=== PATIENT | female | born 1940 | race Caucasian/White ===

== ENCOUNTER → 2018-02-23 09:36 | Outpatient (POV) | payer MEDICARE, MEDICAID, SELFPAY | PROVIDERS: Visit Provider Dermatology | DX: Z00.00 Encounter for general adult medical examination without abnormal findings (principal) ==

== ENCOUNTER → 2018-03-09 09:33 | Outpatient (POV) | payer MEDICARE, MEDICAID, SELFPAY | PROVIDERS: Visit Provider Dermatology | DX: Z00.00 Encounter for general adult medical examination without abnormal findings (principal) ==

== ENCOUNTER → 2018-03-30 14:29 | Outpatient (POV) | payer MEDICARE, MEDICAID, SELFPAY | PROVIDERS: Visit Provider Dermatology | DX: Z00.00 Encounter for general adult medical examination without abnormal findings (principal) ==

== ENCOUNTER → 2018-07-16 09:52 | Outpatient (CLI) | payer MEDICARE, MEDICAID, SELFPAY ==
[2018-07-16 09:55] LABS: Microscopic, Urine URINE MICROSCOPIC (MICROSCOPIC)
[2018-07-16 10:07] LABS: Appearance,Urine CLEAR (Clear); Bilirubin,Urine Negative (Negative); Blood, Urine Negative (Negative); Color,Urine YELLOW (Yellow); Glucose,Urine (UA) Negative (Negative); Ketones,Urine Negative (Negative); Leukocyte Esterase,Urine Negative (Negative); Nitrate,Urine Negative (Negative); Protein,Urine Negative (Negative); Urobilinogen,Urine 0.2 EU/dl (0.2)
[2018-07-16 10:51] LABS: Bacteria,Urine 2+ /lpf
== END ==
PROVIDERS: Visit Provider Emergency Medicine
DX: N39.0 Urinary tract infection, site not specified (principal)
CPT/HCPCS: 81001; 87086

== ENCOUNTER → 2018-08-25 13:56 | Outpatient (CLI) | payer MEDICARE, MEDICAID, SELFPAY ==
[2018-08-25 14:04] LABS: Adenovirus F 40/41, stool Not Detected (NotDetected); Astrovirus Not Detected (NotDetected); Campylobacter Not Detected (NotDetected); Clostridium Difficile A/B, PCR Not Detected (NotDetected); Cryptosporidium Not Detected (NotDetected); Cyclospora Cayetanesis Not Detected (NotDetected); Entamoeba histolytica Not Detected (NotDetected); Enteroaggregative E coli Not Detected (NotDetected); Enteropathogenic E coli Not Detected (NotDetected); Enterotoxigenic E coli Not Detected (NotDetected); Giardia lamblia Not Detected (NotDetected); Norovirus Not Detected (NotDetected); Plesimonas Shigalloides, PCR Not Detected (NotDetected); Rotavirus A Not Detected (NotDetected); Salmonella, PCR Not Detected (NotDetected); Sapovirus Not Detected (NotDetected); Shiga-like toxin E coli Not Detected (NotDetected); Shigella Enterovasive E coli Not Detected (NotDetected); Vibrio Cholerae Not Detected (NotDetected); Vibrio, PCR Not Detected (NotDetected); Yersinia Entercolitica, PCR Not Detected (NotDetected)
== END ==
PROVIDERS: Visit Provider Emergency Medicine
DX: R19.7 Diarrhea, unspecified (principal)
CPT/HCPCS: 87506

== ENCOUNTER → 2018-09-02 13:05 | Outpatient (CLI) | payer MEDICARE, MEDICAID, SELFPAY ==
--- NOTE | 2018-09-02 13:07 | CT_ITS ---
CT chest wo con HISTORY: ITS.REASON: RT LUNG NODULE ORDERING PHYSICIAN: Jose Schmidt MD PATIENT AGE: 77 years COMPARISON: None Technique: Axial images obtained. Sagittal, and coronal reformatted images are also generated and reviewed. All CT scans at the facility use one or more dose reduction, viz: automated exposure control, ma/kV adjustment per patient size (including targeted exams where dose is matched to indication, i.e. head), or iterative reconstruction technique. FINDINGS: There are few scattered small mediastinal lymph nodes. Coronary artery calcifications are present. There is normal heart size. COPD changes with centrilobular emphysema. Small pneumatoceles present in right upper lobe medially at 2 cm. There is a calcified granuloma in the right middle lobe. Calcified granulomas are also present in the right lower lobe. Irregular parenchymal opacity noted in the lingula, left lower lobe, right lung base medially which may be due to scarring and/or volume loss. There is a 4 mm noncalcified nodule in the right upper lobe laterally nonspecific. Patchy infiltrate is present in the right lower lobe posteriorly. There is a patchy area of infiltrate in the left lower lobe as well superiorly. Upper abdominal images show a 1.5 cm isodensity of the hepatic dome anteriorly near water density and may represent a hepatic cyst. The left adrenal gland is slightly enlarged maintaining adreniform shape measuring near water density and may represent an adenoma. Moderate wedging involves the T9 vertebral body. This is age-indeterminate with some cortical irregularity involving the superior endplate. There are no previous exams available for comparison. There is also mild wedging of T7 with loss of height of approximately 30% which appears chronic. There is also mild wedging of the T12 vertebral body with loss of height of 25 percent which could be acute. MRI of the thoracic spine may be of further value. The superior endplate of L1 IMPRESSION: 1. COPD/centrilobular emphysema. 2. Scattered parenchymal opacities bilaterally which may be due to scarring/volume loss with patchy infiltrate in the superior aspect of both lower lobes. 3. Scattered calcified granulomas. 4. 4 mm noncalcified nodule right upper lobe nonspecific. 5. Multiple wedge compression changes of the thoracic spine as described above at T7 , T9, and T12. The changes at the 7 appear chronic with changes at T9 indeterminate in the changes at T12 may be acute. MRI may be of further value
== END ==
PROVIDERS: PCP Emergency Medicine; Visit Provider Emergency Medicine
DX: R91.1 Solitary pulmonary nodule (principal)
CPT/HCPCS: 71250

== ENCOUNTER → 2018-09-15 13:23 | Outpatient (CLI) | payer MEDICARE, MEDICAID, SELFPAY ==
--- NOTE | 2018-09-15 13:25 | MR_ITS ---
MR thoracic spine wo con HISTORY: ITS.REASON: wedge compression ORDERING PHYSICIAN: Vipul Jones APRN PATIENT AGE: 77 years Comparison: 09/02/2018. TECHNIQUE: Standard multiplanar multiecho sequences are performed without contrast. 3-D MIP and myelographic images are also rendered and reviewed FINDINGS: There is stable mild kyphotic increased curvature. There is generalized increased T1 marrow signal suggesting possible mild osteoporosis. Again seen are the compression deformities in evolving superior endplates at T7, T9 and T12 level. This is more prominent at T9 level with approximately 40% loss of the vertebral body height. There is some residual reactive subchondral marrow edema at this site however there is no paraspinal reaction. The superior endplate compression deformities at T7 and T12 levels are stable and mild. There are also chronic appearing Schmorl's node defects at T12 and especially on the left side at L1 level. There is a very small focal midline posterior disc protrusion at T6-7 with minimal ventral cord deformity. T7-8 shows a minimal protrusion without mass effect. T8-9 level shows minimal bulge without mass effect. Spinal cord is of normal signal. The remainder of the disc levels are normal. Nerve root and foraminal areas and paraspinal structures are unremarkable. IMPRESSION: As discussed above compression deformities likely subacute to chronic at T7, T9 and T12 levels, more prominent at T9 level. No definite osseous central canal stenosis. Small protrusions at T7-8 and T8-9 with any minimal ventral cord deformity at T7-8. Chronic endplate Schmorl's node defects at T12 and L1 levels. Probable at least mild osteoporosis.
== END ==
PROVIDERS: PCP Nurse Practitioner Family; Visit Provider Nurse Practitioner Family
DX: S22.000A Wedge compression fracture of unspecified thoracic vertebra, initial encounter for closed fracture (principal)
CPT/HCPCS: 72146

== ENCOUNTER → 2018-10-01 12:45 | Outpatient (CLI) | payer MEDICARE, MEDICAID, SELFPAY ==
--- NOTE | 2018-10-01 12:48 | XR_ITS ---
XR DEXA axial skeleton COMPARISON: None HISTORY: Patient is postmenopausal, history of fracture as an adult TECHNIQUE: DEXA scanning lumbar spine and bilateral hips FINDINGS: The average BMD lumbar spine L1-L4 is 1.094 g/sq cm and the T score is -0.7. The total BMD right hip is 0.767 g centimeters square with a T score -1.9. The right femoral neck is 0.702 g/sq cm the T score -2.4. There are similar values for the left hip. IMPRESSION: Normal T score lumbar spine, osteopenia values for the bilateral hips, consider follow-up study in approximately 2 years
== END ==
PROVIDERS: PCP Emergency Medicine; Visit Provider Emergency Medicine
DX: M81.0 Age-related osteoporosis without current pathological fracture (principal)
CPT/HCPCS: 77080

== ENCOUNTER → 2019-10-12 11:43 | Outpatient (CLI) | payer MEDICARE, MEDICAID, SELFPAY ==
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
--- NOTE | 2019-10-12 11:52 | NM_ITS ---
APPROVED REPORT Exam: Nuclear Stress Test Indication: cad, mi, tob use, fm jx, c.p., sob, fatigue Patient Location: Outpatient Stress Tech: Shaylee Payannkson NM Tech:Haley Rivas JERRY RT (R)(N)(M) Ht: 5 ft 7 in Wt: 146 lbs Bra Size: c HR: 57 bpm BP: 109/49 mmHg BSA: 1.77 m2 BMI: 22.8 History: cad, mi, tob use, fm jx, c.p., sob, fatigue Procedure: Patient received a 0.4 mg of intravenous Lexiscan, resting heart rate 57 bpm, resting blood pressure 109/49 mmHg, with Lexiscan maximum heart rate achived was 83 bpm which is Less than 85 % of the maximum predicted heart rate and blood pressure was 106/50 mmHg. Electrocardiogram Resting electrocardiogram showed sinus rhythm, with Lexiscan less than 1.[address] segment depression noted from the baseline EKG. The EKG portion of the Lexiscan is nondiagnostic. Cardiac Stress and Resting SPECT Images: Cardiac Stress and Resting SPECT images were obtained using technetium 99m Myoview 30.7 mCi stress and 10.28 mCi at rest. Gated SPECT for the analysis of segmental wall motion and calculation of the ejection fraction also done. Cardiac stress and resting SPECT images show decrease tracer activity in the anterior apical and anteroseptal wall which improves on the resting imaging raising the concerns for presence of reversible ischemia. Computer derived ejection fraction is 59% with mild anteroseptal wall hypokinesis. Right ventricle is normal size and contractility. Conclusion: 1. The EKG portion of the Lexiscan Myoview is nondiagnostic. 2. Scintigraphic evidence of reversible ischemia involving the anterior apical and anteroseptal wall, computer derived ejection fraction 59% with segmental wall motion abnormality described above, right ventricle is normal size and contractility. 3. Abnormal Lexiscan Myoview study. Electronically signed by : Ulises Saldana, 10/14/2019 10:56:40
== END ==
PROVIDERS: PCP Emergency Medicine; Visit Provider Physician Assistant
DX: F17.200 Nicotine dependence, unspecified, uncomplicated (principal); R06.00 Dyspnea, unspecified; R07.9 Chest pain, unspecified; R11.0 Nausea; R42 Dizziness and giddiness
CPT/HCPCS: 78452; 93017; 93306; A9502; J2785

== ENCOUNTER → 2019-10-17 09:54 | Outpatient (CLI) | payer MEDICARE, MEDICAID, SELFPAY ==
--- NOTE | 2019-10-17 09:54 | CA_ITS ---
APPROVED REPORT EXAM: Comprehensive 2D, Doppler, and color-flow Echocardiogram Trailer Rental Clerk: Naa Ramírez RDCS Ht: 5 ft 7 in Wt: 153lbs BSA: 1.80 BP: 104/56 mmHg Indications: CP DIZZINESS EDEMA 2D Dimensions LVOT 1.83 cm (M/F) 1.5-2.5 M-Mode Dimensions RVDd 2.70 cm (0.9-2.6) LVDd 5.24 cm (3.5-5.7) LVDs 3.84 cm (3.5-5.7) IVSd 0.72 cm (0.6-1.1) PWd 0.80 cm (0.6-1.1) EF (Teich) 51.80% FS 26.70% EDV (Teich) 131.80 mL ESV (Teich) 63.50 mL LV Diastology E/A Ratio 0.69 Mitral Valve MV A Velocity 96.00 (40-130 cm/s) Left Ventricle Left atrium is mildly enlarged, left ventricle is normal size, visually estimated ejection fraction 55% with no regional wall motion abnormality, there is no concentric left ventricular hypertrophy, grade 1 diastolic dysfunction seen without tissue Doppler evidence of raise left atrial pressure. Right Ventricle Right atrium is mildly enlarged, right ventricle is normal size and contractility. Aortic Valve Aortic valve is minimally thickened and fibrosed, there is no aortic stenosis or aortic insufficiency. Mitral Valve Mitral valve leaflets are minimally thickened, there is no mitral stenosis, there is mild mitral regurgitation. Tricuspid Valve Tricuspid valve is grossly normal, there is mild tricuspid regurgitation, tricuspid regurgitation jet velocity is inadequate for calculation of the right ventricular systolic pressure. Pulmonic Valve Pulmonic valve is poorly visualized. Great Vessels Aortic root is normal size. Pericardium No significant pericardial effusion noted. Conclusion 1. Mild biatrial enlargement, normal left ventricular size, visually estimated ejection fraction 55% with no regional wall motion abnormality, grade 1 diastolic dysfunction seen without tissue Doppler evidence of raise left atrial pressure. 2. Mild mitral and tricuspid regurgitation. 3. No significant pericardial effusion noted. Electronically signed by : Ulises Saldana, 10/17/2019 19:45:11
== END ==
PROVIDERS: PCP Emergency Medicine; Visit Provider Physician Assistant
DX: F17.200 Nicotine dependence, unspecified, uncomplicated (principal); F25.9 Schizoaffective disorder, unspecified; F31.9 Bipolar disorder, unspecified; F41.9 Anxiety disorder, unspecified; R06.00 Dyspnea, unspecified; R07.9 Chest pain, unspecified; R11.0 Nausea; R42 Dizziness and giddiness
CPT/HCPCS: 93306

== ENCOUNTER → 2021-02-12 15:23 | Outpatient (CLI) | payer MEDICARE, MEDICAID, SELFPAY ==
--- NOTE | 2021-02-12 15:33 | XR_ITS ---
PROCEDURE: XR FOOT WT BEARING RT 3V CLINICAL INDICATION: fracture evaluation COMPARISON: No exams were available for comparison FINDINGS: Nondisplaced healing fractures involve the distal neck of the 3rd 4th and 5th metatarsals. There is minimal lateral angulation of the distal fracture fragment at the 3rd and 4th metatarsal. There is generalized osteopenia with hallux valgus and bunion formation at the distal 1st metatarsal with borderline pes planus. IMPRESSION: Healing fractures at the distal aspect of the 3rd, 4th, and 5th metatarsals Dictated by: Aniceto Gutiérrez MD 02/12/2021 16:05 Aniceto Gutiérrez MD in [place] 02/12/2021 16:05
== END ==
PROVIDERS: PCP Emergency Medicine; Visit Provider Podiatrist
DX: T14.8XXA Other injury of unspecified body region, initial encounter (principal); S92.334A Nondisplaced fracture of third metatarsal bone, right foot, initial encounter for closed fracture; S92.344A Nondisplaced fracture of fourth metatarsal bone, right foot, initial encounter for closed fracture; S92.354A Nondisplaced fracture of fifth metatarsal bone, right foot, initial encounter for closed fracture
CPT/HCPCS: 73630

== ENCOUNTER → 2021-03-12 11:05 | Outpatient (CLI) | payer MEDICARE, MEDICAID, SELFPAY ==
--- NOTE | 2021-03-12 11:08 | XR_ITS ---
PROCEDURE: XR FOOT WT BEARING RT 3V CLINICAL INDICATION: fracture eval COMPARISON: CR XR FOOT WT BEARING RT 3V from 02/12/2021 FINDINGS: Healing fractures are present involving the distal neck of the 3rd, 4th, and 5th metatarsals. There is generalized osteopenia with mild hallux valgus and osteoarthritic change at the 1st MTP. Other findings:None. IMPRESSION: Healing 3rd 4th and 5th metatarsal fractures distally Dictated by: Aniceto Gutiérrez MD 03/12/2021 17:19 Aniceto Gutiérrez MD in [facility] 03/12/2021 17:19
== END ==
PROVIDERS: PCP Emergency Medicine; Visit Provider Podiatrist
DX: S92.301A Fracture of unspecified metatarsal bone(s), right foot, initial encounter for closed fracture (principal); S92.333A Displaced fracture of third metatarsal bone, unspecified foot, initial encounter for closed fracture; S92.343A Displaced fracture of fourth metatarsal bone, unspecified foot, initial encounter for closed fracture
CPT/HCPCS: 73630

== ENCOUNTER → 2021-05-13 10:22 | Outpatient (CLI) | payer MEDICARE, MEDICAID, SELFPAY ==
--- NOTE | 2021-05-13 10:45 | XR_ITS ---
FINAL REPORT CLINICAL HISTORY: Fracture follow up COMPARISON: 02/12/2021 FINDINGS: RIGHT FOOT 3 views of the right foot were obtained. There is no acute fracture or dislocation. There are healed fractures of the distal third and fourth metatarsals. Bones are osteopenic. There is moderate hallux valgus deformity. A small plantar spur is noted. Soft tissues are unremarkable. IMPRESSION: Healing fractures of the distal third and fourth metatarsals. Reviewed, Interpreted and Dictated by Jassi Miguel MD Transcribed by Phylicia Chan Authenticated by Jassi Miguel MD on 05/13/2021 01:15:22 PM [facility]
== END ==
PROVIDERS: PCP Emergency Medicine; Visit Provider Podiatrist
DX: T14.8XXA Other injury of unspecified body region, initial encounter (principal); S92.334D Nondisplaced fracture of third metatarsal bone, right foot, subsequent encounter for fracture with routine healing; S92.344D Nondisplaced fracture of fourth metatarsal bone, right foot, subsequent encounter for fracture with routine healing; S92.324D Nondisplaced fracture of second metatarsal bone, right foot, subsequent encounter for fracture with routine healing; S92.354D Nondisplaced fracture of fifth metatarsal bone, right foot, subsequent encounter for fracture with routine healing
CPT/HCPCS: 73630

== ENCOUNTER 2021-07-15 19:36 | Emergency (ER) | payer MEDICARE, MEDICAID, SELFPAY ==
[2021-07-15] VITALS (8 sets, daily range): BP systolic 100–118; BP diastolic 33–73; PULSE 45–63; RESP 7–18; TEMP 36.9; O2SAT 95–100; BMI 23.6
--- NOTE | 2021-07-15 19:35 | ECG_ITS ---
APPROVED REPORT Exam: Resting ECG HR:56 bpm ECG Measurements Heart Rate 56 AXES NM 186 P 87 QRSd 129 QRS 0 QT 442 T 6 QTc 433 Conclusion SINUS BRADYCARDIA RIGHT BUNDLE BRANCH BLOCK [120+ ms QRS DURATION, UPRIGHT V1, 40+ ms S IN I/aVL/V4/V5/V6] POSSIBLE ANTERIOR MYOCARDIAL INFARCTION , OF INDETERMINATE AGE [30 ms Q WAVE IN V3/V4, OR R < 0.2 mV IN V4] ABNORMAL ECG UNCONFIRMED REPORT Electronically signed by : Abdulaziz Rondon MD 07/18/2021 08:07:35
--- NOTE | 2021-07-15 19:40 | XR_ITS ---
PROCEDURE INFORMATION: Exam: XR Chest Exam date and time: 07/15/2021 7:45 PM Age: 80 years old Clinical indication: Sternal or substernal pain; Patient HX: Chest pain; Additional info: Cp TECHNIQUE: Imaging protocol: XR of the chest. Views: 1 view. COMPARISON: CHESTWO CT chest wo con 09/02/2018 1:50 PM FINDINGS: Lungs: Granulomatous changes. Coarse interstitial lung markings lateral chronic. No consolidation. Pleural spaces: Unremarkable. No pleural effusion. No pneumothorax. Heart/Mediastinum: Unremarkable. No cardiomegaly. Bones/joints: Unremarkable. IMPRESSION: No acute findings.
[2021-07-15 19:48] LABS: Basophils # 0.1 K/mm3 (0-0.2); Basophils % 1.2 % (0.1-2.0); Eosinophils # 0.1 K/mm3 (0.0-0.4); Eosinophils % 1.6 % (0.1-12.0); Hematocrit 37.5 % (37.0-47.0); Hemoglobin 12.1 g/dL (12.2-16.2); Lymphocytes # 2.5 K/mm3 (0.7-4.5); Lymphocytes % 34.9 % (10-50); Mean Corpuscular HGB Conc 32.3 g/dL (31.8-35.4); Mean Corpuscular Hemoglobin 29.2 pg (27.0-31.2); Mean Corpuscular Volume 90.2 fl (81-99); Mean Platelet Volume 8.4 fl (7.4-10.4); Monocytes # 0.6 K/mm3 (0.1-1.0); Monocytes % 7.8 % (1.7-9.3); Neutrophils # 3.8 K/mm3 (1.8-7.8); Neutrophils % 54.3 % (37.0-80.0); Platelet Count 226 K/mm3 (142-424); Red Blood Count 4.16 M/mm3 (4.20-5.40); Red Cell Distribution Width 14.7 % (11.5-17.5)
[2021-07-15 19:56] LABS: Chloride 101 mmol/L (98-107); Potassium 3.5 mmoL/L (3.5-5.1); Sodium 134 mmol/L (136-145)
[2021-07-15 19:58] LABS: Blood Urea Nitrogen 12 mg/dl (7-17); Creatinine Clearance Estimated 44 mL/min (50-200); Estimated Glomerular Filt Rate 119 ml/min (>60); GFR (African American) 144 ML/MIN (>60)
[2021-07-15 19:59] LABS: Anion Gap 7.5 mEq/L (5-15); Carbon Dioxide 29 mmol/L (22.0-30.0); Glucose 136 mg/dl (74-100)
[2021-07-15 20:13] LABS: Troponin I < 0.01 ng/ml (0.00-0.034)
--- NOTE | 2021-07-15 20:37 | [facility].EDCP ---
ED Disposition Clinical Impression: Chest pain Qualifiers: Chest pain type: precordial pain Qualified Code(s): R07.2 - Precordial pain Schizoaffective disorder Qualifiers: Schizoaffective disorder type: unspecified Qualified Code(s): F25.9 - Schizoaffective disorder, unspecified COPD (chronic obstructive pulmonary disease) Qualifiers: COPD type: unspecified COPD Qualified Code(s): J44.9 - Chronic obstructive pulmonary disease, unspecified Disposition: Home, Self-Care Condition on Discharge: Good Instructions: DI for Atypical Chest Pain Additional Instructions: resume prev orders Referrals: Jose Schmidt MD [Primary Care Provider] - - Critical Care Critical Care Time: No Attestation: On 07/15/21, the high probability of a clinically significant, sudden or life threatening deterioration of the following system(s) required my full and direct attention, intervention and personal management. The time I documented below is in addition to time spent performing reported procedures but includes the following listed in this critical care notation. Medical Decision Making - Medical Records Medical records reviewed: Yes: I reviewed the patient's medical records. - Shahid Inquiry Pt receiving controlled substance: No Vital Signs: 07/15/21 19:32 07/15/21 20:00 07/15/21 20:30 Temperature 98.5 F Temperature Source Oral Pulse Rate 56 L 50 L Pulse Rate [Right] 63 Respiratory Rate 18 12 8 L Blood Pressure 110/49 L 104/54 L Blood Pressure [Right Arm] 100/33 L Blood Pressure Mean [Right Arm] 55 02 Sat by Pulse Oximetry 100 96 95 Oxygen Delivery Method Room Air Room Air 07/15/21 21:01 07/15/21 21:45 07/15/21 22:30 Temperature Temperature Source Pulse Rate 45 L 51 L 57 L Pulse Rate [Right] Respiratory Rate 7 L Blood Pressure 115/56 L 118/73 109/56 L Blood Pressure [Right Arm] Blood Pressure Mean [Right Arm] 02 Sat by Pulse Oximetry 96 98 97 Oxygen Delivery Method Room Air Room Air Room Air 07/15/21 23:00 07/15/21 23:30 07/16/21 00:00 Temperature Temperature Source Pulse Rate 60 56 L 60 Pulse Rate [Right] Respiratory Rate 12 Blood Pressure 110/66 114/54 L 110/56 L Blood Pressure [Right Arm] Blood Pressure Mean [Right Arm] 02 Sat by Pulse Oximetry 98 96 93 L Oxygen Delivery Method Room Air Room Air Room Air 07/16/21 01:00 Temperature Temperature Source Pulse Rate 57 L Pulse Rate [Right] Respiratory Rate Blood Pressure 120/81 Blood Pressure [Right Arm] Blood Pressure Mean [Right Arm] 02 Sat by Pulse Oximetry 96 Oxygen Delivery Method Room Air - Lab Data Lab results reviewed: Yes: I reviewed the patient's lab results. Lab Results 07/15/21 19:37: WBC 7.0, RBC 4.16 L, Hgb 12.1 L, Hct 37.5, MCV 90.2, MCH 29.2, MCHC 32.3, RDW 14.7, Plt Count 226, MPV 8.4, Neut % (Auto) 54.3, Lymph % (Auto) 34.9, [place] % (Auto) 7.8, Eos % (Auto) 1.6, Baso % (Auto) 1.2, Neut # (Auto) 3.8, Lymph # (Auto) 2.5, [place] # (Auto) 0.6, Eos # (Auto) 0.1, Baso # (Auto) 0.1 07/15/21 19:37: Sodium 134 L, Potassium 3.5, Chloride 101, Carbon Dioxide 29, Anion Gap 7.5, BUN 12, Creatinine 0.50 L, Estimated Creat Clear 44, Estimated GFR 119, Est GFR ( Amer) 144, Glucose 136 H, Calcium 9.0, Troponin I < 0.01 07/15/21 22:20: Troponin I 0.02 Result diagrams: 07/15/21 19:37 07/15/21 19:37 Orders (Tests/Meds): ED MEDICATIONS Generic Name Dose Route Start Last Admin Trade Name Freq PRN Reason Stop Dose Admin Lactated Ringer's 1,000 mls @ 999 mls/hr 07/15/21 19:45 07/15/21 19:47 Lactated Ringer's 1000 Ml Bag IV 07/15/21 20:45 999 mls/hr .Q1H1M BIMAL Administration Discontinued Medications Generic Name Dose Route Start Last Admin Trade Name Freq PRN Reason Stop Dose Admin Iopamidol 70 ml 07/15/21 21:45 07/15/21 21:46 Iopamidol-370 (76%);100ml Bottle IV 07/15/21 21:46 70 ml ONCE ONE Administration Sodium Chloride 50 ml 07/15/21 21:45
--- NOTE | 2021-07-15 20:48 | CT_ITS ---
PROCEDURE INFORMATION: Exam: CTA Chest With Contrast Exam date and time: 07/15/2021 9:34 PM Age: 80 years old Clinical indication: Sternal or substernal pain; Additional info: Cp TECHNIQUE: Imaging protocol: Computed tomographic angiography of the chest with contrast. 3D rendering (Not supervised by radiologist): MIP and/or 3D reconstructed images were created by the technologist. Radiation optimization: All CT scans at this facility use at least one of these dose optimization techniques: automated exposure control; mA and/or kV adjustment per patient size (includes targeted exams where dose is matched to clinical indication); or iterative reconstruction. Contrast material: ISOVUE; Contrast volume: 70 ml; Contrast route: INTRAVENOUS (IV); COMPARISON: CHESTWO CT chest wo con 09/02/2018 1:50 PM FINDINGS: Pulmonary arteries: Normal. No pulmonary emboli. Aorta: Unremarkable. No aortic aneurysm. No aortic dissection. Lungs: Emphysema. No pneumonia. Elevated right hemidiaphragm. Mild scarring in the lung bases. Pleural spaces: Unremarkable. No pneumothorax. No pleural effusion. Heart: Unremarkable. No cardiomegaly. No pericardial effusion. Lymph nodes: Unremarkable. No enlarged lymph nodes. Gallbladder and bile ducts: Gallstone. Adrenal glands: Upper abdomen reveals bilateral adrenal adenomas. Stomach and bowel: Gastric wall thickening which could be due to lack of distention or gastritis. Bones/joints: Multilevel chronic fracture deformities in the thoracic spine. Soft tissues: Unremarkable. IMPRESSION: No pulmonary embolism. No acute cardiopulmonary process
[2021-07-15 22:54] LABS: Troponin I 0.02 ng/ml (0.00-0.034)
[2021-07-16] VITALS: BP 110/56; PULSE 60; RESP 12; O2SAT 93
[2021-07-16 01:00] VITALS: BP 120/81; PULSE 57; O2SAT 96
[2021-07-16 01:22] VITALS: BP 120/81; PULSE 57; RESP 18; TEMP 37; O2SAT 99
--- NOTE | 2021-07-16 01:42 | PC.NURSE ---
Attempted to call report at [phone]. Unable to reach staff at [facility]. Provider note sent with documentation.
== END 2021-07-16 01:42 | disposition home or self-care (01) ==
PROVIDERS: Emergency Provider Emergency Medicine; PCP Emergency Medicine
DX: R07.2 Precordial pain (principal); F25.9 Schizoaffective disorder, unspecified; F31.9 Bipolar disorder, unspecified; J44.9 Chronic obstructive pulmonary disease, unspecified; F17.210 Nicotine dependence, cigarettes, uncomplicated; E11.9 Type 2 diabetes mellitus without complications; E78.5 Hyperlipidemia, unspecified; K21.9 Gastro-esophageal reflux disease without esophagitis; I10 Essential (primary) hypertension
CPT/HCPCS: 71045; 71275; 80048; 84484; 85025; 93005; 99285; Q9967

== ENCOUNTER 2022-01-08 03:17 | Emergency (ER) | payer MEDICARE, MEDICAID, SELFPAY ==
--- NOTE | 2022-01-08 03:12 | ECG_ITS ---
APPROVED REPORT Exam: Resting ECG HR:58 bpm ECG Measurements Heart Rate 58 AXES ME 185 P 48 QRSd 127 QRS 13 QT 442 T 24 QTc 438 Conclusion SINUS BRADYCARDIA RIGHT BUNDLE BRANCH BLOCK [120+ ms QRS DURATION, UPRIGHT V1, 40+ ms S IN I/aVL/V4/V5/V6] ABNORMAL ECG UNCONFIRMED REPORT Electronically signed by : Abdulaziz Rondon MD 01/08/2022 21:56:58
[2022-01-08 03:17] VITALS: BP 143/53; PULSE 64; RESP 19; TEMP 36.8; O2SAT 96; BMI 23.8
--- NOTE | 2022-01-08 03:32 | XR_ITS ---
PROCEDURE INFORMATION: Exam: XR Chest Exam date and time: 01/08/2022 3:48 AM Age: 81 years old Clinical indication: Shortness of breath; Additional info: Chest pain TECHNIQUE: Imaging protocol: Radiologic exam of the chest. Views: 1 view. COMPARISON: CR XR CHEST PORTABLE 07/15/2021 7:45 PM FINDINGS: Lungs: Right basilar granulomas are stable. There is no pulmonary consolidation. There is hyperinflation consistent with COPD. Pleural spaces: No pleural effusion. No pneumothorax. Heart/Mediastinum: No cardiomegaly. Bones/joints: There are degenerative changes of the spine and shoulders. IMPRESSION: 1. There is no evidence of active pulmonary disease. 2. A followup PA and lateral radiograph is recommended when the patient is clinically able.
[2022-01-08 03:40] VITALS: BP 91/49; PULSE 58; O2SAT 96
[2022-01-08 03:45] LABS: Chloride 98 mmol/L (98-107); Potassium 3.5 mmoL/L (3.5-5.1); Sodium 134 mmol/L (136-145)
[2022-01-08 03:48] LABS: Anion Gap 9.5 mEq/L (5-15); Blood Urea Nitrogen 7 mg/dl (7-17); Carbon Dioxide 30 mmol/L (22.0-30.0); Creatinine Clearance Estimated 42 mL/min (50-200); Estimated Glomerular Filt Rate 154 ml/min (>60); GFR (African American) 186 ML/MIN (>60)
[2022-01-08 03:49] LABS: Calcium 8.5 mg/dl (8.4-10.2); Glucose 90 mg/dl (74-100)
[2022-01-08 03:54] LABS: Basophils # 0.1 K/mm3 (0-0.2); Basophils % 0.6 % (0.1-2.0); Eosinophils # 0.2 K/mm3 (0.0-0.4); Eosinophils % 1.8 % (0.1-12.0); Hematocrit 37.2 % (37.0-47.0); Hemoglobin 11.8 g/dL (12.2-16.2); Lymphocytes # 2.4 K/mm3 (0.7-4.5); Lymphocytes % 28.8 % (10-50); Mean Corpuscular HGB Conc 31.8 g/dL (31.8-35.4); Mean Corpuscular Hemoglobin 29.4 pg (27.0-31.2); Mean Corpuscular Volume 92.5 fl (81-99); Mean Platelet Volume 8.9 fl (7.4-10.4); Monocytes # 0.6 K/mm3 (0.1-1.0); Monocytes % 7.6 % (1.7-9.3); Neutrophils # 5.2 K/mm3 (1.8-7.8); Neutrophils % 61.1 % (37.0-80.0); Platelet Count 257 K/mm3 (142-424); Red Blood Count 4.03 M/mm3 (4.20-5.40); Red Cell Distribution Width 14.3 % (11.5-17.5); White Blood Count 8.5 K/mm3 (4.8-10.8)
[2022-01-08 04:00] VITALS: BP 89/47; PULSE 54; RESP 15; O2SAT 97
[2022-01-08 04:09] LABS: Troponin I < 0.01 ng/ml (0.00-0.034)
--- NOTE | 2022-01-08 04:19 | HMH.EDCP ---
Discharge Plan Disposition Patient Disposition: Home, Self-Care Chief Complaint: Chest Pain Prescriptions Prescriptions: No Action escitalopram oxalate 20 mg tablet 20 mg PO DAILY pantoprazole 20 mg tablet,delayed release (DR/EC) 20 mg PO DAILY cholecalciferol (vitamin D3) 25 mcg (1,000 unit) capsule 25 mcg PO DAILY calcium citrate 200 mg (950 mg) tablet 200 mg PO DAILY acetaminophen 500 mg capsule 500 mg PO Q6H PRN (Reason: pain) propylene glycol 0.6 % drops 1 drp OPHTHALMIC DAILY ferrous sulfate 325 mg (65 mg iron) tablet 325 mg PO BID loratadine 10 mg capsule 10 mg PO DAILY multivitamin capsule 1 cap PO DAILY oxybutynin chloride [Ditropan XL] 5 mg tablet extended release 24hr 5 mg PO QHS raloxifene [Evista] 60 mg tablet 60 mg PO DAILY trazodone 50 mg tablet 50 mg PO QHS omega-3 fatty acids-fish oil [Fish Oil] 360-1,200 mg capsule 1 cap PO DAILY nitroglycerin [Nitro-Dur] 0.2 mg/hr patch 24 hour 1 patch TRANSDERMA DAILY Rx Instructions: allow nitrate-free interval of approx. 10-12 hrs per 24-hour period clonazepam 0.5 mg tablet 0.5 mg PO BID clopidogrel [Plavix] 75 mg tablet 75 mg PO DAILY Invega Sustenna 234 mg/1.5 mL syringe 234 mg IM MONTHLY Myrbetriq 50 mg tablet extended release 24 hr 50 mg PO DAILY Clinical Impressions Clinical Impression: Schizoaffective disorder, Chest pain, COPD (chronic obstructive pulmonary disease), Tobacco abuse Instructions Patient Instructions: DI for Atypical Chest Pain Discharge ED Provider: Jose Schmidt Chest Pain HPI General Chief Complaint: Chest Pain Stated Complaint: CP per [facility] Time Seen by Provider: 01/08/22 03:30 Mode of Arrival: EMS Source of Information: Patient, EMS and Medical Record Limitations: Altered Mental Status Description of Symptoms (Recalled from ER Triage Doc. by RN): Per Marilynn @ [facility], pt was c/o chest pain, SOA, and dizziness. Per EMS, pt denied any of these symptoms but did state I woke up anxious . Upon arrival to ER, pt denies any chest pain, SOA, or dizziness. She is A&O to person & place. Per facility no injury or trauma. Denies cough. History of Present Illness HPI narrative: [facility] with possible chest pain - awoke and felt diffuse pain - none now MD complaint: chest pain indicative of cardiac Onset (ago): hour(s) Duration: now resolved Activity at onset: awoke with symptoms Pain location: left chest Severity: mild Quality: other (nonspecific) Risk Factors for CAD: Hypertension, Family Hx of CAD and Smoking Treatments prior to or on arrival for Cardiac Chest Pain: none BARBY Score for Non-Stemi Age of Patient: 70-79 years old Heart Rate: 50-69 bpm Systolic Blood Pressure: 80-99 mmHg Serum Creatinine: 0.40-0.79 mg/dl CHF [place] Class: I-No CHF Other Risk Factors: None Non-Stemi Risk Score: 135 Related Data Home Medications Medication Instructions Recorded Confirmed acetaminophen 500 mg capsule 500 mg PO Q6H PRN pain 10/14/17 01/08/22 ferrous sulfate 325 mg (65 mg 325 mg PO BID Supplement 10/14/17 01/08/22 iron) tablet loratadine 10 mg capsule 10 mg PO DAILY allergies 10/14/17 01/08/22 multivitamin 1 cap PO DAILY Supplement 10/14/17 01/08/22 omega-3 fatty acids-fish oil 360 1 cap PO DAILY Supplement 10/14/17 01/08/22 mg-1,200 mg capsule (Fish Oil) oxybutynin chloride 5 mg 5 mg PO QHS bladder 10/14/17 01/08/22 tablet,extended release 24 hr (Ditropan XL) propylene glycol 0.6 % eye drops 1 drp ophthalmic (eye) DAILY 10/14/17 01/08/22 glacoma raloxifene 60 mg tablet (Evista) 60 mg PO DAILY muscle spasms 10/14/17 01/08/22 trazodone 50 mg tablet 50 mg PO QHS sleep 10/14/17 01/08/22 escitalopram oxalate 20 mg tablet 20 mg PO DAILY mood 10/05/19 01/08/22 pantoprazole 20 mg tablet,delayed 20 mg PO DAILY GERD 11/18/19 01/08/22 release cholecalciferol (vitamin D3) 25 25 mcg PO BRITTANI
[2022-01-08 04:30] VITALS: BP 101/52; PULSE 57; RESP 14; O2SAT 97
[2022-01-08 05:00] VITALS: BP 112/54; PULSE 58; RESP 15; O2SAT 97
[2022-01-08 05:13] VITALS: BP 112/54; PULSE 54; RESP 18; TEMP 36.8; O2SAT 98
== END 2022-01-08 05:40 | disposition home or self-care (01) ==
PROVIDERS: Emergency Provider Emergency Medicine; PCP Emergency Medicine
DX: R07.9 Chest pain, unspecified (principal); J44.9 Chronic obstructive pulmonary disease, unspecified; F25.9 Schizoaffective disorder, unspecified; Z72.0 Tobacco use; Z79.899 Other long term (current) drug therapy; Z88.6 Allergy status to analgesic agent; Z88.8 Allergy status to other drugs, medicaments and biological substances; F41.9 Anxiety disorder, unspecified; D50.9 Iron deficiency anemia, unspecified; M81.0 Age-related osteoporosis without current pathological fracture; G25.81 Restless legs syndrome; F31.9 Bipolar disorder, unspecified
CPT/HCPCS: 71045; 80048; 84484; 85025; 93005; 99284

== ENCOUNTER → 2022-07-25 13:58 | Outpatient (CLI) | payer MEDICARE, MEDICAID, SELFPAY ==
[2022-07-25 14:28] LABS: Microscopic, Urine URINE MICROSCOPIC (MICROSCOPIC)
[2022-07-25 15:23] LABS: Appearance,Urine CLEAR (Clear); Blood, Urine Negative (Negative); Color,Urine AMBER (Yellow); Glucose,Urine (UA) Negative (Negative); Ketones,Urine 1+ (Negative); Leukocyte Esterase,Urine Negative (Negative); Nitrate,Urine Negative (Negative); Protein,Urine TRACE (Negative); Specific Gravity, Urine 1.025 (1.005-1.030); Urobilinogen,Urine 0.2 EU/dl (0.2)
[2022-07-25 15:30] LABS: Bilirubin,Urine 1+ (Negative)
[2022-07-25 16:36] LABS: Calcium Oxalate Crystals,Urine 3+ /lpf; Squamous Epithelial Cell,Urine Occasional #/hpf (0-5)
== END ==
PROVIDERS: PCP Emergency Medicine; Visit Provider Emergency Medicine
DX: N39.0 Urinary tract infection, site not specified (principal)
CPT/HCPCS: 81001

== ENCOUNTER 2022-10-16 03:23 | Emergency (ER) | payer MEDICARE, MEDICAID, SELFPAY ==
[2022-10-16] VITALS (7 sets, daily range): BP systolic 97–130; BP diastolic 44–78; PULSE 60–72; RESP 16–18; TEMP 36.8; O2SAT 94–96; BMI 19.4
--- NOTE | 2022-10-16 03:30 | XR_ITS ---
PROCEDURE INFORMATION: Exam: XR Left Tibia and Fibula Exam date and time: 10/16/2022 3:50 AM Age: 81 years old Clinical indication: Injury or trauma; Fall; Blunt trauma; Lower leg; Left TECHNIQUE: Imaging protocol: Radiologic exam of the left tibia and fibula. Views: 2 views. COMPARISON: No relevant prior studies available. FINDINGS: Bones/joints: No acute fracture or dislocation. Soft tissues: Moderate edema in the soft tissues of the calf. Anterior soft tissue swelling overlying the patellar tendon. Vasculature: Vascular calcifications. IMPRESSION: No acute fracture or dislocation.
--- NOTE | 2022-10-16 03:30 | XR_ITS ---
PROCEDURE INFORMATION: Exam: XR Left Hip Exam date and time: 10/16/2022 3:50 AM Age: 81 years old Clinical indication: Injury or trauma; Fall; Blunt trauma (contusions or hematomas); Left; Hip TECHNIQUE: Imaging protocol: Radiologic exam of the left hip. Views: 2 or 3 views hip with pelvis when performed. COMPARISON: No relevant prior studies available. FINDINGS: Bones/joints: No acute fracture or dislocation. Soft tissues: Unremarkable. IMPRESSION: No acute fracture or dislocation.
--- NOTE | 2022-10-16 03:30 | XR_ITS ---
PROCEDURE INFORMATION: Exam: XR Left Shoulder Exam date and time: 10/16/2022 3:50 AM Age: 81 years old Clinical indication: Injury or trauma; Fall; Blunt trauma (contusions or hematomas); Shoulder; Left TECHNIQUE: Imaging protocol: Radiologic exam of the left shoulder. Views: 2 or more views. COMPARISON: CR XR CHEST PORTABLE 08/01/2022 03:48 FINDINGS: Bones/joints: No acute fracture or dislocation. Moderate osteoarthrosis of the glenohumeral joint. Soft tissues: Normal. IMPRESSION: No acute fracture or dislocation.
--- NOTE | 2022-10-16 03:30 | XR_ITS ---
PROCEDURE INFORMATION: Exam: XR Right Shoulder Exam date and time: 10/16/2022 3:50 AM Age: 81 years old Clinical indication: Injury or trauma; Fall; Blunt trauma (contusions or hematomas); Shoulder; Right TECHNIQUE: Imaging protocol: Radiologic exam of the right shoulder. Views: 2 or more views. COMPARISON: CR XR CHEST PORTABLE 08/01/2022 03:48 FINDINGS: Bones/joints: No acute fracture or dislocation. Mild osteolysis of the distal clavicle, which is unchanged compared to prior study. Soft tissues: Normal. IMPRESSION: No acute fracture or dislocation.
--- NOTE | 2022-10-16 03:30 | XR_ITS ---
PROCEDURE INFORMATION: Exam: XR Chest Exam date and time: 10/16/2022 3:50 AM Age: 81 years old Clinical indication: Injury or trauma; Fall; Blunt trauma (contusions or hematomas) TECHNIQUE: Imaging protocol: Radiologic exam of the chest. Views: 1 view. COMPARISON: CR XR CHEST PORTABLE 08/01/2022 03:48 FINDINGS: Lungs: Stigmata of old granulomatous disease. Pleural spaces: Unremarkable. No pleural effusion. No pneumothorax. Heart/Mediastinum: Cardiomegaly. Vasculature: Vascular calcifications. Bones/joints: Unremarkable. IMPRESSION: No acute intrathoracic organ injury.
--- NOTE | 2022-10-16 03:30 | XR_ITS ---
PROCEDURE INFORMATION: Exam: XR Right Tibia and Fibula Exam date and time: 10/16/2022 3:50 AM Age: 81 years old Clinical indication: Injury or trauma; Fall; Blunt trauma; Lower leg; Right TECHNIQUE: Imaging protocol: Radiologic exam of the right tibia and fibula. Views: 2 views. COMPARISON: CR XR FOOT WT BEARING RT 3V 13/05/2021 10:51 FINDINGS: Bones/joints: Mild tricompartmental osteoarthrosis of the knee. No acute fracture or dislocation. Soft tissues: Moderate soft tissue edema in the calf. Vasculature: Vascular calcifications. IMPRESSION: No acute fracture or dislocation.
--- NOTE | 2022-10-16 03:30 | XR_ITS ---
PROCEDURE INFORMATION: Exam: XR Right Hip Exam date and time: 10/16/2022 3:50 AM Age: 81 years old Clinical indication: Injury or trauma; Fall; Blunt trauma (contusions or hematomas); Right; Hip TECHNIQUE: Imaging protocol: Radiologic exam of the right hip. Views: 2 or 3 views hip with pelvis when performed. COMPARISON: No relevant prior studies available. FINDINGS: Bones/joints: No acute fracture or dislocation. Soft tissues: Unremarkable. IMPRESSION: No acute fracture or dislocation.
--- NOTE | 2022-10-16 03:30 | XR_ITS ---
PROCEDURE INFORMATION: Exam: XR Pelvis Exam date and time: 10/16/2022 3:50 AM Age: 81 years old Clinical indication: Injury or trauma; Fall; Blunt trauma (contusions or hematomas); Bilateral; Pelvic region TECHNIQUE: Imaging protocol: Radiologic exam of the pelvis. Views: 1 or 2 view. COMPARISON: No relevant prior studies available. FINDINGS: Bones/joints: No acute fracture or dislocation. Soft tissues: Unremarkable. IMPRESSION: No acute fracture or dislocation.
--- NOTE | 2022-10-16 03:32 | CT_ITS ---
PROCEDURE INFORMATION: Exam: CTA Chest With Contrast Exam date and time: 10/16/2022 4:46 AM Age: 81 years old Clinical indication: Injury or trauma; Fall; Additional info: Trauma, critical injury suspected TECHNIQUE: Imaging protocol: Computed tomographic angiography of the chest with contrast. Exam focused on the arteries. 3D rendering (Not supervised by radiologist): MIP and/or 3D reconstructed images were created by the technologist. Radiation optimization: All CT scans at this facility use at least one of these dose optimization techniques: automated exposure control; mA and/or kV adjustment per patient size (includes targeted exams where dose is matched to clinical indication); or iterative reconstruction. Contrast material: ISOVUE; Contrast volume: 80 ml; Contrast route: INTRAVENOUS (IV); REPORTING DATA: Count of CT and Cardiac NM exams in prior 12 months: This patient has received 0 known CTs and 0 known cardiac nuclear medicine studies in the 12 months prior to the current study. COMPARISON: CT ANGIO CHEST PE PROTOCOL 15/07/2021 21:34 FINDINGS: Pulmonary arteries: Enlarged pulmonary arteries likely represent chronic pulmonary arterial hypertension. Aorta: The aorta demonstrates severe atherosclerotic disease. Lungs: [id number] centrilobular emphysema. Pleural spaces: Unremarkable. No pneumothorax. No pleural effusion. Heart: Cardiomegaly. Mitral and aortic valve calcifications. Coronary arteries: Coronary artery calcifications. Lymph nodes: Unremarkable. No enlarged lymph nodes. Bones/joints: Nondisplaced left 6th rib fracture, likely acute. Soft tissues: Unremarkable. Other findings: Stigmata of old granulomatous disease. Please see separate report for abdomen/pelvis. IMPRESSION: 1. No acute intrathoracic organ injury. 2. Nondisplaced left 6th rib fracture, likely acute.
--- NOTE | 2022-10-16 03:32 | CT_ITS ---
PROCEDURE INFORMATION: Exam: CTA Head With Contrast, Arteriography Exam date and time: 10/16/2022 4:42 AM Age: 81 years old Clinical indication: Injury or trauma; Fall; Additional info: Trauma, critical injury suspected TECHNIQUE: Imaging protocol: Computed tomographic angiography of the head with contrast. Exam focused on the arteries. 3D rendering (Not supervised by radiologist): MIP and/or 3D reconstructed images were created by the technologist. Radiation optimization: All CT scans at this facility use at least one of these dose optimization techniques: automated exposure control; mA and/or kV adjustment per patient size (includes targeted exams where dose is matched to clinical indication); or iterative reconstruction. Contrast material: ISOVUE; Contrast volume: 100 ml; Contrast route: INTRAVENOUS (IV); REPORTING DATA: Count of CT and Cardiac NM exams in prior 12 months: This patient has received 0 known CTs and 0 known cardiac nuclear medicine studies in the 12 months prior to the current study. COMPARISON: CT HEAD/BRAIN WO CON 10/16/2022 4:31 AM FINDINGS: ANTERIOR CIRCULATION: Right internal carotid artery: There are mild focal mural calcifications and plaque along the course of the intracranial internal carotid artery. No significant stenosis or occlusion. Right middle cerebral artery: No occlusion or significant stenosis. No aneurysm. Right anterior cerebral artery: No occlusion or significant stenosis. No aneurysm. Left internal carotid artery: There are mild mural calcifications and plaque along the course of the intracranial internal carotid artery. No significant stenosis or occlusion. Left middle cerebral artery: No occlusion or significant stenosis. No aneurysm. Left anterior cerebral artery: No occlusion or significant stenosis. No aneurysm. POSTERIOR CIRCULATION: Right vertebral artery: No occlusion or significant stenosis. No aneurysm. Left vertebral artery: No occlusion or significant stenosis. No aneurysm. Basilar artery: No occlusion or significant stenosis. No aneurysm. Right posterior cerebral artery: There is an hypoplastic/anaplastic P1 segment variation of normal anatomy. The P2 segment is supplied by a patent persistent trigeminal artery/P-comm. No occlusion or significant stenosis. No aneurysm. Left posterior cerebral artery: No occlusion or significant stenosis. No aneurysm. DURAL VENOUS SINUSES: Cavernous Sinues: Patent. Superior sagittal sinus: Patent. Straight sinus: Patent. Inferior sagittal sinus: Patent. Transverse sinuses: Patent. Sigmoid sinuses: Patent. Internal jugular veins: Limited visualized internal jugular veins are patent. Jugular bulbs: Patent. Brain: No definite mass, mass effect, or midline shift. Cerebral ventricles: No ventriculomegaly. Bones/joints: Unremarkable. No acute fracture. Soft tissues: Unremarkable. IMPRESSION: 1. There are mild atherosclerotic changes of the bilateral intracranial internal carotid artery segments. No significant stenosis or occlusion. 2. Otherwise no evidence of intracranial large vessel stenosis or occlusion of remaining cerebral arteries. No evidence of aneurysm or AVM. 3. No evidence of deep venous thrombosis.
--- NOTE | 2022-10-16 03:32 | CT_ITS ---
PROCEDURE INFORMATION: Exam: CTA Neck With Contrast Exam date and time: 10/16/2022 4:42 AM Age: 81 years old Clinical indication: Injury or trauma; Fall; Additional info: Trauma, critical injury suspected TECHNIQUE: Imaging protocol: Computed tomographic angiography of the neck with contrast. 3D rendering (Not supervised by radiologist): MIP and/or 3D reconstructed images were created by the technologist. Radiation optimization: All CT scans at this facility use at least one of these dose optimization techniques: automated exposure control; mA and/or kV adjustment per patient size (includes targeted exams where dose is matched to clinical indication); or iterative reconstruction. Contrast material: ISOVUE; Contrast volume: 100 ml; Contrast route: INTRAVENOUS (IV); REPORTING DATA: Count of CT and Cardiac NM exams in prior 12 months: This patient has received 0 known CTs and 0 known cardiac nuclear medicine studies in the 12 months prior to the current study. COMPARISON: CT CERVICAL SPINE WO CON 16/10/2022 04:33 FINDINGS: Right common carotid artery: Moderate atherosclerotic changes of the right carotid bifurcation with 10% stenosis of the internal carotid artery per NASCET criteria. Right internal carotid artery: No stenosis of the extracranial segment. No dissection or occlusion. Right external carotid artery: No occlusion or stenosis of the origin. Left common carotid artery: Mild atherosclerotic changes of the left carotid bifurcation with 5% stenosis of the internal carotid artery per NASCET criteria. Left internal carotid artery: No stenosis of the extracranial segment. No dissection or occlusion. Left external carotid artery: No occlusion or stenosis of the origin. Right vertebral artery: No stenosis. No dissection or occlusion. Left vertebral artery: Tapering of the distal left vertebral artery is most likely a developmental variant. Thyroid: Thyroid nodules measuring up 6 mm. Soft tissues: Normal. No significant soft tissue swelling. Bones/joints: No acute fracture. Lungs: Moderate centrilobular and paraseptal emphysema. Posterior atelectasis. IMPRESSION: No acute carotid or vertebral arterial injury. COMMENTS: Consistent with the [employer]'s Incidental Findings Committee white paper (J Am Jun Radiol 2015): In patients aged 35 years and older with an incidental thyroid nodule equal to or greater than 1.[address], MRI or extrathyroidal US, further evaluation with dedicated thyroid US is recommended for patients with normal life expectancy and without comorbidities. For smaller nodules without suspicious features, no further evaluation or follow up is recommended. REFERENCES: NASCET CRITERIA. The degree of stenosis in the cervical segment of the internal carotid artery is based on NASCET criteria. Normal is no stenosis. Mild is less than 50% stenosis. Moderate is 50-69% stenosis. Severe is 70% to 99% stenosis. Total occlusion is no detectable patent lumen.
--- NOTE | 2022-10-16 03:32 | CT_ITS ---
PROCEDURE INFORMATION: Exam: CT Lumbar Spine Without Contrast Exam date and time: 10/16/2022 4:38 AM Age: 81 years old Clinical indication: Injury or trauma; Fall; Additional info: Trauma, critical injury suspected TECHNIQUE: Imaging protocol: Computed tomography of the lumbar spine without contrast. Radiation optimization: All CT scans at this facility use at least one of these dose optimization techniques: automated exposure control; mA and/or kV adjustment per patient size (includes targeted exams where dose is matched to clinical indication); or iterative reconstruction. REPORTING DATA: Count of CT and Cardiac NM exams in prior 12 months: This patient has received 0 known CTs and 0 known cardiac nuclear medicine studies in the 12 months prior to the current study. COMPARISON: CT THORACIC SPINE WO CON 16/10/2022 04:35 FINDINGS: Bones/joints: Age-indeterminate, but likely chronic superior endplate fractures of L1 and L3. L2 superior endplate Schmorl's node. Chronic degenerative changes at L4-L5 produce moderate to severe spinal stenosis. Gallbladder and bile ducts: Cholelithiasis. Stomach and bowel: Rectal wall thickening is nonspecific. Reproductive: Calcified fibroids. Vasculature: The arteries demonstrate severe atherosclerotic disease. Soft tissues: Unremarkable. IMPRESSION: 1. Age-indeterminate, but likely chronic superior endplate fractures of L1 and L3. 2. Rectal wall thickening is nonspecific. If not previously performed, consider follow-up colonoscopy to exclude malignancy. 3. Cholelithiasis. 4. Chronic degenerative changes at L4-L5 produce moderate to severe spinal stenosis.
--- NOTE | 2022-10-16 03:32 | CT_ITS ---
PROCEDURE INFORMATION: Exam: CT Cervical Spine Without Contrast Exam date and time: 10/16/2022 4:33 AM Age: 81 years old Clinical indication: Injury or trauma; Fall; Additional info: Trauma, critical injury suspected TECHNIQUE: Imaging protocol: Computed tomography of the cervical spine without contrast. Radiation optimization: All CT scans at this facility use at least one of these dose optimization techniques: automated exposure control; mA and/or kV adjustment per patient size (includes targeted exams where dose is matched to clinical indication); or iterative reconstruction. REPORTING DATA: Count of CT and Cardiac NM exams in prior 12 months: This patient has received 0 known CTs and 0 known cardiac nuclear medicine studies in the 12 months prior to the current study. COMPARISON: CT HEAD/BRAIN WO CON 16/10/2022 04:31 FINDINGS: Bones/joints: Multilevel degenerative changes of the cervical spine producing multiple levels of mild spinal canal stenosis. Lungs: Lung apices are normal. Soft tissues: Unremarkable. IMPRESSION: No acute fracture or malalignment of the cervical spine.
--- NOTE | 2022-10-16 03:32 | CT_ITS ---
PROCEDURE INFORMATION: Exam: CT Thoracic Spine Without Contrast Exam date and time: 10/16/2022 4:35 AM Age: 81 years old Clinical indication: Injury or trauma; Fall; Additional info: Trauma, critical injury suspected TECHNIQUE: Imaging protocol: Computed tomography of the thoracic spine without contrast. Radiation optimization: All CT scans at this facility use at least one of these dose optimization techniques: automated exposure control; mA and/or kV adjustment per patient size (includes targeted exams where dose is matched to clinical indication); or iterative reconstruction. REPORTING DATA: Count of CT and Cardiac NM exams in prior 12 months: This patient has received 0 known CTs and 0 known cardiac nuclear medicine studies in the 12 months prior to the current study. COMPARISON: FINDINGS: Bones/joints: T7, T9, and T12 fractures are unchanged compared to prior study and chronic. Soft tissues: Unremarkable. Other findings: Please see separate report for CT chest. IMPRESSION: No acute fracture or malalignment of the thoracic spine.
--- NOTE | 2022-10-16 03:32 | CT_ITS ---
PROCEDURE INFORMATION: Exam: CT Head Without Contrast Exam date and time: 10/16/2022 4:31 AM Age: 81 years old Clinical indication: Injury or trauma; Fall; Additional info: Trauma, critical injury suspected TECHNIQUE: Imaging protocol: Computed tomography of the head without contrast. Radiation optimization: All CT scans at this facility use at least one of these dose optimization techniques: automated exposure control; mA and/or kV adjustment per patient size (includes targeted exams where dose is matched to clinical indication); or iterative reconstruction. REPORTING DATA: Count of CT and Cardiac NM exams in prior 12 months: This patient has received 0 known CTs and 0 known cardiac nuclear medicine studies in the 12 months prior to the current study. COMPARISON: No relevant prior studies available. FINDINGS: Brain: Moderate chronic brain volume loss and chronic small vessel ischemic changes. Cerebral ventricles: No ventriculomegaly. Paranasal sinuses: Postsurgical changes of the paranasal sinuses. Mild mucosal thickening in the paranasal sinuses. Mastoid air cells: Visualized mastoid air cells are well aerated. Orbital cavities: Status post bilateral cataract surgery. Dental: Multiple dental cavities with periapical lucencies that likely represent dental infection. Bones/joints: Hard palate and mandibular go. Soft tissues: Unremarkable. IMPRESSION: 1. No acute intracranial findings. 2. Multiple dental cavities with periapical lucencies that likely represent dental infection.
--- NOTE | 2022-10-16 03:32 | CT_ITS ---
PROCEDURE INFORMATION: Exam: CTA Abdomen and Pelvis With Contrast Exam date and time: 10/16/2022 4:46 AM Age: 81 years old Clinical indication: Injury or trauma; Fall; Additional info: Trauma, critical injury suspected TECHNIQUE: Imaging protocol: Computed tomographic angiography of the abdomen and pelvis with contrast. Exam focused on the arteries. 3D rendering (Not supervised by radiologist): MIP and/or 3D reconstructed images were created by the technologist. Radiation optimization: All CT scans at this facility use at least one of these dose optimization techniques: automated exposure control; mA and/or kV adjustment per patient size (includes targeted exams where dose is matched to clinical indication); or iterative reconstruction. Contrast material: ISOVUE; Contrast volume: 80 ml; Contrast route: INTRAVENOUS (IV); REPORTING DATA: Count of CT and Cardiac NM exams in prior 12 months: This patient has received 0 known CTs and 0 known cardiac nuclear medicine studies in the 12 months prior to the current study. COMPARISON: CR XR HIP LT 2-3V W/PELVIS 16/10/2022 03:50 FINDINGS: Aorta: No aortic aneurysm. No aortic dissection. Celiac trunk and mesenteric arteries: No occlusion or significant stenosis. Renal arteries: No occlusion or significant stenosis. Right iliac arteries: No occlusion or significant stenosis. Left iliac arteries: No occlusion or significant stenosis. Other arteries: The arteries demonstrate severe atherosclerotic disease. Liver: Low attenuation hepatic lesions measuring up to 1.7 cm in diameter are incompletely characterized, but are likely cysts. No followup imaging is recommended. Gallbladder and bile ducts: Mild intrahepatic biliary dilatation. Cholelithiasis. Pancreas: Unremarkable. No mass. No ductal dilation. Spleen: Unremarkable. No splenomegaly. Adrenal glands: Bilateral adrenal thickening, likely benign. Kidneys and ureters: Unremarkable. No solid mass. No hydronephrosis. Stomach and bowel: Rectal wall thickening is nonspecific. Appendix: Unremarkable appendix. Intraperitoneal space: Small amount of free fluid in the pelvis. Lymph nodes: Unremarkable. No enlarged lymph nodes. Urinary bladder: Unremarkable. No mass. Reproductive: Uterine fibroids. Bones/joints: No acute fracture. Soft tissues: Unremarkable. IMPRESSION: 1. No acute intra-abdominal or intrapelvic organ injury. 2. Mild intrahepatic biliary dilatation. If there is evidence of biliary obstruction clinically, consider MRCP for further evaluation. 3. Cholelithiasis. 4. Rectal wall thickening is nonspecific. If not previously performed, consider follow-up colonoscopy to exclude malignancy.
--- NOTE | 2022-10-16 03:50 | HMH.EDGENADL ---
Discharge Plan Disposition Patient Disposition: Home, Self-Care Condition: Good Prescriptions Prescriptions: No Action loperamide 2 mg capsule 2 mg PO Q6H PRN ondansetron HCl 4 mg tablet 4 mg PO Q6H PRN trospium 20 mg tablet 20 mg PO BID Rx Instructions: administer on an empty stomach nitroglycerin [Nitro-Dur] 0.4 mg/hr patch 24 hour 1 patch transdermal DAILY Qty: 30 2RF Rx Instructions: allow nitrate-free interval of approx. 10-12 hrs per 24-hour period escitalopram oxalate 20 mg tablet 20 mg PO DAILY pantoprazole 20 mg tablet,delayed release (DR/EC) 20 mg PO DAILY cholecalciferol (vitamin D3) 25 mcg (1,000 unit) capsule 25 mcg PO DAILY calcium citrate 200 mg (950 mg) tablet 200 mg PO DAILY acetaminophen 500 mg capsule 500 mg PO Q6H PRN (Reason: pain) propylene glycol 0.6 % drops 1 drp OPHTHALMIC DAILY ferrous sulfate 325 mg (65 mg iron) tablet 325 mg PO BID loratadine 10 mg capsule 10 mg PO DAILY multivitamin capsule 1 cap PO DAILY raloxifene [Evista] 60 mg tablet 60 mg PO DAILY trazodone 50 mg tablet 50 mg PO QHS omega-3 fatty acids-fish oil [Fish Oil] 360-1,200 mg capsule 1 cap PO DAILY clonazepam 0.5 mg tablet 0.5 mg PO BID Qty: 60 5RF clopidogrel [Plavix] 75 mg tablet 75 mg PO DAILY Invega Sustenna 234 mg/1.5 mL syringe 234 mg IM MONTHLY Myrbetriq 50 mg tablet extended release 24 hr 50 mg PO DAILY Referrals Follow up/Referrals: Jose Schmidt MD [Primary Care Provider] - See instructions Activity Restrictions/Add. Instructions Additional Instructions/Restrictions: You have fractured 1 rib, the left sixth rib. No other acute traumatic injuries noted. Please take Tylenol as needed for pain. Clinical Impressions Clinical Impression: Closed rib fracture Qualifiers: Encounter type: initial encounter Rib fracture type: single rib Laterality: left Qualified Code(s): S22.32XA - Fracture of one rib, left side, initial encounter for closed fracture Discharge ED Provider: Harpreet Harvey Adult [facility] General Chief complaint: Fall Stated complaint: fall Time Seen by Provider: 10/16/22 03:29 Mode of Arrival: EMS Source of Information: Patient Limitations: No Limitations Description of Symptoms (Recalled from ER Triage Doc. by RN): Pt to ED from [facility] via [facility]. Around 0230 patient got out of bed to get clothes out of closet when she fell and hit back of head and neck on bookcase. Patient fell to concrete floor, denies hitting head. No LOC. Patient not currently on blood thinners. Complains of generalized pain from head to toe. History of Present Illness HPI narrative: 81-year-old female history of schizoaffective disorder presents after fall from standing while getting out of bed to change her clothes. Patient reports that she struck her head. Patient reports severe diffuse pain in all bones. History limited secondary to patient's age and psychiatric comorbidities. She is partially oriented and stated many false things. Related Data Home Medications Medication Instructions Recorded Confirmed acetaminophen 500 mg capsule 500 mg PO Q6H PRN pain 10/14/17 09/16/22 ferrous sulfate 325 mg (65 mg 325 mg PO BID Supplement 10/14/17 09/16/22 iron) tablet loratadine 10 mg capsule 10 mg PO DAILY allergies 10/14/17 09/16/22 multivitamin 1 cap PO DAILY Supplement 10/14/17 09/16/22 omega-3 fatty acids-fish oil 360 1 cap PO DAILY Supplement 10/14/17 09/16/22 mg-1,200 mg capsule (Fish Oil) propylene glycol 0.6 % eye drops 1 drp ophthalmic (eye) DAILY 10/14/17 09/16/22 glacoma raloxifene 60 mg tablet (Evista) 60 mg PO DAILY muscle spasms 10/14/17 09/16/22 trazodone 50 mg tablet 50 mg PO QHS sleep 10/14/17 09/16/22 escitalopram oxalate 20 mg tablet 20 mg PO DAILY mood 10/05/19 09/16/22 pantoprazole 20 mg tablet,delayed 20 mg PO DAILY GERD 11/18/19 09/16/22
[2022-10-16 03:55] LABS: Basophils % 0.3 % (0.1-2.0); Eosinophils # 0.2 K/mm3 (0.0-0.4); Eosinophils % 2.4 % (0.1-12.0); Hematocrit 34.1 % (37.0-47.0); Hemoglobin 10.4 g/dL (12.2-16.2); Lymphocytes # 1.9 K/mm3 (0.7-4.5); Mean Corpuscular HGB Conc 30.6 g/dL (31.8-35.4); Mean Corpuscular Hemoglobin 28.1 pg (27.0-31.2); Mean Corpuscular Volume 91.8 fl (81-99); Mean Platelet Volume 8.3 fl (7.4-10.4); Monocytes # 0.6 K/mm3 (0.1-1.0); Monocytes % 9.2 % (1.7-9.3); Neutrophils # 4.1 K/mm3 (1.8-7.8); Neutrophils % 60.1 % (37.0-80.0); Platelet Count 260 K/mm3 (142-424); Red Blood Count 3.71 M/mm3 (4.20-5.40); Red Cell Distribution Width 14.1 % (11.5-17.5); White Blood Count 6.8 K/mm3 (4.8-10.8)
[2022-10-16 04:01] LABS: Chloride 99 mmol/L (98-107); Sodium 133 mmol/L (136-145)
[2022-10-16 04:02] LABS: Potassium 3.4 mmoL/L (3.5-5.1)
[2022-10-16 04:04] LABS: Alanine Aminotransferase 17 U/L (12-78); Albumin/Globulin Ratio 1.4 (1.1-1.8); Alkaline Phosphatase 99 U/L (38-126); Anion Gap 5.4 mEq/L (5-15); Aspartate Amino Transferase 21 U/L (14-36); Bilirubin,Total 0.2 mg/dl (0.2-1.3); Blood Urea Nitrogen 8 mg/dl (7-17); Carbon Dioxide 32 mmol/L (22.0-30.0); Creatinine Clearance Estimated 42 mL/min (50-200); Estimated Glomerular Filt Rate 154 ml/min (>60); GFR (African American) 186 ML/MIN (>60); Globulin 2.2 g/dL (1.3-3.2); Total Protein,Serum 5.2 g/dl (6.3-8.2)
[2022-10-16 04:05] LABS: Calcium 8.3 mg/dl (8.4-10.2); Glucose 89 mg/dl (74-100)
--- NOTE | 2022-10-16 04:29 | PC.NURSE ---
Pt gone to RAD via stretcher
--- NOTE | 2022-10-16 04:50 | PC.NURSE ---
Pt returned from RAD
--- NOTE | 2022-10-16 05:32 | PC.NURSE ---
on phone with SEBASTIAN
--- NOTE | 2022-10-16 06:04 | PC.NURSE ---
Notified [facility] of pt need for transport back to [facility]
== END 2022-10-16 06:28 | disposition home or self-care (01) ==
PROVIDERS: Emergency Provider Emergency Medicine; PCP Emergency Medicine
DX: S22.32XA Fracture of one rib, left side, initial encounter for closed fracture (principal); R51.9 Headache, unspecified; F25.9 Schizoaffective disorder, unspecified; F41.9 Anxiety disorder, unspecified; M81.0 Age-related osteoporosis without current pathological fracture; D50.9 Iron deficiency anemia, unspecified; K21.9 Gastro-esophageal reflux disease without esophagitis; W01.190A Fall on same level from slipping, tripping and stumbling with subsequent striking against furniture, initial encounter
CPT/HCPCS: 70450; 70496; 70498; 71045; 71275; 72125; 72128; 72131; 72170; 73030; 73502; 73590; 74174; 80053; 85025; 86850; 99285; Q9967

== ENCOUNTER → 2022-11-05 12:08 | Outpatient (POV) | payer MEDICARE, MEDICAID, SELFPAY | PROVIDERS: Visit Provider Specialist/Technologist | DX: Z00.00 Encounter for general adult medical examination without abnormal findings (principal) ==

== ENCOUNTER 2022-12-10 07:22 | Day surgery (SDC) | payer MEDICARE, MEDICAID, SELFPAY ==
[2022-12-10] VITALS (14 sets, daily range): BP systolic 119–170; BP diastolic 65–95; PULSE 62–74; RESP 17–18; TEMP 36.9; O2SAT 94–99
--- NOTE | 2022-12-10 07:03 | IR_ITS ---
APPROVED REPORT Patient Location: Outpatient [facility] [employer]: JERRY Bentley RT (R) PROCEDURES Left heart catheterization Left ventriculogram Selective coronary angiogram INDICATION Progressive angina pectoris, Inability to tolerate stress testing Informed consent was obtained prior to the procedure. COMPLICATIONS NONE Estimated Blood Loss: LESS THAN 10 ML TECHNIQUE One percent lidocaine used to anesthetize the right anterior aspect of the wrist. The right radial artery was accessed via the Seldinger technique. A 6 Libyan sheath was placed in the right radial artery. 2.5 mg of Verapamil, 800 mcg of nitroglycerin, 1mg Lidocaine and 5000 U Heparin were given through the arterial sheath. The papa catheter was also used to perform left heart catheterization, left ventriculogram and selective coronary angiogram. The J-wire appeared to go down the right coronary artery and angiography demonstrated a long concentric spasm throughout the right coronary artery. As result 800 mcg of intracoronary nitroglycerin was administered. Following administration the spasm was alleviated and further angiography was performed of the left system. At the end of the procedure the sheath was removed good hemostasis was achieved using Traclet band, patient was transferred to the postop holding area in stable condition. ANGIOGRAPHIC RESULTS The left main artery Normal The left anterior descending artery Normal angiographically however's flow is slow The circumflex artery Normal The right coronary artery Normal The MARVIN ventriculogram reveals Normal 65% The left ventricular end-diastolic pressure 15 mmHg IMPRESSION Angiographically normal coronary arteries accompanied by slow flow consistent with endothelial dysfunction Normal ejection fraction Normal LVEDP PLAN 1. Treatment of underlying endothelial dysfunction which is the etiology for angina pectoris Electronically signed by : Valentin Kumar MD 12/10/2022 08:52:15
[2022-12-10 07:58] LABS: Basophils % 0.5 % (0.1-2.0); Eosinophils # 0.2 K/mm3 (0.0-0.4); Eosinophils % 2.1 % (0.1-12.0); Hematocrit 40.7 % (37.0-47.0); Hemoglobin 12.5 g/dL (12.2-16.2); Lymphocytes # 1.6 K/mm3 (0.7-4.5); Lymphocytes % 20.1 % (10-50); Mean Corpuscular HGB Conc 30.8 g/dL (31.8-35.4); Mean Corpuscular Hemoglobin 27.9 pg (27.0-31.2); Mean Corpuscular Volume 90.5 fl (81-99); Mean Platelet Volume 8.1 fl (7.4-10.4); Monocytes # 0.6 K/mm3 (0.1-1.0); Monocytes % 7.6 % (1.7-9.3); Neutrophils # 5.4 K/mm3 (1.8-7.8); Neutrophils % 69.7 % (37.0-80.0); Platelet Count 247 K/mm3 (142-424); Red Cell Distribution Width 14.1 % (11.5-17.5); White Blood Count 7.8 K/mm3 (4.8-10.8)
[2022-12-10 08:05] LABS: Anion Gap 8.9 mEq/L (5-15); Blood Urea Nitrogen 10 mg/dl (7-17); Carbon Dioxide 33 mmol/L (22.0-30.0); Chloride 98 mmol/L (98-107); Creatinine Clearance Estimated 42 mL/min (50-200); Estimated Glomerular Filt Rate 119 ml/min (>60); GFR (African American) 144 ML/MIN (>60); Glucose 88 mg/dl (74-100); Potassium 3.9 mmoL/L (3.5-5.1); Sodium 136 mmol/L (136-145)
== END 2022-12-10 12:50 | disposition home or self-care (01) ==
PROVIDERS: PCP Emergency Medicine; Visit Provider Internal Medicine
DX: I20.8 Other forms of angina pectoris (principal); R94.39 Abnormal result of other cardiovascular function study; Z79.899 Other long term (current) drug therapy; R06.00 Dyspnea, unspecified; F17.210 Nicotine dependence, cigarettes, uncomplicated; J44.9 Chronic obstructive pulmonary disease, unspecified
CPT/HCPCS: 80048; 85025; 93458; 99152; C1725; C1769; J1644; Q9967

== ENCOUNTER → 2023-01-16 22:41 | Outpatient (CLI) | payer MEDICARE, MEDICAID, SELFPAY ==
[2023-01-16 22:50] LABS: Microscopic, Urine URINE MICROSCOPIC (MICROSCOPIC)
[2023-01-16 23:16] LABS: Appearance,Urine CLEAR (Clear); Bilirubin,Urine Negative (Negative); Blood, Urine Negative (Negative); Color,Urine YELLOW (Yellow); Glucose,Urine (UA) Negative (Negative); Ketones,Urine Negative (Negative); Leukocyte Esterase,Urine Negative (Negative); Nitrate,Urine Negative (Negative); Protein,Urine Negative (Negative); Specific Gravity, Urine 1.015 (1.005-1.030); Urobilinogen,Urine 0.2 EU/dl (0.2)
== END ==
PROVIDERS: PCP Emergency Medicine; Visit Provider Emergency Medicine
DX: M62.81 Muscle weakness (generalized) (principal); B96.89 Other specified bacterial agents as the cause of diseases classified elsewhere; R82.90 Unspecified abnormal findings in urine
CPT/HCPCS: 81001; 87086

== ENCOUNTER 2023-01-31 06:23 | Emergency (ER) | payer MEDICARE, MEDICAID, SELFPAY ==
[2023-01-31] VITALS (7 sets, daily range): BP systolic 105–136; BP diastolic 49–68; PULSE 73–87; RESP 18; TEMP 36.7–36.9; O2SAT 90–100; BMI 23.5
--- NOTE | 2023-01-31 06:29 | HMH.EDGENADL ---
Discharge Plan Disposition Patient Disposition: Still a Patient Chief Complaint: Fall Prescriptions Prescriptions: No Action loperamide 2 mg capsule 2 mg PO Q6H PRN (Reason: .) Acid Gone Antacid 95-358 mg/15 mL suspension 15 ml PO QPCHS baclofen 10 mg tablet 10 mg PO QID dextromethorphan-guaifenesin [Diabetic Tussin DM] 10-100 mg/5 mL liquid 10 ml PO Q4-6H PRN fluticasone propionate 50 mcg/actuation spray,suspension 1 spray intranasal DAILY Rx Instructions: administer into each nostril lactulose 10 gram/15 mL solution 10 g PO DAILY nicotine (polacrilex) 2 mg gum 2 mg buccal Q2H ondansetron HCl 4 mg tablet 4 mg PO Q6H Systane Complete 0.6 % drops 1 drp ophthalmic (eye) DAILY PRN Invega Sustenna 234 mg/1.5 mL syringe 234 mg IM Q30D Myrbetriq 50 mg tablet extended release 24 hr 50 mg PO DAILY multivitamin Tablet 1 tab PO DAILY escitalopram oxalate 20 mg tablet 20 mg PO DAILY pantoprazole 20 mg tablet,delayed release (DR/EC) 20 mg PO DAILY cholecalciferol (vitamin D3) 25 mcg (1,000 unit) capsule 25 mcg PO DAILY calcium citrate 200 mg (950 mg) tablet 200 mg PO DAILY acetaminophen 500 mg capsule 500 mg PO Q6H PRN (Reason: pain) propylene glycol 0.6 % drops 1 drp OPHTHALMIC DAILY ferrous sulfate 325 mg (65 mg iron) tablet 325 mg PO BID loratadine 10 mg capsule 10 mg PO DAILY raloxifene [Evista] 60 mg tablet 60 mg PO DAILY trazodone 50 mg tablet 50 mg PO QHS omega-3 fatty acids-fish oil [Fish Oil] 360-1,200 mg capsule 1 cap PO DAILY clonazepam 0.5 mg tablet 0.5 mg PO BID Qty: 60 5RF clopidogrel [Plavix] 75 mg tablet 75 mg PO DAILY nitroglycerin [Nitro-Dur] 0.4 mg/hr patch 24 hour 1 patch transdermal DAILY Rx Instructions: allow nitrate-free interval of approx. 10-12 hrs per 24-hour period Referrals Follow up/Referrals: Provider,Referral, MD [Primary Care Provider] - See instructions Clinical Impressions Clinical Impression: Closed fracture nasal bone, Hematoma of left knee region Discharge ED Provider: Harpreet Harvey General Adult HPI General Chief complaint: Fall Stated complaint: fall with head injury,lev Time Seen by Provider: 01/31/23 06:25 History of Present Illness HPI narrative: 82-year-old female, history of psychiatric comorbidities, dementia, COPD, coronary artery disease on Plavix presents after witnessed fall out of her wheelchair at her nursing facility. she landed on her left side and her face. No reported loss of consciousness. Patient reports pain essentially everywhere, but specifically reports pain in her left hand and left knee. She was bleeding profusely from the nose at the nursing facility, but has resolved by the time EMS arrived to the department. Related Data Home Medications Medication Instructions Recorded Confirmed acetaminophen 500 mg capsule 500 mg PO Q6H PRN pain 10/14/17 12/17/22 ferrous sulfate 325 mg (65 mg 325 mg PO BID Supplement 10/14/17 12/17/22 iron) tablet loratadine 10 mg capsule 10 mg PO DAILY allergies 10/14/17 12/17/22 omega-3 fatty acids-fish oil 360 1 cap PO DAILY Supplement 10/14/17 12/17/22 mg-1,200 mg capsule (Fish Oil) propylene glycol 0.6 % eye drops 1 drp ophthalmic (eye) DAILY 10/14/17 12/17/22 glacoma raloxifene 60 mg tablet (Evista) 60 mg PO DAILY muscle spasms 10/14/17 12/17/22 trazodone 50 mg tablet 50 mg PO QHS sleep 10/14/17 12/17/22 escitalopram oxalate 20 mg tablet 20 mg PO DAILY mood 10/05/19 12/17/22 pantoprazole 20 mg tablet,delayed 20 mg PO DAILY GERD 11/18/19 12/17/22 release cholecalciferol (vitamin D3) 25 25 mcg PO DAILY Supplement 05/25/20 12/17/22 mcg (1,000 unit) capsule calcium citrate 200 mg (950 mg) 200 mg PO DAILY Supplement 05/24/21 12/17/22 tablet clopidogrel 75 mg tablet (Plavix) 75 mg PO DAILY CAD 01/08/22 12/17/22 loperam
--- NOTE | 2023-01-31 06:30 | XR_ITS ---
PROCEDURE INFORMATION: Exam: XR Left Humerus Exam date and time: 01/31/2023 7:00 AM Age: 82 years old Clinical indication: Injury or trauma; Fall; Blunt trauma (contusions or hematomas); Arm, upper; Left; Injury date: 01/31/23; Additional info: Fall pain TECHNIQUE: Imaging protocol: Radiologic exam of the left humerus. Views: 2 or more views. COMPARISON: CR XR SHOULDER LT MIN 2V 01/31/2023 6:55 AM FINDINGS: Bones/joints: The bones are osteopenic. There is no evidence for acute fracture or dislocation. There is glenohumeral osteoarthritis with joint space narrowing, endplate sclerosis and osteophytosis. Soft tissues: Normal. IMPRESSION: Osteopenia degenerative change in the left humerus.
--- NOTE | 2023-01-31 06:30 | XR_ITS ---
PROCEDURE INFORMATION: Exam: XR Left Elbow Exam date and time: 01/31/2023 7:11 AM Age: 82 years old Clinical indication: Injury or trauma; Fall; Blunt trauma (contusions or hematomas); Elbow; Left; Injury date: 01/31/23; Additional info: Fall pain TECHNIQUE: Imaging protocol: Radiologic exam of the left elbow. Views: 3 or more views. COMPARISON: CR XR HUMERUS LT 01/31/2023 7:00 AM FINDINGS: Bones/joints: The bones are osteopenic. Soft tissues: There is posterior soft tissue swelling. IMPRESSION: Osteopenia soft tissue swelling of the left elbow.
--- NOTE | 2023-01-31 06:30 | XR_ITS ---
PROCEDURE INFORMATION: Exam: XR Left Hand Exam date and time: 01/31/2023 7:21 AM Age: 82 years old Clinical indication: Injury or trauma; Fall; Blunt trauma (contusions or hematomas); Hand; Left; Injury date: 01/31/23; Additional info: Fall pain TECHNIQUE: Imaging protocol: Radiologic exam of the left hand. Views: 3 or more views. COMPARISON: CR XR FOREARM LT 2V 01/31/2023 7:20 AM FINDINGS: Bones/joints: The bones are osteopenic. There is fracture of the proximal radial corner of the 3rd proximal phalanx and the ulnar base of the 5th proximal phalanx. Soft tissues: There is soft tissue swelling. IMPRESSION: Fracture of the left 3rd and 5th proximal phalanges.
--- NOTE | 2023-01-31 06:30 | XR_ITS ---
PROCEDURE INFORMATION: Exam: XR Left Forearm Exam date and time: 01/31/2023 7:20 AM Age: 82 years old Clinical indication: Injury or trauma; Fall; Blunt trauma (contusions or hematomas); Arm, lower; Left; Injury date: 01/31/23; Additional info: Fall pain TECHNIQUE: Imaging protocol: Radiologic exam of the left forearm. Views: 2 views. COMPARISON: CR XR ELBOW LT MIN 3V 01/31/2023 7:11 AM FINDINGS: Bones/joints: There is no evidence for acute fracture or dislocation. The bones are osteopenic. Soft tissues: There is soft tissue swelling about the proximal forearm. An Angiocath is implanted in the subcutaneous tissues adjacent to the radius. IMPRESSION: Soft tissue swelling in the left forearm.
--- NOTE | 2023-01-31 06:30 | XR_ITS ---
PROCEDURE INFORMATION: Exam: XR Chest Exam date and time: 01/31/2023 6:54 AM Age: 82 years old Clinical indication: Injury or trauma; Fall; Blunt trauma (contusions or hematomas); Injury date: 01/31/23; Additional info: Fall cp TECHNIQUE: Imaging protocol: Radiologic exam of the chest. Views: 1 view. COMPARISON: CR XR CHEST PORTABLE 10/16/2022 3:50 AM FINDINGS: Lungs: Increased interstitial markings noted in the lungs. There are calcified granulomas noted at the right lung base. Pleural spaces: Unremarkable. No pleural effusion. No pneumothorax. Heart/Mediastinum: Unremarkable. No cardiomegaly. Bones/joints: Degenerative changes are noted in the bones. IMPRESSION: Findings compatible with CHF and/or pneumonia.
--- NOTE | 2023-01-31 06:30 | CT_ITS ---
PROCEDURE INFORMATION: Exam: CT Head Without Contrast Exam date and time: 01/31/2023 7:54 AM Age: 82 years old Clinical indication: Injury or trauma; Fall; Blunt trauma (contusions or hematomas); Consciousness not specified; Injury date: 01/31/23; Patient HX: PT hit face on floor; Additional info: Fall head trauma TECHNIQUE: Imaging protocol: Computed tomography of the head without contrast. Radiation optimization: All CT scans at this facility use at least one of these dose optimization techniques: automated exposure control; mA and/or kV adjustment per patient size (includes targeted exams where dose is matched to clinical indication); or iterative reconstruction. REPORTING DATA: Count of CT and Cardiac NM exams in prior 12 months: This patient has received 8 known CTs and 0 known cardiac nuclear medicine studies in the 12 months prior to the current study. COMPARISON: CT HEAD/BRAIN WO CON 10/16/2022 4:31 AM FINDINGS: Brain: There is no mass effect, midline shift, acute hemorrhage, extra-axial fluid collection or acute lobar infarct. Cerebral ventricles: No ventriculomegaly. Paranasal sinuses: Visualized sinuses are unremarkable. No fluid levels. Mastoid air cells: Visualized mastoid air cells are well aerated. Bones/joints: Unremarkable. No acute fracture. Soft tissues: Unremarkable. Other findings: There is age-appropriate advanced frontotemporal volume loss. IMPRESSION: No acute cardiopulmonary disease.
--- NOTE | 2023-01-31 06:30 | XR_ITS ---
PROCEDURE INFORMATION: Exam: XR Left Femur Exam date and time: 01/31/2023 7:03 AM Age: 82 years old Clinical indication: Injury or trauma; Fall; Blunt trauma; Thigh or upper leg; Left; Injury date: 01/31/23; Additional info: Fall pain TECHNIQUE: Imaging protocol: Radiologic exam of the left femur. Views: 2 views. COMPARISON: CR XR HIP LT 2-3V W/PELVIS 01/31/2023 6:58 AM FINDINGS: Bones/joints: The bones are osteopenic. There is no acute displaced fracture or dislocation. Soft tissues: Unremarkable. IMPRESSION: Osteopenia, left femur.
--- NOTE | 2023-01-31 06:30 | CT_ITS ---
PROCEDURE INFORMATION: Exam: CT Cervical Spine Without Contrast Exam date and time: 01/31/2023 7:57 AM Age: 82 years old Clinical indication: Injury or trauma; Fall; Blunt trauma; Injury date: 01/31/23; Additional info: Fall neck pain TECHNIQUE: Imaging protocol: Computed tomography of the cervical spine without contrast. Radiation optimization: All CT scans at this facility use at least one of these dose optimization techniques: automated exposure control; mA and/or kV adjustment per patient size (includes targeted exams where dose is matched to clinical indication); or iterative reconstruction. REPORTING DATA: Count of CT and Cardiac NM exams in prior 12 months: This patient has received 8 known CTs and 0 known cardiac nuclear medicine studies in the 12 months prior to the current study. COMPARISON: CT CERVICAL SPINE WO CON 10/16/2022 4:33 AM FINDINGS: Bones/joints: There is no evidence for acute cervical fracture or subluxation. There is straightening of the normal cervical lordosis. The bones are somewhat osteopenic. There is mid to lower cervical spondylosis worst at C5-C6 and C6-C7 with disc osteophyte and uncovertebral spurring. Lungs: Lung apices are normal. Soft tissues: Unremarkable. IMPRESSION: No evidence for acute cervical fracture.
--- NOTE | 2023-01-31 06:30 | XR_ITS ---
PROCEDURE INFORMATION: Exam: XR Left Ankle Exam date and time: 01/31/2023 7:07 AM Age: 82 years old Clinical indication: Injury or trauma; Fall; Blunt trauma; Ankle; Left; Injury date: 01/31/23; Additional info: Fall pain TECHNIQUE: Imaging protocol: Radiologic exam of the left ankle. Views: 3 or more views. COMPARISON: CR XR TIBIA FIBULA LT 2V 01/31/2023 7:06 AM FINDINGS: Bones/joints: The bones are osteopenic. There is no obvious acute displaced fracture or dislocation. Tiny plantar calcaneal enthesophyte is noted. Soft tissues: There is mild soft tissue swelling. IMPRESSION: Osteopenia and soft tissue swelling, left ankle.
--- NOTE | 2023-01-31 06:30 | XR_ITS ---
PROCEDURE INFORMATION: Exam: XR Left Tibia and Fibula Exam date and time: 01/31/2023 7:06 AM Age: 82 years old Clinical indication: Injury or trauma; Fall; Blunt trauma; Lower leg; Left; Injury date: 01/31/23; Additional info: Fall pain TECHNIQUE: Imaging protocol: Radiologic exam of the left tibia and fibula. Views: 2 views. COMPARISON: CR XR TIBIA FIBULA LT 2V 10/16/2022 3:50 AM FINDINGS: Bones/joints: The bones are osteopenic. Soft tissues: There is subcutaneous edema about the foreleg. Vascular calcification is present. IMPRESSION: Osteopenia, soft tissue swelling in the left foreleg.
--- NOTE | 2023-01-31 06:30 | XR_ITS ---
PROCEDURE INFORMATION: Exam: XR Left Shoulder Exam date and time: 01/31/2023 6:55 AM Age: 82 years old Clinical indication: Injury or trauma; Fall; Blunt trauma (contusions or hematomas); Shoulder; Left; Injury date: 01/31/23; Additional info: Fall pain TECHNIQUE: Imaging protocol: Radiologic exam of the left shoulder. Views: 2 or more views. COMPARISON: CR XR SHOULDER LT MIN 2V 10/16/2022 3:50 AM FINDINGS: Bones/joints: The bones are osteopenic. There is no evidence for acute displaced fracture. There is glenohumeral joint space narrowing, endplate sclerosis and osteophytosis. Soft tissues: Normal. IMPRESSION: Osteopenia and degenerative change in the left shoulder.
--- NOTE | 2023-01-31 06:30 | XR_ITS ---
PROCEDURE INFORMATION: Exam: XR Left Knee Exam date and time: 01/31/2023 7:04 AM Age: 82 years old Clinical indication: Injury or trauma; Fall; Blunt trauma; Knee; Left; Injury date: 01/31/23; Additional info: Fall pain TECHNIQUE: Imaging protocol: Radiologic exam of the left knee. Views: 3 views. COMPARISON: CR XR FEMUR LT 2V 01/31/2023 7:03 AM FINDINGS: Bones/joints: The bones are osteopenic. There is no evidence for acute fracture. There is medial compartment narrowing. Soft tissues: Normal. IMPRESSION: Osteopenia and degenerative change in the left knee.
--- NOTE | 2023-01-31 06:30 | XR_ITS ---
PROCEDURE INFORMATION: Exam: XR Left Foot Exam date and time: 01/31/2023 7:09 AM Age: 82 years old Clinical indication: Injury or trauma; Fall; Blunt trauma; Foot; Left; Injury date: 01/31/23; Additional info: Fall pain TECHNIQUE: Imaging protocol: Radiologic exam of the left foot. Views: 1 or 2 views. COMPARISON: CR XR ANKLE LT MIN 3V 01/31/2023 7:07 AM FINDINGS: Bones/joints: There is probably fracture at the base of the 2nd, 3rd and 5th proximal phalanges. The bones are osteopenic. There is a hallux valgus deformity. There is no evidence for acute fracture. There is 1st metatarsophalangeal arthritic change. Hammertoe deformities are noted. There is a tiny plantar calcaneal enthesophyte. Soft tissues: Normal. IMPRESSION: Osteopenia. Query fracture of the 2nd, 3rd and 5th proximal phalanges.
--- NOTE | 2023-01-31 06:30 | XR_ITS ---
PROCEDURE INFORMATION: Exam: XR Left Hip Exam date and time: 01/31/2023 6:58 AM Age: 82 years old Clinical indication: Injury or trauma; Fall; Blunt trauma (contusions or hematomas); Left; Hip; Injury date: 01/31/23; Additional info: Fall pain TECHNIQUE: Imaging protocol: Radiologic exam of the left hip. Views: 2 or 3 views hip with pelvis when performed. COMPARISON: CR XR HIP LT 2-3V W/PELVIS 10/16/2022 3:50 AM FINDINGS: Bones/joints: The bones are osteopenic which limits the sensitivity of radiography. There is no acute displaced fracture. Joint spaces are generally preserved. Soft tissues: Unremarkable. Other findings: Incidental note is made of a large amount of stool over the pelvis. IMPRESSION: Osteopenia in the pelvis and left hip. If there is clinical suspicion for occult nondisplaced fracture, consider noncontrast MRI of the pelvis or left hip to further assess.
--- NOTE | 2023-01-31 06:40 | PC.NURSE ---
pt taken to radiology by tech
--- NOTE | 2023-01-31 06:43 | PC.NURSE ---
patient gone to XRay at this time.
[2023-01-31 06:59] LABS: Alanine Aminotransferase 24 U/L (12-78); Albumin Level 3.8 g/dl (3.5-5.0); Albumin/Globulin Ratio 1.6 (1.1-1.8); Alkaline Phosphatase 63 U/L (38-126); Anion Gap 14.9 mEq/L (5-15); Aspartate Amino Transferase 30 U/L (14-36); Bilirubin,Total 0.2 mg/dl (0.2-1.3); Blood Urea Nitrogen 7 mg/dl (7-17); Calcium 8.6 mg/dl (8.4-10.2); Carbon Dioxide 28 mmol/L (22.0-30.0); Chloride 93 mmol/L (98-107); Creatinine Clearance Estimated 48 mL/min (50-200); Estimated Glomerular Filt Rate 154 ml/min (>60); GFR (African American) 186 ML/MIN (>60); Globulin 2.4 g/dL (1.3-3.2); Glucose 116 mg/dl (74-100); Potassium 3.9 mmoL/L (3.5-5.1); Sodium 132 mmol/L (136-145); Total Protein,Serum 6.2 g/dl (6.3-8.2)
[2023-01-31 07:03] LABS: INR 0.97 (0.9-1.1); Prothrombin Time 10.5 seconds (10.1-12.5)
[2023-01-31 07:06] LABS: Basophils % 0.1 % (0.1-2.0); Eosinophils % 0.2 % (0.1-12.0); Hematocrit 36.1 % (37.0-47.0); Hemoglobin 12.2 g/dL (12.2-16.2); Lymphocytes # 0.4 K/mm3 (0.7-4.5); Lymphocytes % 5.5 % (10-50); Mean Corpuscular HGB Conc 33.9 g/dL (31.8-35.4); Mean Corpuscular Hemoglobin 29.8 pg (27.0-31.2); Mean Corpuscular Volume 87.9 fl (81-99); Mean Platelet Volume 7.6 fl (7.4-10.4); Monocytes # 0.4 K/mm3 (0.1-1.0); Monocytes % 5.7 % (1.7-9.3); Neutrophils # 6.8 K/mm3 (1.8-7.8); Neutrophils % 88.4 % (37.0-80.0); Platelet Count 220 K/mm3 (142-424); Red Blood Count 4.11 M/mm3 (4.20-5.40); Red Cell Distribution Width 14.9 % (11.5-17.5); White Blood Count 7.7 K/mm3 (4.8-10.8)
[2023-01-31 07:08] LABS: MANUAL DIFFERENTIAL MANUAL DIFFERENTIAL (MANUAL DIFF)
[2023-01-31 07:31] LABS: Lymphocytes % 11 % (10-50); Monocytes % 4 % (2-9); Neutrophils % 85 % (42-76); Platelet Estimate Normal; RBC Morphology Normal; Total Cells Counted 100
--- NOTE | 2023-01-31 09:15 | ECG_ITS ---
APPROVED REPORT Exam: Resting ECG HR:77 bpm ECG Measurements Heart Rate 77 AXES HI 178 P 92 QRSd 129 QRS -29 QT 402 T 37 QTc 434 Conclusion SINUS RHYTHM RIGHT BUNDLE BRANCH BLOCK [120+ ms QRS DURATION, UPRIGHT V1, 40+ ms S IN I/aVL/V4/V5/V6] POSSIBLE ANTERIOR MYOCARDIAL INFARCTION , OF INDETERMINATE AGE [30 ms Q WAVE IN V3/V4, OR R < 0.2 mV IN V4] ABNORMAL ECG UNCONFIRMED REPORT Electronically signed by : Abdulaziz Rondon MD 02/01/2023 08:40:14
[2023-01-31 09:48] LABS: NT Pro Brain Natriuretic Pep. 605 pg/mL (0-450)
[2023-01-31 09:50] LABS: Troponin I < 0.01 ng/ml (0.00-0.034)
--- NOTE | 2023-01-31 10:06 | PC.NURSE ---
called [facility] for pt to be transferred to [facility]
== END 2023-01-31 10:41 | disposition home or self-care (01) ==
PROVIDERS: Emergency Medicine; Emergency Provider Emergency Medicine
DX: S09.8XXA Other specified injuries of head, initial encounter (principal); S02.2XXA Fracture of nasal bones, initial encounter for closed fracture; E87.1 Hypo-osmolality and hyponatremia; I45.19 Other right bundle-branch block; S80.02XA Contusion of left knee, initial encounter; I25.119 Atherosclerotic heart disease of native coronary artery with unspecified angina pectoris; I11.9 Hypertensive heart disease without heart failure; F03.90 Unspecified dementia, unspecified severity, without behavioral disturbance, psychotic disturbance, mood disturbance, and anxiety; K21.9 Gastro-esophageal reflux disease without esophagitis; J44.9 Chronic obstructive pulmonary disease, unspecified; D50.9 Iron deficiency anemia, unspecified; M81.8 Other osteoporosis without current pathological fracture; F31.9 Bipolar disorder, unspecified; F25.9 Schizoaffective disorder, unspecified; Z79.01 Long term (current) use of anticoagulants; Z87.891 Personal history of nicotine dependence; W05.0XXA Fall from non-moving wheelchair, initial encounter
CPT/HCPCS: 70450; 71045; 72125; 73030; 73060; 73080; 73090; 73130; 73502; 73552; 73562; 73590; 73610; 73620; 80053; 83880; 84484; 85007; 85025; 85610; 93005; 96374; 99285; J2405

== ENCOUNTER → 2023-02-26 09:41 | Outpatient (CLI) | payer MEDICARE, MEDICAID, SELFPAY ==
--- NOTE | 2023-02-26 09:48 | XR_ITS ---
FINAL REPORT CLINICAL HISTORY: left hand fx COMPARISON: 01/31/2023 FINDINGS: LEFT HAND: 3 views of the left hand were obtained. There is a comminuted fracture of the proximal aspect of the 3rd proximal phalanx. There is increased distraction of the fracture fragments laterally. A fracture is now seen of the proximal radial aspect of the 4th proximal phalanx, not well visualized on the prior study. There are mild and moderate degenerative changes. Visualized joint spaces are normally aligned. Soft tissues are unremarkable. IMPRESSION: Comminuted fracture 3rd proximal phalanx with increased distraction compared to the prior study. Now visualized fracture 4th proximal phalanx. Reviewed, Interpreted and Dictated by Michael Dudley III, MD Transcribed by Mónica Ayon Authenticated and [facility]
== END ==
PROVIDERS: PCP Internal Medicine; Visit Provider Orthopaedic Surgery
DX: S62.92XA Unspecified fracture of left hand, initial encounter for closed fracture (principal)
CPT/HCPCS: 73130

== ENCOUNTER 2023-03-22 21:38 | Emergency (ER) | payer MEDICARE, MEDICAID, SELFPAY ==
--- NOTE | 2023-03-22 21:41 | XR_ITS ---
PROCEDURE INFORMATION: Exam: XR Chest Exam date and time: 03/22/2023 9:45 PM Age: 82 years old Clinical indication: Injury or trauma; Fall; Blunt trauma (contusions or hematomas) TECHNIQUE: Imaging protocol: Radiologic exam of the chest. Views: 1 view. COMPARISON: CR XR CHEST PORTABLE 01/31/2023 6:54 AM FINDINGS: Lungs: Calcified granulomas in the peripheral right lower lobe unchanged. There is mild coarsening of the bronchovascular markings with hyperinflation suggesting underlying obstructive airways disease. Pleural spaces: No large effusion or pneumothorax. Heart/Mediastinum: Stable cardiac and mediastinal contours. Vasculature: There are calcifications of the aortic arch. Bones/joints: No evidence of acute osseous abnormalities within the visualized portions of the thoracic spine and ribs. Osseous structures appear appropriate for patient age. IMPRESSION: No dense parenchymal consolidation, pleural effusion, or pneumothorax.
--- NOTE | 2023-03-22 21:41 | XR_ITS ---
PROCEDURE INFORMATION: Exam: XR Left Shoulder Exam date and time: 03/22/2023 9:45 PM Age: 82 years old Clinical indication: Injury or trauma; Fall; Blunt trauma (contusions or hematomas); Shoulder; Left TECHNIQUE: Imaging protocol: Radiologic exam of the left shoulder. Views: 2 or more views. COMPARISON: CR XR SHOULDER LT MIN 2V 01/31/2023 6:55 AM FINDINGS: Bones/joints: The humeral head is somewhat high-riding suggesting some element of underlying rotator cuff pathology. There is diffuse osseous demineralization. The osseous structures are intact, with no signs of acute fracture, dislocation, or malalignment. Age-related degenerative changes are observed. There is no evidence of abnormal bone density or destructive lesions. No change in a old posterior 6th rib fracture. Soft tissues: The soft tissues appear within normal limits. IMPRESSION: 1. The humeral head is somewhat high-riding suggesting some element of underlying rotator cuff pathology. 2. At the time of imaging, the study shows no acute osseous abnormalities but does reveal signs of age-related degenerative changes.
--- NOTE | 2023-03-22 21:41 | HMH.EDGENADL ---
Discharge Plan Disposition Patient Disposition: Home, Self-Care Chief Complaint: Fall Prescriptions Prescriptions: No Action loperamide 2 mg capsule 2 mg PO Q6H PRN (Reason: loose stool) multivitamin Tablet 1 tab PO DAILY escitalopram oxalate 20 mg tablet 20 mg PO DAILY pantoprazole 20 mg tablet,delayed release (DR/EC) 20 mg PO DAILY cholecalciferol (vitamin D3) 25 mcg (1,000 unit) capsule 25 mcg PO DAILY loratadine 10 mg capsule 10 mg PO DAILY raloxifene [Evista] 60 mg tablet 60 mg PO DAILY trazodone 50 mg tablet 50 mg PO QHS omega-3 fatty acids-fish oil [Fish Oil] 360-1,200 mg capsule 1 cap PO DAILY acetaminophen 500 mg capsule 500 mg PO Q4H PRN (Reason: pain/temp) Acid Gone Antacid 95-358 mg/15 mL suspension 30 ml PO .q4 PRN Artificial Tears([id number]) 1-0.2-0.2 % drops 1 drp Eye-Both TID PRN baclofen 10 mg tablet 10 mg PO TID PRN dextromethorphan-guaifenesin [Diabetic Tussin DM] 10-100 mg/5 mL liquid 10 ml PO Q4H PRN (Reason: cough) fluticasone propionate 50 mcg/actuation spray,suspension 1 spray intranasal DAILY PRN Rx Instructions: administer into each nostril lactulose 10 gram/15 mL solution 30 ml PO DAILY PRN (Reason: bowel care) ondansetron HCl 4 mg tablet 4 mg PO Q4H PRN (Reason: nausea and vomiting) polyvinyl alcohol 1.4 % drops 1 drp Eye-Both TID PRN (Reason: .) Systane Complete PF 0.6 % drops 1 drp ophthalmic (eye) BID PRN acetaminophen [Acetaminophen Extra Strength] 500 mg tablet 500 mg PO BID calcium citrate 200 mg (950 mg) tablet 200 mg PO BID clonazepam 1 mg tablet 1 mg PO BID divalproex 500 mg tablet extended release 24 hr 500 mg PO HS ferrous sulfate 325 mg (65 mg iron) tablet 325 mg PO .COMPLEX Rx Instructions: 325 mg orally 9am and 5pm; Invega Sustenna 234 mg/1.5 mL syringe 234 mg IM QMONTH Myrbetriq 50 mg tablet extended release 24 hr 50 mg PO DAILY clopidogrel [Plavix] 75 mg tablet 75 mg PO DAILY nitroglycerin [Nitro-Dur] 0.4 mg/hr patch 24 hour 1 patch transdermal DAILY Rx Instructions: allow nitrate-free interval of approx. 10-12 hrs per 24-hour period Activity Restrictions/Add. Instructions Additional Instructions/Restrictions: At this time it was felt you are safe to be discharged home. If new or worsening symptoms please do not hesitate to return to the emergency department. Please follow-up with your family doctor for repeat evaluation of your shoulder. Clinical Impressions Clinical Impression: Fall, Injury of left rotator cuff Discharge ED Provider: Delio Oconnor General Adult HPI General Chief complaint: Fall Stated complaint: fall Time Seen by Provider: 03/22/23 21:41 History of Present Illness HPI narrative: Patient is a 82-year-old female with past medical history of COPD, osteoporosis, bipolar disorder, schizoaffective disorder and long-term care, nonambulatory at baseline who presents emergency department for evaluation of traumatic injury sustained in a fall. History is largely obtained by EMS report and nursing report as patient is unreliable historian. Patient was being transferred from her wheelchair to her bed when she fell striking her left shoulder. Did not strike her head, no loss of conscious. She was complaining of shoulder pain causing her to be transported here by EMS for continued evaluation. Related Data Home Medications Medication Instructions Recorded Confirmed loratadine 10 mg capsule 10 mg PO DAILY allergies 10/14/17 02/26/23 omega-3 fatty acids-fish oil 360 1 cap PO DAILY Supplement 10/14/17 02/26/23 mg-1,200 mg capsule (Fish Oil) raloxifene 60 mg tablet (Evista) 60 mg PO DAILY hormone supplement 10/14/17 02/26/23 trazodone 50 mg tablet 50 mg PO QHS sleep 10/14/17 02/26/23 escitalopram oxalate 20 mg tablet 20 mg PO DAILY mood 10/05/19 02/26/23 pantoprazole 20 mg tablet,delayed 20 mg PO DAILY GERD 11/18/19 02/26/23 release cholecalciferol (vitamin D3) 25 25 mcg PO DAILY Supplement 05/25/20 02/26/23 mcg (1,000 unit) capsule clopidogrel 75 mg tablet (Plavix) 75 mg PO DAILY CAD 01/08/22 02/26/23 loperamide 2 mg capsule 2 mg PO Q6H PRN loose stool 05/23/22 02/26/23 nitroglycerin 0.4 mg/hr 1 patch transdermal DAILY . 12/10/22 02/26/23 transdermal 24 hour patch (Nitro-Dur) multivitamin 1 tab PO DAILY 12/17/22 02/26/23 acetaminophen 500 mg capsule 500 mg PO Q4H PRN pain/temp 03/13/23 acetaminophen 500 mg tablet 500 mg PO BID leg pain 03/13/23 (Acetaminophen Extra Strength) aluminum hydrox-magnesium carb 95 30 ml PO .q4 PRN 03/13/23 mg-358 mg/15 mL oral suspension (Acid Gone Antacid) baclofen 10 mg tablet 10 mg PO TID PRN 03/13/23 calcium citrate 200 mg (950 mg) 200 mg PO BID 03/13/23 tablet clonazepam 1 mg tablet 1 mg PO BID 03/13/23 dextromethorphan-guaifenesin 10 10 ml PO Q4H PRN cough 03/13/23 mg-100 mg/5 mL oral liquid (Diabetic Tussin DM) divalproex 500 mg tablet,extended 500 mg PO HS 03/13/23 release 24 hr ferrous sulfate 325 mg (65 mg 325 mg PO .COMPLEX Supplement 03/13/23 iron) tablet fluticasone propionate 50 1 spray intranasal DAILY PRN 03/13/23 mcg/actuation nasal spray,suspension lactulose 10 gram/15 mL oral 30 ml PO DAILY PRN bowel care 03/13/23 solution mirabegron 50 mg tablet,extended 50 mg PO DAILY urgency 03/13/23 release 24 hr (Myrbetriq) ondansetron HCl 4 mg tablet 4 mg PO Q4H PRN nausea and vomiting 03/13/23 paliperidone palmitate 234 mg/1.5 234 mg IM QMONTH 03/13/23 mL intramuscular syringe (Invega Sustenna) peg [id number] 1 1 drp Eye-Both TID PRN 03/13/23 %-0.2 %-0.2 % eye drops (Artificial Tears ([id number])) polyvinyl alcohol 1.4 % eye drops 1 drp Eye-Both TID PRN . 03/13/23 propylene glycol (PF) 0.6 % eye 1 drp ophthalmic (eye) BID PRN 03/13/23 drops (Systane Complete PF) Allergies Allergy/AdvReac Type Severity Reaction Status Date / Time aspirin Allergy Unknown Verified 02/03/23 10:05 codeine Allergy Unknown Verified 02/03/23 10:05 Corticosteroids Allergy Unknown Verified 02/03/23 10:05 (Glucocorticoids) ibuprofen Allergy Unknown Verified 02/03/23 10:05 [From NeoProfen (ibuprofen lysn)(PF)] naproxen Allergy Unknown Verified 02/03/23 10:05 [From Flanax (naproxen)] diclofenac [From Voltaren] Allergy Verified 02/03/23 10:05 PFSH PFSH Disclaimer: The information contained in this section may have been updated after the patient was seen, as this information can be updated by other users. Medical History (Updated 03/22/23 @ 22:23 by Delio Oconnor MD) Abnormal cardiovascular stress test Anxiety Bipolar 1 disorder Dyspnea Foreign body in ear, bilateral Gastroesophageal reflux disease Hearing loss Iron deficiency anemia Major depressive disorder, recurrent, unspecified Osteoporosis Overactive bladder Paranoid delusion Pyoderma Restless leg syndrome, controlled Schizoaffective disorder Tinnitus Umbilical hernia without obstruction or gangrene Social History Smoking Status: Unknown if ever smoked alcohol intake: never substance use type: denies use current occupational status: disabled Travel in the last 8 weeks: None housing: senior living caffeine: No ROS Obtained: Yes unobtainable due to mental status Physical Exam General General appearance: alert and in no apparent distress Head Head exam: atraumatic and normocephalic Eye Eye exam: Present PERRL and EOMI ENT ENT exam: Present mucous membranes moist Neck Neck exam: Present normal inspection and full ROM; Absent tenderness Chest Chest inspection: Present normal inspection and symmetric chest wall rise Respiratory Respiratory exam: Present normal lung sounds bilaterally; Absent respiratory distress Cardiovascular Cardiovascular exam: Present regular rate and normal rhythm Abdominal Exam Abdominal exam: Present soft; Absent tenderness Extremities Exam Extremities exam: Present other (Contracted left upper extremity at the lower wrist which patient states is normal, mild tenderness over the left shoulder. No tenderness in the bilateral lower extremities. Full range of motion of the bilateral upper extremities with the exception of the left wrist and fingers.) Neurological Exam Neurological exam: Present alert Psychiatric Psychiatric exam: Present normal affect Skin Skin exam: Present warm, dry and other (Senile purpura) Medical Decision Making Shahid Inquiry Pt receiving controlled substance: No Vital Signs: 03/22/23 21:42 Temperature 98.6 F Temperature Source Oral Pulse Rate [Left Radial] 77 Respiratory Rate 18 Blood Pressure [Right Arm] 102/44 L Blood Pressure Mean [Right Arm] 63 Blood Pressure Source [Right Arm] Automatic Cuff Blood Pressure Position [Right Arm] Sitting 02 Sat by Pulse Oximetry 92 L Oxygen Delivery Method Room Air Orders (Tests/Meds): ORDERS Category Date Time Status CXR --portable [XR chest portable] Stat Exams 03/22/23 21:41 Completed Shoulder XR left minimum 2 views [XR shoulder LT min 2V Exams 03/22/23 21:41 Completed ] Stat Medical Decision Narrative: In summary patient is a 10-year-old female past medical history described above who presents emergency department for evaluation of traumatic injury sustained in a fall while transferring. Patient is hemodynamically stable and nontoxic-appearing upon arrival. Patient is a poor historian given her comorbidities, is a complete transfer at baseline and is nonambulatory. Given the height of the fall and witnessed by multiple individuals with no striking of the head no concern for intracranial injury at this time for workup with CT imaging was considered but will be deferred. Patient has full range of motion of her neck with no midline tenderness and is cleared by Nexus criteria. Patient does have mild tenderness over her left shoulder, no tenderness over the remainder of the upper and lower extremities, appears well-perfused. No abdominal tenderness. Given this limited trauma survey will be conducted with chest x-ray, left shoulder x-ray. X-ray informally interpreted by me, no acute significantly displaced fracture of the humerus, no dislocation of the shoulder, no acute lobar opacities or large pneumothorax in the chest. Formal read shows no acute osseous pathology, there is high riding humeral head that is suggestive of rotator cuff injury. Upon repeat evaluation patient continued to be interactive at bedside, no additional trauma on repeat physical exam. Given this patient is appropriate for discharge at this time and will be managed on outpatient basis. Critical Care Critical Care Time Critical Care Time: No
[2023-03-22 21:42] VITALS: BP 102/44; PULSE 77; RESP 18; TEMP 37; O2SAT 92; BMI 22.6
[2023-03-22 22:00] VITALS: BP 100/46; PULSE 79; RESP 18; O2SAT 94
[2023-03-22 22:30] VITALS: BP 100/39; PULSE 80; RESP 20; O2SAT 95
--- NOTE | 2023-03-22 22:46 | PC.NURSE ---
Nurse to nurse report given to
[2023-03-22 22:59] VITALS: BP 110/55; PULSE 70; RESP 17; TEMP 36.9; O2SAT 92
== END 2023-03-22 23:01 | disposition home or self-care (01) ==
PROVIDERS: Emergency Provider Emergency Medicine
DX: M25.512 Pain in left shoulder (principal); J44.9 Chronic obstructive pulmonary disease, unspecified; M81.0 Age-related osteoporosis without current pathological fracture; F25.9 Schizoaffective disorder, unspecified; W19.XXXA Unspecified fall, initial encounter
CPT/HCPCS: 71045; 73030; 99284

== ENCOUNTER 2023-04-09 09:52 | Outpatient (CLI) | payer MEDICARE, MEDICAID, SELFPAY ==
--- NOTE | 2023-04-09 10:10 | XR_ITS ---
FINAL REPORT CLINICAL HISTORY: lt hand pain FINDINGS: Left hand Three views were obtained. There are moderate degenerative changes. Note is made of osteopenia. There is irregularity involving the proximal aspect of the 2nd middle phalanx, nondisplaced fracture is not excluded. IMPRESSION: Irregularity of the 2nd middle phalanx as above. Follow-up radiographs may be helpful. Reviewed, Interpreted and Dictated by Michael Dudley III, MD Transcribed by Radah Zaman Authenticated and [facility]
== END 2023-04-09 23:59 ==
LOC: RAD 09:54
PROVIDERS: PCP Internal Medicine; Visit Provider Orthopaedic Surgery
DX: S62.613D Displaced fracture of proximal phalanx of left middle finger, subsequent encounter for fracture with routine healing (principal)
CPT/HCPCS: 73130

== ENCOUNTER 2023-04-30 23:45 | Observation (INO) | payer MEDICARE, MEDICAID, SELFPAY ==
[2023-04-30 23:45] VITALS: BP 102/47; PULSE 91; RESP 20; TEMP 37; O2SAT 92
--- NOTE | 2023-04-30 23:56 | CT_ITS ---
PROCEDURE INFORMATION: Exam: CT Abdomen And Pelvis With Contrast Exam date and time: 05/01/2023 1:03 AM Age: 82 years old Clinical indication: Abdominal pain; Additional info: Abd pain, chest pain, SOA TECHNIQUE: Imaging protocol: Computed tomography of the abdomen and pelvis with contrast. Radiation optimization: All CT scans at this facility use at least one of these dose optimization techniques: automated exposure control; mA and/or kV adjustment per patient size (includes targeted exams where dose is matched to clinical indication); or iterative reconstruction. Contrast material: ISOVUE; Contrast volume: 75 ml; Contrast route: IV; COMPARISON: 1. CT ANGIO ABDOMEN PELVIS 10/16/2022 4:46 AM 2. CR XR HIP LT 2-3V W/PELVIS 01/31/2023 6:58 AM 3. CR XR HIP RT 2-3V W/PELVIS 10/16/2022 3:50 AM FINDINGS: Liver: There are low-density lesions in the liver which most likely reflect a combination of cysts and/or hemangiomas. Gallbladder and bile ducts: There is moderate intra and extrahepatic biliary ductal dilatation, similar to prior examination with cholelithiasis in a mildly distended gallbladder impression stable left adrenal nodule. Pancreas: Normal. Spleen: Normal. Adrenal glands: See Gallbladder and bile ducts finding. Kidneys and ureters: There are no soft tissue renal masses or hydronephrosis. Stomach and bowel: Significant stool distension of the rectum. Mild fluid distention of small-bowel loops. Appendix: No evidence of appendicitis. Intraperitoneal space: Unremarkable. Vasculature: There is atherosclerotic disease of the visualized aorta and its major branch vessels. Lymph nodes: No lymphadenopathy. Urinary bladder: There is mild bladder wall thickening, possibly due to under distention and a nonspecific finding. Reproductive: There is a fibroid uterus. Bones/joints: Chronic changes of prior left femoral neck fracture. There is diffuse degenerative disease of the visualized osseous structures. There is diffuse osseous demineralization. Stable compression deformities of L1 and L3. Stable compression deformity of T12. Soft tissues: The patient's arms are down with associated beam hardening artifact that limits the evaluation. Other findings: Please see the dedicated interpretation of the thorax for findings in that region. IMPRESSION: 1. Massive stool distension of the rectum. 2. Please see the dedicated interpretation of the thorax for findings in that region.
--- NOTE | 2023-04-30 23:56 | CT_ITS ---
PROCEDURE INFORMATION: Exam: CTA Chest With Contrast Exam date and time: 05/01/2023 1:03 AM Age: 82 years old Clinical indication: Pain; Chest pressure; Additional info: Chest pain, SOA TECHNIQUE: Imaging protocol: Computed tomographic angiography of the chest with contrast. Exam focused on the arteries. 3D rendering (Not supervised by radiologist): MIP and/or 3D reconstructed images were created by the technologist. Radiation optimization: All CT scans at this facility use at least one of these dose optimization techniques: automated exposure control; mA and/or kV adjustment per patient size (includes targeted exams where dose is matched to clinical indication); or iterative reconstruction. Contrast material: ISOVUE; Contrast volume: 75 ml; Contrast route: INTRAVENOUS (IV); COMPARISON: 1. CT ANGIO CHEST 10/16/2022 4:[address] ANGIO CHEST PE PROTOCOL 07/15/2021 9:[address] chest wo con 09/02/2018 1:50 PM FINDINGS: Pulmonary arteries: There is dilation of the main pulmonary artery as well as the major branch pulmonary arteries. This may reflect underlying pulmonary hypertension. There is fair opacification of the pulmonary arterial tree. No central pulmonary arterial filling defect is seen. Aorta: There is atherosclerotic disease of the visualized aorta and its major branch vessels. Other arteries: Subsegmental vessels are not well evaluated due to technical factors. Lungs: There are scattered calcified granulomas in the lungs which most likely reflect prior granulomatous disease. Scattered areas of bronchial wall thickening which are likely chronic inflammatory. A few areas of subpleural reticulation are noted, nonspecific. There are scattered areas of emphysema throughout the lungs. There is scattered ground-glass opacity which could reflect air trapping. Pleural spaces: Unremarkable. No pneumothorax. No pleural effusion. Heart: The heart is enlarged. Coronary arteries: There is moderate coronary atherosclerotic disease/calcification although evaluation is limited secondary to the non gated nature of the study. Lymph nodes: Unremarkable. No enlarged lymph nodes. Bones/joints: There is diffuse degenerative disease of the visualized osseous structures. Soft tissues: Unremarkable. IMPRESSION: 1. No dense parenchymal consolidation, pleural effusion, or pneumothorax. 2. No central pulmonary arterial filling defect is seen. Subsegmental vessels are not well evaluated due to technical factors. 3. Findings which suggest underlying pulmonary arterial hypertension.
[2023-05-01] VITALS (8 sets, daily range): BP systolic 115–158; BP diastolic 51–96; PULSE 83–109; RESP 14–20; TEMP 36.7–37.7; O2SAT 91–95; BMI 22.1
--- NOTE | 2023-05-01 00:20 | HMH.EDGENADL ---
Discharge Plan Disposition Patient Disposition: Admitted Prescriptions Prescriptions: No Action escitalopram oxalate 20 mg tablet 20 mg PO DAILY loratadine 10 mg capsule 10 mg PO DAILY raloxifene [Evista] 60 mg tablet 60 mg PO DAILY trazodone 50 mg tablet 25 mg PO QHS omega-3 fatty acids-fish oil [Fish Oil] 360-1,200 mg capsule 1 cap PO DAILY polyvinyl alcohol 1.4 % drops 1 drp Eye-Both TID PRN (Reason: .) acetaminophen [Acetaminophen Extra Strength] 500 mg tablet 500 mg PO BID calcium citrate 200 mg (950 mg) tablet 200 mg PO BID divalproex 500 mg tablet extended release 24 hr 500 mg PO HS ferrous sulfate 325 mg (65 mg iron) tablet 325 mg PO BID pantoprazole 20 mg tablet,delayed release (DR/EC) 20 mg PO BID clopidogrel [Plavix] 75 mg tablet 75 mg PO DAILY nitroglycerin [Nitro-Dur] 0.4 mg/hr patch 24 hour 1 patch transdermal DAILY Rx Instructions: allow nitrate-free interval of approx. 10-12 hrs per 24-hour period cholecalciferol (vitamin D3) 25 mcg (1,000 unit) tablet 25 mcg PO DAILY multivitamin [TAB A RACHAEL] Tablet 1 tab PO DAILY clonazepam 1 mg tablet 1 mg PO HS Patient Comments: 1 mg orally twice a day mirtazapine 15 mg tablet 15 mg PO DAILY Systane (PF) 0.4-0.3 % Dropperette 1 drp Eye-Both BID Invega Sustenna 234 mg/1.5 mL syringe 1.5 mg IM MONTHLY Myrbetriq 50 mg tablet extended release 24 hr 50 mg PO DAILY clonazepam 1 mg tablet 0.5 mg PO AM Referrals Follow up/Referrals: Valentin Lerma DO [Primary Care Provider] - See instructions Clinical Impressions Clinical Impression: Abdominal pain, Fecal impaction, Elevated troponin, Dehydration Discharge ED Provider: Theresa Calderon General Adult HPI General Chief complaint: Shortness of Breath/Dyspnea Stated complaint: diagnosed with pneumonia, tachycardia,fever,ams? Time Seen by Provider: 04/30/23 23:49 Mode of Arrival: EMS Source of Information: Patient, EMS and Medical Record Limitations: No Limitations Description of Symptoms (Recalled from ER Triage Doc. by RN): per care home pt was diagnosed with pneumonia but don't see any medications to treat it. pt denies any medical complaints History of Present Illness HPI narrative: This patient is an 82-year-old female with a history of bipolar disorder, schizoaffective disorder, hearing loss, COPD, and general debility presenting to the emergency department from nursing facility for evaluation with concern for fever and high heart rate in the nursing facility. Per the nursing facility, the patient has been recently diagnosed with pneumonia but they were concerned because they did not see any prescriptions for antibiotics. Given this, they called EMS to bring her in because they reported that her heart rate was elevated. Per EMS, vitals normal and route. Patient initially denied any complaints, then she did say that her abdomen was hurting. She did not complain of any localized abdominal pain. She then stated that her chest was hurting that she felt she could not get a good breath in. She then denied this. She has baseline cognitive disability that limits history. Related Data Home Medications Medication Instructions Recorded Confirmed loratadine 10 mg capsule 10 mg PO DAILY allergies 10/14/17 05/01/23 omega-3 fatty acids-fish oil 360 1 cap PO DAILY Supplement 10/14/17 05/01/23 mg-1,200 mg capsule (Fish Oil) raloxifene 60 mg tablet (Evista) 60 mg PO DAILY hormone supplement 10/14/17 05/01/23 trazodone 50 mg tablet 25 mg PO QHS sleep 10/14/17 05/01/23 escitalopram oxalate 20 mg tablet 20 mg PO DAILY mood 10/05/19 05/01/23 clopidogrel 75 mg tablet (Plavix) 75 mg PO DAILY CAD 01/08/22 05/01/23 nitroglycerin 0.4 mg/hr 1 patch transdermal DAILY . 12/10/22 05/01/23 transdermal 24 hour patch (Nitro-Dur) acetaminophen 500 mg tablet 500 mg PO BID leg pain 03/13/23 05/01/23 (Acetaminophen Extra Strength) calcium citrate 200 mg (950 mg) 200 mg PO BID 03/13/23 05/01/23 tablet divalproex 500 mg tablet,extended 500 mg PO HS 03/13/23 05/01/23 release 24 hr ferrous sulfate 325 mg (65 mg 325 mg PO BID Supplement 03/13/23 05/01/23 iron) tablet polyvinyl alcohol 1.4 % eye drops 1 drp Eye-Both TID PRN . 03/13/23 05/01/23 pantoprazole 20 mg tablet,delayed 20 mg PO BID GERD 04/18/23 05/01/23 release cholecalciferol (vitamin D3) 25 25 mcg PO DAILY 05/01/23 05/01/23 mcg (1,000 unit) tablet clonazepam 1 mg tablet 0.5 mg PO AM 05/01/23 05/01/23 clonazepam 1 mg tablet 1 mg PO HS 05/01/23 05/01/23 mirabegron 50 mg tablet,extended 50 mg PO DAILY 05/01/23 05/01/23 release 24 hr (Myrbetriq) mirtazapine 15 mg tablet 15 mg PO DAILY 05/01/23 05/01/23 multivitamin 1 tab PO DAILY 05/01/23 05/01/23 paliperidone palmitate 234 mg/1.5 1.5 mg IM MONTHLY 05/01/23 05/01/23 [facility] peg 400-propylene glycol (PF) 0.4 1 drp Eye-Both BID 05/01/23 05/01/23 %-0.3 % eye drops in a dropperette (Systane (PF)) Allergies Allergy/AdvReac Type Severity Reaction Status Date / Time aspirin Allergy Unknown Verified 04/09/23 10:40 codeine Allergy Unknown Verified 04/09/23 10:40 Corticosteroids Allergy Unknown Verified 04/09/23 10:40 (Glucocorticoids) ibuprofen Allergy Unknown Verified 04/09/23 10:40 [From NeoProfen (ibuprofen lysn)(PF)] naproxen Allergy Unknown Verified 04/09/23 10:40 [From Flanax (naproxen)] diclofenac [From Voltaren] Allergy Verified 04/09/23 10:40 PFSH PFS Disclaimer: The information contained in this section may have been updated after the patient was seen, as this information can be updated by other users. Medical History Abnormal cardiovascular stress test Angina at rest Anxiety Bipolar 1 disorder Chest pain Closed rib fracture Dizziness Dyspnea Edema of left foot Edema of right foot Fall Fall Foreign body in ear, bilateral Fracture dislocation of joint Fracture of 3rd metatarsal Fracture of 4th metatarsal Fracture of proximal phalanx of left middle finger Fracture of proximal phalanx of left ring finger Gastroesophageal reflux disease Hearing loss Hematoma of left knee region Injury of left rotator cuff Iron deficiency anemia Major depressive disorder, recurrent, unspecified Nasal swelling Nondisplaced fracture of metatarsal bone of right foot Osteoporosis Overactive bladder Pain in right foot Paranoid delusion Pyoderma Restless leg syndrome, controlled Schizoaffective disorder Tinnitus Umbilical hernia without obstruction or gangrene Social History Smoking Status: Never smoker alcohol intake: never substance use type: denies use current occupational status: disabled Travel in the last 8 weeks: None housing: care home caffeine: No ROS Obtained: Yes All systems reviewed & no additional complaints except as documented Physical Exam General General appearance: alert and in no apparent distress Head Head exam: atraumatic and normocephalic Eye Eye exam: Present normal appearance, PERRL and EOMI ENT ENT exam: Present normal exam, normal oropharynx, mucous membranes moist and normal external ear exam Neck Neck exam: Present normal inspection, full ROM and trachea midline; Absent tenderness Chest Chest inspection: Present normal inspection and symmetric chest wall rise; Absent tenderness Respiratory Respiratory exam: Present normal lung sounds bilaterally; Absent respiratory distress, wheezes, stridor or accessory muscle use Cardiovascular Cardiovascular exam: Present regular rate and normal rhythm Abdominal Exam Abdominal exam: Present distention and normal bowel sounds; Absent tenderness, guarding, rebound or rigidity Extremities Exam Extremities exam: Present full ROM, normal capillary refill and edema (2+ BLE edema); Absent tenderness Back Exam Back exam: Present normal inspection and full ROM; Absent tenderness Neurological Exam Neurological exam: Present alert, CN II-XII intact and normal gait; Absent oriented X3 (not oriented to time) or motor sensory deficit Psychiatric Psychiatric exam: Present normal affect and normal mood Skin Skin exam: Present warm and dry Medical Decision Making Medical Records Medical records reviewed: Yes I reviewed the patient's medical records. Shahid Inquiry Pt receiving controlled substance: No Vital Signs: 04/30/23 23:45 Temperature 98.6 F Temperature Source Oral Pulse Rate [Right] 91 H Respiratory Rate 20 Blood Pressure [Right Arm] 102/47 L Blood Pressure Mean [Right Arm] 65 Blood Pressure Source [Right Arm] Automatic Cuff Blood Pressure Position [Right Arm] Supine 02 Sat by Pulse Oximetry 92 L Oxygen Delivery Method Room Air Lab Data Lab results reviewed: Yes I reviewed the patient's lab results. Lab Results 05/01/23 00:34: SARS-CoV-2 (PCR) Not detected, Influenza A Untype (PCR) Not detected, Influenza Type B (PCR) Not detected 05/01/23 00:35: WBC 15.2 H, RBC 3.99 L, Hgb 11.1 L, Hct 34.9 L, MCV 87.6, MCH 27.9, MCHC 31.9, RDW 14.8, Plt Count 262, MPV 8.7, Neut % (Auto) 86.3 H, Lymph % (Auto) 7.4 L, [place] % (Auto) 6.0, Eos % (Auto) 0.2, Baso % (Auto) 0.1, Neut # (Auto) 13.2 H, Lymph # (Auto) 1.1, [place] # (Auto) 0.9, Eos # (Auto) 0.0, Baso # (Auto) 0.0, Total Counted 100, Neutrophils % (Manual) 89 H, Lymphocytes % (Manual) 9 L, Monocytes % (Manual) 1 L, Basophils % (Manual) 1.0, Platelet Estimate Normal, RBC Morphology Not Reportable, Ovalocytes 1+, Sodium 137, Potassium 3.6, Chloride 103, Carbon Dioxide 30, Anion Gap 7.6, BUN 15, Creatinine 0.50 L, Estimated Creat Clear 40, Estimated GFR 119, Est GFR ( Amer) 144, Glucose 158 H, Lactate 3.8 H, Calcium 8.2 L, Total Bilirubin 0.1 L, AST 33, ALT 28, Alkaline Phosphatase 128 H, Troponin I 0.14 H, NT-Pro-B Natriuret Pep 930 H, Total Protein 5.3 L, Albumin 2.9 L, Globulin 2.4, Albumin/Globulin Ratio 1.2, Lipase 39, Urine Color Yellow, Urine Appearance Clear, Urine pH 6.0, Ur Specific [place] >= 1.030, Urine Protein Trace, Urine Glucose (UA) Trace, Urine Ketones 1+, Urine Blood Negative, Urine Nitrate Negative, Urine Bilirubin Negative, Urine Urobilinogen 0.2, Ur Leukocyte Esterase Negative, Urine RBC None, Urine WBC Occasional, Ur Squamous Epith Cells Occasional, Urine Bacteria Trace, Urine Mucus 1+ 05/01/23 00:35 05/01/23 00:35 Orders (Tests/Meds): ED MEDICATIONS Generic Name Dose Route Start Last Admin Trade Name Freq PRN Reason Stop Dose Admin Lactated Ringer's 1,690 mls @ 845 mls/hr 05/01/23 00:54 05/01/23 01:12 Lactated Ringer's 1000 Ml Bag 30 ml/kg infuse over 2 hr (1690 ml) 05/01/23 02:53 845 mls/hr IV Administration .Q2H ONE Sodium Chloride 10 ml 05/01/23 01:15 05/01/23 01:16 Sodium Chloride 0.9% 10ml Syr (Rad Only) IV 05/31/23 01:14 10 ml NEEDED PRN Administration Maintain IV Site Discontinued Medications Generic Name Dose Route Start Last Admin Trade Name James PRN Reason Stop Dose Admin Aspirin 324 mg 05/01/23 01:51 Aspirin 81mg Chewable Tablet PO 05/01/23 01:52 ONCE ONE Iopamidol 75 ml 05/01/23 01:15 05/01/23 01:16 Iopamidol-370 (76%);100ml Bottle IV 05/01/23 01:16 75 ml ONCE ONE Administration Ondansetron HCl 4 mg 04/30/23 23:59 05/01/23 00:39 Ondansetron 4mg/2ml Vial IV 05/01/23 00:00 4 mg ONCE ONE Administration ORDERS Category Date Time Status CT abdomen pelvis w con Stat Cat Scan 04/30/23 23:[address] angio chest PE protocol Stat Cat Scan 04/30/23 23:56 Completed Brain Natriuretic Peptide Stat Lab 04/30/23 23:56 Completed Complete Blood Count Auto Diff Stat Lab 04/30/23 23:56 Completed Comprehensive Metabolic Panel Stat Lab 04/30/23 23:56 Completed Lactic Acid Stat Lab 04/30/23 23:56 Completed Lipase Stat Lab 04/30/23 23:56 Completed Rapid PCR Covid and Flu A/B Stat Lab 05/01/23 00:34 Completed Troponin I Q3H Lab 05/01/23 03:00 Ordered Troponin I Q3H Lab 05/01/23 06:00 Ordered Troponin I Stat Lab 04/30/23 23:56 Completed Urinalysis and Microscopic Stat Lab 05/01/23 00:35 Completed Blood Culture Stat Micro 05/01/23 00:35 Received ECG Data Tracing #1: I reviewed this ECG and interpreted as documented below: Normal sinus rhythm with a ventricular rate of 95 bpm. right bundle branch block. No acute ST elevations concerning for STEMI. Nonspecific ST/T wave changes. No clinically significant changes noted from prior EKG. ECG initial impression date: 05/01/23 ECG initial impression time: 00:41 Tracing #2: I reviewed this ECG and interpreted as documented below: Normal sinus rhythm with a ventricular rate of [address] elevations concerning for STEMI. Right bundle branch block. No significant changes from prior EKG. ECG initial impression date: 05/01/23 ECG initial impression time: 01:46 Medical Decision Narrative: In summary, this patient is a 82-year-old female presenting to the Emergency Department for evaluation of high heart rate and fever at the nursing facility with concern for possible pneumonia. Patient intermittently complains of chest and abdominal pain here. Differential diagnoses considered include but are not limited to pneumonia, ACS, GERD, constipation, bowel obstruction, colitis, cystitis. Ruling out the most morbid conditions drove assessment. On exam, the patient is nontoxic-appearing with normal vital signs on cardiac telemetry. Cardiopulmonary exam is reassuring, abdominal exam is benign with the exception of distention, but she intermittently complains of chest and abdominal pain and is an unreliable historian. Workup included broad lab evaluation including infectious, metabolic, and cardiac workup as well as CT of the chest, abdomen, and pelvis. I independently interpreted CT scan prior to the radiologist read and noted very large fecal impaction with fluid-filled bowel proximally. Please see their read for final interpretation. Labs were obtained that demonstrated leukocytosis, elevated lactic acid, and elevated troponin. Patient appears clinically dehydrated. She was given sepsis bolus of IV fluids given her leukocytosis and lactic acid, however no identifiable source based on imaging or exam at this time. Patient's fecal impaction is too proximal for manual disimpaction at this time. Given all of these things as well as her elevated troponin, I feel she would benefit from admission for serial troponins, bowel cleanout, rehydration, and monitoring pending blood cultures. I had an interactive discussion with the hospitalist who admitted the patient. Critical Care Critical Care Time Critical Care Time: No
--- NOTE | 2023-05-01 00:36 | ECG_ITS ---
APPROVED REPORT Exam: Resting ECG HR:95 bpm ECG Measurements Heart Rate 95 AXES [place] 154 P 70 QRSd 116 QRS -8 QT 373 T 8 QTc 426 Conclusion SINUS RHYTHM WITH OCCASIONAL SUPRAVENTRICULAR PREMATURE COMPLEXES INCOMPLETE RIGHT BUNDLE BRANCH BLOCK [90+ ms QRS DURATION, TERMINAL R IN V1/V2, 40+ ms S IN I/aVL/V4/V5/V6] VOLTAGE CRITERIA FOR LVH [MEETS CRITERIA IN ONE OF: R(aVL), S(V1), R(V5), R(V5/V6)+S(V1)] ST DEVIATION AND MODERATE T-WAVE ABNORMALITY, CONSIDER ANTERIOR ISCHEMIA [-0.1+ mV T-WAVE IN V3/V4] ABNORMAL ECG UNCONFIRMED REPORT Electronically signed by : Abdulaziz Rondon MD 05/02/2023 06:34:17
[2023-05-01] MEDS: ONDANSETRON 4MG/2ML VIAL 4 MG IV (00:39)
[2023-05-01 00:41] LABS: Microscopic, Urine URINE MICROSCOPIC (MICROSCOPIC)
[2023-05-01 00:41] LABS: Coronavirus 19, PCR Not Detected (NotDetected); Influenza A, PCR Not Detected (NotDetected); Influenza B, PCR Not Detected (NotDetected)
[2023-05-01 00:45] LABS: Appearance,Urine CLEAR (Clear); Basophils % 0.1 % (0.1-2.0); Bilirubin,Urine Negative (Negative); Blood, Urine Negative (Negative); Color,Urine YELLOW (Yellow); Eosinophils % 0.2 % (0.1-12.0); Glucose,Urine (UA) TRACE (Negative); Hematocrit 34.9 % (37.0-47.0); Hemoglobin 11.1 g/dL (12.2-16.2); Ketones,Urine 1+ (Negative); Leukocyte Esterase,Urine Negative (Negative); Lymphocytes # 1.1 K/mm3 (0.7-4.5); Lymphocytes % 7.4 % (10-50); Mean Corpuscular HGB Conc 31.9 g/dL (31.8-35.4); Mean Corpuscular Hemoglobin 27.9 pg (27.0-31.2); Mean Corpuscular Volume 87.6 fl (81-99); Mean Platelet Volume 8.7 fl (7.4-10.4); Monocytes # 0.9 K/mm3 (0.1-1.0); Neutrophils # 13.2 K/mm3 (1.8-7.8); Neutrophils % 86.3 % (37.0-80.0); Nitrate,Urine Negative (Negative); Platelet Count 262 K/mm3 (142-424); Protein,Urine TRACE (Negative); Red Blood Count 3.99 M/mm3 (4.20-5.40); Red Cell Distribution Width 14.8 % (11.5-17.5); Specific Gravity, Urine >= 1.030 (1.005-1.030); Urobilinogen,Urine 0.2 EU/dl (0.2); White Blood Count 15.2 K/mm3 (4.8-10.8)
[2023-05-01 00:47] LABS: MANUAL DIFFERENTIAL MANUAL DIFFERENTIAL (MANUAL DIFF)
[2023-05-01 00:51] LABS: Alanine Aminotransferase 28 U/L (12-78); Albumin Level 2.9 g/dl (3.5-5.0); Albumin/Globulin Ratio 1.2 (1.1-1.8); Alkaline Phosphatase 128 U/L (38-126); Anion Gap 7.6 mEq/L (5-15); Aspartate Amino Transferase 33 U/L (14-36); Blood Urea Nitrogen 15 mg/dl (7-17); Calcium 8.2 mg/dl (8.4-10.2); Carbon Dioxide 30 mmol/L (22.0-30.0); Chloride 103 mmol/L (98-107); Creatinine Clearance Estimated 40 mL/min (50-200); Estimated Glomerular Filt Rate 119 ml/min (>60); GFR (African American) 144 ML/MIN (>60); Globulin 2.4 g/dL (1.3-3.2); Glucose 158 mg/dl (74-100); Lipase 39 U/L (23-300); Potassium 3.6 mmoL/L (3.5-5.1); Sodium 137 mmol/L (136-145); Total Protein,Serum 5.3 g/dl (6.3-8.2)
[2023-05-01 00:52] LABS: Bilirubin,Total 0.1 mg/dl (0.2-1.3); Lactic Acid 3.8 mmol/L (0.7-2.1)
[2023-05-01 00:57] LABS: Bacteria,Urine Trace /lpf; Mucus,Urine 1+ /lpf
[2023-05-01 00:58] LABS: Squamous Epithelial Cell,Urine Occasional #/hpf (0-5); WBC,Urine Occasional #/hpf (0-3)
[2023-05-01 01:03] LABS: NT Pro Brain Natriuretic Pep. 930 pg/mL (0-450); Troponin I 0.14 ng/ml (0.00-0.034)
[2023-05-01] MEDS: LACTATED RINGERS 845 ML IV (01:12)
[2023-05-01] MEDS: SODIUM CHLORIDE 0.9% 10ML SYR (RAD ONLY) 10 ML IV (01:16)
[2023-05-01] MEDS: IOPAMIDOL-370 (76%);100ML BOTTLE 75 ML IV (01:16)
[2023-05-01 01:35] LABS: Lymphocytes % 9 % (10-50); Monocytes % 1 % (2-9); Neutrophils % 89 % (42-76); Total Cells Counted 100
[2023-05-01 01:36] LABS: Ovalocytes 1+; Platelet Estimate Normal
--- NOTE | 2023-05-01 01:44 | ECG_ITS ---
APPROVED REPORT Exam: Resting ECG HR:97 bpm ECG Measurements Heart Rate 97 AXES [place] 166 P 68 QRSd 120 QRS -10 QT 364 T 4 QTc 419 Conclusion SINUS RHYTHM WITH OCCASIONAL VENTRICULAR PREMATURE COMPLEXES RIGHT BUNDLE BRANCH BLOCK [120+ ms QRS DURATION, UPRIGHT V1, 40+ ms S IN I/aVL/V4/V5/V6] MODERATE VOLTAGE CRITERIA FOR LVH, CONSIDER NORMAL VARIANT [MEETS CRITERIA IN ONE OF: R(aVL), S(V1), R(V5), R(V5/V6)+S(V1)] ABNORMAL ECG UNCONFIRMED REPORT Electronically signed by : Abdulaziz Rondon MD 05/02/2023 06:34:08
[2023-05-01] MEDS: ASPIRIN 81MG CHEWABLE TABLET 324 MG PO (02:15)
--- NOTE | 2023-05-01 02:18 | PC.NURSE ---
Notified admissions for OBS admit to hospitalist for dehydration to 211
--- NOTE | 2023-05-01 02:34 | P.HP_ITS ---
History of Present Illness *Admission Date: 05/01/23 *Reason for visit:: elevated troponin. abdominal pain *History of present illness: This is a 82-year-old female with a PMHx of bipolar disorder, schizoaffective disorder, hearing loss, COPD, CAD on plavix and general debility, chair bound brought in by EMS to the emergency department from nursing facility for evaluation for reported fever and high heart rate in the nursing facility. Patient is AOx4, GCS 15, however, poor historian and inconsistent with the interview due to her baseline cognitive disability . History obtained form ED documentation, EMS and nursing facility. Per ER the nursing facility has been recently diagnosed the patient with pneumonia but they were concerned because they did not see any prescriptions for antibiotics. Given this, they called EMS to bring her in because they reported that her heart rate was elevated. Per EMS, vitals normal and route. Patient initially denied any complaints, then she did say that her abdomen was hurting, then denied. Then stated that her chest was hurting that she felt she could not get a good breath in, then denied this. Admitted for further work up and treatment [facility] Disclaimer: The information contained in this section may have been updated after the patient was seen, as this information can be updated by other users. Medical History (Updated 05/01/23 @ 12:[address] APRN) Abnormal cardiovascular stress test Angina at rest Anxiety Bipolar 1 disorder Chest pain Closed rib fracture Dizziness Dyspnea Edema of left foot Edema of right foot Elevated troponin Fall Fall Foreign body in ear, bilateral Fracture dislocation of joint Fracture of 3rd metatarsal Fracture of 4th metatarsal Fracture of proximal phalanx of left middle finger Fracture of proximal phalanx of left ring finger Gastroesophageal reflux disease Hearing loss Hematoma of left knee region Injury of left rotator cuff Iron deficiency anemia Major depressive disorder, recurrent, unspecified Nasal swelling Nondisplaced fracture of metatarsal bone of right foot Osteoporosis Overactive bladder Pain in right foot Paranoid delusion Pyoderma Restless leg syndrome, controlled Schizoaffective disorder Tinnitus Umbilical hernia without obstruction or gangrene Social History (Updated 05/01/23 @ 03:42 by Ana Mcgowan RN) Smoking Status: Never smoker alcohol intake: never substance use type: denies use current occupational status: disabled Travel in the last 8 weeks: None housing: [facility] caffeine: No Review of Systems Review of Systems Review of systems:: unable to obtain and pertinent systems reviewed and negative unless documented below Meds Home Medications and Allergies Home Medications Medication Instructions Recorded Confirmed Type omega-3 fatty acids-fish oil 360 1 cap PO DAILY Supplement 10/14/17 05/01/23 History mg-1,200 mg capsule (Fish Oil) raloxifene 60 mg tablet (Evista) 60 mg PO DAILY hormone supplement 10/14/17 05/01/23 History trazodone 50 mg tablet 25 mg PO HS sleep 10/14/17 05/01/23 History escitalopram oxalate 20 mg tablet 20 mg PO DAILY mood 10/05/19 05/01/23 History clopidogrel 75 mg tablet (Plavix) 75 mg PO DAILY Platelet Inhibitor 01/08/22 05/01/23 History nitroglycerin 0.4 mg/hr 1 patch transdermal DAILY 12/10/22 05/01/23 History transdermal 24 hour patch (Nitro-Dur) acetaminophen 500 mg tablet 500 mg PO Q4HP PRN Mild Pain 03/13/23 05/01/23 History (Acetaminophen Extra Strength) (Scale Score 1-4) calcium citrate 200 mg (950 mg) 200 mg PO BID 03/13/23 05/01/23 History tablet divalproex 500 mg tablet,extended 500 mg PO HS 03/13/23 05/01/23 History release 24 hr ferrous sulfate 325 mg (65 mg 325 mg PO BID Supplement 03/13/23 05/01/23 History iron) tablet polyvinyl alcohol 1.4 % eye drops 1 drp Eye-Both TIDP PRN Dry Eyes 03/13/23 05/01/23 History pantoprazole 20 mg tablet,delayed 20 mg PO BID Acid Reflux 04/18/23 05/01/23 History release acetaminophen 500 mg tablet 500 mg PO BID Leg Pain 05/01/23 05/01/23 History baclofen 10 mg tablet 10 mg PO TIDP PRN Muscle Spasm 05/01/23 05/01/23 History cholecalciferol (vitamin D3) 25 25 mcg PO DAILY 05/01/23 05/01/23 History mcg (1,000 unit) tablet clonazepam 1 mg tablet 0.5 mg PO AM 05/01/23 05/01/23 History clonazepam 1 mg tablet 1 mg PO HS 05/01/23 05/01/23 History fluticasone propionate 50 1 spray intranasal DAILY Allergy 05/01/23 05/01/23 History mcg/actuation nasal Symptoms spray,suspension lactulose 10 gram/15 mL oral 20 g (30 mL) PO BID PRN 05/01/23 05/01/23 Rx solution Constipation 30 days #0 mL levofloxacin 750 mg tablet 750 mg PO Q48H 3 days #2 tabs 05/01/23 Rx loratadine 10 mg tablet 10 mg PO DAILY Allergy Symptoms 05/01/23 05/01/23 History mirabegron 50 mg tablet,extended 50 mg PO DAILY 05/01/23 05/01/23 History release 24 hr (Myrbetriq) mirtazapine 15 mg tablet 15 mg PO DAILY 05/01/23 05/01/23 History multivitamin 1 tab PO DAILY 05/01/23 05/01/23 History ondansetron 4 mg disintegrating 4 mg PO Q4HP PRN Nausea And 05/01/23 05/01/23 History tablet Vomiting paliperidone palmitate 234 mg/1.5 1.5 mg IM MONTHLY 05/01/23 05/01/23 History mL [facility]uscular [facility] peg 400-propylene glycol (PF) 0.4 1 drp Eye-Both BIDP PRN Dry Eyes 05/01/23 05/01/23 History %-0.3 % eye drops in a dropperette (Systane (PF)) sennosides 8.6 mg-docusate sodium 1 tab-cap PO HS 30 days #30 tabs 05/01/23 Rx 50 mg tablet (Senna with Docusate Sodium) New Prescriptions to Start Prescriptions: levofloxacin Pietro Galvez sennosides-docusate sodium [Senna with Docusate Sodium] Pietro Galvez Allergies Allergy/AdvReac Type Severity Reaction Status Date / Time aspirin Allergy Unknown Verified 04/09/23 10:40 codeine Allergy Unknown Verified 04/09/23 10:40 Corticosteroids Allergy Unknown Verified 04/09/23 10:40 (Glucocorticoids) ibuprofen Allergy Unknown Verified 04/09/23 10:40 [From NeoProfen (ibuprofen lysn)(PF)] naproxen Allergy Unknown Verified 04/09/23 10:40 [From Flanax (naproxen)] diclofenac [From Voltaren] Allergy Verified 04/09/23 10:40 Exam Data for Last 24 hours Vital signs and Labs for Last 24 Hours: Temp Pulse Resp BP Pulse Ox O2 Del Method 98.2 F 96 H 14 141/74 H 94 L Room Air 05/01/23 02:27 05/01/23 02:27 05/01/23 02:27 05/01/23 02:27 05/01/23 00:07 05/01/23 02:27 Laboratory Results - last 24 hr 05/01/23 00:34: SARS-CoV-2 (PCR) Not detected, Influenza A Untype (PCR) Not detected, Influenza Type B (PCR) Not detected 05/01/23 00:35: WBC 15.2 H, RBC 3.99 L, Hgb 11.1 L, Hct 34.9 L, MCV 87.6, MCH 27.9, MCHC 31.9, RDW 14.8, Plt Count 262, MPV 8.7, Neut % (Auto) 86.3 H, Lymph % (Auto) 7.4 L, [place] % (Auto) 6.0, Eos % (Auto) 0.2, Baso % (Auto) 0.1, Neut # (Auto) 13.2 H, Lymph # (Auto) 1.1, [place] # (Auto) 0.9, Eos # (Auto) 0.0, Baso # (Auto) 0.0, Total Counted 100, Neutrophils % (Manual) 89 H, Lymphocytes % (Manual) 9 L, Monocytes % (Manual) 1 L, Basophils % (Manual) 1.0, Platelet Estimate Normal, RBC Morphology Not Reportable, Ovalocytes 1+, Sodium 137, Potassium 3.6, Chloride 103, Carbon Dioxide 30, Anion Gap 7.6, BUN 15, Creatinine 0.50 L, Estimated Creat Clear 40, Estimated GFR 119, Est GFR ( Amer) 144, Glucose 158 H, Lactate 3.8 H, Calcium 8.2 L, Total Bilirubin 0.1 L, AST 33, ALT 28, Alkaline Phosphatase 128 H, Troponin I 0.14 H, NT-Pro-B Natriuret Pep 930 H, Total Protein 5.3 L, Albumin 2.9 L, Globulin 2.4, Albumin/Globulin Ratio 1.2, Lipase 39, Urine Color Yellow, Urine Appearance Clear, Urine pH 6.0, Ur Specific [place] >= 1.030, Urine Protein Trace, Urine Glucose (UA) Trace, Urine Ketones 1+, Urine Blood Negative, Urine Nitrate Negative, Urine Bilirubin Negative, Urine Urobilinogen 0.2, Ur Leukocyte Esterase Negative, Urine RBC None, Urine WBC Occasional, Ur Squamous Epith Cells Occasional, Urine Bacteria Trace, Urine Mucus 1+ I & O for Last 24 hours: Intake & Output 04/28/23 04/29/23 04/30/23 05/01/23 23:59 23:59 23:59 23:59 Intake Total 1690 / 1690 Balance 1690 / 1690 Weight 56.245 kg Constitutional Constitutional: no acute distress *Routine HEENT Exam Head: Present normocephalic and atraumatic Eye: Present EOMI, PERRL and normal accommodation ENT: Present mucous membranes moist *Routine Neck Exam Neck: Present supple, full ROM and trachea midline *Routine Respiratory Exam Respiratory: Present CTA bilaterally, normal respiratory effort, able to speak in complete sentences and symmetric chest movement; Absent respiratory distress *Routine Cardiovascular Exam Cardiovascular: Present RRR, Normal S1 and Normal S2 *Routine Abdominal Exam Abdominal: Present soft, normoactive bowel sounds, tenderness, distended and hernia; Absent organomegaly *Routine Rectal Exam Rectal:: deferred *Routine Genitalia Exam Genitalia:: deferred *Routine Extremities Exam Extremities: Present edema and pulses intact; Absent cyanosis, clubbing or full ROM *Routine Skin Exam Skin: Present dry and warm *Routine Neurological Exam Neurological: Present alert, oriented X3, normal tone and normal speech Routine Psychiatric Exam Psychiatric: Present unable to assess H&P: Result Imaging and Cardiology EKG: Status: image reviewed by me and Preliminary report CT scan - abdomen: Status: image reviewed by me, Preliminary report and final report CT scan - chest: Status: image reviewed by me, Preliminary report and final report Assessment and Plan *Assessment and plan (1) Abdominal pain: Status: Acute Qualifiers: Abdominal location: left lower quadrant Qualified Code(s): R10.32 - Left lower quadrant pain Category: Medical Code(s): R10.9 - Unspecified abdominal pain (2) Fecal impaction: Status: Acute Category: Medical Code(s): K56.41 - Fecal impaction (3) Dehydration: Status: Acute Category: Medical Code(s): E86.0 - Dehydration (4) Elevated troponin: Status: Acute Category: Medical Code(s): R79.89 - Other specified abnormal findings of blood chemistry (5) Angina at rest: Status: Inactive Category: Medical Code(s): I20.8 - Other forms of angina pectoris (6) Bipolar 1 disorder: Status: Chronic Category: Medical Code(s): F31.9 - Bipolar disorder, unspecified (7) Schizoaffective disorder: Status: Chronic Qualifiers: Schizoaffective disorder type: bipolar Qualified Code(s): F25.0 - Schizoaffective disorder, bipolar type Category: Medical Code(s): F25.9 - Schizoaffective disorder, unspecified (8) Tobacco abuse: Status: Chronic Category: Medical Code(s): Z72.0 - Tobacco use Plan 82-year-old female with a PMHx of bipolar disorder, schizoaffective disorder, hearing loss, COPD, CAD on plavix and general debility chair bound brought in by EMS to the emergency department from nursing facility for evaluation for reported fever and high heart rate in the nursing facility. Patient is AOx4, GCS 15, however, poor historian and inconsistent with the interview due to her baseline cognitive disability. On arrival patient presented severe dehydrated, with elevated WBC, lactate, meeting criteria for sepsis. Full bolus given.. Troponin are elevated. Imaging reviewed. no clear sources of infection or sepsis. CTA abd concerned for a massive fecal impaction vs fecalith, per ER unable to reach it digitally. Chest negative for focal consolidation, Urine clear. Findings discussed with ER for admission. Plan as follow: -Abdominal pain likely secondary to massive fecal impaction: secondary to dehydration vs medication side effects patient on chronic antidepressant medication and ferrous sulfate. No bowel perforation seen on CT of the abd: Admit patient for medical management. Dispo MedSurg Aggressive bowel regimen on docusate, lactulose and MiraLAX Will avoid any manage for now. May need surgical consult. Monitor for WBC and lactic acid. Low suspicion for sepsis Continue IV fluid resuscitation -Elevated troponin: Patient has no history of CAD, last heart catheterization on November 2022, resulted on endothelial dysfunction Presented with elevated troponin. baseline troponins are negative Continue monitor for serial troponin Monitor for chest pain media monitor Cardiology consult Resume Plavix -History of bipolar disorder with a schizoaffective: Present on divalproex , escitalopram and clonazepam. Nursing to reconcile with facility for doses and accuracy. -Other chronic conditions like COPD reviewed. Stable Current smoker: On nicotine patch SCD for DVT prophylaxis. On Plavix. Protonix for GI bleed protection Full code Rounded on patient after nurse practitioner. Personally examined and interviewed patient. Agree with exam findings and care plan as documented.
--- NOTE | 2023-05-01 02:39 | PC.NURSE ---
pts incontinent of bladder, changed brief, provided with dry clean linens
--- NOTE | 2023-05-01 02:45 | PC.NURSE ---
[id number] received phone report from Shaila RN/er nurse. patient is 82 yo female with mental health issues. admission diagnosis dehydration/fecal impaction. may transfer by stretcher.
--- NOTE | 2023-05-01 02:47 | PC.NURSE ---
[id number] PATIENT ARRIVED TO THE FLOOR VIA STRETCHER AND ADMITTED TO ROOM 211.
--- NOTE | 2023-05-01 02:48 | PC.NURSE ---
Patient arrived to floor via stretcher from ED at 02:45.
[2023-05-01] MEDS: 0.9 % SODIUM CHLORIDE 1000ML 1,000 ML 50 ML IV (03:14)
[2023-05-01 03:25] LABS: Reflex Lactic Add Lactic Reflex
[2023-05-01 03:47] LABS: Lactic Acid Follow Up (RFLX 1) 2.2 mmol/L (0.7-2.1)
[2023-05-01 03:51] LABS: Troponin I 0.69 ng/ml (0.00-0.034)
[2023-05-01] MEDS: LACTULOSE 20GM/30ML UDC 20 GM PO (04:22)
[2023-05-01 05:04] LABS: Reflex Lactic (2 hrs) Add Lactic Reflex
[2023-05-01 05:22] LABS: Basophils % 0.1 % (0.1-2.0); Eosinophils # 0.2 K/mm3 (0.0-0.4); Eosinophils % 1.4 % (0.1-12.0); Hematocrit 34.4 % (37.0-47.0); Hemoglobin 11.1 g/dL (12.2-16.2); Lymphocytes # 1.4 K/mm3 (0.7-4.5); Lymphocytes % 9.5 % (10-50); Mean Corpuscular HGB Conc 32.3 g/dL (31.8-35.4); Mean Corpuscular Volume 86.7 fl (81-99); Mean Platelet Volume 8.6 fl (7.4-10.4); Monocytes # 0.8 K/mm3 (0.1-1.0); Monocytes % 5.2 % (1.7-9.3); Neutrophils # 12.1 K/mm3 (1.8-7.8); Neutrophils % 83.8 % (37.0-80.0); Platelet Count 261 K/mm3 (142-424); Red Blood Count 3.97 M/mm3 (4.20-5.40); White Blood Count 14.5 K/mm3 (4.8-10.8)
[2023-05-01 05:25] LABS: Chloride 106 mmol/L (98-107)
[2023-05-01 05:26] LABS: Potassium 3.6 mmoL/L (3.5-5.1); Sodium 138 mmol/L (136-145)
[2023-05-01 05:28] LABS: Alanine Aminotransferase 18 U/L (12-78); Aspartate Amino Transferase 30 U/L (14-36); Blood Urea Nitrogen 10 mg/dl (7-17); Creatinine Clearance Estimated 44 mL/min (50-200); Estimated Glomerular Filt Rate 214 ml/min (>60); GFR (African American) 259 ML/MIN (>60)
[2023-05-01 05:29] LABS: Albumin Level 2.8 g/dl (3.5-5.0); Albumin/Globulin Ratio 1.1 (1.1-1.8); Alkaline Phosphatase 152 U/L (38-126); Anion Gap 5.6 mEq/L (5-15); Bilirubin,Total 0.3 mg/dl (0.2-1.3); Calcium 8.1 mg/dl (8.4-10.2); Carbon Dioxide 30 mmol/L (22.0-30.0); Globulin 2.5 g/dL (1.3-3.2); Glucose 110 mg/dl (74-100); Magnesium 1.8 mg/dl (1.6-2.3); Total Protein,Serum 5.3 g/dl (6.3-8.2)
[2023-05-01 05:46] LABS: Troponin I 0.86 ng/ml (0.00-0.034)
--- NOTE | 2023-05-01 05:46 | PC.NURSE ---
lab called with critical troponin 0.86 and CANDIDO Jensen NP NOTIFIED. NO NEW ORDERS AT THIS TIME.
[2023-05-01 06:10] LABS: Lactic Acid Follow up (RFLX 2) 1.1 mmol/L (0.7-2.1)
--- NOTE | 2023-05-01 07:56 | SW/DCPLANNER ---
This patient currently resides at [facility] level of care. I will continue to follow up w/ Daina until patient is medically stable for discharge. Discharge date is unknown at this time.
--- NOTE | 2023-05-01 08:17 | HMH.PHAINT1 ---
Pharmacy Intervention Comments: MEDICATION RECONCILIATION COMPLETED ON PATIENT USING MAR FROM [facility]IDENT[facility]. -MERLE JUNIOR, TURNERD
[2023-05-01] MEDS: CITALOPRAM 40MG TABLET 40 MG PO (09:37)
[2023-05-01] MEDS: CLOPIDOGREL 75MG TAB 75 MG PO (09:37)
[2023-05-01] MEDS: DOCUSATE SODIUM 100 MG CAPSULE PO (09:37)
[2023-05-01] MEDS: LEVOFLOXACIN/D5W 750 MG/150 ML 750 MG/150 ML PIGGYBACK 100 MG IV (09:37)
[2023-05-01] MEDS: PANTOPRAZOLE 40MG TABLET 40 MG PO (09:38)
--- NOTE | 2023-05-01 10:03 | CA_ITS ---
APPROVED REPORT EXAM: Comprehensive 2D, Doppler, and color-flow Echocardiogram Cooperative Education Director: Naa Ramírez RDCS Ht: 5 ft 6 in Wt: 137lbs BSA: 1.70 BP: 141/71 mmHg Indications: PHTN,CAD,EDEMA PATIENT DISORIENTED, NON COMPLIANT DURING STUDY, TDS M-Mode Dimensions RVDd 2.60 cm (0.9-2.6) LA Diam 3.36 cm (1.9-4.0) LVDd 4.51 cm (3.5-5.7) LVDs 3.76 cm (3.5-5.7) IVSd 0.80 cm (0.6-1.1) PWd 1.00 cm (0.6-1.1) EF (Teich) 35.00% FS 16.60% EDV (Teich) 92.90 mL ESV (Teich) 60.40 mL LV Diastology E Decel Time 127 (160-240 msec) E/A Ratio 1.2 Mitral Valve MV E Max [place]. 136.0 (40-130 cm/s) MV A Velocity 117.0 (40-130 cm/s) E/A Ratio 1.17 MV PHT 37.0 ms Tricuspid Valve TR P. Velocity 338.00 cm/s RAP Estimate 10.00 mmHg RVSP 55.70 mmHg Left Ventricle The left ventricle is normal size. The left ventricular systolic function is normal. The left ventricular ejection fraction is within the normal range. There is increased LV wall thickness. There is normal LV segmental wall motion. Grade 2 diastolic dysfunction is present. LVEF is 55%. Right Ventricle The right ventricle is moderately dilated. The right ventricular systolic function is normal. Atria The left atrium is mildly dilated. The right atrium size is normal. The interatrial septum is not well-visualized. Aortic Valve The aortic valve is mildly thickened. There is no aortic valvular stenosis. Trace aortic regurgitation. Mitral Valve The mitral valve leaflets are mildly thickened. No evidence of mitral valve stenosis. At least moderate mitral regurgitation. The MR jet is eccentric and anteriorly directed. The MR jet may be underestimated due to eccentric jet. Tricuspid Valve The tricuspid valve leaflets are thin and pliable. Moderate tricuspid regurgitation. RVSP is 45 mmHg plus RA pressure. Pulmonic Valve The pulmonary valve is normal in structure. Mild pulmonic regurgitation. Great Vessels The aortic root is normal in size. The ascending aorta is not well-visualized. The IVC is not well-visualized. Pericardium There is no pericardial effusion. Other Information Study Quality: Technically Difficult Conclusion Technically difficult study due to presence of frequent PVCs Normal biventricular systolic function. Moderate RV dilation. Mild LA dilation. At least moderate MR. The MR jet is eccentric and anteriorly directed. The MR jet may be underestimated due to eccentric jet. Moderate TR. RVSP is 45 mmHg plus RA pressure. The patient is noted to have frequent PVCs during the acquisition of the study images. Electronically signed by : Kellen Brand MD 05/04/2023 12:40:41
[2023-05-01] MEDS: SODIUM PHOS/BIPHOSPHATE FLEET 133ML ENEMA 133 ML RC (11:29)
--- NOTE | 2023-05-01 12:02 | P.DS_ITS ---
General Admission date:: 05/01/23 Discharge date: 05/01/23 HPI HPI HPI: This is a 82-year-old female with a PMHx of bipolar disorder, schizoaffective disorder, hearing loss, COPD, CAD on plavix and general debility, chair bound brought in by EMS to the emergency department from nursing facility for evaluation for reported fever and high heart rate in the nursing facility. Patient is AOx4, GCS 15, however, poor historian and inconsistent with the interview due to her baseline cognitive disability . History obtained form ED documentation, EMS and nursing facility. Per ER the nursing facility has been recently diagnosed the patient with pneumonia but they were concerned because they did not see any prescriptions for antibiotics. Given this, they called EMS to bring her in because they reported that her heart rate was elevated. Per EMS, vitals normal and route. Patient initially denied any complaints, then she did say that her abdomen was hurting, then denied. Then stated that her chest was hurting that she felt she could not get a good breath in, then denied this. Admitted for further work up and treatment Hospital Course Hospital Course Hospital Course: 82-year-old female with a PMHx of bipolar disorder, schizoaffective disorder, hearing loss, COPD, CAD on plavix and general debility chair bound brought in by EMS to the emergency department from nursing facility for evaluation for reported fever and high heart rate in the nursing facility. Patient is AOx4, GCS 15, however, poor historian and inconsistent with the interview due to her baseline cognitive disability. On arrival patient presented severe dehydrated, with elevated WBC, lactate, meeting criteria for sepsis. Full bolus given.. Troponin are elevated. Imaging reviewed. no clear sources of infection or sepsis. CTA abd concerned for a massive fecal impaction vs fecolith, per ER unable to reach it digitally. Chest negative for focal consolidation, Urine clear. Patient admitted for further management. Stable during admission. Cardiology evaluated. Clinically appropriate to return back to nursing facility. Problems addressed as follows: -Abdominal pain likely secondary to massive fecal impaction: secondary to dehydration vs medication side effects patient on chronic antidepressant medication and ferrous sulfate. No bowel perforation seen on CT of the abd. was noted to have some possible stercoral colitis. Will initiate levofloxacin and complete 5 days of antibiotics total. Bowel regimen initiated, improvement with enema. White cell count elevated, unclear source. White cell count 14.5 on day of discharge. Recommend repeat CBC, CMP, magnesium in 1 week. Remains afebrile and stable on room air. No concern for pneumonia. Stable for discharge back to intermediate care facility to complete antibiotic regimen. -Elevated troponin: -Endothelial dysfunction Patient has no history of CAD, last heart catheterization on November 2022, finding clean coronaries, suspected endothelial dysfunction. Troponins elevated 2.8 and remained stable. No chest pain. No changes on EKG. Cardiology consulted, recommends no invasive intervention at this time. Echo does not show any regional wall motion abnormalities. Blood pressure well-controlled. Antonio marcial does have elevated RVSP on echo, recommend continuing diuresis. Treated with Lasix x 1 during admission. Findings consistent with type II STEMI from her underlying mitral regurgitation and pain from constipation. Stable to be discharged back to intermediate care facility with cardiology follow-up in 1 to 2 weeks. -History of bipolar disorder with a schizoaffective: Continue home regimen during admission -Constipation: Treated with enema and bowel regimen during admission. Had large stool. Improvement in belly pain. Recommend continuing docusate and senna daily for 2-3 soft stools daily to decrease risk for constipation given patient's immobility. 30-minute discharge. Exam Data for Last 24 hours Vital signs and Labs for Last 24 Hours: Temp Pulse Resp BP Pulse Ox O2 Del Method 98.9 F 88 20 115/64 92 L Room Air 05/01/23 08:00 05/01/23 08:00 05/01/23 08:00 05/01/23 08:00 05/01/23 08:00 05/01/23 10:19 Laboratory Results - last 24 hr 05/01/23 00:34: SARS-CoV-2 (PCR) Not detected, Influenza A Untype (PCR) Not detected, Influenza Type B (PCR) Not detected 05/01/23 00:35: WBC 15.2 H, RBC 3.99 L, Hgb 11.1 L, Hct 34.9 L, MCV 87.6, MCH 27.9, MCHC 31.9, RDW 14.8, Plt Count 262, MPV 8.7, Neut % (Auto) 86.3 H, Lymph % (Auto) 7.4 L, [place] % (Auto) 6.0, Eos % (Auto) 0.2, Baso % (Auto) 0.1, Neut # (Auto) 13.2 H, Lymph # (Auto) 1.1, [place] # (Auto) 0.9, Eos # (Auto) 0.0, Baso # (Auto) 0.0, Total Counted 100, Neutrophils % (Manual) 89 H, Lymphocytes % (Manual) 9 L, Monocytes % (Manual) 1 L, Basophils % (Manual) 1.0, Platelet Estimate Normal, RBC Morphology Not Reportable, Ovalocytes 1+, Sodium 137, Potassium 3.6, Chloride 103, Carbon Dioxide 30, Anion Gap 7.6, BUN 15, Creatinine 0.50 L, Estimated Creat Clear 40, Estimated GFR 119, Est GFR ( Amer) 144, Glucose 158 H, Lactate 3.8 H, Calcium 8.2 L, Total Bilirubin 0.1 L, AST 33, ALT 28, Alkaline Phosphatase 128 H, Troponin I 0.14 H, NT-Pro-B Natriuret Pep 930 H, Total Protein 5.3 L, Albumin 2.9 L, Globulin 2.4, Albumin/Globulin Ratio 1.2, Lipase 39, Urine Color Yellow, Urine Appearance Clear, Urine pH 6.0, Ur Specific [place] >= 1.030, Urine Protein Trace, Urine Glucose (UA) Trace, Urine Ketones 1+, Urine Blood Negative, Urine Nitrate Negative, Urine Bilirubin Negative, Urine Urobilinogen 0.2, Ur Leukocyte Esterase Negative, Urine RBC None, Urine WBC Occasional, Ur Squamous Epith Cells Occasional, Urine Bacteria Trace, Urine Mucus 1+ 05/01/23 03:20: Lactate 2.2 H, Troponin I 0.69 H 05/01/23 05:15: WBC 14.5 H, RBC 3.97 L, Hgb 11.1 L, Hct 34.4 L, MCV 86.7, MCH 28.0, MCHC 32.3, RDW 15.0, Plt Count 261, MPV 8.6, Neut % (Auto) 83.8 H, Lymph % (Auto) 9.5 L, [place] % (Auto) 5.2, Eos % (Auto) 1.4, Baso % (Auto) 0.1, Neut # (Auto) 12.1 H, Lymph # (Auto) 1.4, [place] # (Auto) 0.8, Eos # (Auto) 0.2, Baso # (Auto) 0.0, Sodium 138, Potassium 3.6, Chloride 106, Carbon Dioxide 30, Anion Gap 5.6, BUN 10 D, Creatinine 0.30 L D, Estimated Creat Clear 44, Estimated GFR 214, Est GFR ( Amer) 259 D, Glucose 110 H D, Lactate 1.1, Calcium 8.1 L, Magnesium 1.8, Total Bilirubin 0.3, AST 30, ALT 18 D, Alkaline Phosphatase 152 H, Troponin I 0.86 H, Total Protein 5.3 L, Albumin 2.8 L, Globulin 2.5, Albumin/Globulin Ratio 1.1 I & O for Last 24 hours: Intake & Output 04/28/23 04/29/23 04/30/23 05/01/23 23:59 23:59 23:59 23:59 Intake Total 1929 Output Total 0 / 0 Balance 1929 Weight 56.245 kg 62.414 kg Constitutional Constitutional: no acute distress, average body habitus, chronically ill appearing and cooperative *Routine HEENT Exam Head: Present normocephalic and atraumatic ENT: Present mucous membranes moist *Routine Neck Exam Neck: Present supple, full ROM and normal carotid upstroke; Absent JVD, carotid bruit or lymphadenopathy *Routine Respiratory Exam Respiratory: Present CTA bilaterally, normal respiratory effort, able to speak in complete sentences and symmetric chest movement *Routine Cardiovascular Exam Cardiovascular: Present RRR, Normal S1 and Normal S2; Absent murmur or gallop *Routine Abdominal Exam Abdominal: Present soft and normoactive bowel sounds; Absent tenderness, distended or organomegaly Comments: Umbilical hernia, no incarceration, soft and reducible. *Routine Rectal Exam Patient deferred: visual exam *Routine Exam Patient deferred: external exam *Routine Extremities Exam Extremities: Present full ROM, pulses intact and normal capillary refill; Absent cyanosis, clubbing or edema Comments: Sarcopenia, consistently lays on her left hip *Routine Skin Exam Skin: Present intact and warm; Absent erythema *Routine Neurological Exam Neurological: Present alert and moving all extremities; Absent altered mental status Routine Psychiatric Exam Psychiatric: Present normal affect and cooperative; Absent normal thought process or good insight Results Data Completed and Pending Labs on day of discharge: Labs from last 24 hours 05/01/23 05/01/23 05/01/23 05:15 03:20 00:35 WBC 14.5 H 15.2 H RBC 3.97 L 3.99 L Hgb 11.1 L 11.1 L Hct 34.4 L 34.9 L MCV 86.7 87.6 MCH 28.0 27.9 MCHC 32.3 31.9 RDW 15.0 14.8 Plt Count 261 262 MPV 8.6 8.7 Neut % (Auto) 83.8 H 86.3 H Lymph % (Auto) 9.5 L 7.4 L [place] % (Auto) 5.2 6.0 Eos % (Auto) 1.4 0.2 Baso % (Auto) 0.1 0.1 Neut # (Auto) 12.1 H 13.2 H Lymph # (Auto) 1.4 1.1 [place] # (Auto) 0.8 0.9 Eos # (Auto) 0.2 0.0 Baso # (Auto) 0.0 0.0 Total Counted 100 Neutrophils % (Manual) 89 H Lymphocytes % (Manual) 9 L Monocytes % (Manual) 1 L Basophils % (Manual) 1.0 Platelet Estimate Normal RBC Morphology Not Reportable Ovalocytes 1+ Sodium 138 137 Potassium 3.6 3.6 Chloride 106 103 Carbon Dioxide 30 30 Anion Gap 5.6 7.6 BUN 10 D 15 Creatinine 0.30 L D 0.50 L Estimated Creat Clear 44 40 Estimated GFR 214 119 Est GFR ( Amer) 259 D 144 Glucose 110 H D 158 H Lactate 1.1 2.2 H 3.8 H Calcium 8.1 L 8.2 L Magnesium 1.8 Total Bilirubin 0.3 0.1 L AST 30 33 ALT 18 D 28 Alkaline Phosphatase 152 H 128 H Troponin I 0.86 H 0.69 H 0.14 H NT-Pro-B Natriuret Pep 930 H Total Protein 5.3 L 5.3 L Albumin 2.8 L 2.9 L Globulin 2.5 2.4 Albumin/Globulin Ratio 1.1 1.2 Lipase 39 Urine Color Yellow Urine Appearance Clear Urine pH 6.0 Ur Specific [place] >= 1.030 Urine Protein Trace Urine Glucose (UA) Trace Urine Ketones 1+ Urine Blood Negative Urine Nitrate Negative Urine Bilirubin Negative Urine Urobilinogen 0.2 Ur Leukocyte Esterase Negative Urine RBC None Urine WBC Occasional Ur Squamous Epith Cells Occasional Urine Bacteria Trace Urine Mucus 1+ SARS-CoV-2 (PCR) Influenza A Untype (PCR) Influenza Type B (PCR) 05/01/23 00:34 WBC RBC Hgb Hct MCV MCH MCHC RDW Plt Count MPV Neut % (Auto) Lymph % (Auto) [place] % (Auto) Eos % (Auto) Baso % (Auto) Neut # (Auto) Lymph # (Auto) [place] # (Auto) Eos # (Auto) Baso # (Auto) Total Counted Neutrophils % (Manual) Lymphocytes % (Manual) Monocytes % (Manual) Basophils % (Manual) Platelet Estimate RBC Morphology Ovalocytes Sodium Potassium Chloride Carbon Dioxide Anion Gap BUN Creatinine Estimated Creat Clear Estimated GFR Est GFR ( Amer) Glucose Lactate Calcium Magnesium Total Bilirubin AST ALT Alkaline Phosphatase Troponin I NT-Pro-B Natriuret Pep Total Protein Albumin Globulin Albumin/Globulin Ratio Lipase Urine Color Urine Appearance Urine pH Ur Specific [place] Urine Protein Urine Glucose (UA) Urine Ketones Urine Blood Urine Nitrate Urine Bilirubin Urine Urobilinogen Ur Leukocyte Esterase Urine RBC Urine WBC Ur Squamous Epith Cells Urine Bacteria Urine Mucus SARS-CoV-2 (PCR) Not detected Influenza A Untype (PCR) Not detected Influenza Type B (PCR) Not detected DS: Diagnosis Discharge Diagnosis (1) Abdominal pain: Status: Acute Code(s): R10.9 - Unspecified abdominal pain Qualifiers: Abdominal location: left lower quadrant Qualified Code(s): R10.32 - Left lower quadrant pain (2) Fecal impaction: Status: Acute Code(s): K56.41 - Fecal impaction (3) Dehydration: Status: Acute Code(s): E86.0 - Dehydration (4) Elevated troponin: Status: Acute Code(s): R79.89 - Other specified abnormal findings of blood chemistry (5) Angina at rest: Status: Inactive Code(s): I20.8 - Other forms of angina pectoris (6) Bipolar 1 disorder: Status: Chronic Code(s): F31.9 - Bipolar disorder, unspecified (7) Schizoaffective disorder: Status: Chronic Code(s): F25.9 - Schizoaffective disorder, unspecified Qualifiers: Schizoaffective disorder type: bipolar Qualified Code(s): F25.0 - Schizoaffective disorder, bipolar type (8) Tobacco abuse: Status: Chronic Code(s): Z72.0 - Tobacco use Meds Home Medications and Allergies Home Medications Medication Instructions Recorded Confirmed Type omega-3 fatty acids-fish oil 360 1 cap PO DAILY Supplement 10/14/17 05/01/23 History mg-1,200 mg capsule (Fish Oil) raloxifene 60 mg tablet (Evista) 60 mg PO DAILY hormone supplement 10/14/17 05/01/23 History trazodone 50 mg tablet 25 mg PO HS sleep 10/14/17 05/01/23 History escitalopram oxalate 20 mg tablet 20 mg PO DAILY mood 10/05/19 05/01/23 History clopidogrel 75 mg tablet (Plavix) 75 mg PO DAILY Platelet Inhibitor 01/08/22 05/01/23 History nitroglycerin 0.4 mg/hr 1 patch transdermal DAILY 12/10/22 05/01/23 History transdermal 24 hour patch (Nitro-Dur) acetaminophen 500 mg tablet 500 mg PO Q4HP PRN Mild Pain 03/13/23 05/01/23 History (Acetaminophen Extra Strength) (Scale Score 1-4) calcium citrate 200 mg (950 mg) 200 mg PO BID 03/13/23 05/01/23 History tablet divalproex 500 mg tablet,extended 500 mg PO HS 03/13/23 05/01/23 History release 24 hr ferrous sulfate 325 mg (65 mg 325 mg PO BID Supplement 03/13/23 05/01/23 History iron) tablet polyvinyl alcohol 1.4 % eye drops 1 drp Eye-Both TIDP PRN Dry Eyes 03/13/23 05/01/23 History pantoprazole 20 mg tablet,delayed 20 mg PO BID Acid Reflux 04/18/23 05/01/23 History release acetaminophen 500 mg tablet 500 mg PO BID Leg Pain 05/01/23 05/01/23 History baclofen 10 mg tablet 10 mg PO TIDP PRN Muscle Spasm 05/01/23 05/01/23 History cholecalciferol (vitamin D3) 25 25 mcg PO DAILY 05/01/23 05/01/23 History mcg (1,000 unit) tablet clonazepam 1 mg tablet 0.5 mg PO AM 05/01/23 05/01/23 History clonazepam 1 mg tablet 1 mg PO HS 05/01/23 05/01/23 History fluticasone propionate 50 1 spray intranasal DAILY Allergy 05/01/23 05/01/23 History mcg/actuation nasal Symptoms spray,suspension lactulose 10 gram/15 mL oral 20 g (30 mL) PO BID PRN 05/01/23 05/01/23 Rx solution Constipation 30 days #0 mL levofloxacin 750 mg tablet 750 mg PO Q48H 3 days #2 tabs 05/01/23 Rx loratadine 10 mg tablet 10 mg PO DAILY Allergy Symptoms 05/01/23 05/01/23 History mirabegron 50 mg tablet,extended 50 mg PO DAILY 05/01/23 05/01/23 History release 24 hr (Myrbetriq) mirtazapine 15 mg tablet 15 mg PO DAILY 05/01/23 05/01/23 History multivitamin 1 tab PO DAILY 05/01/23 05/01/23 History ondansetron 4 mg disintegrating 4 mg PO Q4HP PRN Nausea And 05/01/23 05/01/23 History tablet Vomiting paliperidone palmitate 234 mg/1.5 1.5 mg IM MONTHLY 05/01/23 05/01/23 History mL intramuscular syringe (Invega Sustenna) peg 400-propylene glycol (PF) 0.4 1 drp Eye-Both BIDP PRN Dry Eyes 05/01/23 05/01/23 History %-0.3 % eye drops in a dropperette (Systane (PF)) sennosides 8.6 mg-docusate sodium 1 tab-cap PO HS 30 days #30 tabs 05/01/23 Rx 50 mg tablet (Senna with Docusate Sodium) New Prescriptions to Start Prescriptions: levofloxacin Pietro Galvez sennosides-docusate sodium [Senna with Docusate Sodium] Pietro Galvez Allergies Allergy/AdvReac Type Severity Reaction Status Date / Time aspirin Allergy Unknown Verified 04/09/23 10:40 codeine Allergy Unknown Verified 04/09/23 10:40 Corticosteroids Allergy Unknown Verified 04/09/23 10:40 (Glucocorticoids) ibuprofen Allergy Unknown Verified 04/09/23 10:40 [From NeoProfen (ibuprofen lysn)(PF)] naproxen Allergy Unknown Verified 04/09/23 10:40 [From Flanax (naproxen)] diclofenac [From Voltaren] Allergy Verified 04/09/23 10:40 Discharge Plan Disposition Patient Disposition: [facility] Condition: Fair Discharge Order Discharge Orders: Discharge Order (Routine); Ordered 05/01/23 Ordered By: Pietro Galvez Follow up Plan Follow up with: Valentin Kumar MD [Staff Physician] - 05/14/23 9:15 am Prescriptions/Medication Reconciliation: New sennosides-docusate sodium [Senna with Docusate Sodium] 8.6-50 mg tablet 1 tab-cap PO HS 30 Days Qty: 30 0RF Rx Instructions: goal 2-3 soft stools a day levofloxacin 750 mg tablet 750 mg PO Q48H 3 Days Qty: 2 0RF Rx Instructions: first dose 05/03/23 Continued escitalopram oxalate 20 mg tablet 20 mg PO DAILY raloxifene [Evista] 60 mg tablet 60 mg PO DAILY trazodone 50 mg tablet 25 mg PO HS omega-3 fatty acids-fish oil [Fish Oil] 360-1,200 mg capsule 1 cap PO DAILY polyvinyl alcohol 1.4 % drops 1 drp Eye-Both TIDP PRN (Reason: Dry Eyes) acetaminophen [Acetaminophen Extra Strength] 500 mg tablet 500 mg PO Q4HP PRN (Reason: Mild Pain (Scale Score 1-4)) calcium citrate 200 mg (950 mg) tablet 200 mg PO BID divalproex 500 mg tablet extended release 24 hr 500 mg PO HS ferrous sulfate 325 mg (65 mg iron) tablet 325 mg PO BID pantoprazole 20 mg tablet,delayed release (DR/EC) 20 mg PO BID clopidogrel [Plavix] 75 mg tablet 75 mg PO DAILY nitroglycerin [Nitro-Dur] 0.4 mg/hr patch 24 hour 1 patch transdermal DAILY Rx Instructions: allow nitrate-free interval of approx. 10-12 hrs per 24-hour period cholecalciferol (vitamin D3) 25 mcg (1,000 unit) tablet 25 mcg PO DAILY multivitamin Tablet 1 tab PO DAILY clonazepam 1 mg tablet 1 mg PO HS Patient Comments: 1 mg orally twice a day mirtazapine 15 mg tablet 15 mg PO DAILY Systane (PF) 0.4-0.3 % Dropperette 1 drp Eye-Both BIDP PRN (Reason: Dry Eyes) Invega Sustenna 234 mg/1.5 mL syringe 1.5 mg IM MONTHLY Myrbetriq 50 mg tablet extended release 24 hr 50 mg PO DAILY clonazepam 1 mg tablet 0.5 mg PO AM acetaminophen 500 mg Tablet 500 mg PO BID baclofen 10 mg Tablet 10 mg PO TIDP PRN (Reason: Muscle Spasm) ondansetron 4 mg Tablet,Disintegrating 4 mg PO Q4HP PRN (Reason: Nausea And Vomiting) fluticasone propionate 50 mcg/actuation [place],Suspension 1 spray INTRANASAL DAILY Rx Instructions: administer into each nostril loratadine 10 mg Tablet 10 mg PO DAILY Changed lactulose 10 gram/15 mL Solution 20 g PO BID PRN (Reason: Constipation) 30 Days Qty: 0 0RF Rx Instructions: goal 2-3 soft stools a day Discontinued loperamide 2 mg Capsule 2 mg PO Q6HP PRN (Reason: Diarrhea) Problem Reconciliation Problems Reviewed?: Yes Patient Discharge Instructions ACTIVITY: Continue current activity DIET: continue same diet Patient Instructions: DI for Abdominal Pain-Adult Providers Primary Care Provider: Valentin Lerma Admit Provider: Pietro Galvez Attending Provider: Pietro Galvez
--- NOTE | 2023-05-01 12:52 | EXP.CARD.CON ---
History of Present Illness History of Present Illness Consult date: 05/01/23 Requesting physician: Pietro Galvez Consult reason: known to you Chief complaint: elevated troponin History of present illness: This is an 82-year-old white female who presented to the emergency department from a nursing facility for evaluation of a fever and high heart rate per the nursing facility. She has a history of bipolar disorder, schizophrenia, COPD and general debility. The patient had stable vital signs when EMS arrived and she has not been tachycardic nor had a fever since she has been here at the hospital. She did have some vague complaints of abdominal pain in the emergency department. During my evaluation today the patient is really not answering any of my questions and she is talking about [place] and wanting to put her clothes on and go home. She appears to be in no distress. She is a very poor historian and I could not get an accurate interview from her due to her cognitive disability. Her history was obtained from her medical records. Her vital signs are stable this morning and she appears to be in no distress. Cardiology was consulted due to an elevated troponin. [facility] Disclaimer: The information contained in this section may have been updated after the patient was seen, as this information can be updated by other users. Medical History (Updated 05/01/23 @ 12:[address] APRN) Abnormal cardiovascular stress test Angina at rest Anxiety Bipolar 1 disorder Chest pain Closed rib fracture Dizziness Dyspnea Edema of left foot Edema of right foot Elevated troponin Fall Fall Foreign body in ear, bilateral Fracture dislocation of joint Fracture of 3rd metatarsal Fracture of 4th metatarsal Fracture of proximal phalanx of left middle finger Fracture of proximal phalanx of left ring finger Gastroesophageal reflux disease Hearing loss Hematoma of left knee region Injury of left rotator cuff Iron deficiency anemia Major depressive disorder, recurrent, unspecified Nasal swelling Nondisplaced fracture of metatarsal bone of right foot Osteoporosis Overactive bladder Pain in right foot Paranoid delusion Pyoderma Restless leg syndrome, controlled Schizoaffective disorder Tinnitus Umbilical hernia without obstruction or gangrene Social History (Updated 05/01/23 @ 03:42 by Ana Mcgowan RN) Smoking Status: Never smoker alcohol intake: never substance use type: denies use current occupational status: disabled Travel in the last 8 weeks: None housing: shelter caffeine: No Review of Systems Review of Systems Review of systems:: unable to obtain (Due to altered mental status) Exam Data for Last 24 hours Vital signs and Labs for Last 24 Hours: Temp Pulse Resp BP Pulse Ox O2 Del Method 98.9 F 88 20 115/64 92 L Room Air 05/01/23 08:00 05/01/23 08:00 05/01/23 08:00 05/01/23 08:00 05/01/23 08:00 05/01/23 10:19 Laboratory Results - last 24 hr 05/01/23 00:34: SARS-CoV-2 (PCR) Not detected, Influenza A Untype (PCR) Not detected, Influenza Type B (PCR) Not detected 05/01/23 00:35: WBC 15.2 H, RBC 3.99 L, Hgb 11.1 L, Hct 34.9 L, MCV 87.6, MCH 27.9, MCHC 31.9, RDW 14.8, Plt Count 262, MPV 8.7, Neut % (Auto) 86.3 H, Lymph % (Auto) 7.4 L, [place] % (Auto) 6.0, Eos % (Auto) 0.2, Baso % (Auto) 0.1, Neut # (Auto) 13.2 H, Lymph # (Auto) 1.1, [place] # (Auto) 0.9, Eos # (Auto) 0.0, Baso # (Auto) 0.0, Total Counted 100, Neutrophils % (Manual) 89 H, Lymphocytes % (Manual) 9 L, Monocytes % (Manual) 1 L, Basophils % (Manual) 1.0, Platelet Estimate Normal, RBC Morphology Not Reportable, Ovalocytes 1+, Sodium 137, Potassium 3.6, Chloride 103, Carbon Dioxide 30, Anion Gap 7.6, BUN 15, Creatinine 0.50 L, Estimated Creat Clear 40, Estimated GFR 119, Est GFR ( Amer) 144, Glucose 158 H, Lactate 3.8 H, Calcium 8.2 L, Total Bilirubin 0.1 L, AST 33, ALT 28, Alkaline Phosphatase 128 H, Troponin I 0.14 H, NT-Pro-B Natriuret Pep 930 H, Total Protein 5.3 L, Albumin 2.9 L, Globulin 2.4, Albumin/Globulin Ratio 1.2, Lipase 39, Urine Color Yellow, Urine Appearance Clear, Urine pH 6.0, Ur Specific [place] >= 1.030, Urine Protein Trace, Urine Glucose (UA) Trace, Urine Ketones 1+, Urine Blood Negative, Urine Nitrate Negative, Urine Bilirubin Negative, Urine Urobilinogen 0.2, Ur Leukocyte Esterase Negative, Urine RBC None, Urine WBC Occasional, Ur Squamous Epith Cells Occasional, Urine Bacteria Trace, Urine Mucus 1+ 05/01/23 03:20: Lactate 2.2 H, Troponin I 0.69 H 05/01/23 05:15: WBC 14.5 H, RBC 3.97 L, Hgb 11.1 L, Hct 34.4 L, MCV 86.7, MCH 28.0, MCHC 32.3, RDW 15.0, Plt Count 261, MPV 8.6, Neut % (Auto) 83.8 H, Lymph % (Auto) 9.5 L, C[place] % (Auto) 5.2, Eos % (Auto) 1.4, Baso % (Auto) 0.1, Neut # (Auto) 12.1 H, Lymph # (Auto) 1.4, [place] # (Auto) 0.8, Eos # (Auto) 0.2, Baso # (Auto) 0.0, Sodium 138, Potassium 3.6, Chloride 106, Carbon Dioxide 30, Anion Gap 5.6, BUN 10 D, Creatinine 0.30 L D, Estimated Creat Clear 44, Estimated GFR 214, Est GFR ( Amer) 259 D, Glucose 110 H D, Lactate 1.1, Calcium 8.1 L, Magnesium 1.8, Total Bilirubin 0.3, AST 30, ALT 18 D, Alkaline Phosphatase 152 H, Troponin I 0.86 H, Total Protein 5.3 L, Albumin 2.8 L, Globulin 2.5, Albumin/Globulin Ratio 1.1 I & O for Last 24 hours: Intake & Output 04/28/23 04/29/23 04/30/23 05/01/23 23:59 23:59 23:59 23:59 Intake Total 1929 Output Total 0 / 0 Balance 1929 Weight 124 lb 137 lb 9.589 oz Constitutional Constitutional: no acute distress, average body habitus and chronically ill appearing *Routine HEENT Exam Head: Present normocephalic and atraumatic ENT: Present mucous membranes moist *Routine Neck Exam Neck: Present supple, full ROM and normal carotid upstroke; Absent JVD, carotid bruit or lymphadenopathy *Routine Respiratory Exam Respiratory: Present CTA bilaterally, normal respiratory effort, able to speak in complete sentences and symmetric chest movement *Routine Cardiovascular Exam Cardiovascular: Present RRR, Normal S1 and Normal S2; Absent murmur or gallop *Routine Abdominal Exam Abdominal: Present soft and normoactive bowel sounds; Absent tenderness, distended or organomegaly *Routine Extremities Exam Extremities: Present full ROM, pulses intact and normal capillary refill; Absent cyanosis, clubbing or edema *Routine Skin Exam Skin: Present intact and warm; Absent erythema *Routine Neurological Exam Neurological: Present altered mental status Routine Psychiatric Exam Psychiatric: Present normal affect Meds Home Medications and Allergies Home Medications Medication Instructions Recorded Confirmed Type omega-3 fatty acids-fish oil 360 1 cap PO DAILY Supplement 10/14/17 05/01/23 History mg-1,200 mg capsule (Fish Oil) raloxifene 60 mg tablet (Evista) 60 mg PO DAILY hormone supplement 10/14/17 05/01/23 History trazodone 50 mg tablet 25 mg PO HS sleep 10/14/17 05/01/23 History escitalopram oxalate 20 mg tablet 20 mg PO DAILY mood 10/05/19 05/01/23 History clopidogrel 75 mg tablet (Plavix) 75 mg PO DAILY Platelet Inhibitor 01/08/22 05/01/23 History nitroglycerin 0.4 mg/hr 1 patch transdermal DAILY 12/10/22 05/01/23 History transdermal 24 hour patch (Nitro-Dur) acetaminophen 500 mg tablet 500 mg PO Q4HP PRN Mild Pain 03/13/23 05/01/23 History (Acetaminophen Extra Strength) (Scale Score 1-4) calcium citrate 200 mg (950 mg) 200 mg PO BID 03/13/23 05/01/23 History tablet divalproex 500 mg tablet,extended 500 mg PO HS 03/13/23 05/01/23 History release 24 hr ferrous sulfate 325 mg (65 mg 325 mg PO BID Supplement 03/13/23 05/01/23 History iron) tablet polyvinyl alcohol 1.4 % eye drops 1 drp Eye-Both TIDP PRN Dry Eyes 03/13/23 05/01/23 History pantoprazole 20 mg tablet,delayed 20 mg PO BID Acid Reflux 04/18/23 05/01/23 History release acetaminophen 500 mg tablet 500 mg PO BID Leg Pain 05/01/23 05/01/23 History baclofen 10 mg tablet 10 mg PO TIDP PRN Muscle Spasm 05/01/23 05/01/23 History cholecalciferol (vitamin D3) 25 25 mcg PO DAILY 05/01/23 05/01/23 History mcg (1,000 unit) tablet clonazepam 1 mg tablet 0.5 mg PO AM 05/01/23 05/01/23 History clonazepam 1 mg tablet 1 mg PO HS 05/01/23 05/01/23 History fluticasone propionate 50 1 spray intranasal DAILY Allergy 05/01/23 05/01/23 History mcg/actuation nasal Symptoms spray,suspension lactulose 10 gram/15 mL oral 20 g PO DAILYP PRN Constipation 05/01/23 05/01/23 History solution loperamide 2 mg capsule 2 mg PO Q6HP PRN Diarrhea 05/01/23 05/01/23 History loratadine 10 mg tablet 10 mg PO DAILY Allergy Symptoms 05/01/23 05/01/23 History mirabegron 50 mg tablet,extended 50 mg PO DAILY 05/01/23 05/01/23 History release 24 hr (Myrbetriq) mirtazapine 15 mg tablet 15 mg PO DAILY 05/01/23 05/01/23 History multivitamin 1 tab PO DAILY 05/01/23 05/01/23 History ondansetron 4 mg disintegrating 4 mg PO Q4HP PRN Nausea And 05/01/23 05/01/23 History tablet Vomiting paliperidone palmitate 234 mg/1.5 1.5 mg IM MONTHLY 05/01/23 05/01/23 History mL intramuscular syringe ([facility]) peg 400-propylene glycol (PF) 0.4 1 drp Eye-Both BIDP PRN Dry Eyes 05/01/23 05/01/23 History %-0.3 % eye drops in a dropperette (Systane (PF)) New Prescriptions to Start Prescriptions: Allergies Allergy/AdvReac Type Severity Reaction Status Date / Time aspirin Allergy Unknown Verified 04/09/23 10:40 codeine Allergy Unknown Verified 04/09/23 10:40 Corticosteroids Allergy Unknown Verified 04/09/23 10:40 (Glucocorticoids) ibuprofen Allergy Unknown Verified 04/09/23 10:40 [From NeoProfen (ibuprofen lysn)(PF)] naproxen Allergy Unknown Verified 04/09/23 10:40 [From Flanax (naproxen)] diclofenac [From Voltaren] Allergy Verified 04/09/23 10:40 Assessment and Plan *Assessment and plan (1) Elevated troponin: Status: Acute Category: Medical Code(s): R79.89 - Other specified abnormal findings of blood chemistry (2) Fecal impaction: Status: Acute Category: Medical Code(s): K56.41 - Fecal impaction (3) COPD (chronic obstructive pulmonary disease): Status: Acute Qualifiers: COPD type: unspecified COPD Qualified Code(s): J44.9 - Chronic obstructive pulmonary disease, unspecified Category: Medical Code(s): J44.9 - Chronic obstructive pulmonary disease, unspecified (4) Schizoaffective disorder: Status: Chronic Qualifiers: Schizoaffective disorder type: bipolar Qualified Code(s): F25.0 - Schizoaffective disorder, bipolar type Category: Medical Code(s): F25.9 - Schizoaffective disorder, unspecified (5) Bipolar 1 disorder: Status: Chronic Category: Medical Code(s): F31.9 - Bipolar disorder, unspecified Plan Plan: 1. The patient was admitted to the hospital from the nursing facility due to an elevated troponin. Will obtain an echocardiogram to evaluate her LV function and rule out wall motion abnormalities. 2. The patient had a recent cardiac catheterization in November 2022 which showed normal coronary arteries and slow flow down the LAD. It would be very unlikely for the patient to have developed significant coronary artery disease within the last 4 to 5 months so no plans for invasive left cardiac catheterization at this time unless she has a regional wall motion abnormality. 3. Her blood pressure is well-controlled. 4. Her LDL goal is less than 100. 5. The patient is anemic. We do recommend follow-up with hematology/oncology on an outpatient basis. 6. Further recommendations will be made pending the patient's response to treatment and the results of her echocardiogram today. Addendum: Echo shows an EF of 50 to 55%, mild RV dilatation, mild reduced TV function. There is moderate MR with a very eccentric jet. She has an elevated RVSP at 50 to 55 mmHg. As an outpatient the patient would benefit from a KASIA for the very eccentric MR which may be underestimated on the TTE. She also has an asynchronous septum but no regional wall motion abnormality. Recommend a dose of Lasix 40 mg IV x 1 today. The patient is most likely having a type II non-STEMI from her underlying MR. Will proceed with outpatient KASIA to evaluate her mitral regurgitation. The patient can be discharged from a cardiac standpoint today with follow-up in cardiology clinic in 1 to 2 weeks on an outpatient basis.
[2023-05-01] MEDS: FUROSEMIDE 40MG/4ML VIAL 40 MG IV (14:27)
[2023-05-01 14:48] LABS: Troponin I 0.83 ng/ml (0.00-0.034)
--- NOTE | 2023-05-01 17:46 | PC.NURSE ---
patient resting in bed at this time. alert to self and place some confusion noted. patient discharged to [facility], report called. awaiting ambulance to transport, they said it might be a while due to waiting on a truck to get back from [place]. denies any pain or discomfort at this time. call light within reach.
--- NOTE | 2023-05-01 19:23 | PC.NURSE ---
pt left floor with ems at this time
--- NOTE | 2023-05-03 19:34 | PC.NURSE ---
prelim blood culture result sent to dr [facility]cat[facility]. patient was d/c'd on Levaquin 750 from M/s floor
== END 2023-05-01 19:30 ==
LOC: ER 05-01 02:13 → 2ND 05-01 02:57
PROVIDERS: Nurse Practitioner Family; Admitting Provider Internal Medicine Adolescent Medicine; Emergency Provider Emergency Medicine; PCP Internal Medicine; Visit Provider Internal Medicine Adolescent Medicine
DX: R79.89 Other specified abnormal findings of blood chemistry (principal); K56.41 Fecal impaction; J44.9 Chronic obstructive pulmonary disease, unspecified; F25.0 Schizoaffective disorder, bipolar type; R10.32 Left lower quadrant pain; I25.118 Atherosclerotic heart disease of native coronary artery with other forms of angina pectoris; F17.210 Nicotine dependence, cigarettes, uncomplicated; E86.0 Dehydration; Z79.899 Other long term (current) drug therapy; Z79.02 Long term (current) use of antithrombotics/antiplatelets; R06.02 Shortness of breath
CPT/HCPCS: 71275; 74177; 80053; 81001; 83605; 83690; 83735; 83880; 84484; 85007; 85025; 87040; 87636; 93005; 93306; 99285; G0378; J1956; J2405; Q9967

== ENCOUNTER 2023-05-14 13:11 | Outpatient (CLI) | payer MEDICARE, MEDICAID, SELFPAY ==
--- NOTE | 2023-05-14 14:03 | XR_ITS ---
FINAL REPORT CLINICAL HISTORY: MRI Clearance FINDINGS: RIGHT FEMUR 1 view was obtained. There is no acute fracture or dislocation. The joint spaces are intact. There is no soft tissue abnormality. No radiopaque foreign body is identified. IMPRESSION: No radiopaque foreign body identified. Reviewed, Interpreted and Dictated by Jassi Miguel MD Transcribed by Erin Porter Authenticated and . [facility]
--- NOTE | 2023-05-14 14:03 | XR_ITS ---
FINAL REPORT CLINICAL HISTORY: MRI Clearance FINDINGS: LEFT FEMUR 1 view was obtained. There is a displaced subcapital fracture of the left femur. There is full shaft width lateral displacement of the fracture fragment. This fracture appears chronic. No radiopaque foreign body is identified. IMPRESSION: Chronic subcapital fracture of the left femur. No radiopaque foreign bodies identified. Reviewed, Interpreted and Dictated by Jassi Miguel MD Transcribed by Erin Porter Authenticated and [facility]
--- NOTE | 2023-05-14 14:03 | XR_ITS ---
FINAL REPORT CLINICAL HISTORY: MRI Clearance FINDINGS: A single AP view of the cervical spine was obtained. There is no acute bony abnormality identified. No metallic foreign body is seen. IMPRESSION: No radiopaque foreign body. No bony abnormality identified. Reviewed, Interpreted and Dictated by Jassi Miguel MD Transcribed by Phylicia Chan Authenticated and [facility]
--- NOTE | 2023-05-14 14:03 | XR_ITS ---
FINAL REPORT CLINICAL HISTORY: MRI Clearance FINDINGS: A single view of the abdomen was obtained. The inferior lung whitaker were included on this exam. There are air-filled loops of large and small bowel. Small bowel loops measure at the upper limits of normal in size. This appears to represent an ileus. No radiopaque foreign bodies are identified. IMPRESSION: Findings consistent with an ileus. No radiopaque foreign bodies identified. Reviewed, Interpreted and Dictated by Jassi Miguel MD Transcribed by Erin Porter Authenticated and [facility]
--- NOTE | 2023-05-14 14:03 | XR_ITS ---
FINAL REPORT CLINICAL HISTORY: MRI Clearance FINDINGS: SKULL 3 views were obtained. There is no evidence of specific abnormality of the bony calvarium. There are no depressed or displaced fractures identified. There are no calcifications noted. The visualized sinuses demonstrate no specific abnormality. No radiopaque foreign bodies identified. IMPRESSION: Unremarkable skull series. No radiopaque foreign bodies identified. Reviewed, Interpreted and Dictated by Jassi Miguel MD Transcribed by Erin Porter Authenticated and [facility]
--- NOTE | 2023-05-14 14:03 | XR_ITS ---
FINAL REPORT CLINICAL HISTORY: MRI Clearance FINDINGS: A single view of the chest was obtained. The inferior lung whitaker were not included on this exam. The inferior lung whitaker are included on accompanying abdominal radiograph. The heart is normal in size. The mediastinum is unremarkable. There are chronic changes in both lungs. There is no pleural effusion. There is no pneumothorax. There is no radiopaque foreign body identified. IMPRESSION: No acute cardiopulmonary process. No radiopaque foreign bodies identified. Reviewed, Interpreted and Dictated by Jassi Miguel MD Transcribed by Erin Porter Authenticated and [facility]
== END 2023-05-14 23:59 ==
LOC: RAD 13:11
PROVIDERS: PCP Internal Medicine; Visit Provider Internal Medicine
DX: Z53.09 Procedure and treatment not carried out because of other contraindication
CPT/HCPCS: 70250; 71045; 72020; 73551; 74018

== ENCOUNTER 2023-06-04 08:44 | Outpatient (CLI) | payer MEDICARE, MEDICAID, SELFPAY ==
--- NOTE | 2023-06-04 08:45 | MR_ITS ---
FINAL REPORT CLINICAL HISTORY: Parkinsons 12 ml prohance COMPARISON: None FINDINGS: Multiplanar MR imaging of the brain was performed without and with contrast. There is motion on many sequences which somewhat limits overall image quality. There is a focus of increased T2 signal are seen in the right periventricular white matter that have a nonspecific appearance but likely represent chronic ischemic/gliotic changes, although demyelination could have a similar appearance. There is no evidence of intracranial hemorrhage or mass. No abnormal ventricular dilatation is identified. There is no evidence of shift of the midline structures. No abnormal extra-axial fluid collection is seen. No area of abnormal restricted diffusion is identified. The posterior fossa and brainstem have an unremarkable appearance. No abnormal contrast enhancement is seen. Normal major vessel vascular flow voids are seen. There is mild mucosal thickening in multiple paranasal sinuses. IMPRESSION: Mild chronic ischemic/gliotic changes as described. No acute intracranial abnormality. Reviewed, Interpreted and Dictated by Michael Dudley III, MD Transcribed by Cely Singleton Authenticated and [facility]
[2023-06-04 09:19] LABS: Blood Urea Nitrogen 22 mg/dl (7-17); Estimated Glomerular Filt Rate 154 ml/min (>60); GFR (African American) 186 ML/MIN (>60)
[2023-06-04] MEDS: SODIUM CHLORIDE 0.9% 10ML SYR (RAD ONLY) 10 ML IV (09:59)
[2023-06-04] MEDS: GADOTERIDOL INJ 17ML SYRINGE 12 ML IV (09:59)
== END 2023-06-04 23:59 ==
PROVIDERS: PCP Obstetrics & Gynecology; Visit Provider Internal Medicine
DX: G20.A1 Parkinson's disease without dyskinesia, without mention of fluctuations (principal)
CPT/HCPCS: 36415; 70553; 82565; 84520; A9576

== ENCOUNTER 2023-06-25 06:30 | Outpatient (CLI) | payer MEDICARE, MEDICAID, SELFPAY ==
[2023-06-25 06:46] LABS: Adenovirus F 40/41, stool Not Detected (NotDetected); Astrovirus Not Detected (NotDetected); Campylobacter Not Detected (NotDetected); Clostridium Difficile A/B, PCR Not Detected (NotDetected); Cryptosporidium Not Detected (NotDetected); Cyclospora Cayetanesis Not Detected (NotDetected); Entamoeba histolytica Not Detected (NotDetected); Enteroaggregative E coli Not Detected (NotDetected); Enteropathogenic E coli Not Detected (NotDetected); Enterotoxigenic E coli Not Detected (NotDetected); Giardia lamblia Not Detected (NotDetected); Norovirus Not Detected (NotDetected); Plesimonas Shigalloides, PCR Not Detected (NotDetected); Rotavirus A Not Detected (NotDetected); Salmonella, PCR Not Detected (NotDetected); Sapovirus Not Detected (NotDetected); Shiga-like toxin E coli Not Detected (NotDetected); Shigella Enterovasive E coli Not Detected (NotDetected); Vibrio Cholerae Not Detected (NotDetected); Vibrio, PCR Not Detected (NotDetected); Yersinia Entercolitica, PCR Not Detected (NotDetected)
== END 2023-06-25 23:59 ==
LOC: LAB.DROPOF 06:33
PROVIDERS: PCP Internal Medicine; Visit Provider Internal Medicine
DX: K59.1 Functional diarrhea
CPT/HCPCS: 87506

== ENCOUNTER 2023-07-31 20:00 | Observation (INO) | payer MEDICARE, MEDICAID, SELFPAY ==
[2023-07-31 20:00] VITALS: BP 120/78; PULSE 64; RESP 16; TEMP 36.6; O2SAT 98; BMI 27.2
[2023-07-31 20:02] VITALS: BP 120/75; PULSE 61; RESP 17; O2SAT 91
--- NOTE | 2023-07-31 20:37 | CT_ITS ---
PROCEDURE INFORMATION: Exam: CT Abdomen And Pelvis With Contrast Exam date and time: 07/31/2023 11:27 PM Age: 82 years old Clinical indication: Abdominal pain; Additional info: Tender periumbilical hernia TECHNIQUE: Imaging protocol: Computed tomography of the abdomen and pelvis with contrast. Radiation optimization: All CT scans at this facility use at least one of these dose optimization techniques: automated exposure control; mA and/or kV adjustment per patient size (includes targeted exams where dose is matched to clinical indication); or iterative reconstruction. Contrast material: ISOVUE; Contrast volume: 75 ml; Contrast route: IV; COMPARISON: CT ABDOMEN PELVIS W CON 05/01/2023 1:03 AM FINDINGS: Liver: Tiny hypodense lesion dome of the liver in the right lobe 2 cm which could reflect a tiny cyst. Gallbladder and bile ducts: Gallstone. Pancreas: Normal. No ductal dilation. Spleen: Normal. No splenomegaly. Adrenal glands: Stable left adrenal nodule which could reflect adenoma. Kidneys and ureters: Normal. No hydronephrosis. Stomach and bowel: Wall thickening of the rectum which could indicate proctitis. The colon proximal to this is moderately dilated with gas. No small bowel obstruction. Appendix: Normal appendix. Intraperitoneal space: Unremarkable. No free air. No significant fluid collection. Vasculature: Unremarkable. No abdominal aortic aneurysm. Lymph nodes: Unremarkable. No enlarged lymph nodes. Urinary bladder: Unremarkable as visualized. Reproductive: Uterine fibroids. Bones/joints: Chronic changes of prior left femoral neck fracture. There is diffuse degenerative disease of the visualized osseous structures. There is diffuse osseous demineralization. Stable compression deformities of L1 and L3. Stable compression deformity of T12. There is a few chronic thoracolumbar spine fractures. Soft tissues: Unremarkable. IMPRESSION: 1. Proctitis. As a result the colon proximal to this is moderately dilated. 2. Gallstone.
--- NOTE | 2023-07-31 20:38 | ED_ITS ---
Discharge Plan Disposition Chief Complaint: Abdominal Pain Prescriptions Prescriptions: No Action Gaviscon Extra Strength 254-237.5 mg/5 mL suspension 5 ml PO TID PRN loratadine [Claritin] 10 mg tablet 10 mg PO DAILY dextromethorphan-guaifenesin 5-100 mg/5 mL syrup 10 ml PO Q4H PRN acetaminophen [Tylenol Extra Strength] 500 mg tablet 500 mg PO .COMPLEX Rx Instructions: 500 mg orally bid; escitalopram oxalate 20 mg tablet 20 mg PO DAILY raloxifene [Evista] 60 mg tablet 60 mg PO DAILY trazodone 50 mg tablet 25 mg PO HS omega-3 fatty acids-fish oil [Fish Oil] 360-1,200 mg capsule 1 cap PO DAILY polyvinyl alcohol 1.4 % drops 1 drp Eye-Both TIDP PRN (Reason: Dry Eyes) acetaminophen [Acetaminophen Extra Strength] 500 mg tablet 500 mg PO Q4HP PRN (Reason: Mild Pain (Scale Score 1-4)) calcium citrate 200 mg (950 mg) tablet 200 mg PO BID ferrous sulfate 325 mg (65 mg iron) tablet 325 mg PO BID pantoprazole 20 mg tablet,delayed release (DR/EC) 20 mg PO BID clopidogrel [Plavix] 75 mg tablet 75 mg PO DAILY nitroglycerin [Nitro-Dur] 0.4 mg/hr patch 24 hour 1 patch transdermal DAILY Rx Instructions: allow nitrate-free interval of approx. 10-12 hrs per 24-hour period cholecalciferol (vitamin D3) 25 mcg (1,000 unit) tablet 25 mcg PO DAILY multivitamin Tablet 1 tab PO DAILY clonazepam 1 mg tablet 1 mg PO HS Patient Comments: 1 mg orally twice a day mirtazapine 15 mg tablet 15 mg PO DAILY Systane (PF) 0.4-0.3 % Dropperette 1 drp Eye-Both BIDP PRN (Reason: Dry Eyes) Invega Sustenna 234 mg/1.5 mL syringe 1.5 mg IM MONTHLY Myrbetriq 50 mg tablet extended release 24 hr 50 mg PO DAILY clonazepam 1 mg tablet 0.5 mg PO AM baclofen 10 mg Tablet 10 mg PO TIDP PRN (Reason: Muscle Spasm) ondansetron 4 mg Tablet,Disintegrating 4 mg PO Q4HP PRN (Reason: Nausea And Vomiting) fluticasone propionate 50 mcg/actuation [place],Suspension 1 spray INTRANASAL DAILY Rx Instructions: administer into each nostril sennosides-docusate sodium [Senna with Docusate Sodium] 8.6-50 mg tablet 1 tab-cap PO HS 30 Days Qty: 30 0RF Rx Instructions: goal 2-3 soft stools a day lactulose 10 gram/15 mL Solution 20 g PO BID PRN (Reason: Constipation) 30 Days Qty: 0 0RF Rx Instructions: goal 2-3 soft stools a day Referrals Follow up/Referrals: Provider,Referral, MD [Primary Care Provider] - See instructions Clinical Impressions Clinical Impression: Acute hypokalemia, Abdominal pain, Abdominal hernia Instructions Patient Instructions: DI for Acute Abdominal Pain Discharge ED Provider: Delio Oconnor General Adult HPI <Delio Oconnor MD - Last Filed: 07/31/23 23:05> General Chief complaint: Abdominal Pain Stated complaint: hernia Time Seen by Provider: 07/31/23 20:07 Mode of Arrival: EMS Source of Information: EMS Limitations: No Limitations Description of Symptoms (Recalled from ER Triage Doc. by RN): long-term reports worseing umbical herina. pt states only reports pain upon paplation. History of Present Illness HPI narrative: Patient is a 82-year-old female with past medical history of periumbilical hernia, multiple other comorbidities who presents emergency department for evaluation of tender hernia. Onset was acute, occurring this evening. Patient is extremely poor historian at baseline. No other history is able to be obtained at this time. Related Data Home Medications Medication Instructions Recorded Confirmed omega-3 fatty acids-fish oil 360 1 cap PO DAILY Supplement 10/14/17 07/23/23 mg-1,200 mg capsule (Fish Oil) raloxifene 60 mg tablet (Evista) 60 mg PO DAILY hormone supplement 10/14/17 07/23/23 trazodone 50 mg tablet 25 mg PO HS sleep 10/14/17 07/23/23 escitalopram oxalate 20 mg tablet 20 mg PO DAILY mood 10/05/19 07/23/23 clopidogrel 75 mg tablet (Plavix) 75 mg PO DAILY Platelet Inhibitor 01/08/22 07/23/23 nitroglycerin 0.4 mg/hr 1 patch transdermal DAILY 12/10/22 07/23/23 transdermal 24 hour patch (Nitro-Dur) acetaminophen 500 mg tablet 500 mg PO Q4HP PRN Mild Pain 03/13/23 07/23/23 (Acetaminophen Extra Strength) (Scale Score 1-4) calcium citrate 200 mg (950 mg) 200 mg PO BID 03/13/23 07/23/23 tablet ferrous sulfate 325 mg (65 mg 325 mg PO BID Supplement 03/13/23 07/23/23 iron) tablet polyvinyl alcohol 1.4 % eye drops 1 drp Eye-Both TIDP PRN Dry Eyes 03/13/23 07/23/23 pantoprazole 20 mg tablet,delayed 20 mg PO BID Acid Reflux 04/18/23 07/23/23 release baclofen 10 mg tablet 10 mg PO TIDP PRN Muscle Spasm 05/01/23 07/23/23 cholecalciferol (vitamin D3) 25 25 mcg PO DAILY 05/01/23 07/23/23 mcg (1,000 unit) tablet clonazepam 1 mg tablet 0.5 mg PO AM 05/01/23 07/23/23 clonazepam 1 mg tablet 1 mg PO HS 05/01/23 07/23/23 fluticasone propionate 50 1 spray intranasal DAILY Allergy 05/01/23 07/23/23 mcg/actuation nasal Symptoms spray,suspension mirabegron 50 mg tablet,extended 50 mg PO DAILY 05/01/23 07/23/23 release 24 hr (Myrbetriq) mirtazapine 15 mg tablet 15 mg PO DAILY 05/01/23 07/23/23 multivitamin 1 tab PO DAILY 05/01/23 07/23/23 ondansetron 4 mg disintegrating 4 mg PO Q4HP PRN Nausea And 05/01/23 07/23/23 tablet Vomiting paliperidone palmitate 234 mg/1.5 1.5 mg IM MONTHLY 05/01/23 07/23/23 mL intramuscular syringe [facility] peg 400-propylene glycol (PF) 0.4 1 drp Eye-Both BIDP PRN Dry Eyes 05/01/23 07/23/23 %-0.3 % eye drops in a dropperette (Systane (PF)) acetaminophen 500 mg tablet 500 mg PO .COMPLEX 06/08/23 07/23/23 (Tylenol Extra Strength) aluminum hydrox-magnesium carb 254 5 ml PO TID PRN 06/08/23 07/23/23 mg-237.5 mg/5 mL oral suspension (Gaviscon Extra Strength) dextromethorphan 5 mg-guaifenesin 10 ml PO Q4H PRN 06/08/23 07/23/23 100 mg/5 mL oral syrup loratadine 10 mg tablet (Claritin) 10 mg PO DAILY 06/08/23 07/23/23 Previous Rx's Medication Instructions Recorded lactulose 10 gram/15 mL oral 20 g (30 mL) PO BID PRN 05/01/23 solution Constipation 30 days #0 mL sennosides 8.6 mg-docusate sodium 1 tab-cap PO HS 30 days #30 tabs 05/01/23 50 mg tablet (Senna with Docusate Sodium) Allergies Allergy/AdvReac Type Severity Reaction Status Date / Time aspirin Allergy Unknown Verified 05/25/23 09:55 codeine Allergy Unknown Verified 05/25/23 09:55 Corticosteroids Allergy Unknown Verified 05/25/23 09:55 (Glucocorticoids) ibuprofen Allergy Unknown Verified 05/25/23 09:55 [From NeoProfen (ibuprofen lysn)(PF)] naproxen Allergy Unknown Verified 05/25/23 09:55 [From Flanax (naproxen)] diclofenac [From Voltaren] Allergy Verified 05/25/23 09:55 [facility] <Delio Oconnor MD - Last Filed: 07/31/23 23:05> [facility] Disclaimer: The information contained in this section may have been updated after the patient was seen, as this information can be updated by other users. Medical History Abnormal cardiovascular stress test Angina at rest Anxiety Bipolar 1 disorder Chest pain Closed rib fracture Dizziness Dyspnea Edema of left foot Edema of right foot Elevated troponin Fall Fall Foreign body in ear, bilateral Fracture dislocation of joint Fracture of 3rd metatarsal Fracture of 4th metatarsal Fracture of proximal phalanx of left middle finger Fracture of proximal phalanx of left ring finger Gastroesophageal reflux disease Hearing loss Hematoma of left knee region Injury of left rotator cuff Iron deficiency anemia Major depressive disorder, recurrent, unspecified Nasal swelling Nondisplaced fracture of metatarsal bone of right foot Osteoporosis Overactive bladder Pain in right foot Paranoid delusion Pyoderma Restless leg syndrome, controlled Schizoaffective disorder Tinnitus Umbilical hernia without obstruction or gangrene Family History (Updated 06/08/23 @ 13:22 by Clementina Tamez) Other Cancer Coronary artery disease Social History (Updated 06/08/23 @ 13:23 by Clementina Tamez) Smoking Status: Never smoker alcohol intake: never substance use type: denies use current occupational status: disabled Travel in the last 8 weeks: None housing: long-term marital status: caffeine: No <Delio Oconnor MD - Last Filed: 07/31/23 23:05> ROS Obtained: Yes unobtainable due to mental status Physical Exam <Delio Oconnor MD - Last Filed: 07/31/23 23:05> General General appearance: alert and in no apparent distress Head Head exam: atraumatic and normocephalic Eye Eye exam: Present PERRL and EOMI ENT ENT exam: Present mucous membranes moist Neck Neck exam: Present normal inspection Chest Chest inspection: Present normal inspection and symmetric chest wall rise Respiratory Respiratory exam: Present normal lung sounds bilaterally; Absent respiratory distress Cardiovascular Cardiovascular exam: Present regular rate and normal rhythm Abdominal Exam Abdominal exam: Present soft and tenderness (Mildly tender periumbilical hernia, no overlying skin changes, it is reducible.) Extremities Exam Extremities exam: Present normal inspection Neurological Exam Neurological exam: Present alert Psychiatric Psychiatric exam: Present normal affect Skin Skin exam: Present warm and dry Medical Decision Making <Delio Oconnor MD - Last Filed: 07/31/23 23:05> Shahid Inquiry Pt receiving controlled substance: No Vital Signs: 07/31/23 20:00 07/31/23 20:02 07/31/23 22:21 Temperature 97.8 F Temperature Source Oral Pulse Rate 61 62 Pulse Rate [Right] 64 Respiratory Rate 16 17 11 L Blood Pressure 120/75 Blood Pressure [Right Arm] 120/78 Blood Pressure Mean Blood Pressure Mean [Right Arm] 92 02 Sat by Pulse Oximetry 98 91 L 92 L 07/31/23 22:21 07/31/23 22:30 07/31/23 23:00 Temperature Temperature Source Pulse Rate 63 63 64 Pulse Rate [Right] Respiratory Rate 13 14 12 Blood Pressure 103/64 L 125/61 133/74 Blood Pressure [Right Arm] Blood Pressure Mean 87 88 83 Blood Pressure Mean [Right Arm] 02 Sat by Pulse Oximetry 94 L 92 L 94 L 08/01/23 00:00 08/01/23 00:30 08/01/23 01:00 Temperature Temperature Source Pulse Rate 66 64 65 Pulse Rate [Right] Respiratory Rate 16 16 15 Blood Pressure 130/67 128/66 133/73 Blood Pressure [Right Arm] Blood Pressure Mean 86 84 89 Blood Pressure Mean [Right Arm] 02 Sat by Pulse Oximetry 93 L 92 L 92 L Lab Data Lab Results 07/31/23 20:19: WBC 9.8, RBC 4.07 L, Hgb 11.0 L, Hct 34.7 L, MCV 85.3, MCH 26.9 L, MCHC 31.6 L, RDW 17.3, Plt Count 346, MPV 8.6, Neut % (Auto) 72.1, Lymph % (Auto) 20.3, [place] % (Auto) 5.6, Eos % (Auto) 1.7, Baso % (Auto) 0.3, Neut # (Auto) 7.1, Lymph # (Auto) 2.0, [place] # (Auto) 0.6, Eos # (Auto) 0.2, Baso # (Auto) 0.0, Sodium 140, Potassium 2.5 L*, Chloride 103, Carbon Dioxide 33 H, Anion Gap 6.5, BUN 16, Creatinine 0.30 L, Estimated Creat Clear 56, Estimated GFR 214, Est GFR ( Amer) 259, Glucose 105 H, Calcium 8.6, Total Bilirubin 0.2, AST 22, ALT 12, Alkaline Phosphatase 99, Total Protein 5.4 L, Albumin 2.9 L , Globulin 2.5, Albumin/Globulin Ratio 1.2, Lipase 40 07/31/23 21:03: Urine Color Yellow, Urine Appearance Clear, Urine pH 6.5, Ur Specific [place] >= 1.030, Urine Protein Negative, Urine Glucose (UA) Negative, Urine Ketones Trace, Urine Blood 1+, Urine Nitrate Negative, Urine Bilirubin Negative, Urine Urobilinogen 0.2, Ur Leukocyte Esterase Trace, Urine RBC 3-5, Urine WBC 3-5, Ur Squamous Epith Cells 5-10, Urine Bacteria Trace 07/31/23 20:19 07/31/23 20:19 Orders (Tests/Meds): ED MEDICATIONS Generic Name Dose Route Start Last Admin Trade Name Freq PRN Reason Stop Dose Admin Potassium Chloride/Water 100 mls @ 50 mls/hr 07/31/23 23:03 Potassium Chloride 20meq/100ml Ivpb IV 08/01/23 03:02 Q2H BIMAL Sodium Chloride 10 ml 07/31/23 23:33 07/31/23 23:34 Sodium Chloride 0.9% 10ml Syr (Rad Only) IV 08/30/23 23:32 10 ml NEEDED PRN Administration Maintain IV Site Discontinued Medications Generic Name Dose Route Start Last Admin Trade Name Freq PRN Reason Stop Dose Admin Potassium Chloride/Water 100 mls @ 50 mls/hr 07/31/23 21:07 07/31/23 23:46 Potassium Chloride 20meq/100ml Ivpb IV 08/01/23 01:06 50 mls/hr Q2H BIMAL Administration Sodium Chloride 1,000 mls @ 999 mls/hr 07/31/23 21:29 07/31/23 21:37 Sod Chlor 0.9% 1000ml Bag IV 07/31/23 22:29 999 mls/hr .Q1H1M ONE Administration Iopamidol 75 ml 07/31/23 23:33 07/31/23 23:34 Iopamidol-370 (76%);100ml Bottle IV 07/31/23 23:34 75 ml ONCE ONE Administration ORDERS Category Date Time Status CT abdomen pelvis w con Stat Cat Scan 07/31/23 20:37 Completed CBC w/Auto Diff [Complete Blood Count Auto Diff] Stat Lab 07/31/23 20:19 Completed CMP [Comprehensive Metabolic Panel] Stat Lab 07/31/23 20:19 Completed Lipase Stat Lab 07/31/23 20:19 Completed UA [Urinalysis and Microscopic] Stat Lab 07/31/23 21:03 Completed ECG Data Tracing #1: Independently interpreted by me, rate is 77, rhythm is irregular, sinus with intermittent bundle branch block, no ST elevation in anatomical contiguous leads, QTc 478. Tracing #2: Independently interpreted by me, rate is 68, rhythm is irregular, sinus arrhythmia, QTc 465, no ST elevation in anatomical contiguous leads, right bundle branch block Medical Decision Narrative: In summary patient is an 82-year-old female past medical history described above presents emergency department for evaluation of tender periumbilical hernia. Patient is hemodynamically stable nontoxic-appearing upon arrival, afebrile. Her comorbidities and mental status make it difficult to ascertain the degree of her pain. Workup will be conducted with hematologic labs, urinalysis, CT abdomen pelvis IV contrast as differential includes intra-abdominal pathology, bowel perforation, among others. However given that her hernia is reducible I suspect her workup will be unremarkable. Initial workup reviewed by me, no significant leukocytosis, no critical anemia, there is critical hypokalemia which will be repleted with prolonged runs of potassium chloride, no MERLE. Urinalysis interpreted by me and not consistent with infection. CT imaging pending at time of transfer of care to the oncoming physician, Dr. Jennings. <Edith Jennings MD - Last Filed: 08/01/23 01:13> Medical Records Medical records reviewed: Yes I reviewed the patient's medical records. Vital Signs: 07/31/23 20:00 07/31/23 20:02 07/31/23 22:21 Temperature 97.8 F Temperature Source Oral Pulse Rate 61 62 Pulse Rate [Right] 64 Respiratory Rate 16 17 11 L Blood Pressure 120/75 Blood Pressure [Right Arm] 120/78 Blood Pressure Mean Blood Pressure Mean [Right Arm] 92 02 Sat by Pulse Oximetry 98 91 L 92 L 07/31/23 22:21 07/31/23 22:30 07/31/23 23:00 Temperature Temperature Source Pulse Rate 63 63 64 Pulse Rate [Right] Respiratory Rate 13 14 12 Blood Pressure 103/64 L 125/61 133/74 Blood Pressure [Right Arm] Blood Pressure Mean 87 88 83 Blood Pressure Mean [Right Arm] 02 Sat by Pulse Oximetry 94 L 92 L 94 L 08/01/23 00:00 08/01/23 00:30 08/01/23 01:00 Temperature Temperature Source Pulse Rate 66 64 65 Pulse Rate [Right] Respiratory Rate 16 16 15 Blood Pressure 130/67 128/66 133/73 Blood Pressure [Right Arm] Blood Pressure Mean 86 84 89 Blood Pressure Mean [Right Arm] 02 Sat by Pulse Oximetry 93 L 92 L 92 L Lab Data Lab Results 07/31/23 20:19: WBC 9.8, RBC 4.07 L, Hgb 11.0 L, Hct 34.7 L, MCV 85.3, MCH 26.9 L, MCHC 31.6 L, RDW 17.3, Plt Count 346, MPV 8.6, Neut % (Auto) 72.1, Lymph % (Auto) 20.3, [place] % (Auto) 5.6, Eos % (Auto) 1.7, Baso % (Auto) 0.3, Neut # (Auto) 7.1, Lymph # (Auto) 2.0, [place] # (Auto) 0.6, Eos # (Auto) 0.2, Baso # (Auto) 0.0, Sodium 140, Potassium 2.5 L*, Chloride 103, Carbon Dioxide 33 H, Anion Gap 6.5, BUN 16, Creatinine 0.30 L, Estimated Creat Clear 56, Estimated GFR 214, Est GFR ( Amer) 259, Glucose 105 H, Calcium 8.6, Total Bilirubin 0.2, AST 22, ALT 12, Alkaline Phosphatase 99, Total Protein 5.4 L, Albumin 2.9 L , Globulin 2.5, Albumin/Globulin Ratio 1.2, Lipase 40 07/31/23 21:03: Urine Color Yellow, Urine Appearance Clear, Urine pH 6.5, Ur Specific [place] >= 1.030, Urine Protein Negative, Urine Glucose (UA) Negative, Urine Ketones Trace, Urine Blood 1+, Urine Nitrate Negative, Urine Bilirubin Negative, Urine Urobilinogen 0.2, Ur Leukocyte Esterase Trace, Urine RBC 3-5, Urine WBC 3-5, Ur Squamous Epith Cells 5-10, Urine Bacteria Trace Orders (Tests/Meds): ED MEDICATIONS Generic Name Dose Route Start Last Admin Trade Name Freq PRN Reason Stop Dose Admin Potassium Chloride/Water 100 mls @ 50 mls/hr 07/31/23 23:03 Potassium Chloride 20meq/100ml Ivpb IV 08/01/23 03:02 Q2H BIMAL Sodium Chloride 10 ml 07/31/23 23:33 07/31/23 23:34 Sodium Chloride 0.9% 10ml Syr (Rad Only) IV 08/30/23 23:32 10 ml NEEDED PRN Administration Maintain IV Site Discontinued Medications Generic Name Dose Route Start Last Admin Trade Name Freq PRN Reason Stop Dose Admin Potassium Chloride/Water 100 mls @ 50 mls/hr 07/31/23 21:07 07/31/23 23:46 Potassium Chloride 20meq/100ml Ivpb IV 08/01/23 01:06 50 mls/hr Q2H BIMAL Administration Sodium Chloride 1,000 mls @ 999 mls/hr 07/31/23 21:29 07/31/23 21:37 Sod Chlor 0.9% 1000ml Bag IV 07/31/23 22:29 999 mls/hr .Q1H1M ONE Administration Iopamidol 75 ml 07/31/23 23:33 07/31/23 23:34 Iopamidol-370 (76%);100ml Bottle IV 07/31/23 23:34 75 ml ONCE ONE Administration ORDERS Category Date Time Status CT abdomen pelvis w con Stat Cat Scan 07/31/23 20:37 Completed CBC w/Auto Diff [Complete Blood Count Auto Diff] Stat Lab 07/31/23 20:19 Completed CMP [Comprehensive Metabolic Panel] Stat Lab 07/31/23 20:19 Completed Lipase Stat Lab 07/31/23 20:19 Completed UA [Urinalysis and Microscopic] Stat Lab 07/31/23 21:03 Completed Medical Decision Narrative: In summary patient is an 82-year-old female past medical history described above presents emergency department for evaluation of tender periumbilical hernia. Patient is hemodynamically stable nontoxic-appearing upon arrival, afebrile. Her comorbidities and mental status make it difficult to ascertain the degree of her pain. Workup will be conducted with hematologic labs, urinalysis, CT abdomen pelvis IV contrast as differential includes intra-abdominal pathology, bowel perforation, among others. However given that her hernia is reducible I suspect her workup will be unremarkable. Initial workup reviewed by me, no significant leukocytosis, no critical anemia, there is critical hypokalemia which will be repleted with prolonged runs of potassium chloride, no MERLE. Urinalysis interpreted by me and not consistent with infection. CT imaging pending at time of transfer of care to the oncoming physician, Dr. Jennings. Jennings: Upon my assumption of care patient is stable and resting comfortably. Personal interpretation of CT abdomen pelvis does not demonstrate any acute surgical pathology such as perforation or obstruction. Patient has a gallstone but no findings of cholecystitis. See radiology read for final interpretation. At this time patient requires admission for critical hypokalemia requiring multiple rounds of potassium. I discussed this with the hospitalist who has accepted the patient for admission. Critical Care <Delio Oconnor MD - Last Filed: 07/31/23 23:05> Critical Care Time Critical Care Time: Yes Attestation: On 07/31/23, the high probability of a clinically significant, sudden or life threatening deterioration of the following system(s) required my full and direct attention, intervention and personal management. The time I documented below is in addition to time spent performing reported procedures but includes the following listed in this critical care notation. Total Time Total Critical Care Time: 40
[2023-07-31 20:47] LABS: Basophils % 0.3 % (0.1-2.0); Eosinophils # 0.2 K/mm3 (0.0-0.4); Eosinophils % 1.7 % (0.1-12.0); Hematocrit 34.7 % (37.0-47.0); Lymphocytes % 20.3 % (10-50); Mean Corpuscular HGB Conc 31.6 g/dL (31.8-35.4); Mean Corpuscular Hemoglobin 26.9 pg (27.0-31.2); Mean Corpuscular Volume 85.3 fl (81-99); Mean Platelet Volume 8.6 fl (7.4-10.4); Monocytes # 0.6 K/mm3 (0.1-1.0); Monocytes % 5.6 % (1.7-9.3); Neutrophils # 7.1 K/mm3 (1.8-7.8); Neutrophils % 72.1 % (37.0-80.0); Platelet Count 346 K/mm3 (142-424); Red Blood Count 4.07 M/mm3 (4.20-5.40); Red Cell Distribution Width 17.3 % (11.5-17.5); White Blood Count 9.8 K/mm3 (4.8-10.8)
[2023-07-31 20:59] LABS: Chloride 103 mmol/L (98-107); Sodium 140 mmol/L (136-145)
[2023-07-31 21:01] LABS: Blood Urea Nitrogen 16 mg/dl (7-17); Creatinine Clearance Estimated 56 mL/min (50-200); Estimated Glomerular Filt Rate 214 ml/min (>60); GFR (African American) 259 ML/MIN (>60)
[2023-07-31 21:02] LABS: Alanine Aminotransferase 12 U/L (12-78); Albumin Level 2.9 g/dl (3.5-5.0); Albumin/Globulin Ratio 1.2 (1.1-1.8); Alkaline Phosphatase 99 U/L (38-126); Anion Gap 6.5 mEq/L (5-15); Aspartate Amino Transferase 22 U/L (14-36); Bilirubin,Total 0.2 mg/dl (0.2-1.3); Calcium 8.6 mg/dl (8.4-10.2); Carbon Dioxide 33 mmol/L (22.0-30.0); Globulin 2.5 g/dL (1.3-3.2); Glucose 105 mg/dl (74-100); Lipase 40 U/L (23-300); Total Protein,Serum 5.4 g/dl (6.3-8.2)
[2023-07-31 21:05] LABS: Potassium 2.5 mmoL/L (3.5-5.1)
[2023-07-31 21:06] LABS: Microscopic, Urine URINE MICROSCOPIC (MICROSCOPIC)
--- NOTE | 2023-07-31 21:06 | PC.NURSE ---
Tiffanie from the lab called a critical potassium level of 2.5 on the pt. and RN notified. CR
[2023-07-31 21:09] LABS: Appearance,Urine CLEAR (Clear); Bilirubin,Urine Negative (Negative); Blood, Urine 1+ (Negative); Color,Urine YELLOW (Yellow); Glucose,Urine (UA) Negative (Negative); Ketones,Urine TRACE (Negative); Leukocyte Esterase,Urine TRACE (Negative); Nitrate,Urine Negative (Negative); PH,Urine 6.5 (5.0-8.5); Protein,Urine Negative (Negative); Specific Gravity, Urine >= 1.030 (1.005-1.030); Urobilinogen,Urine 0.2 EU/dl (0.2)
[2023-07-31 21:20] LABS: Bacteria,Urine Trace /lpf
[2023-07-31] MEDS: KCl 20mEq/100ml 100 ML 50 MEQ IV ×2 (21:35→23:46)
[2023-07-31] MEDS: 0.9 % SODIUM CHLORIDE 1000ML 1,000 ML 999 ML IV (21:37)
--- NOTE | 2023-07-31 21:39 | ECG_ITS ---
APPROVED REPORT Exam: Resting ECG HR:68 bpm ECG Measurements Heart Rate 68 AXES SD 163 P 90 QRSd 129 QRS 13 QT 447 T 59 QTc 465 Conclusion SINUS RHYTHM WITH FREQUENT SUPRAVENTRICULAR PREMATURE COMPLEXES RIGHT BUNDLE BRANCH BLOCK [120+ ms QRS DURATION, UPRIGHT V1, 40+ ms S IN I/aVL/V4/V5/V6] ABNORMAL ECG Electronically signed by : NAM HARDWICK, 08/01/2023 00:24:43
[2023-07-31 22:21] VITALS: BP 103/64; PULSE 62; PULSE 63; RESP 11; RESP 13; O2SAT 92; O2SAT 94
[2023-07-31 22:30] VITALS: BP 125/61; PULSE 63; RESP 14; O2SAT 92
[2023-07-31 23:00] VITALS: BP 133/74; PULSE 64; RESP 12; O2SAT 94
[2023-07-31] MEDS: SODIUM CHLORIDE 0.9% 10ML SYR (RAD ONLY) 10 ML IV (23:34)
[2023-07-31] MEDS: IOPAMIDOL-370 (76%);100ML BOTTLE 75 ML IV (23:34)
[2023-08-01] VITALS (9 sets, daily range): BP systolic 111–133; BP diastolic 53–73; PULSE 61–82; RESP 15–18; TEMP 36.5–36.6; O2SAT 91–93; BMI 27.3
--- NOTE | 2023-08-01 00:05 | PC.NURSE ---
pt resting in bed. k+ infusing per mar
--- NOTE | 2023-08-01 01:11 | PC.NURSE ---
on phone with hospitalist
--- NOTE | 2023-08-01 01:25 | EXP.HP ---
History of Present Illness *Admission Date: 08/01/23 *Reason for visit:: hypokalemia. abdominal pain *History of present illness: This is a 82-year-old female with a PMHx of bipolar disorder, schizoaffective disorder, hearing loss, COPD, CAD on plavix and general debility, chair bound brought in by EMS to the emergency department from nursing facility for evaluation of worsened umbilical hernia in the nursing facility. Patient is AOx4, poor historian, expressed having abdominal pain located on her umbilical hernia, that prevent her to participate on physical therapy on her nursing facility.. Patient denied nausea, vomit, diarrhea or fever. at the time of this evaluation, pain had improved to almost zero. CT of abdomen was obtained. Admitted for further work up and management. [facility] Disclaimer: The information contained in this section may have been updated after the patient was seen, as this information can be updated by other users. Medical History (Updated 08/01/23 @ 02:48 by Rajesh Coombs APRN) Elevated troponin Injury of left rotator cuff Fall Pyoderma Umbilical hernia without obstruction or gangrene Major depressive disorder, recurrent, unspecified Fracture of proximal phalanx of left ring finger Fracture of proximal phalanx of left middle finger Fall Nasal swelling Hematoma of left knee region Angina at rest Closed rib fracture Foreign body in ear, bilateral Hearing loss Tinnitus Chest pain Dizziness Fracture of 3rd metatarsal Fracture of 4th metatarsal Edema of right foot Fracture dislocation of joint Nondisplaced fracture of metatarsal bone of right foot Pain in right foot Edema of left foot Dyspnea Abnormal cardiovascular stress test Gastroesophageal reflux disease Restless leg syndrome, controlled Anxiety Overactive bladder Osteoporosis Iron deficiency anemia Bipolar 1 disorder Schizoaffective disorder Paranoid delusion Family History Coronary artery disease Cancer Social History (Updated 08/01/23 @ 02:05 by Nataly Kennedy RN) Smoking Status: Never smoker alcohol intake: never substance use type: denies use current occupational status: disabled Travel in the last 8 weeks: None housing: [facility] marital status: caffeine: No Review of Systems Review of Systems Review of systems:: pertinent systems reviewed and negative unless documented below Meds Home Medications and Allergies Home Medications Medication Instructions Recorded Confirmed Type omega-3 fatty acids-fish oil 360 1 cap PO DAILY Supplement 10/14/17 08/01/23 History mg-1,200 mg capsule (Fish Oil) raloxifene 60 mg tablet (Evista) 60 mg PO DAILY hormone supplement 10/14/17 08/01/23 History trazodone 50 mg tablet 25 mg PO HS sleep 10/14/17 08/01/23 History escitalopram oxalate 20 mg tablet 20 mg PO DAILY mood 10/05/19 08/01/23 History clopidogrel 75 mg tablet (Plavix) 75 mg PO DAILY Platelet Inhibitor 01/08/22 08/01/23 History nitroglycerin 0.4 mg/hr 1 patch transdermal DAILY 12/10/22 08/01/23 History transdermal 24 hour patch (Nitro-Dur) acetaminophen 500 mg tablet 500 mg PO Q4HP PRN Mild Pain 03/13/23 08/01/23 History (Acetaminophen Extra Strength) (Scale Score 1-4) calcium citrate 200 mg (950 mg) 200 mg PO BID 03/13/23 08/01/23 History tablet ferrous sulfate 325 mg (65 mg 325 mg PO BID Supplement 03/13/23 08/01/23 History iron) tablet polyvinyl alcohol 1.4 % eye drops 1 drp Eye-Both TIDP PRN Dry Eyes 03/13/23 08/01/23 History pantoprazole 20 mg tablet,delayed 20 mg PO BID Acid Reflux 04/18/23 08/01/23 History release baclofen 10 mg tablet 10 mg PO TIDP PRN Muscle Spasm 05/01/23 08/01/23 History cholecalciferol (vitamin D3) 25 25 mcg PO DAILY 05/01/23 08/01/23 History mcg (1,000 unit) tablet clonazepam 1 mg tablet 0.5 mg PO AM 05/01/23 08/01/23 History clonazepam 1 mg tablet 1 mg PO HS 05/01/23 08/01/23 History fluticasone propionate 50 1 spray intranasal DAILY Allergy 05/01/23 08/01/23 History mcg/actuation nasal Symptoms spray,suspension mirtazapine 15 mg tablet 15 mg PO DAILY 05/01/23 08/01/23 History multivitamin 1 tab PO DAILY 05/01/23 08/01/23 History ondansetron 4 mg disintegrating 4 mg PO Q4HP PRN Nausea And 05/01/23 08/01/23 History tablet Vomiting paliperidone palmitate 234 mg/1.5 1.5 mg IM MONTHLY 05/01/23 08/01/23 History mL intramuscular syringe (Invega Sustenna) peg 400-propylene glycol (PF) 0.4 1 drp Eye-Both BIDP PRN Dry Eyes 05/01/23 08/01/23 History %-0.3 % eye drops in a dropperette (Systane (PF)) acetaminophen 500 mg tablet 500 mg PO .COMPLEX 06/08/23 08/01/23 History (Tylenol Extra Strength) aluminum hydrox-magnesium carb 254 5 ml PO TID PRN (Drug) Ingestion 06/08/23 08/01/23 History mg-237.5 mg/5 mL oral suspension (Gaviscon Extra Strength) dextromethorphan 5 mg-guaifenesin 10 ml PO Q4H PRN cough 06/08/23 08/01/23 History 100 mg/5 mL oral syrup loratadine 10 mg tablet (Claritin) 10 mg PO DAILY 06/08/23 08/01/23 History potassium chloride 20 mEq oral 20 meq PO DAILY #30 ea 08/01/23 Rx packet sennosides 8.6 mg-docusate sodium 1 tab-cap PO HS #30 tabs 08/01/23 Rx 50 mg tablet New Prescriptions to Start Prescriptions: Pietro Ramosnojet-docusate sodium Pietro Galvez Allergies Allergy/AdvReac Type Severity Reaction Status Date / Time aspirin Allergy Unknown Verified 05/25/23 09:55 codeine Allergy Unknown Verified 05/25/23 09:55 Corticosteroids Allergy Unknown Verified 05/25/23 09:55 (Glucocorticoids) ibuprofen Allergy Unknown Verified 05/25/23 09:55 [From NeoProfen (ibuprofen lysn)(PF)] naproxen Allergy Unknown Verified 05/25/23 09:55 [From Flanax (naproxen)] diclofenac [From Voltaren] Allergy Verified 05/25/23 09:55 Exam Data for Last 24 hours Vital signs and Labs for Last 24 Hours: Temp Pulse Resp BP Pulse Ox 97.8 F 65 15 133/73 92 L 07/31/23 20:00 08/01/23 01:00 08/01/23 01:00 08/01/23 01:00 08/01/23 01:00 Laboratory Results - last 24 hr 07/31/23 20:19: WBC 9.8, RBC 4.07 L, Hgb 11.0 L, Hct 34.7 L, MCV 85.3, MCH 26.9 L, MCHC 31.6 L, RDW 17.3, Plt Count 346, MPV 8.6, Neut % (Auto) 72.1, Lymph % (Auto) 20.3, [place] % (Auto) 5.6, Eos % (Auto) 1.7, Baso % (Auto) 0.3, Neut # (Auto) 7.1, Lymph # (Auto) 2.0, [place] # (Auto) 0.6, Eos # (Auto) 0.2, Baso # (Auto) 0.0, Sodium 140, Potassium 2.5 L*, Chloride 103, Carbon Dioxide 33 H, Anion Gap 6.5, BUN 16, Creatinine 0.30 L, Estimated Creat Clear 56, Estimated GFR 214, Est GFR ( Amer) 259, Glucose 105 H, Calcium 8.6, Total Bilirubin 0.2, AST 22, ALT 12, Alkaline Phosphatase 99, Total Protein 5.4 L, Albumin 2.9 L, Globulin 2.5, Albumin/Globulin Ratio 1.2, Lipase 40 07/31/23 21:03: Urine Color Yellow, Urine Appearance Clear, Urine pH 6.5, Ur Specific [place] >= 1.030, Urine Protein Negative, Urine Glucose (UA) Negative, Urine Ketones Trace, Urine Blood 1+, Urine Nitrate Negative, Urine Bilirubin Negative, Urine Urobilinogen 0.2, Ur Leukocyte Esterase Trace, Urine RBC 3-5, Urine WBC 3-5, Ur Squamous Epith Cells 5-10, Urine Bacteria Trace Temp Pulse Resp BP Pulse Ox O2 Del Method 98.2 F 96 H 14 141/74 H 94 L Room Air 05/01/23 02:27 05/01/23 02:27 05/01/23 02:27 05/01/23 02:27 05/01/23 00:07 05/01/23 02:27 Laboratory Results - last 24 hr 05/01/23 00:34: SARS-CoV-2 (PCR) Not detected, Influenza A Untype (PCR) Not detected, Influenza Type B (PCR) Not detected 05/01/23 00:35: WBC 15.2 H, RBC 3.99 L, Hgb 11.1 L, Hct 34.9 L, MCV 87.6, MCH 27.9, MCHC 31.9, RDW 14.8, Plt Count 262, MPV 8.7, Neut % (Auto) 86.3 H, Lymph % (Auto) 7.4 L, [place] % (Auto) 6.0, Eos % (Auto) 0.2, Baso % (Auto) 0.1, Neut # (Auto) 13.2 H, Lymph # (Auto) 1.1, [place] # (Auto) 0.9, Eos # (Auto) 0.0, Baso # (Auto) 0.0, Total Counted 100, Neutrophils % (Manual) 89 H, Lymphocytes % (Manual) 9 L, Monocytes % (Manual) 1 L, Basophils % (Manual) 1.0, Platelet Estimate Normal, RBC Morphology Not Reportable, Ovalocytes 1+, Sodium 137, Potassium 3.6, Chloride 103, Carbon Dioxide 30, Anion Gap 7.6, BUN 15, Creatinine 0.50 L, Estimated Creat Clear 40, Estimated GFR 119, Est GFR ( Amer) 144, Glucose 158 H, Lactate 3.8 H, Calcium 8.2 L, Total Bilirubin 0.1 L, AST 33, ALT 28, Alkaline Phosphatase 128 H, Troponin I 0.14 H, NT-Pro-B Natriuret Pep 930 H, Total Protein 5.3 L, Albumin 2.9 L, Globulin 2.4, Albumin/Globulin Ratio 1.2, Lipase 39, Urine Color Yellow, Urine Appearance Clear, Urine pH 6.0, Ur Specific [place] >= 1.030, Urine Protein Trace, Urine Glucose (UA) Trace, Urine Ketones 1+, Urine Blood Negative, Urine Nitrate Negative, Urine Bilirubin Negative, Urine Urobilinogen 0.2, Ur Leukocyte Esterase Negative, Urine RBC None, Urine WBC Occasional, Ur Squamous Epith Cells Occasional, Urine Bacteria Trace, Urine Mucus 1+ I & O for Last 24 hours: Intake & Output 07/29/23 07/30/23 07/31/23 08/01/23 23:59 23:59 23:59 23:59 Weight 78.925 kg Intake & Output 04/28/23 04/29/23 04/30/23 05/01/23 23:59 23:59 23:59 23:59 Intake Total 1690 / 1690 Balance 1690 / 1690 Weight 56.245 kg Constitutional Constitutional: no acute distress *Routine HEENT Exam Head: Present normocephalic and atraumatic Eye: Present EOMI, PERRL and normal accommodation ENT: Present mucous membranes moist *Routine Neck Exam Neck: Present supple, full ROM and trachea midline *Routine Respiratory Exam Respiratory: Present CTA bilaterally, normal respiratory effort, able to speak in complete sentences and symmetric chest movement; Absent respiratory distress *Routine Cardiovascular Exam Cardiovascular: Present RRR, Normal S1 and Normal S2 *Routine Abdominal Exam Abdominal: Present soft, normoactive bowel sounds, tenderness, distended and hernia; Absent organomegaly *Routine Rectal Exam Rectal:: deferred *Routine Genitalia Exam Genitalia:: deferred *Routine Extremities Exam Extremities: Present edema and pulses intact; Absent cyanosis, clubbing or full ROM *Routine Skin Exam Skin: Present dry and warm *Routine Neurological Exam Neurological: Present alert, oriented X3, normal tone and normal speech Routine Psychiatric Exam Psychiatric: Present unable to assess H&P: Result Imaging and Cardiology EKG: Status: image reviewed by me, Preliminary report and final report CT scan - abdomen: Status: image reviewed by me, Preliminary report and final report Assessment and Plan *Assessment and plan (1) Acute hypokalemia: Status: Acute Category: Medical Code(s): E87.6 - Hypokalemia (2) Abdominal pain: Status: Acute Qualifiers: Abdominal location: left lower quadrant Qualified Code(s): R10.32 - Left lower quadrant pain Category: Medical Code(s): R10.9 - Unspecified abdominal pain (3) Umbilical hernia without obstruction or gangrene: Status: Acute Category: Medical Code(s): K42.9 - Umbilical hernia without obstruction or gangrene (4) Bipolar 1 disorder: Status: Chronic Category: Medical Code(s): F31.9 - Bipolar disorder, unspecified (5) Schizoaffective disorder: Status: Chronic Qualifiers: Schizoaffective disorder type: bipolar Qualified Code(s): F25.0 - Schizoaffective disorder, bipolar type Category: Medical Code(s): F25.9 - Schizoaffective disorder, unspecified (6) Tobacco abuse: Status: Chronic Category: Medical Code(s): Z72.0 - Tobacco use Plan 82-year-old female with a PMHx of bipolar disorder, schizoaffective disorder, hearing loss, COPD, CAD on plavix and general debility chair bound brought in by EMS to the emergency department from nursing facility for evaluation of worsened umbilical hernia , patient presented with c/o abdominal pain, that increase when exertion, and prevent her to participate on physical therapy. Initial work up was unremarkable. only positive for profound hypokalemia. CTA of abdomen obtained. concerning for proctitis, there is a report of non obstructive gallstone. Umbilical hernia seen without a presence of bowel loop or gangrene. Discussed with ED who requested bed for inpatient management of hypokalemia. Due to highly risk of cardiac decompensation, medicine agreed for admission. Urine clear. Plan as follow: -Acute hypokalemia: likely secondary to poor intake plus diuresis Admit patient for medical management. Dispo MedSurg replace electrolytes per protocols continuous cardiac monitoring while replacing repeat labs in the morning. look for CMP -Abdominal pain likely secondary to large umbilical hernia\ no acute gangrene, obstruction or contained bowel within: No bowel perforation seen on CT of the abd. May need surgical consult or outpatient management for evaluation of elective non urgent surgical treatment. Continue IV fluid resuscitation -History of bipolar disorder with a schizoaffective: Present on divalproex , escitalopram and clonazepam. Nursing to reconcile with facility for doses and accuracy. -Other chronic conditions like COPD reviewed. Stable Current smoker: On nicotine patch SCD for DVT prophylaxis. On Plavix. Protonix for GI bleed protection Full code Rounded on patient after nurse practitioner. Personally examined and interviewed patient. Agree with exam findings and care plan as documented.
--- NOTE | 2023-08-01 01:41 | PC.NURSE ---
Patient arrived to floor via stretcher from ED at 1:34.
--- NOTE | 2023-08-01 02:11 | PC.NURSE ---
received report from Ann rn/ED at 0120. patient arrived from ED at 0135 via stretcher. Patient is from [facility]. No Paperwork sent with patient. Had to call and try to get paperwork from [facility].
[2023-08-01] MEDS: KCl 20mEq/100ml 100 ML 50 MEQ IV ×2 (02:42→04:48)
[2023-08-01] MEDS: LACTATED RINGERS 1000ML 1,000 ML 50 ML IV (04:46)
--- NOTE | 2023-08-01 05:07 | PC.NURSE ---
ORIENTED TO SELF. DELUSIONAL? SPEAKS SEVERAL LANGUAGES...FBI....ETC VERY HUGHES. 4TH POTASSIUM RUN INFUSING. SINUS ARRHYTHMIA/BBB/PACs/PVCa NOTED ON TELEMETRY. WANTS CANDYBARS AND HONEYBUNS. HAS LARGE UMBILICAL HERNIA. VITAL SIGNS STABLE/AFEBRILE. NO C/O PAIN.
[2023-08-01 07:13] LABS: Basophils % 0.3 % (0.1-2.0); Eosinophils # 0.2 K/mm3 (0.0-0.4); Eosinophils % 1.9 % (0.1-12.0); Hematocrit 34.5 % (37.0-47.0); Hemoglobin 10.7 g/dL (12.2-16.2); Lymphocytes % 20.3 % (10-50); Mean Corpuscular HGB Conc 30.9 g/dL (31.8-35.4); Mean Corpuscular Hemoglobin 26.8 pg (27.0-31.2); Mean Corpuscular Volume 86.6 fl (81-99); Mean Platelet Volume 8.7 fl (7.4-10.4); Monocytes # 0.5 K/mm3 (0.1-1.0); Monocytes % 5.1 % (1.7-9.3); Neutrophils # 7.2 K/mm3 (1.8-7.8); Neutrophils % 72.3 % (37.0-80.0); Platelet Count 342 K/mm3 (142-424); Red Blood Count 3.98 M/mm3 (4.20-5.40); Red Cell Distribution Width 17.4 % (11.5-17.5); White Blood Count 9.9 K/mm3 (4.8-10.8)
[2023-08-01 07:27] LABS: Alanine Aminotransferase 15 U/L (12-78); Albumin Level 2.7 g/dl (3.5-5.0); Albumin/Globulin Ratio 1.1 (1.1-1.8); Alkaline Phosphatase 89 U/L (38-126); Anion Gap 6.7 mEq/L (5-15); Aspartate Amino Transferase 24 U/L (14-36); Bilirubin,Total 0.2 mg/dl (0.2-1.3); Blood Urea Nitrogen 14 mg/dl (7-17); Calcium 8.3 mg/dl (8.4-10.2); Carbon Dioxide 33 mmol/L (22.0-30.0); Chloride 104 mmol/L (98-107); Creatinine Clearance Estimated 56 mL/min (50-200); Estimated Glomerular Filt Rate 214 ml/min (>60); GFR (African American) 259 ML/MIN (>60); Globulin 2.5 g/dL (1.3-3.2); Glucose 115 mg/dl (74-100); Magnesium 1.8 mg/dl (1.6-2.3); Potassium 3.7 mmoL/L (3.5-5.1); Sodium 140 mmol/L (136-145); Total Protein,Serum 5.2 g/dl (6.3-8.2)
--- NOTE | 2023-08-01 07:45 | EXP.DC.SUM ---
General Admission date:: 08/01/23 Discharge date: 08/01/23 HPI HPI HPI: This is a 82-year-old female with a PMHx of bipolar disorder, schizoaffective disorder, hearing loss, COPD, CAD on plavix and general debility, chair bound brought in by EMS to the emergency department from nursing facility for evaluation of worsened umbilical hernia in the nursing facility. Patient is AOx4, poor historian, expressed having abdominal pain located on her umbilical hernia, that prevent her to participate on physical therapy on her nursing facility.. Patient denied nausea, vomit, diarrhea or fever. at the time of this evaluation, pain had improved to almost zero. CT of abdomen was obtained. Admitted for further work up and management. Hospital Course Hospital Course Hospital Course: 82-year-old female with a PMHx of bipolar disorder, schizoaffective disorder, hearing loss, COPD, CAD on plavix and general debility chair bound brought in by EMS to the emergency department from nursing facility for evaluation of worsened umbilical hernia , patient presented with c/o abdominal pain, that increase when exertion, and prevent her to participate on physical therapy. Initial work up was unremarkable. only positive for profound hypokalemia. CTA of abdomen obtained. concerning for proctitis, there is a report of non obstructive gallstone. Umbilical hernia seen without a presence of bowel loop or gangrene. Discussed with ED who requested bed for inpatient management of hypokalemia. Due to highly risk of cardiac decompensation, medicine agreed for admission. Urine clear. Potassium normalized by morning. Patient at baseline level of function. Stable for discharge back to nursing facility. Problems addressed as follows: Acute hypokalemia: -Potassium low on admission at 2.7. Responded well to replacement. 3.7 by morning. Magnesium 1.8. Other electrolytes and kidney function remain normal. Tolerating replacement. Will continue to replace at discharge. Recommend repeat CBC, CMP, magnesium levels in 1 week. -Abdominal pain likely secondary to large umbilical hernia, no acute gangrene, obstruction or contained bowel within: No bowel perforation seen on CT of the abd. abdomen distended but at baseline. Hernia reducible. Passing gas. No concern for obstruction. White cell count 9.9, hemoglobin 10.7. -History of bipolar disorder with a schizoaffective: Continue home regimen during admission -Constipation: Recommend discontinuation of lactulose given gaseous distention of abdomen and increased gas production related to lactulose. Recommend continuing docusate and senna daily for 2-3 soft stools daily to decrease risk for constipation given patient's immobility. Exam Data for Last 24 hours Vital signs and Labs for Last 24 Hours: Temp Pulse Resp BP Pulse Ox O2 Del Method 97.7 F 76 18 125/59 L 91 L Room Air 08/01/23 04:00 08/01/23 04:00 08/01/23 04:00 08/01/23 04:00 08/01/23 04:00 08/01/23 06:38 Laboratory Results - last 24 hr 07/31/23 20:19: WBC 9.8, RBC 4.07 L, Hgb 11.0 L, Hct 34.7 L, MCV 85.3, MCH 26.9 L, MCHC 31.6 L, RDW 17.3, Plt Count 346, MPV 8.6, Neut % (Auto) 72.1, Lymph % (Auto) 20.3, [place] % (Auto) 5.6, Eos % (Auto) 1.7, Baso % (Auto) 0.3, Neut # (Auto) 7.1, Lymph # (Auto) 2.0, [place]ink[place] # (Auto) 0.6, Eos # (Auto) 0.2, Baso # (Auto) 0.0, Sodium 140, Potassium 2.5 L*, Chloride 103, Carbon Dioxide 33 H, Anion Gap 6.5, BUN 16, Creatinine 0.30 L, Estimated Creat Clear 56, Estimated GFR 214, Est GFR ( Amer) 259, Glucose 105 H, Calcium 8.6, Total Bilirubin 0.2, AST 22, ALT 12, Alkaline Phosphatase 99, Total Protein 5.4 L, Albumin 2.9 L, Globulin 2.5, Albumin/Globulin Ratio 1.2, Lipase 40 07/31/23 21:03: Urine Color Yellow, Urine Appearance Clear, Urine pH 6.5, Ur Specific [place] >= 1.030, Urine Protein Negative, Urine Glucose (UA) Negative, Urine Ketones Trace, Urine Blood 1+, Urine Nitrate Negative, Urine Bilirubin Negative, Urine Urobilinogen 0.2, Ur Leukocyte Esterase Trace, Urine RBC 3-5, Urine WBC 3-5, Ur Squamous Epith Cells 5-10, Urine Bacteria Trace 08/01/23 06:43: WBC 9.9, RBC 3.98 L, Hgb 10.7 L, Hct 34.5 L, MCV 86.6, MCH 26.8 L, MCHC 30.9 L, RDW 17.4, Plt Count 342, MPV 8.7, Neut % (Auto) 72.3, Lymph % (Auto) 20.3, [place] % (Auto) 5.1, Eos % (Auto) 1.9, Baso % (Auto) 0.3, Neut # (Auto) 7.2, Lymph # (Auto) 2.0, Winkler # (Auto) 0.5, Eos # (Auto) 0.2, Baso # (Auto) 0.0, Sodium 140, Potassium 3.7 D, Chloride 104, Carbon Dioxide 33 H, Anion Gap 6.7, BUN 14, Creatinine 0.30 L, Estimated Creat Clear 56, Estimated GFR 214, Est GFR ( Amer) 259, Glucose 115 H, Calcium 8.3 L, Phosphorus 3.0, Magnesium 1.8, Total Bilirubin 0.2, AST 24, ALT 15, Alkaline Phosphatase 89, Total Protein 5.2 L, Albumin 2.7 L, Globulin 2.5, Albumin/Globulin Ratio 1.1 I & O for Last 24 hours: Intake & Output 07/29/23 07/30/23 07/31/23 08/01/23 23:59 23:59 23:59 23:59 Intake Total 622 / 622 Output Total Balance 621 / 621 Weight 78.925 kg 78.925 kg Constitutional Constitutional: no acute distress, average body habitus, chronically ill appearing and cooperative *Routine HEENT Exam Head: Present normocephalic and atraumatic ENT: Present mucous membranes moist *Routine Neck Exam Neck: Present supple, full ROM and normal carotid upstroke; Absent JVD, carotid bruit or lymphadenopathy *Routine Respiratory Exam Respiratory: Present CTA bilaterally, normal respiratory effort, able to speak in complete sentences and symmetric chest movement *Routine Cardiovascular Exam Cardiovascular: Present RRR, Normal S1 and Normal S2; Absent murmur or gallop *Routine Abdominal Exam Abdominal: Present soft, normoactive bowel sounds and tenderness (non-focal, mild); Absent distended or organomegaly Comments: Umbilical hernia, no incarceration, soft and reducible. *Routine Rectal Exam Patient deferred: visual exam *Routine Exam Patient deferred: external exam *Routine Extremities Exam Extremities: Present full ROM, pulses intact and normal capillary refill; Absent cyanosis, clubbing or edema Comments: Sarcopenia, consistently lays on her left hip *Routine Skin Exam Skin: Present intact and warm; Absent erythema *Routine Neurological Exam Neurological: Present alert and moving all extremities; Absent altered mental status Routine Psychiatric Exam Psychiatric: Present normal affect and cooperative; Absent normal thought process or good insight Results Data Completed and Pending Labs on day of discharge: Labs from last 24 hours 08/01/23 07/31/23 07/31/23 06:43 21:03 20:19 WBC 9.9 9.8 RBC 3.98 L 4.07 L Hgb 10.7 L 11.0 L Hct 34.5 L 34.7 L MCV 86.6 85.3 MCH 26.8 L 26.9 L MCHC 30.9 L 31.6 L RDW 17.4 17.3 Plt Count 342 346 MPV 8.7 8.6 Neut % (Auto) 72.3 72.1 Lymph % (Auto) 20.3 20.3 [place] % (Auto) 5.1 5.6 Eos % (Auto) 1.9 1.7 Baso % (Auto) 0.3 0.3 Neut # (Auto) 7.2 7.1 Lymph # (Auto) 2.0 2.0 Winkler # (Auto) 0.5 0.6 Eos # (Auto) 0.2 0.2 Baso # (Auto) 0.0 0.0 Sodium 140 140 Potassium 3.7 D 2.5 L* Chloride 104 103 Carbon Dioxide 33 H 33 H Anion Gap 6.7 6.5 BUN 14 16 Creatinine 0.30 L 0.30 L Estimated Creat Clear 56 56 Estimated GFR 214 214 Est GFR ( Amer) 259 259 Glucose 115 H 105 H Calcium 8.3 L 8.6 Phosphorus 3.0 Magnesium 1.8 Total Bilirubin 0.2 0.2 AST 24 22 ALT 15 12 Alkaline Phosphatase 89 99 Total Protein 5.2 L 5.4 L Albumin 2.7 L 2.9 L Globulin 2.5 2.5 Albumin/Globulin Ratio 1.1 1.2 Lipase 40 Urine Color Yellow Urine Appearance Clear Urine pH 6.5 Ur Specific [place] >= 1.030 Urine Protein Negative Urine Glucose (UA) Negative Urine Ketones Trace Urine Blood 1+ Urine Nitrate Negative Urine Bilirubin Negative Urine Urobilinogen 0.2 Ur Leukocyte Esterase Trace Urine RBC 3-5 Urine WBC 3-5 Ur Squamous Epith Cells 5-10 Urine Bacteria Trace DS: Diagnosis Discharge Diagnosis (1) Acute hypokalemia: Status: Acute Code(s): E87.6 - Hypokalemia (2) Abdominal pain: Status: Acute Code(s): R10.9 - Unspecified abdominal pain Qualifiers: Abdominal location: left lower quadrant Qualified Code(s): R10.32 - Left lower quadrant pain (3) Umbilical hernia without obstruction or gangrene: Status: Acute Code(s): K42.9 - Umbilical hernia without obstruction or gangrene (4) Bipolar 1 disorder: Status: Chronic Code(s): F31.9 - Bipolar disorder, unspecified (5) Schizoaffective disorder: Status: Chronic Code(s): F25.9 - Schizoaffective disorder, unspecified Qualifiers: Schizoaffective disorder type: bipolar Qualified Code(s): F25.0 - Schizoaffective disorder, bipolar type (6) Tobacco abuse: Status: Chronic Code(s): Z72.0 - Tobacco use Meds Home Medications and Allergies Home Medications Medication Instructions Recorded Confirmed Type omega-3 fatty acids-fish oil 360 1 cap PO DAILY Supplement 10/14/17 08/01/23 History mg-1,200 mg capsule (Fish Oil) raloxifene 60 mg tablet (Evista) 60 mg PO DAILY hormone supplement 10/14/17 08/01/23 History trazodone 50 mg tablet 25 mg PO HS sleep 10/14/17 08/01/23 History escitalopram oxalate 20 mg tablet 20 mg PO DAILY mood 10/05/19 08/01/23 History clopidogrel 75 mg tablet (Plavix) 75 mg PO DAILY Platelet Inhibitor 01/08/22 08/01/23 History nitroglycerin 0.4 mg/hr 1 patch transdermal DAILY 12/10/22 08/01/23 History transdermal 24 hour patch (Nitro-Dur) acetaminophen 500 mg tablet 500 mg PO Q4HP PRN Mild Pain 03/13/23 08/01/23 History (Acetaminophen Extra Strength) (Scale Score 1-4) calcium citrate 200 mg (950 mg) 200 mg PO BID 03/13/23 08/01/23 History tablet ferrous sulfate 325 mg (65 mg 325 mg PO BID Supplement 03/13/23 08/01/23 History iron) tablet polyvinyl alcohol 1.4 % eye drops 1 drp Eye-Both TIDP PRN Dry Eyes 03/13/23 08/01/23 History pantoprazole 20 mg tablet,delayed 20 mg PO BID Acid Reflux 04/18/23 08/01/23 History release baclofen 10 mg tablet 10 mg PO TIDP PRN Muscle Spasm 05/01/23 08/01/23 History cholecalciferol (vitamin D3) 25 25 mcg PO DAILY 05/01/23 08/01/23 History mcg (1,000 unit) tablet clonazepam 1 mg tablet 0.5 mg PO AM 05/01/23 08/01/23 History clonazepam 1 mg tablet 1 mg PO HS 05/01/23 08/01/23 History fluticasone propionate 50 1 spray intranasal DAILY Allergy 05/01/23 08/01/23 History mcg/actuation nasal Symptoms spray,suspension mirtazapine 15 mg tablet 15 mg PO DAILY 05/01/23 08/01/23 History multivitamin 1 tab PO DAILY 05/01/23 08/01/23 History ondansetron 4 mg disintegrating 4 mg PO Q4HP PRN Nausea And 05/01/23 08/01/23 History tablet Vomiting paliperidone palmitate 234 mg/1.5 1.5 mg IM MONTHLY 05/01/23 08/01/23 History mL [facility]uscular syringe ([facility] peg 400-propylene glycol (PF) 0.4 1 drp Eye-Both BIDP PRN Dry Eyes 05/01/23 08/01/23 History %-0.3 % eye drops in a dropperette (Systane (PF)) acetaminophen 500 mg tablet 500 mg PO .COMPLEX 06/08/23 08/01/23 History (Tylenol Extra Strength) aluminum hydrox-magnesium carb 254 5 ml PO TID PRN (Drug) Ingestion 06/08/23 08/01/23 History mg-237.5 mg/5 mL oral suspension (Gaviscon Extra Strength) dextromethorphan 5 mg-guaifenesin 10 ml PO Q4H PRN cough 06/08/23 08/01/23 History 100 mg/5 mL oral syrup loratadine 10 mg tablet (Claritin) 10 mg PO DAILY 06/08/23 08/01/23 History potassium chloride 20 mEq oral 20 meq PO DAILY #30 ea 08/01/23 Rx packet sennosides 8.6 mg-docusate sodium 1 tab-cap PO HS #30 tabs 08/01/23 Rx 50 mg tablet New Prescriptions to Start Prescriptions: Pietro Ramoss-docusate sodium Pietro Galvez Allergies Allergy/AdvReac Type Severity Reaction Status Date / Time aspirin Allergy Unknown Verified 05/25/23 09:55 codeine Allergy Unknown Verified 05/25/23 09:55 Corticosteroids Allergy Unknown Verified 05/25/23 09:55 (Glucocorticoids) ibuprofen Allergy Unknown Verified 05/25/23 09:55 [From NeoProfen (ibuprofen lysn)(PF)] naproxen Allergy Unknown Verified 05/25/23 09:55 [From Flanax (naproxen)] diclofenac [From Voltaren] Allergy Verified 05/25/23 09:55 Discharge Plan Disposition Patient Disposition: [facility] Condition: Fair Discharge Order Discharge Orders: Discharge Order (Routine); Ordered 08/01/23 Ordered By: Pietro Galvez Follow up Plan Prescriptions/Medication Reconciliation: New potassium chloride 20 mEq packet 20 meq PO DAILY Qty: 30 0RF sennosides-docusate sodium 8.6-50 mg tablet 1 tab-cap PO HS Qty: 30 0RF Continued Gaviscon Extra Strength 254-237.5 mg/5 mL suspension 5 ml PO TID PRN (Reason: (Drug) Ingestion) loratadine [Claritin] 10 mg tablet 10 mg PO DAILY dextromethorphan-guaifenesin 5-100 mg/5 mL syrup 10 ml PO Q4H PRN (Reason: cough) acetaminophen [Tylenol Extra Strength] 500 mg tablet 500 mg PO .COMPLEX Rx Instructions: 500 mg orally bid; escitalopram oxalate 20 mg tablet 20 mg PO DAILY raloxifene [Evista] 60 mg tablet 60 mg PO DAILY trazodone 50 mg tablet 25 mg PO HS omega-3 fatty acids-fish oil [Fish Oil] 360-1,200 mg capsule 1 cap PO DAILY polyvinyl alcohol 1.4 % drops 1 drp Eye-Both TIDP PRN (Reason: Dry Eyes) acetaminophen [Acetaminophen Extra Strength] 500 mg tablet 500 mg PO Q4HP PRN (Reason: Mild Pain (Scale Score 1-4)) calcium citrate 200 mg (950 mg) tablet 200 mg PO BID ferrous sulfate 325 mg (65 mg iron) tablet 325 mg PO BID pantoprazole 20 mg tablet,delayed release (DR/EC) 20 mg PO BID clopidogrel [Plavix] 75 mg tablet 75 mg PO DAILY nitroglycerin [Nitro-Dur] 0.4 mg/hr patch 24 hour 1 patch transdermal DAILY Rx Instructions: allow nitrate-free interval of approx. 10-12 hrs per 24-hour period cholecalciferol (vitamin D3) 25 mcg (1,000 unit) tablet 25 mcg PO DAILY multivitamin Tablet 1 tab PO DAILY clonazepam 1 mg tablet 1 mg PO HS Patient Comments: 1 mg orally twice a day mirtazapine 15 mg tablet 15 mg PO DAILY Systane (PF) 0.4-0.3 % Dropperette 1 drp Eye-Both BIDP PRN (Reason: Dry Eyes) Invega Sustenna 234 mg/1.5 mL syringe 1.5 mg IM MONTHLY clonazepam 1 mg tablet 0.5 mg PO AM baclofen 10 mg Tablet 10 mg PO TIDP PRN (Reason: Muscle Spasm) ondansetron 4 mg Tablet,Disintegrating 4 mg PO Q4HP PRN (Reason: Nausea And Vomiting) fluticasone propionate 50 mcg/actuation [place],Suspension 1 spray INTRANASAL DAILY Rx Instructions: administer into each nostril Discontinued lactulose 10 gram/15 mL Solution 20 g PO BID PRN (Reason: Constipation) 30 Days Qty: 0 0RF Rx Instructions: goal 2-3 soft stools a day Problem Reconciliation Problems Reviewed?: Yes Patient Discharge Instructions ACTIVITY: Continue current activity DIET: continue same diet Patient Instructions: DI for Hypokalemia Providers Primary Care Provider: Provider,Referral Admit Provider: Pietro Galvez Attending Provider: Pietro Galvez
== END 2023-08-01 11:00 ==
LOC: ER 08-01 01:16 → 2ND 08-01 01:41
PROVIDERS: Nurse Practitioner Family; Admitting Provider Internal Medicine Adolescent Medicine; Emergency Provider Emergency Medicine; Visit Provider Internal Medicine Adolescent Medicine
DX: E87.6 Hypokalemia (principal); R10.32 Left lower quadrant pain; K42.9 Umbilical hernia without obstruction or gangrene; F31.9 Bipolar disorder, unspecified; F25.0 Schizoaffective disorder, bipolar type; F17.210 Nicotine dependence, cigarettes, uncomplicated; Z79.899 Other long term (current) drug therapy; Z79.02 Long term (current) use of antithrombotics/antiplatelets; Z99.3 Dependence on wheelchair; J44.9 Chronic obstructive pulmonary disease, unspecified
CPT/HCPCS: 36415; 74177; 80053; 81001; 83690; 83735; 84100; 85025; 93005; 99291; G0378; Q9967

== ENCOUNTER 2023-12-21 23:14 | Emergency (ER) | payer MEDICARE, MEDICAID, SELFPAY ==
[2023-12-21 23:16] VITALS: BP 120/49; PULSE 62; RESP 16; TEMP 36.6; O2SAT 96; BMI 21.2
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
[2023-12-21 23:22] VITALS: BP 120/52; PULSE 62; RESP 16; TEMP 36.6; O2SAT 97
--- NOTE | 2023-12-21 23:29 | PC.NURSE ---
called report to raymundo at [facility]
== END 2023-12-21 23:43 ==
LOC: ER 23:41
PROVIDERS: Emergency Provider Emergency Medicine
DX: Z04.89 Encounter for examination and observation for other specified reasons (principal)
CPT/HCPCS: 99281

== ENCOUNTER 2024-04-25 21:02 | Emergency (ER) | payer MEDICARE, MEDICAID, SELFPAY ==
[2024-04-25] VITALS (7 sets, daily range): BP systolic 94–132; BP diastolic 49–75; PULSE 87–97; RESP 18–20; TEMP 36.6; O2SAT 90–100
--- NOTE | 2024-04-25 21:04 | CT_ITS ---
PROCEDURE INFORMATION: Exam: CT Cervical Spine Without Contrast Exam date and time: 04/25/2024 9:41 PM Age: 83 years old Clinical indication: Injury or trauma; Fall; Additional info: Trauma, critical injury suspected TECHNIQUE: Imaging protocol: Computed tomography of the cervical spine without contrast. Radiation optimization: All CT scans at this facility use at least one of these dose optimization techniques: automated exposure control; mA and/or kV adjustment per patient size (includes targeted exams where dose is matched to clinical indication); or iterative reconstruction. COMPARISON: 1. CT CERVICAL SPINE WO CON 01/31/2023 7:[address] CERVICAL SPINE WO CON 10/16/2022 4:33 AM 3. CR XR CERVICAL SPINE 1V 05/14/2023 2:19 PM FINDINGS: Bones: The cervical spine shows relatively preserved alignment of the vertebral bodies with no evidence of acute fractures or dislocations. However, age-related degenerative changes are observed, including mild disc space narrowing and osteophyte formation at multiple levels. These findings are consistent with age related degenerative disease. Lungs: Lung apices are normal. Vasculature: There are atherosclerotic calcifications of the carotid bulbs bilaterally. Soft tissues: Unremarkable. Other findings: Motion artifact mildly limits evaluation. IMPRESSION: 1. Multilevel degenerative change without acute injury identified. 2. Mildly motion limited study.
--- NOTE | 2024-04-25 21:04 | CT_ITS ---
PROCEDURE INFORMATION: Exam: CT Head Without Contrast Exam date and time: 04/25/2024 9:39 PM Age: 83 years old Clinical indication: Injury or trauma; Fall; Additional info: Trauma, critical injury suspected TECHNIQUE: Imaging protocol: Computed tomography of the head without contrast. Radiation optimization: All CT scans at this facility use at least one of these dose optimization techniques: automated exposure control; mA and/or kV adjustment per patient size (includes targeted exams where dose is matched to clinical indication); or iterative reconstruction. COMPARISON: 1. MR HEAD/BRAIN WO/W CON 06/04/2023 9:[address] HEAD/BRAIN WO CON 01/31/2023 7:[address] ANGIO HEAD 10/16/2022 4:42 AM FINDINGS: Brain: The brain parenchyma appears unremarkable, with no signs of acute intracranial hemorrhage or significant mass effect. There is hypodensity in the subcortical and periventricular white matter which is technically nonspecific but most often related to chronic microvascular disease. Cerebral ventricles: Mild ventricular enlargement consistent with age-related cerebral atrophy is noted. Paranasal sinuses: Paranasal sinuses show age-appropriate mucosal thickening. There is circumferential thickening in the maxillary sinuses. There is evidence for prior maxillary sinus surgery. Mastoid air cells: Visualized mastoid air cells are well aerated. Bones: There are no skull fractures or bony lesions. Surgical hardware is noted alongside the alveolar ridge. Soft tissues: Unremarkable. Other findings: Motion artifact mildly limits evaluation. IMPRESSION: Presumably age-related and chronic changes without acute intracranial abnormality.
--- NOTE | 2024-04-25 21:04 | CT_ITS ---
PROCEDURE INFORMATION: Exam: CT Thoracic Spine Without Contrast Exam date and time: 04/25/2024 9:42 PM Age: 83 years old Clinical indication: Injury or trauma; Fall; Additional info: Trauma, critical injury suspected TECHNIQUE: Imaging protocol: Computed tomography of the thoracic spine without contrast. Radiation optimization: All CT scans at this facility use at least one of these dose optimization techniques: automated exposure control; mA and/or kV adjustment per patient size (includes targeted exams where dose is matched to clinical indication); or iterative reconstruction. COMPARISON: CT THORACIC SPINE WO CON 10/16/2022 4:35 AM FINDINGS: Bones/joints: Spinal alignment is normal. Re-demonstration T7, T9 and T12 compression deformities similar to 10/16/2022. No new fractures. Diffuse osteopenia. Subtle fractures may be missed. Soft tissues: Unremarkable. IMPRESSION: 1. Spinal alignment is normal. 2. Re-demonstration T7, T9 and T12 compression deformities similar to 10/16/2022. 3. No new fractures 4. Diffuse osteopenia. Subtle fractures may be missed.
--- NOTE | 2024-04-25 21:04 | CT_ITS ---
PROCEDURE INFORMATION: Exam: CTA Neck With Contrast Exam date and time: 04/25/2024 9:48 PM Age: 83 years old Clinical indication: Injury or trauma; Fall; Additional info: Trauma, critical injury suspected TECHNIQUE: Imaging protocol: Computed tomographic angiography of the neck with contrast. Exam focused on the cervical segments of the vasculature. 3D rendering (Not supervised by radiologist): MIP and/or 3D reconstructed images were created by the technologist. Radiation optimization: All CT scans at this facility use at least one of these dose optimization techniques: automated exposure control; mA and/or kV adjustment per patient size (includes targeted exams where dose is matched to clinical indication); or iterative reconstruction. Contrast material: ISOVUE; Contrast volume: 80 ml; Contrast route: INTRAVENOUS (IV); COMPARISON: 1. CT ANGIO NECK 10/16/2022 4:[address] CERVICAL SPINE WO CON 04/25/2024 9:[address] CERVICAL SPINE WO CON 01/31/2023 7:57 AM FINDINGS: Right common carotid artery: There is atherosclerotic disease of the right carotid bulb without significant stenosis of the internal carotid artery. Right internal carotid artery: No stenosis of the extracranial segment. No dissection or occlusion. Right external carotid artery: No occlusion or stenosis of the origin. Left common carotid artery: There is atherosclerotic disease of the left carotid bulb without significant stenosis of the internal carotid artery. Left internal carotid artery: No stenosis of the extracranial segment. No dissection or occlusion. Left external carotid artery: No occlusion or stenosis of the origin. Right vertebral artery: No stenosis. No dissection or occlusion. Left vertebral artery: No stenosis. No dissection or occlusion. Soft tissues: Normal. No significant soft tissue swelling. Bones/joints: No acute fracture. Lungs: There are scattered areas of emphysema throughout the lungs. IMPRESSION: Atherosclerotic disease of the carotid bulbs without significant stenosis of the internal carotid arteries. REFERENCES: NASCET CRITERIA. The degree of stenosis in the cervical segment of the internal carotid artery is based on NASCET criteria. Normal is no stenosis. Mild is less than 50% stenosis. Moderate is 50-69% stenosis. Severe is 70% to 99% stenosis. Total occlusion is no detectable patent lumen.
--- NOTE | 2024-04-25 21:04 | CT_ITS ---
PROCEDURE INFORMATION: Exam: CTA Abdomen and Pelvis With Contrast Exam date and time: 04/25/2024 9:51 PM Age: 83 years old Clinical indication: Injury or trauma; Fall; Additional info: Trauma, critical injury suspected TECHNIQUE: Imaging protocol: Computed tomographic angiography of the abdomen and pelvis with contrast. Exam focused on the arteries. 3D rendering (Not supervised by radiologist): MIP and/or 3D reconstructed images were created by the technologist. Radiation optimization: All CT scans at this facility use at least one of these dose optimization techniques: automated exposure control; mA and/or kV adjustment per patient size (includes targeted exams where dose is matched to clinical indication); or iterative reconstruction. Contrast material: ISOVUE; Contrast volume: 80 ml; Contrast route: INTRAVENOUS (IV); COMPARISON: 1. CT ANGIO ABDOMEN PELVIS 10/16/2022 4:[address] ABDOMEN PELVIS W CON 07/31/2023 11:[address] ABDOMEN PELVIS W CON 05/01/2023 1:03 AM FINDINGS: Aorta: Mild ectasia of the infrarenal abdominal aorta measuring up to 2.7 cm with extensive atherosclerotic disease. No aneurysm or dissection is identified. Celiac trunk and mesenteric arteries: No occlusion or significant stenosis. Renal arteries: No occlusion or significant stenosis. Right iliac arteries: No occlusion or significant stenosis. Left iliac arteries: No occlusion or significant stenosis. Liver: There are low-density lesions in the liver which most likely reflect a combination of cysts and/or hemangiomas. Gallbladder and biliary ducts: There is cholelithiasis within an otherwise normal gallbladder. Pancreas: Unremarkable. No mass. No ductal dilation. Spleen: Unremarkable. No splenomegaly. Adrenal glands: Increasing nodular enlargement of the left adrenal gland which measures up to 2.6 cm (image 113 series 3), consider nonemergent adrenal mass protocol CT or MRI. Kidneys and ureters: Unremarkable. No solid mass. No hydronephrosis. Stomach and bowel: Mild fluid distention of small-bowel loops. Significant gas and stool distension of the rectum and sigmoid colon is a stable finding. Appendix: No evidence of appendicitis. Intraperitoneal space: Unremarkable. No free air. No significant fluid collection. Lymph nodes: Unremarkable. No enlarged lymph nodes. Urinary bladder: Unremarkable. No mass. Reproductive: Unremarkable as visualized. Bones/joints: Please see the dedicated interpretation of the spine for findings in that region. Soft tissues: There are calcifications within the buttocks which most likely reflect injection granulomas. Chronic left femoral neck fracture with soft tissue and osseous changes which appears similar to prior. Other findings: Please see the dedicated interpretation of the thorax for findings in that region. Motion artifact mildly limits evaluation. IMPRESSION: 1. Significant gas and stool distension of the rectum and sigmoid colon is a stable finding. 2. Increasing nodular enlargement of the left adrenal gland which measures up to 2.6 cm (image 113 series 3), consider nonemergent adrenal mass protocol CT or MRI. 3. Mildly motion limited study. No acute traumatic injury is identified. 4. Please see the dedicated interpretation of the thorax for findings in that region.
--- NOTE | 2024-04-25 21:04 | CT_ITS ---
PROCEDURE INFORMATION: Exam: CTA Head With Contrast, Arteriography Exam date and time: 04/25/2024 9:48 PM Age: 83 years old Clinical indication: Injury or trauma; Fall; Additional info: Trauma, critical injury suspected TECHNIQUE: Imaging protocol: Computed tomographic angiography of the head with contrast. Exam focused on the arteries. 3D rendering (Not supervised by radiologist): MIP and/or 3D reconstructed images were created by the technologist. Radiation optimization: All CT scans at this facility use at least one of these dose optimization techniques: automated exposure control; mA and/or kV adjustment per patient size (includes targeted exams where dose is matched to clinical indication); or iterative reconstruction. Contrast material: ISOVUE; Contrast volume: 80 ml; Contrast route: INTRAVENOUS (IV); COMPARISON: CT ANGIO HEAD 04/25/2024 9:48 PM FINDINGS: ANTERIOR CIRCULATION: Right internal carotid artery: Intracranial segment is patent with no significant stenosis. No aneurysm. Right middle cerebral artery: No occlusion or significant stenosis. No aneurysm. Right anterior cerebral artery: No occlusion or significant stenosis. No aneurysm. Left internal carotid artery: Intracranial segment is patent with no significant stenosis. No aneurysm. Left middle cerebral artery: No occlusion or significant stenosis. No aneurysm. Left anterior cerebral artery: No occlusion or significant stenosis. No aneurysm. POSTERIOR CIRCULATION: Right vertebral artery: No occlusion or significant stenosis. No aneurysm. Left vertebral artery: No occlusion or significant stenosis. No aneurysm. Basilar artery: No occlusion or significant stenosis. No aneurysm. Right posterior cerebral artery: No occlusion or significant stenosis. No aneurysm. Left posterior cerebral artery: No occlusion or significant stenosis. No aneurysm. Brain: No evidence for intracranial hemorrhage, mass lesions or acute stroke. Mild small vessel ischemic change in the periventricular white matter. Cerebral ventricles: Mild ventricular prominence. Bones/joints: Unremarkable. No acute fracture. Soft tissues: Left parietal scalp hematoma. Other findings: No evidence for large vessel occlusion. Mild generalized atrophy. IMPRESSION: 1. No evidence for large vessel occlusion. 2. No evidence for traumatic vascular injury. 3. No evidence for intracranial hemorrhage, mass lesions or acute stroke. 4. Mild ventricular prominence. 5. Mild generalized atrophy. 6. Mild small vessel ischemic change in the periventricular white matter. 7. Left parietal scalp hematoma.
--- NOTE | 2024-04-25 21:04 | CT_ITS ---
PROCEDURE INFORMATION: Exam: CTA Chest With Contrast Exam date and time: 04/25/2024 9:51 PM Age: 83 years old Clinical indication: Injury or trauma; Fall; Additional info: Trauma, critical injury suspected TECHNIQUE: Imaging protocol: Computed tomographic angiography of the chest with contrast. Exam focused on the arteries. 3D rendering (Not supervised by radiologist): MIP and/or 3D reconstructed images were created by the technologist. Radiation optimization: All CT scans at this facility use at least one of these dose optimization techniques: automated exposure control; mA and/or kV adjustment per patient size (includes targeted exams where dose is matched to clinical indication); or iterative reconstruction. Contrast material: ISOVUE; Contrast volume: 80 ml; Contrast route: INTRAVENOUS (IV); COMPARISON: 1. CT ANGIO CHEST PE PROTOCOL 05/01/2023 1:[address] ANGIO CHEST 10/16/2022 4:[address] ANGIO CHEST PE PROTOCOL 07/15/2021 9:34 PM FINDINGS: Pulmonary arteries: There is dilation of the main pulmonary artery as well as the major branch pulmonary arteries. This may reflect underlying pulmonary hypertension. Aorta: There is moderate atherosclerotic disease of the aorta without aneurysm or dissection identified. There is atherosclerotic disease of the visualized aorta and its major branch vessels. Lungs: There are scattered calcified granulomas in the lungs which most likely reflect prior granulomatous disease. Scattered areas of bronchial wall thickening which are likely chronic inflammatory. A few areas of subpleural reticulation are noted, nonspecific. There are scattered areas of emphysema throughout the lungs. Parenchymal consolidations at the bases could be on the basis of atelectasis but underlying infection is not completely excluded. Pleural spaces: Unremarkable. No pneumothorax. No pleural effusion. Heart: Unremarkable. No cardiomegaly. No pericardial effusion. Lymph nodes: Unremarkable. No enlarged lymph nodes. Intraperitoneal space: Please see the dedicated interpretation of abdomen and pelvis for findings in that region. Bones/joints: There is diffuse degenerative disease of the visualized osseous structures. Old right anterior rib fracture. There is exaggeration of the spinal curvature. Soft tissues: Unremarkable. Other findings: Motion artifact mildly limits evaluation. IMPRESSION: 1. There is moderate atherosclerotic disease of the aorta without aneurysm or dissection identified. 2. Parenchymal consolidations at the bases could be on the basis of atelectasis but underlying infection is not completely excluded. 3. No acute traumatic injury is identified. 4. Please see the dedicated interpretation of abdomen and pelvis for findings in that region. 5. Findings which suggest underlying pulmonary arterial hypertension.
--- NOTE | 2024-04-25 21:04 | CT_ITS ---
PROCEDURE INFORMATION: Exam: CT Lumbar Spine Without Contrast Exam date and time: 04/25/2024 9:45 PM Age: 83 years old Clinical indication: Injury or trauma; Fall; Additional info: Trauma, critical injury suspected TECHNIQUE: Imaging protocol: Computed tomography of the lumbar spine without contrast. Radiation optimization: All CT scans at this facility use at least one of these dose optimization techniques: automated exposure control; mA and/or kV adjustment per patient size (includes targeted exams where dose is matched to clinical indication); or iterative reconstruction. COMPARISON: 1. CT THORACIC SPINE WO CON 04/25/2024 9:[address] ABDOMEN PELVIS W CON 07/31/2023 11:[address] ABDOMEN PELVIS W CON 05/01/2023 1:03 AM FINDINGS: Bones/joints: Stable appearing compression deformities of T12, L1, and L3. Stable compression deformity of the sacrum. There is exaggeration of the spinal curvature. Moderate to severe multilevel degenerative change with loss of intervertebral disc space and ligamentum flavum hypertrophy. Findings most pronounced at L4-L5 where there is significant canal narrowing. The degree of demineralization is such that underlying nondisplaced fractures are difficult to exclude. Soft tissues: Please see dedicated examination of the chest, abdomen, and pelvis for discussion of soft tissues in those regions. IMPRESSION: 1. Multilevel chronic degenerative and posttraumatic changes without definite acute injury. 2. The degree of demineralization is such that underlying nondisplaced fractures are difficult to exclude. 3. If clinical concern persists, MRI would be suggested.
[2024-04-25] MEDS: 0.9 % SODIUM CHLORIDE 1000ML 1,000 ML 999 ML IV (21:10)
[2024-04-25 21:13] LABS: Basophils % 0.2 % (0.1-2.0); Eosinophils % 0.2 % (0.1-12.0); Hematocrit 41.9 % (37.0-47.0); Lymphocytes # 1.6 K/mm3 (0.7-4.5); Lymphocytes % 12.7 % (10-50); Mean Corpuscular Hemoglobin 26.6 pg (27.0-31.2); Mean Corpuscular Volume 85.9 fl (81-99); Mean Platelet Volume 12.7 fl (7.4-10.4); Monocytes # 0.9 K/mm3 (0.1-1.0); Monocytes % 7.1 % (1.7-9.3); Neutrophils # 9.8 K/mm3 (1.8-7.8); Neutrophils % 79.2 % (37.0-80.0); Platelet Count 308 K/mm3 (142-424); Red Blood Count 4.88 M/mm3 (4.20-5.40); Red Cell Distribution Width 14.4 % (11.5-17.5); White Blood Count 12.3 K/mm3 (4.8-10.8)
--- NOTE | 2024-04-25 21:14 | HMH.EDGENADL ---
Discharge Plan Disposition Patient Disposition: Home, Self-Care Prescriptions Prescriptions: No Action cyanocobalamin (vitamin B-12) 1,000 mcg tablet 1,000 mcg PO DAILY loratadine [Claritin] 10 mg tablet 10 mg PO DAILY dextromethorphan-guaifenesin 5-100 mg/5 mL syrup 10 ml PO Q4H PRN (Reason: cough) acetaminophen [Tylenol Extra Strength] 500 mg tablet 500 mg PO BID potassium chloride 10 mEq tablet extended release 20 meq PO BID mirtazapine [Remeron] 30 mg tablet 30 mg PO HS olanzapine 5 mg tablet,disintegrating 5 mg translingual QID PRN (Reason: agitation) raloxifene [Evista] 60 mg tablet 60 mg PO DAILY trazodone 50 mg tablet 25 mg PO HS omega-3 fatty acids-fish oil [Fish Oil] 360-1,200 mg capsule 1 cap PO DAILY polyvinyl alcohol 1.4 % drops 1 drp Eye-Both TIDP PRN (Reason: Dry Eyes) acetaminophen [Acetaminophen Extra Strength] 500 mg tablet 500 mg PO Q4HP PRN (Reason: Mild Pain (Scale Score 1-4)) calcium citrate 200 mg (950 mg) tablet 200 mg PO BID ferrous sulfate 325 mg (65 mg iron) tablet 325 mg PO BID Acid Gone Antacid 95-358 mg/15 mL suspension 30 ml PO Q4HP Qty: 355 11RF lactulose 10 gram/15 mL solution 20 g PO BID PRN (Reason: constipation) Qty: 473 11RF mirabegron [Myrbetriq] 50 mg tablet extended release 24 hr 50 mg PO DAILY Qty: 90 3RF Visine Dry Eye Relief 1 % drops 1 drp Eye-Both TID PRN (Reason: dry eye(s)) Qty: 30 11RF pantoprazole 20 mg tablet,delayed release (DR/EC) 20 mg PO DAILY clonazepam 1 mg tablet 1 mg PO TID Qty: 90 5RF clopidogrel [Plavix] 75 mg tablet 75 mg PO DAILY nitroglycerin [Nitro-Dur] 0.4 mg/hr patch 24 hour 1 patch transdermal DAILY Rx Instructions: allow nitrate-free interval of approx. 10-12 hrs per 24-hour period cholecalciferol (vitamin D3) 25 mcg (1,000 unit) tablet 25 mcg PO DAILY multivitamin Tablet 1 tab PO DAILY Systane (PF) 0.4-0.3 % Dropperette 1 drp Eye-Both BIDP PRN (Reason: Dry Eyes) Invega Sustenna 234 mg/1.5 mL syringe 1.5 mg IM MONTHLY baclofen 10 mg Tablet 10 mg PO TIDP PRN (Reason: Muscle Spasm) ondansetron 4 mg Tablet,Disintegrating 4 mg PO Q4HP PRN (Reason: Nausea And Vomiting) fluticasone propionate 50 mcg/actuation Toyah,Suspension 1 spray INTRANASAL DAILY Rx Instructions: administer into each nostril Referrals Follow up/Referrals: Provider,Referral, MD [Primary Care Provider] - See instructions Activity Restrictions/Add. Instructions Additional Instructions/Restrictions: No serious or life-threatening injuries identified on your CT scans today. Please have your sutures removed in 7 to 10 days. Return with any worsening concerns. Clinical Impressions Clinical Impression: Fall, Hx of jail use of blood thinners, Forehead laceration Print Language Print Language: Citizen Of [place] Discharge ED Provider: Sangita Justin General Adult HPI General Stated complaint: Fall Time Seen by Provider: 04/25/24 21:03 Mode of Arrival: EMS Limitations: Altered Mental Status Description of Symptoms (Recalled from ER Triage Doc. by RN): Unable to obtain much info from patient other than she wants to go home which is baseline for patient according to EMS. Report from EMS was pt fell forward out of her wheelchair striking her forehead on a bookshelf. Witnessed by pts roomate at senior living. Pt has LAC to mid forehead. Bleeding controlled. C-collar in place on arrival. History of Present Illness HPI narrative: Patient is an 83-year-old female with a history of schizophrenia who is on Plavix presents after a fall at senior living with obvious head injury. She had bleeding from her forehead. Given her anticoagulated status and altered mental status and her age she was trauma alerted. Further history unable to be obtained as patient's clinical status prevents this. Related Data Home Medications ?Medication ?Instructions ?Recorded ?Confirmed omega-3 fatty acids-fish oil 360 1 cap PO DAILY Supplement 10/14/17 04/25/24 mg-1,200 mg capsule (Fish Oil) raloxifene 60 mg tablet (Evista) 60 mg PO DAILY hormone supplement 10/14/17 04/25/24 trazodone 50 mg tablet 25 mg PO HS sleep 10/14/17 04/25/24 clopidogrel 75 mg tablet (Plavix) 75 mg PO DAILY Platelet Inhibitor 01/08/22 04/25/24 nitroglycerin 0.4 mg/hr 1 patch transdermal DAILY 12/10/22 04/25/24 transdermal 24 hour patch (Nitro-Dur) acetaminophen 500 mg tablet 500 mg PO Q4HP PRN Mild Pain 03/13/23 04/25/24 (Acetaminophen Extra Strength) (Scale Score 1-4) calcium citrate 200 mg PO BID 03/13/23 04/25/24 ferrous sulfate 325 mg (65 mg 325 mg PO BID Supplement 03/13/23 04/25/24 iron) tablet polyvinyl alcohol 1.4 % eye drops 1 drp Eye-Both TIDP PRN Dry Eyes 03/13/23 04/25/24 baclofen 10 mg tablet 10 mg PO TIDP PRN Muscle Spasm 05/01/23 04/25/24 cholecalciferol (vitamin D3) 25 25 mcg PO DAILY 05/01/23 04/25/24 mcg (1,000 unit) tablet fluticasone propionate 50 1 spray intranasal DAILY Allergy 05/01/23 04/25/24 mcg/actuation nasal Symptoms spray,suspension multivitamin 1 tab PO DAILY 05/01/23 04/25/24 ondansetron 4 mg disintegrating 4 mg PO Q4HP PRN Nausea And 05/01/23 04/25/24 tablet Vomiting paliperidone palmitate 234 mg/1.5 1.5 mg IM MONTHLY 05/01/23 04/25/24 mL intramuscular syringe (Invega Sustenna) peg 400-propylene glycol (PF) 0.4 1 drp Eye-Both BIDP PRN Dry Eyes 05/01/23 04/25/24 %-0.3 % eye drops in a dropperette (Systane (PF)) dextromethorphan 5 mg-guaifenesin 10 ml PO Q4H PRN cough 06/08/23 04/25/24 100 mg/5 mL oral syrup loratadine 10 mg tablet (Claritin) 10 mg PO DAILY 06/08/23 04/25/24 pantoprazole 20 mg tablet,delayed 20 mg PO DAILY Acid Reflux 11/03/23 04/25/24 release mirtazapine 30 mg tablet (Remeron) 30 mg PO HS 11/18/23 04/25/24 olanzapine 5 mg disintegrating 5 mg translingual QID PRN agitation 11/18/23 04/25/24 tablet acetaminophen 500 mg tablet 500 mg PO BID 03/01/24 04/25/24 (Tylenol Extra Strength) cyanocobalamin (vitamin B-12) 1,000 mcg PO DAILY 03/01/24 04/25/24 1,000 mcg tablet potassium chloride 10 mEq 20 meq PO BID 03/01/24 04/25/24 tablet,extended release Previous Rx's ?Medication ?Instructions ?Recorded aluminum hydrox-magnesium carb 95 30 ml PO Q4HP #355 mL 10/13/23 mg-358 mg/15 mL oral suspension (Acid Gone Antacid) lactulose 10 gram/15 mL oral 20 g (30 mL) PO BID PRN 10/13/23 solution constipation #473 mL mirabegron 50 mg tablet,extended 50 mg PO DAILY #90 tabs 10/13/23 release 24 hr (Myrbetriq) polyethylene glycol 400 1 % eye 1 drp Eye-Both TID PRN dry eye(s) 10/13/23 drops (Visine Dry Eye Relief) #30 mL clonazepam 1 mg tablet 1 mg PO TID #90 tabs 02/17/24 Allergies Allergy/AdvReac Type Severity Reaction Status Date / Time aspirin Allergy Unknown Verified 04/10/24 14:00 codeine Allergy Unknown Verified 04/10/24 14:00 Corticosteroids Allergy Unknown Verified 04/10/24 14:00 (Glucocorticoids) ibuprofen (From NeoProfen Allergy Unknown Verified 04/10/24 14:00 (ibuprofen lysn)(PF)) naproxen (From Flanax Allergy Unknown Verified 04/10/24 14:00 (naproxen)) diclofenac (From Voltaren) Allergy Verified 04/10/24 14:00 PFS PFS Disclaimer: The information contained in this section may have been updated after the patient was seen, as this information can be updated by other users. Medical History Acute hypokalemia Low serum vitamin B12 Diastolic dysfunction Mitral regurgitation Injury of left rotator cuff Fall Umbilical hernia without obstruction or gangrene Major depressive disorder, recurrent, unspecified Fracture of proximal phalanx of left ring finger Fracture of proximal phalanx of left middle finger Fall Angina at rest Closed rib fracture Hearing loss Tinnitus Dizziness Fracture of 3rd metatarsal Fracture of 4th metatarsal Pain in right foot Abnormal cardiovascular stress test Gastroesophageal reflux disease Restless leg syndrome, controlled Anxiety Overactive bladder Osteoporosis Iron deficiency anemia Bipolar 1 disorder Schizoaffective disorder Paranoid delusion Family History Other Cancer Coronary artery disease Social History Smoking Status: Unknown if ever smoked alcohol intake: never substance use type: denies use current occupational status: disabled Travel in the last 8 weeks: None housing: senior living marital status: caffeine: No Have you lived/traveled outside US in past 30 days?: No Contact w/someone who lives/traveled outside US past 30 days?: No Exposure to someone with infectious disease in past 14 days?: No Do you have a fever (greater than 100.4 F or 38 C)?: No Have you tested positive for COVID-19: No Exposed to someone with COVID-19 in past 14 days?: No Do you have a sore throat?: No Do you have a cough?: No Do you have any weakness?: No Do you have any diarrhea?: No Are you experiencing any unusual bleeding?: No Do you have any muscle aches/pain?: Yes Do you have any abdominal pain?: No Are you experiencing loss of taste or smell?: No Other Medical History Have you received the Flu Vaccine for this season: No Have you received the Pneumonia Vaccine: Yes (01/2017, 01/19/19) ROS Obtained: Yes All systems reviewed & no additional complaints except as documented Physical Exam General General appearance: alert and in no apparent distress Head Head exam: other (3 cm vertically oriented laceration over the anterior aspect of her forehead) Respiratory Respiratory exam: Present other (Coarse breath sounds she has coughing oxygen saturation is 90% on 2 L) Cardiovascular Cardiovascular exam: Present regular rate and normal rhythm Abdominal Exam Abdominal exam: Present distention and other (Umbilical hernia noted in the anterior abdomen without any significant tenderness ); Absent tenderness Neurological Exam Neurological exam: Present alert and other (Nonfocal); Absent oriented X3 Medical Decision Making Medical Records Screening: Per USPSTF and CDC recommendations, given the prevalence of disease in our region, it is our hospital?s policy to screen for HIV and viral Hepatitis for all patients aged 18 and over and those with ongoing risk factors. Shahid Inquiry Pt receiving controlled substance: No Vital Signs: 04/25/24 21:02 04/25/24 21:30 04/25/24 22:00 Pulse Rate 87 89 Pulse Rate [Right Radial] 97 H Respiratory Rate 18 Blood Pressure 100/75 L 97/68 L Blood Pressure [Right Arm] 132/63 Blood Pressure Mean [Right Arm] 86 Blood Pressure Source [Right Arm] Automatic Cuff Blood Pressure Position [Right Arm] Sitting 02 Sat by Pulse Oximetry 90 L 100 100 Oxygen Delivery Method Room Air Nasal Cannula Nasal Cannula Oxygen Flow Rate (LPM) 4 4 Lab Data Lab results reviewed: Yes I reviewed the patient's lab results. Lab Results 04/25/24 21:00: WBC 12.3 H, RBC 4.88, Hgb 13.0, Hct 41.9, MCV 85.9, MCH 26.6 L, MCHC 31.0 L, RDW 14.4, Plt Count 308, MPV 12.7 H, Neut % (Auto) 79.2, Lymph % (Auto) 12.7, Luce % (Auto) 7.1, Eos % (Auto) 0.2, Baso % (Auto) 0.2, Neut # (Auto) 9.8 H, Lymph # (Auto) 1.6, Luce # (Auto) 0.9, Eos # (Auto) 0.0, Baso # (Auto) 0.0, PT 9.9, INR 0.89 L, APTT 24.1, Sodium 149 H, Potassium 3.8, Chloride 109 H, Carbon Dioxide 29, Anion Gap 14.8, BUN 25 H, Creatinine 0.50 L, Estimated GFR 118, Est GFR ( Amer) 143, Glucose 122 H, Calcium 9.1, Total Bilirubin 0.5, AST 31, ALT 20, Alkaline Phosphatase 96, Total Protein 6.6 D, Albumin 4.0, Globulin 2.6, Albumin/Globulin Ratio 1.5 04/25/24 21:00 04/25/24 21:00 Orders (Tests/Meds): ED MEDICATIONS Generic Name Dose Route Start Last Admin Trade Name Freq PRN Reason Stop Dose Admin Sodium Chloride 10 ml 04/25/24 21:48 04/25/24 21:49 Sodium Chloride 0.9% 10ml Syr (Rad Only) IV 05/25/24 21:47 10 ml NEEDED PRN Administration Maintain IV Site Discontinued Medications Generic Name Dose Route Start Last Admin Trade Name Freq PRN Reason Stop Dose Admin Sodium Chloride 1,000 mls @ 999 mls/hr 04/25/24 21:15 04/25/24 21:10 Sod Chlor 0.9% 1000ml Bag IV 04/25/24 22:15 999 mls/hr .Q1H1M BIMAL Administration Iopamidol 160 ml 04/25/24 21:48 04/25/24 21:52 Iopamidol-370 (76%);100ml Bottle IV 04/25/24 21:49 160 ml ONCE ONE Administration Sodium Chloride 100 ml 04/25/24 21:48 04/25/24 21:52 0.9 % Sodium Chloride 50 Ml Vial IV 04/25/24 21:49 100 ml ONCE ONE Administration ORDERS Category Date Time Status CT angio abdomen pelvis Stat Cat Scan 04/25/24 21:[address] angio chest - dissection Stat Cat Scan 04/25/24 21:[address] angio head Stat Cat Scan 04/25/24 21:[address] angio neck Stat Cat Scan 04/25/24 21:[address] cervical spine wo con Stat Cat Scan 04/25/24 21:[address] head/brain wo con Stat Cat Scan 04/25/24 21:[address] lumbar spine wo con Stat Cat Scan 04/25/24 21:[address] thoracic spine wo con Stat Cat Scan 04/25/24 21:04 Completed POCUS Point of Care (ER Only) Stat Exams 04/25/24 21:04 Completed CBC w/Auto Diff [Complete Blood Count Auto Diff] Stat Lab 04/25/24 21:00 Completed CMP [Comprehensive Metabolic Panel] Stat Lab 04/25/24 21:00 Completed PT/PTT Stat Lab 04/25/24 21:00 Completed Medical Decision Narrative: 83-year-old female fell at senior living she is altered at baseline and history is very difficult to be obtained secondary patient's chronic altered mental status. She is on Plavix has obvious head trauma we will get a full trauma workup on this patient. E-FAST was negative. Scalp/forehead laceration will be repaired. Reassessment 10:[address] scans of the patient's head neck chest abdomen pelvis all performed which I personally interpreted and also reviewed radiology images which demonstrate no acute intervenable traumatic abnormalities. Specifically no evidence of any significant hemorrhage intracranially or elsewhere. There are many chronic degenerative type changes noted. Labs unremarkable from emergency standpoint patient was stable to be transferred back to her senior living. Sutures have been advised to be taken out in 7 to 10 days. Procedures Laceration Laceration 1: Site: face Size (cm): 3.5 Description: linear Depth: simple, single layer Local Anesthetic: lidocaine 1% and with epi Pre-repair: wound explored, irrigated extensively and deep structures intact Skin layer closed with: nylon Size (cm): 4-0 Number of sutures: 4 Technique: simple, interrupted Miscellaneous Procedure Procedure Performed: Limited EFAST ultrasound Indication: Blunt trauma Views: [LUQ, RUQ, Pelvis, Limited Cardiac, Limited Thoracic] Interpretation: Peritoneal Free Fluid: Negative for free fluid Pericardial effusion: Negative for free fluid Right thoracic free Fluid: Negative for free fluid Left thoracic Free Fluid: Absent Right lung pneumothorax: Absent Left Lung pneumothorax: Absent Impression: Negative EFAST ultrasound Images were to permanent archive The study was technically adequate CPT 70068-61 (limited cardiac) 31689-70 (limited abdominal) 35838-42 (chest) This study was performed by me, and I personally interpreted all images/videos. Based on my clinical judgement, these images were adequate and did not necessitate further imaging. Critical Care Critical Care Time Critical Care Time: No
[2024-04-25 21:17] LABS: Chloride 109 mmol/L (98-107)
[2024-04-25 21:18] LABS: Potassium 3.8 mmoL/L (3.5-5.1); Sodium 149 mmol/L (136-145)
[2024-04-25 21:20] LABS: Alanine Aminotransferase 20 U/L (12-78); Anion Gap 14.8 mEq/L (5-15); Aspartate Amino Transferase 31 U/L (14-36); Blood Urea Nitrogen 25 mg/dl (7-17); Carbon Dioxide 29 mmol/L (22.0-30.0); Estimated Glomerular Filt Rate 118 ml/min (>60); GFR (African American) 143 ML/MIN (>60)
[2024-04-25 21:21] LABS: Activated Partial Thrombo Time 24.1 seconds (22.5-28.5); Albumin/Globulin Ratio 1.5 (1.1-1.8); Alkaline Phosphatase 96 U/L (38-126); Bilirubin,Total 0.5 mg/dl (0.2-1.3); Calcium 9.1 mg/dl (8.4-10.2); Globulin 2.6 g/dL (1.3-3.2); Glucose 122 mg/dl (74-100); INR 0.89 (0.9-1.1); Prothrombin Time 9.9 seconds (9.2-12.1); Total Protein,Serum 6.6 g/dl (6.3-8.2)
[2024-04-25] MEDS: SODIUM CHLORIDE 0.9% 10ML SYR (RAD ONLY) 10 ML IV (21:49)
[2024-04-25] MEDS: 0.9 % SODIUM CHLORIDE 50 ML VIAL 100 ML IV (21:52)
[2024-04-25] MEDS: IOPAMIDOL-370 (76%);100ML BOTTLE 160 ML IV (21:52)
--- NOTE | 2024-04-25 22:36 | PC.NURSE ---
C-Collar removed at this time
--- NOTE | 2024-04-25 22:41 | PC.NURSE ---
Report called to Mariia at this time.
--- NOTE | 2024-04-25 22:43 | PC.NURSE ---
EMS contacted for pt transport at this time
== END 2024-04-25 23:09 | disposition home or self-care (01) ==
PROVIDERS: Emergency Provider Student in an Organized Health Care Education/Training Program
DX: S01.81XA Laceration without foreign body of other part of head, initial encounter (principal); R41.82 Altered mental status, unspecified; F25.9 Schizoaffective disorder, unspecified; M81.0 Age-related osteoporosis without current pathological fracture; J44.9 Chronic obstructive pulmonary disease, unspecified; I34.0 Nonrheumatic mitral (valve) insufficiency; Z79.01 Long term (current) use of anticoagulants; W07.XXXA Fall from chair, initial encounter; Y93.89 Activity, other specified; Y92.128 Other place in nursing home as the place of occurrence of the external cause
CPT/HCPCS: 12013; 70450; 70496; 70498; 71275; 72125; 72128; 72131; 74174; 80053; 85025; 85610; 85730; 96360; 99285; J7030; Q9967

== ENCOUNTER 2024-06-06 09:36 | Outpatient (CLI) | payer MEDICARE, MEDICAID, SELFPAY ==
--- NOTE | 2024-06-06 09:37 | CT_ITS ---
FINAL REPORT TECHNIQUE: Axial CT images were performed from the lung apices through the upper abdomen. Coronal and sagittal reformats were submitted. This study was performed with techniques to keep radiation doses as low as reasonably achievable (ALARA). Individualized dose reduction techniques using automated exposure control or adjustment of mA and/or kV according to the patient's size were employed. CLINICAL HISTORY: 4mm RUL nodule COMPARISON: 04/25/2024 FINDINGS: CT CHEST WITHOUT CONTRAST No mediastinal mass or adenopathy is identified. No axillary mass or adenopathy is seen.There is no pericardial or pleural effusion. There is a tiny bilobed nodule in the lateral right lung apex measuring 5 x 2 mm. There are findings of old calcified granulomatous disease. Limited images of the upper abdomen are unremarkable. IMPRESSION: Tiny nonspecific right upper lobe nodule. This was probably present on the prior exam although not as well-seen due to motion artifact. Recommend 6-month follow-up. Reviewed, Interpreted and Dictated by Alberto Rosas MD Transcribed by Karena Kwon Authenticated and [facility]
== END 2024-06-06 23:59 | disposition home or self-care (01) ==
LOC: RAD 09:37
PROVIDERS: PCP Family Medicine; Visit Provider Nurse Practitioner Family
DX: R91.1 Solitary pulmonary nodule (principal)
CPT/HCPCS: 71250

== ENCOUNTER 2024-06-14 12:53 | Outpatient (CLI) | payer MEDICARE, MEDICAID, SELFPAY ==
--- NOTE | 2024-06-14 12:58 | CA_ITS ---
APPROVED REPORT EXAM: Comprehensive 2D, Doppler, and color-flow Echocardiogram Physical Chemist: Jackelyn Spears CRT Ht: 5 ft 7 in Wt: 137lbs BSA: 1.72 BP: 94/63 mmHg Indications: MR, CAD, CP, edema, sob Limited exam , poor u/s windows, pt uncooperative, refused additional images, pt scanned in wheelchair 2D Dimensions LA Volume 24.60 mL LA Volume Index 14.00 mL/m2 (M/F) 16-34 M-Mode Dimensions RVDd 2.66 cm (0.9-2.6) LA Diam 2.89 cm (1.9-4.0) LVDd 3.87 cm (3.5-5.7) LVDs 2.85 cm (3.5-5.7) IVSd 0.99 cm (0.6-1.1) PWd 0.93 cm (0.6-1.1) EF (Teich) 52.20% FS 26.40% EDV (Teich) 64.70 mL ESV (Teich) 30.90 mL LV Diastology E Decel Time 197 (160-240 msec) E/A Ratio 0.52 MED A' 14.80 cm/s LAT A' 8.60 cm/s Aortic Valve AO Peak GR. 4.20 mmHg Mitral Valve MV E Max [place]. 35.0 (40-130 cm/s) MV A Velocity 68.0 (40-130 cm/s) E/A Ratio 0.52 MV PHT 58.0 ms Pulmonary Valve PV Peak Velocity 108.0 (50-150 cm/s) Tricuspid Valve TR P. Velocity 194.00 cm/s RAP Estimate 10.00 mmHg RVSP 25.10 mmHg Left Ventricle The left ventricle is normal size. The left ventricular systolic function is normal. The left ventricular ejection fraction is within the normal range. There is increased LV wall thickness. Regional wall motion cannot be adequately evaluated in the setting of technically difficult study. Diastolic function is indeterminate. LVEF is 55%. Right Ventricle The right ventricle is mildly to moderately dilated. The right ventricular systolic function is normal. Atria The left atrium is mildly dilated. The right atrium is not well-visualized. The interatrial septum is not well-visualized. Aortic Valve Aortic valve is mildly thickened. There is no aortic valvular stenosis. No aortic regurgitation is present. Mitral Valve The mitral valve is normal in structure. No evidence of mitral valve stenosis. No significant mitral regurgitation is noted, but evaluation of mitral regurgitation is limited in the study due to technically difficult study. Tricuspid Valve Tricuspid valve is grossly normal in structure and function. Trace tricuspid regurgitation. There is insufficient TR jet to estimate RVSP. Pulmonic Valve The pulmonic valve is not well-visualized. Great Vessels The aortic root is normal in size. The IVC is not well-visualized. Pericardium There is no pericardial effusion. Other Information Study Quality: Technically Difficult. Technically limited study due to inability to position patient. Conclusion Technically difficult study, and technically limited study due to the inability to position patient. Grossly, the left ventricle is normal in size. The right ventricle is moderately dilated with normal RV function. LA dilation. No significant valvular stenosis or regurgitation in the visualized valves. Electronically signed by : Kellen Brand MD 06/19/2024 22:17:40
== END 2024-06-14 23:59 | disposition home or self-care (01) ==
PROVIDERS: PCP Family Medicine; Visit Provider Nurse Practitioner Family
DX: I34.0 Nonrheumatic mitral (valve) insufficiency (principal)
CPT/HCPCS: 93306; 93308

== ENCOUNTER 2024-07-06 14:54 | Outpatient (CLI) | payer MEDICARE, MEDICAID, SELFPAY ==
--- OUTSIDE RECORDS SUMMARY | 2024-07-06 14:57 | XMS_ITS | Data Portability ---
Author Organization [facility] MAGGY [place] Address [address] [place] [address] Assessment Encounter Date Assessment Date Assessment LastModified by Organization Details LastModified Time 02/20/2022 02/20/2022 Medical management of increased frequency of urination with trospium. She request evaluation by physical therapy and Occupational Therapy. [email or web address] Not available 02/20/2022 18:51:00 06/12/2022 06/12/2022 Medical management of increased frequency of urination with trospium. Follow up in 6 months. [email or web address] Not available 06/13/2022 08:04:46 Plan of Treatment Reminders Order Date Submit Date Provider Last Modified By Organization Details Last Modified Time Details Appointments None recorded. Lab None recorded. Referral None recorded. Procedures None recorded. Surgeries None recorded. Imaging None recorded. Medication Orders trospium 20 mg tablet 2021 022 Not available 21:27:01 Patient TargetsNo targets recorded. Patient Instructions Encounter Date Encounter Id Patient Instructions Last Modified By Organization Details Last Modified Time 02/20/2022 [id number] learning about healthy weight [email or web address] Not available 02/20/2022 18:50:49 06/12/2022 [id number] learning about healthy weight Not available 06/16/2022 09:10:31 Reason for Referral None Reported. Medical Equipment None Reported. Allergies Allergen ID Allergen Name Allergen Category Reaction Reaction Severity Criticality Documentation Date Start Date Code Code System Note Provider Name and Address Organization Details Recorded Time 467426 aspirin medicatio n Not available Not available Not available 02/20/2022 1191 RxNorm Emiliana prabhakar [facility] 14:50:35 146467 codeine medicatio n Not available Not available Not available 02/20/2022 2670 [facility] 15:20:11 202667 ibuprofen medicatio n Not available Not available Not available 02/20/2022 5640 [facility] 15:21:01 464681 naproxen medicatio n Not available Not available Not available 02/20/2022 7258 RxNorm Murelene Bebeto null, [facility] 2 15:21:09 885769 Product containin g glucocort icoid (product) medicatio n Not available Not available Not available 02/20/2022 13146 6006 SNOMED Murelene Bebeto [facility] 2 15:21:20 214018 Voltaren medicatio n Not available Not available Not available 02/20/202268132 6 RxNorm Murelene Bebeto [facility] 2 15:21:34 Medications Name Sig Start Date Stop Date Status Note LastModified by Organization Details LastModified Time nitroglyceri n 0.3 mg/hr transdermal 24 hour patch Apply 1 patch every day by transdermal route. active Not Available Not Available No t Available clopidogrel 75 mg tablet Take 1 tablet every day by oral route. active Not Available Not Available No t Available pantoprazole 20 mg tablet,delay ed release Take 2 tablets every day by oral route. active Not Available Not Available No t Available baclofen 10 mg tablet Take 1 tablet 3 times a day by oral route. active Not Available Not Available No t Available raloxifene 60 mg tablet Take 1 tablet every day by oral route. active Not Available Not Available No t Available Lexapro 20 mg tablet Take 1 tablet every day by oral route. active Not Available Not Available No t Available trospium 20 mg tablet Take 1 tablet twice a day by oral route for 90 days. 2022 active Not Available Not Available Not Avai lable Systane (PF) 0.4 %-0.3 % eye drops in a dropperette active Not Available Not Available Not Available Zofran active Not Available Not Availa ble Not Available loratadine active Not Available Not Av ailable Not Available lactulose active Not Available Not Fide ilable Not Available Fish Oil active Not Available Not Avai lable Not Available loperamide active Not Available Not Av ailable Not Available trazodone active Not Available Not Fide ilable Not Available calcium citrate active Not Available Not Available Not Available clonazepam active Not Available Not Av ailable Not Available Liquifilm Tears active Not Available Not Available Not Available Protonix active Not Available Not Avai lable Not Available Gaviscon active Not Available Not Avai lable Not Available Benylin active Not Available Not Avail able Not Available One A Day Vitamin active Not Available Not Available Not Available oxybutynin active Not Available Not Av ailable Not Available ferrous fumarate 325 mg (106 mg iron) tablet Take by oral route. active Not Available Not Available Not Available Invega Sustenna active Not Available Not Available Not Available D3-2000 active Not Available Not Avail able Not Available Myrbetriq 50 mg tablet,exten ded release Take 1 tablet every day by oral route. active Not Available Not Available No t Available Flonase Allergy Relief active Not Available Not Available Not Available Tylenol 325 mg capsule Take by oral route. active Not Available Not Available Not Available Vitals Date Recorded Body height Body mass index (BMI) Body weight Provider Name and Address Organization Details Last Updated DateTime 02/20/2022 171.45 cm 19.9 kg/m2 20970.7 brodie Jungslick Bebeto [facility] 02/20/2022 14:50:01 Date Recorded Body height Body mass index (BMI) Body weight Provider Name and Address Organization Details Last Updated DateTime 06/12/2022 171.45 cm 19.8 kg/m2 61098.82 brodie Jungslick Bebeto [facility] 06/12/2022 14:25:25 Social History Question Answer Notes LastModified by Organizat ion Details LastModified Time Tobacco Smoking Status [facility] 02/20/2022 15:35:51 What Is Your Level Of Alcohol Consumption? None Information not available 02/20/2022 What Was The Date Of Your Most Recent Tobacco Screening? 06/12/2022 Information not available 06/12/2022 Sex: Unknown Functional Status None recorded. Mental Status None recorded. Family History Relationship Description Onset Age of this Age Resolved Age Notes LastModified by Organization Details LastModified Time Father No current problems or disability Not available 02/20 15:35:33 Mother No current problems or disability Not available 02/20 15:35:33 Medical History Condition Response Anxiety Disorder Y Allergies/Hayfever Y Arthritis Y Chronic Obstructive Pulmonary Disease Y Heart Arrhythmia Y Tuberculosis Y Depression Y Asthma Y Sleep Apnea Y High Cholesterol Y Anesthesia Complications Y Heart Attack ([place]) Y Heart Disease Y Gynecological HistoryNo gynecological history recorded. Obstetrics History GPAL:G 0 P 0 0 0 0 Past Encounters Encounter ID Performer Location Encounter Start Date Encounter Closed Date Diagnosis/Indication Diagnosis SNOMED-CT Code Diagnosis ICD10 Code Diagnosis Note [id number] AYANNA MAHCADO MD [facility] [address] [address] 02/20/2022 14:13:16 02/21/2022 13:45:25 Nocturia 566397763 R35.1 Increased frequency of urination 527496518 R35.0 Urge incon tinence of urine 98436436 N39.41 [id number] AYANNA MACHADO MD [facility] [address],[place] [address] 06/12/2022 13:56:35 06/14/2022 04:26:55 Increased frequency of urination 671670593 R35.0 Nocturia 904544678 R35.1 Urge incon tinence of urine 09571743 N39.41 Health Concerns Section Related Observation LastModified by Organization Detai ls LastModified Time None Recorded Concern Status LastModified by Organization Details LastModified Time None Recorded Advance Directives Directive None Recorded Payers Encounter Date Sequence Insurance Name Policy Number Policy Jennings Covered Member ID Jennings Member ID Guarantor Name 02/20/2022 1 [place] Paulina Escobar [id number] Paulina Escobar 02/20/2022 2 [place] [employer] [place]TRADITIO NAL Paulina Escobar [id number] Paulina Escobar 06/12/2022 1 [place] Paulina Escobar [id number] Paulina Escobar 06/12/2022 2 [place] [employer] [place] Paulina Escobar [id number] Paulina Escobar Notes Date Note Type Note Provider Name and Address Organization Details Recorded Time 02/20/2022 text/html 81-year-old female in the office for my initial evaluation and for discussion of urinary incontinence. She takes myrbetriq and oxybutynin. She is a resident [facility]. She is wheel-chair bound. She has arthritis, restless legs syndrome. Daytime frequency hourly. Nocturia 5 times. She has urinary urgency with urge incontinence. No gross hematuria. No dysuria. Bothersome diarrhea. AYANNA MACHADO MD [address] [place] [address], [phone], [facility] 02/20/2022 18:51:13 06/12/2022 text/html 81-year-old female in the office for evaluation and for discussion of urinary incontinence. Trospium has improved her urinary symptoms. She wears adult diapers. She is a resident [facility]. She is wheel-chair bound. She has arthritis, restless legs syndrome. Daytime frequency every three hours, improved. Nocturia 4 times. She has improved urinary urgency with urge incontinence. No gross hematuria. No dysuria. AYANNA MACHADO MD [address] [place] [address], [phone], [facility] 06/13/2022 08:05:03 OBGyn Episode No OBEpisode recorded.
[2024-07-06 15:06] LABS: Microscopic, Urine URINE MICROSCOPIC (MICROSCOPIC)
[2024-07-06 15:13] LABS: Appearance,Urine CLEAR (Clear); Bilirubin,Urine Negative (Negative); Blood, Urine Negative (Negative); Color,Urine YELLOW (Yellow); Glucose,Urine (UA) Negative (Negative); Ketones,Urine Negative (Negative); Leukocyte Esterase,Urine TRACE (Negative); Nitrate,Urine Negative (Negative); PH,Urine 5.5 (5.0-8.5); Protein,Urine Negative (Negative); Specific Gravity, Urine >= 1.030 (1.005-1.030); Urobilinogen,Urine 0.2 EU/dl (0.2)
[2024-07-06 15:24] LABS: Bacteria,Urine 4+ /lpf
== END 2024-07-06 23:59 | disposition home or self-care (01) ==
PROVIDERS: PCP Family Medicine; Visit Provider Family Medicine
DX: R30.0 Dysuria (principal); B96.1 Klebsiella pneumoniae [K. pneumoniae] as the cause of diseases classified elsewhere
CPT/HCPCS: 81001; 87086; 87088; 87186

== ENCOUNTER 2024-09-11 20:58 | Emergency (ER) | payer MEDICARE, MEDICAID, SELFPAY ==
--- NOTE | 2024-09-11 20:50 | XR_ITS ---
PROCEDURE INFORMATION: Exam: XR Chest Exam date and time: 09/11/2024 9:27 PM Age: 83 years old Clinical indication: Injury or trauma; Fall; Blunt trauma (contusions or hematomas) TECHNIQUE: Imaging protocol: Radiologic exam of the chest. Views: 1 view. COMPARISON: CT CHEST WO CON 06/06/2024 9:42 AM FINDINGS: Lungs: There are calcified granulomas at the right lung base. No alveolar consolidation. Pleural spaces: Unremarkable. No pleural effusion. No pneumothorax. Heart/Mediastinum: Cardiac silhouette is magnified by portable technique. Vasculature: Elongation of the thoracic aorta with calcification. Bones/joints: Osteopenia. Degenerative change involving the shoulders and spine. IMPRESSION: No acute process.
--- NOTE | 2024-09-11 20:50 | XR_ITS ---
PROCEDURE INFORMATION: Exam: XR Pelvis Exam date and time: 09/11/2024 9:27 PM Age: 83 years old Clinical indication: Injury or trauma; Fall; Blunt trauma (contusions or hematomas); Bilateral; Pelvic region TECHNIQUE: Imaging protocol: Radiologic exam of the pelvis. Views: 1 or 2 view. COMPARISON: CT BONY PELVIS 09/11/2024 9:24 PM FINDINGS: Bones/joints: Examination is limited by patient position. Diffuse osteopenia. There is chronic fracture of the proximal left femur with proximal migration of the distal fracture fragment and nonunion. No definite acute fracture is visualized. No dislocation. Soft tissues: Unremarkable. IMPRESSION: 1. No acute osseous abnormality. 2. 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
--- NOTE | 2024-09-11 20:56 | CT_ITS ---
PROCEDURE INFORMATION: Exam: CT Thoracic Spine Without Contrast Exam date and time: 09/11/2024 9:17 PM Age: 83 years old Clinical indication: Injury or trauma; Additional info: Trauma, critical injury suspected TECHNIQUE: Imaging protocol: Computed tomography of the thoracic spine without contrast. Radiation optimization: All CT scans at this facility use at least one of these dose optimization techniques: automated exposure control; mA and/or kV adjustment per patient size (includes targeted exams where dose is matched to clinical indication); or iterative reconstruction. COMPARISON: CT THORACIC SPINE WO CON 10/16/2022 4:35 AM FINDINGS: Bones/joints: Chronic compression fractures at T7, T9 and T12. Remaining thoracic levels demonstrate preserved height and AP alignment. Mild to moderate prevertebral osteophytosis. There are facet joint degenerative changes. No acute thoracic spine fracture. No definite high-grade central canal stenosis within limitations of technique. Soft tissues: Unremarkable. Lungs: Pulmonary emphysema. Pleural spaces: No visible pneumothorax. Coronary arteries: Vascular calcification including coronary artery calcification. IMPRESSION: No acute thoracic spine fracture.
--- NOTE | 2024-09-11 20:56 | CT_ITS ---
PROCEDURE INFORMATION: Exam: CT Head Without Contrast Exam date and time: 09/11/2024 9:13 PM Age: 83 years old Clinical indication: Injury or trauma; Additional info: Trauma, critical injury suspected TECHNIQUE: Imaging protocol: Computed tomography of the head without contrast. Radiation optimization: All CT scans at this facility use at least one of these dose optimization techniques: automated exposure control; mA and/or kV adjustment per patient size (includes targeted exams where dose is matched to clinical indication); or iterative reconstruction. COMPARISON: CT ANGIO HEAD 04/25/2024 9:48 PM FINDINGS: Brain: Age-related volume loss. No acute intracranial hemorrhage. No midline shift or significant intracranial mass effect. Cerebral ventricles: No obstructive hydrocephalus. Paranasal sinuses: Minor paranasal sinus disease. Mastoid air cells: Visualized mastoid air cells are well aerated. Bones: No acute calvarial fracture. Soft tissues: Left anterolateral scalp soft tissue swelling. IMPRESSION: No acute intracranial abnormality.
--- NOTE | 2024-09-11 20:56 | CT_ITS ---
PROCEDURE INFORMATION: Exam: CT Cervical Spine Without Contrast Exam date and time: 09/11/2024 9:15 PM Age: 83 years old Clinical indication: Injury or trauma; Additional info: Trauma, critical injury suspected TECHNIQUE: Imaging protocol: Computed tomography of the cervical spine without contrast. Radiation optimization: All CT scans at this facility use at least one of these dose optimization techniques: automated exposure control; mA and/or kV adjustment per patient size (includes targeted exams where dose is matched to clinical indication); or iterative reconstruction. COMPARISON: CT CERVICAL SPINE WO CON 04/25/2024 9:41 PM FINDINGS: Bones: Levoconvex curvature. Non-specific straightening. Vertebral body height and AP alignment is preserved. [id number]-jw-ufemgcan degenerative change about the dens. Mild prevertebral osteophytosis. Bilateral facet joint degenerative change. No acute cervical spine fracture. No definite high-grade central canal stenosis within limitations of technique. Lungs: Lung apices are normal. Pleural spaces: No visible pneumothorax. Vasculature: Vascular calcification. Soft tissues: Unremarkable. IMPRESSION: No acute cervical spine fracture.
--- NOTE | 2024-09-11 20:56 | CT_ITS ---
PROCEDURE INFORMATION: Exam: CT Lumbar Spine Without Contrast Exam date and time: 09/11/2024 9:21 PM Age: 83 years old Clinical indication: Injury or trauma; Additional info: Trauma, critical injury suspected TECHNIQUE: Imaging protocol: Computed tomography of the lumbar spine without contrast. Radiation optimization: All CT scans at this facility use at least one of these dose optimization techniques: automated exposure control; mA and/or kV adjustment per patient size (includes targeted exams where dose is matched to clinical indication); or iterative reconstruction. COMPARISON: CT ABDOMEN PELVIS W CON 07/31/2023 11:27 PM FINDINGS: Bones/joints: Superior endplate compression fractures at T12 and L3 are stable from prior. There are Schmorl's node at superior endplate of L1 and L2, also not significantly changed from prior. Prevertebral osteophytosis. Bilateral facet joint degenerative change. Multilevel disc space narrowing with vacuum disc phenomena. No acute lumbar spine fracture. Gallbladder and biliary ducts: Cholelithiasis. Stomach and bowel: Large volume of stool at the rectosigmoid. Vasculature: Vascular calcification. Ectasia of the infrarenal abdominal aorta measures 2.6 cm. Soft tissues: Unremarkable. IMPRESSION: No acute lumbar spine fracture.
--- NOTE | 2024-09-11 20:57 | XR_ITS ---
PROCEDURE INFORMATION: Exam: XR Left Hand Exam date and time: 09/11/2024 9:27 PM Age: 83 years old Clinical indication: Injury or trauma; Fall; Blunt trauma (contusions or hematomas); Hand; Left TECHNIQUE: Imaging protocol: Radiologic exam of the left hand. Views: 1 or 2 views. COMPARISON: CR XR HAND LT MIN 3V 04/09/2023 10:16 AM FINDINGS: Bones/joints: Examination is significantly limited by hand positioning/contracture. Osteopenia. Degenerative change. No grossly displaced fracture is visualized. Soft tissues: Normal. IMPRESSION: 1. Examination is significantly limited by hand positioning/contracture. 2. No grossly displaced fracture to the degree visualized.
--- NOTE | 2024-09-11 20:57 | XR_ITS ---
PROCEDURE INFORMATION: Exam: XR Left Forearm Exam date and time: 09/11/2024 9:27 PM Age: 83 years old Clinical indication: Injury or trauma; Fall; Blunt trauma (contusions or hematomas); Arm, lower; Left TECHNIQUE: Imaging protocol: Radiologic exam of the left forearm. Views: 2 views. COMPARISON: CR XR FOREARM LT 2V 01/31/2023 7:20 AM FINDINGS: Tubes, catheters and devices: IV catheter at the antecubital fossa. Bones/joints: Osteopenia. There are degenerative changes. No definite acute fracture or dislocation. Soft tissues: Normal. IMPRESSION: No acute findings.
--- NOTE | 2024-09-11 20:57 | XR_ITS ---
PROCEDURE INFORMATION: Exam: XR Left Humerus Exam date and time: 09/11/2024 9:27 PM Age: 83 years old Clinical indication: Injury or trauma; Fall; Blunt trauma (contusions or hematomas); Arm, upper; Left; Additional info: Fall on to L arm TECHNIQUE: Imaging protocol: Radiologic exam of the left humerus. Views: 2 or more views. COMPARISON: CR XR HUMERUS LT 01/31/2023 7:00 AM FINDINGS: Tubes, catheters and devices: IV catheter at the antecubital fossa. Bones/joints: Osteopenia. Degenerative change. No acute fracture or dislocation. Soft tissues: Normal. IMPRESSION: No acute fracture.
--- NOTE | 2024-09-11 20:57 | XR_ITS ---
PROCEDURE INFORMATION: Exam: XR Left Shoulder Exam date and time: 09/11/2024 9:27 PM Age: 83 years old Clinical indication: Injury or trauma; Fall; Blunt trauma (contusions or hematomas); Shoulder; Left TECHNIQUE: Imaging protocol: Radiologic exam of the left shoulder. Views: 2 or more views. COMPARISON: CR XR SHOULDER LT MIN 2V 03/22/2023 9:45 PM FINDINGS: Bones/joints: Osteopenia. Degenerative change involving the left shoulder. No acute fracture. No dislocation. Soft tissues: Normal. IMPRESSION: No acute osseous abnormality.
--- NOTE | 2024-09-11 20:58 | ECG_ITS ---
APPROVED REPORT Exam: Resting ECG HR:77 bpm ECG Measurements Heart Rate 77 AXES NJ 168 P 41 QRSd 124 QRS -7 QT 405 T 23 QTc 436 Conclusion SINUS RHYTHM RIGHT BUNDLE BRANCH BLOCK [120+ ms QRS DURATION, UPRIGHT V1, 40+ ms S IN I/aVL/V4/V5/V6] No STEMI Electronically signed by : ROXANA GEORGE, 09/12/2024 21:20:56
--- NOTE | 2024-09-11 20:58 | HMH.EDGENADL ---
Discharge Plan Disposition Patient Disposition: Xfer [facility] Condition: Good Prescriptions Prescriptions: New cefdinir 300 mg capsule 300 mg PO BID 10 Days Qty: 20 0RF No Action cyanocobalamin (vitamin B-12) 1,000 mcg tablet 1,000 mcg PO DAILY acetaminophen [Tylenol Extra Strength] 500 mg tablet 500 mg PO BID furosemide [Lasix] 20 mg tablet 20 mg PO DAILY Qty: 30 3RF spironolactone [Aldactone] 25 mg tablet 25 mg PO DAILY Qty: 30 3RF potassium chloride 10 mEq tablet extended release 20 meq PO BID dextromethorphan-guaifenesin 10-200 mg/5 mL liquid 10 ml PO Q4H PRN mirtazapine [Remeron] 30 mg tablet 30 mg PO HS raloxifene [Evista] 60 mg tablet 60 mg PO DAILY trazodone 50 mg tablet 25 mg PO HS omega-3 fatty acids-fish oil [Fish Oil] 360-1,200 mg capsule 1 cap PO DAILY polyvinyl alcohol 1.4 % drops 1 drp Eye-Both TIDP PRN (Reason: Dry Eyes) acetaminophen [Acetaminophen Extra Strength] 500 mg tablet 500 mg PO Q4HP PRN (Reason: Mild Pain (Scale Score 1-4)) calcium citrate 200 mg (950 mg) tablet 200 mg PO BID ferrous sulfate 325 mg (65 mg iron) tablet 325 mg PO BID Acid Gone Antacid 95-358 mg/15 mL suspension 30 ml PO Q4HP Qty: 355 11RF lactulose 10 gram/15 mL solution 20 g PO BID PRN (Reason: constipation) Qty: 473 11RF mirabegron [Myrbetriq] 50 mg tablet extended release 24 hr 50 mg PO DAILY Qty: 90 3RF Visine Dry Eye Relief 1 % drops 1 drp Eye-Both TID PRN (Reason: dry eye(s)) Qty: 30 11RF pantoprazole 20 mg tablet,delayed release (DR/EC) 20 mg PO DAILY clonazepam 1 mg tablet 1 mg PO TID Qty: 90 5RF clopidogrel [Plavix] 75 mg tablet 75 mg PO DAILY nitroglycerin [Nitro-Dur] 0.4 mg/hr patch 24 hour 1 patch transdermal DAILY Rx Instructions: allow nitrate-free interval of approx. 10-12 hrs per 24-hour period cholecalciferol (vitamin D3) 25 mcg (1,000 unit) tablet 25 mcg PO DAILY multivitamin Tablet 1 tab PO DAILY Systane (PF) 0.4-0.3 % Dropperette 1 drp Eye-Both BIDP PRN (Reason: Dry Eyes) Invega Sustenna 234 mg/1.5 mL syringe 1.5 mg IM MONTHLY baclofen 10 mg Tablet 10 mg PO TIDP PRN (Reason: Muscle Spasm) ondansetron 4 mg Tablet,Disintegrating 4 mg PO Q4HP PRN (Reason: Nausea And Vomiting) fluticasone propionate 50 mcg/actuation [place],Suspension 1 spray INTRANASAL DAILY Rx Instructions: administer into each nostril Referrals Follow up/Referrals: Provider,Referral, MD [Primary Care Provider, Medical] - See instructions Activity Restrictions/Add. Instructions Additional Instructions/Restrictions: This patient was evaluated in the emergency department today and diagnosed with urinary tract infection. She has a scalp hematoma, but otherwise workup is reassuring. 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 Per orthopedics, there is nothing to do about this given that she does not walk at baseline. Please follow-up closely with primary care for reassessment. Return to the emergency department for new or worsening symptoms. Clinical Impressions Clinical Impression: Fall, Traumatic hematoma of forehead, Acute UTI Closed femur fracture Qualifiers: Encounter type: subsequent encounter Fracture alignment: displaced Laterality: left Fracture healing: with nonunion Instructions Patient Instructions: How to Prevent Falls Print Language Print Language: Norwegian Discharge ED Provider: Theresa Calderon General Adult HPI <Pascale Broderick APRN - Last Filed: 09/11/24 21:34> General Chief complaint: Fall Stated complaint: fall from chair, a&o x4, on plavix Time Seen by Provider: 09/11/24 21:01 History of Present Illness HPI narrative: patient is a 83-year-old female PMHx COPD, generalized muscle weakness, schizoaffective disorder, bipolar, who presents to the ED from senior care after a fall from sitting position. Patient was in her chair when she fell forward, landing on her left arm and hitting the left part of her forehead. Related Data Home Medications ?Medication ?Instructions ?Recorded ?Confirmed omega-3 fatty acids-fish oil 360 1 cap PO DAILY Supplement 10/14/17 09/04/24 mg-1,200 mg capsule (Fish Oil) raloxifene 60 mg tablet (Evista) 60 mg PO DAILY hormone supplement 10/14/17 09/04/24 trazodone 50 mg tablet 25 mg PO HS sleep 10/14/17 09/04/24 clopidogrel 75 mg tablet (Plavix) 75 mg PO DAILY Platelet Inhibitor 01/08/22 09/04/24 nitroglycerin 0.4 mg/hr 1 patch transdermal DAILY 12/10/22 09/04/24 transdermal 24 hour patch (Nitro-Dur) acetaminophen 500 mg tablet 500 mg PO Q4HP PRN Mild Pain 03/13/23 09/04/24 (Acetaminophen Extra Strength) (Scale Score 1-4) calcium citrate 200 mg PO BID 03/13/23 09/04/24 ferrous sulfate 325 mg (65 mg 325 mg PO BID Supplement 03/13/23 09/04/24 iron) tablet polyvinyl alcohol 1.4 % eye drops 1 drp Eye-Both TIDP PRN Dry Eyes 03/13/23 09/04/24 baclofen 10 mg tablet 10 mg PO TIDP PRN Muscle Spasm 05/01/23 09/04/24 cholecalciferol (vitamin D3) 25 25 mcg PO DAILY 05/01/23 09/04/24 mcg (1,000 unit) tablet fluticasone propionate 50 1 spray intranasal DAILY Allergy 05/01/23 09/04/24 mcg/actuation nasal Symptoms spray,suspension multivitamin 1 tab PO DAILY 05/01/23 09/04/24 ondansetron 4 mg disintegrating 4 mg PO Q4HP PRN Nausea And 05/01/23 09/04/24 tablet Vomiting paliperidone palmitate 234 mg/1.5 1.5 mg IM MONTHLY 05/01/23 09/04/24 mL intramuscular syringe ([facility] peg 400-propylene glycol (PF) 0.4 1 drp Eye-Both BIDP PRN Dry Eyes 05/01/23 09/04/24 %-0.3 % eye drops in a dropperette (Systane (PF)) pantoprazole 20 mg tablet,delayed 20 mg PO DAILY Acid Reflux 11/03/23 09/04/24 release mirtazapine 30 mg tablet (Remeron) 30 mg PO HS 11/18/23 09/04/24 acetaminophen 500 mg tablet 500 mg PO BID 03/01/24 09/04/24 (Tylenol Extra Strength) cyanocobalamin (vitamin B-12) 1,000 mcg PO DAILY 03/01/24 09/04/24 1,000 mcg tablet potassium chloride 10 mEq 20 meq PO BID 03/01/24 09/04/24 tablet,extended release dextromethorphan-guaifenesin 10 10 ml PO Q4H PRN 07/20/24 09/04/24 mg-200 mg/5 mL oral liquid Previous Rx's ?Medication ?Instructions ?Recorded aluminum hydrox-magnesium carb 95 30 ml PO Q4HP #355 mL 10/13/23 mg-358 mg/15 mL oral suspension (Acid Gone Antacid) lactulose 10 gram/15 mL oral 20 g (30 mL) PO BID PRN 10/13/23 solution constipation #473 mL mirabegron 50 mg tablet,extended 50 mg PO DAILY #90 tabs 10/13/23 release 24 hr (Myrbetriq) polyethylene glycol 400 1 % eye 1 drp Eye-Both TID PRN dry eye(s) 10/13/23 drops (Visine Dry Eye Relief) #30 mL furosemide 20 mg tablet (Lasix) 20 mg PO DAILY #30 tabs 06/06/24 spironolactone 25 mg tablet 25 mg PO DAILY #30 tabs 06/06/24 (Aldactone) clonazepam 1 mg tablet 1 mg PO TID #90 tabs 08/18/24 cefdinir 300 mg capsule 300 mg PO BID 10 days #20 caps 09/11/24 Allergies Allergy/AdvReac Type Severity Reaction Status Date / Time aspirin Allergy Unknown Verified 07/20/24 10:52 codeine Allergy Unknown Verified 07/20/24 10:52 Corticosteroids Allergy Unknown Verified 07/20/24 10:52 (Glucocorticoids) ibuprofen (From NeoProfen Allergy Unknown Verified 07/20/24 10:52 (ibuprofen lysn)(PF)) naproxen (From Flanax Allergy Unknown Verified 07/20/24 10:52 (naproxen)) diclofenac (From Voltaren) Allergy Verified 07/20/24 10:52 PFSH <Pascale Broderick APRN - Last Filed: 09/11/24 21:34> PFS Disclaimer: The information contained in this section may have been updated after the patient was seen, as this information can be updated by other users. Medical History Pulmonary hypertension Moderate mitral regurgitation Edema Acute hypokalemia Low serum vitamin B12 Diastolic dysfunction Mitral regurgitation Injury of left rotator cuff Fall Umbilical hernia without obstruction or gangrene Major depressive disorder, recurrent, unspecified Fracture of proximal phalanx of left ring finger Fracture of proximal phalanx of left middle finger Fall Angina at rest Closed rib fracture Hearing loss Tinnitus Dizziness Fracture of 3rd metatarsal Fracture of 4th metatarsal Pain in right foot Abnormal cardiovascular stress test Gastroesophageal reflux disease Restless leg syndrome, controlled Anxiety Overactive bladder Osteoporosis Iron deficiency anemia Bipolar 1 disorder Schizoaffective disorder Paranoid delusion Family History Other Cancer Coronary artery disease Social History Smoking Status: Never smoker alcohol intake: never substance use type: denies use current occupational status: disabled Travel in the last 8 weeks?: None housing: senior care marital status: caffeine: No Have you lived/traveled outside [place] in past 30 days?: No Contact w/someone who lives/traveled outside US past 30 days?: No Exposure to someone with infectious disease in past 14 days?: No Do you have a fever (greater than 100.4 F or 38 C)?: No Have you tested positive for COVID-19?: No Exposed to someone with COVID-19 in past 14 days?: No Do you have a sore throat?: No Do you have a cough?: No Do you have any weakness?: No Do you have any diarrhea?: No Are you experiencing any unusual bleeding?: No Do you have any muscle aches/pain?: No Do you have any abdominal pain?: No Are you experiencing loss of taste or smell?: No Other Medical History Have you received the Flu Vaccine for this season: No Have you received the Pneumonia Vaccine: Yes (01/2017, 01/19/19, 06/27/24) <Pascale Broderick APRN - Last Filed: 09/11/24 21:34> ROS Obtained: Yes Systems reviewed as appropriate & no additional complaints except as documented Physical Exam <Pascale Broderick APRN - Last Filed: 09/11/24 21:34> General General appearance: alert Head Head exam: other (large hematoma on left side of forehead ) Eye Eye exam: Present PERRL ENT ENT exam: Present mucous membranes moist Neck Neck exam: Present other (c-collar ) Chest Chest inspection: Present normal inspection; Absent tenderness Respiratory Respiratory exam: Present normal lung sounds bilaterally Cardiovascular Cardiovascular exam: Present regular rate Abdominal Exam Abdominal exam: Present soft; Absent tenderness Extremities Exam Extremities exam: Present tenderness (Left upper arm, left forearm, left hand tenderness) Neurological Exam Neurological exam: Present alert and oriented X3 Medical Decision Making <Pascale Broderick APRN - Last Filed: 09/11/24 21:34> Medical Records Screening: Per USPSTF and CDC recommendations, given the prevalence of disease in our region, it is our hospital?s policy to screen for HIV and viral Hepatitis for all patients aged 18 and over and those with ongoing risk factors. Shahid Inquiry Pt receiving controlled substance: No Vital Signs: 09/11/24 21:09 09/11/24 21:30 09/11/24 21:45 Temperature 98.4 F 98.4 F Temperature Source Oral Oral Pulse Rate 72 Pulse Rate [Right] 80 80 Respiratory Rate 18 18 22 Blood Pressure 88/52 L Blood Pressure [Right Arm] 84/58 L 84/58 L Blood Pressure Mean 66 Blood Pressure Mean [Right Arm] 66 66 Blood Pressure Source [Right Arm] Manual Cuff/ Auscultation Blood Pressure Position [Right Arm] Supine 02 Sat by Pulse Oximetry 91 L 91 L 91 L Oxygen Delivery Method Room Air Room Air Room Air 09/11/24 22:00 09/11/24 22:45 Temperature Temperature Source Pulse Rate 71 69 Pulse Rate [Right] Respiratory Rate 12 17 Blood Pressure 96/50 L 119/65 Blood Pressure [Right Arm] Blood Pressure Mean 64 77 Blood Pressure Mean [Right Arm] Blood Pressure Source [Right Arm] Blood Pressure Position [Right Arm] 02 Sat by Pulse Oximetry 92 L 95 Oxygen Delivery Method Room Air Room Air Lab Data Lab Results 09/11/24 21:00: WBC 9.6, RBC 4.63, Hgb 12.9, Hct 38.9, MCV 84.0, MCH 27.9, MCHC 33.2, RDW 15.0, Plt Count 249, MPV 10.8 H, Neut % (Auto) 70.0, Lymph % (Auto) 18.2, [place] % (Auto) 10.7 H, Eos % (Auto) 0.4, Baso % (Auto) 0.3, Neut # (Auto) 6.7, Lymph # (Auto) 1.7, [place] # (Auto) 1.0, Eos # (Auto) 0.0, Baso # (Auto) 0.0, PT 11.1, INR 1.00, APTT 24.1, Sodium 139, Potassium 4.2, Chloride 106, Carbon Dioxide 28, Anion Gap 9.2, BUN 18 H, Creatinine 0.50 L, Estimated GFR 118, Est GFR ( Amer) 143, Glucose 107 H, Calcium 9.9, Total Bilirubin 0.6, AST 46 H, ALT 17, Alkaline Phosphatase 55, Total Protein 6.1 L, Albumin 3.7, Globulin 2.4, Albumin/Globulin Ratio 1.5 09/11/24 22:03: Lactate 0.8 09/11/24 22:14: Urine Color Yellow, Urine Appearance Clear, Urine pH 6.0, Ur Specific [place] 1.015, Urine Protein Negative, Urine Glucose (UA) Negative, Urine Ketones 2+, Urine Blood Negative, Urine Nitrate Negative, Urine Bilirubin Negative, Urine Urobilinogen 0.2, Ur Leukocyte Esterase Negative, Urine RBC 5-10, Urine WBC 50-100, Ur Squamous Epith Cells 10-20, Urine Bacteria Trace, Hyaline Casts 3-5, Urine Mucus 3+ 09/11/24 21:00 09/11/24 21:00 Orders (Tests/Meds): ED MEDICATIONS Generic Name Dose Route Start Last Admin Trade Name Freq PRN Reason Stop Dose Admin Ceftriaxone Sodium 2 gm/ 100 mls @ 200 mls/hr 09/11/24 23:00 09/11/24 23:05 Sodium Chloride IV 09/21/24 22:59 200 mls/hr Q24H BIMAL Administration Sodium Chloride 10 ml 09/11/24 20:50 Sodium Chloride 0.9% 10ml Flush Syringe IV 10/11/24 20:49 NEEDED PRN Maintain IV Site Discontinued Medications Generic Name Dose Route Start Last Admin Trade Name Freq PRN Reason Stop Dose Admin Acetaminophen 1,000 mg 09/11/24 21:01 09/11/24 21:47 Acetaminophen 1,000mg/100ml Vial IV 09/11/24 21:02 1,000 mg ONCE ONE Administration Lactated Ringer's 1,000 mls @ 999 mls/hr 09/11/24 21:59 09/11/24 22:17 Lactated Ringer's 1000 Ml Bag IV 09/11/24 22:59 999 mls/hr .Q1H1M ONE Administration ORDERS Category Date Time Status CT bony pelvis Stat Cat Scan 09/11/24 20:[address] cervical spine wo con Stat Cat Scan 09/11/24 20:[address] head/brain wo con Stat Cat Scan 09/11/24 20:[address] lumbar spine wo con Stat Cat Scan 09/11/24 20:[address] thoracic spine wo con Stat Cat Scan 09/11/24 20:56 Completed Femur XR left 2 views [XR femur LT 2V] Stat Exams 09/11/24 22:16 Completed Forearm XR left 2 views [XR forearm LT 2V] Stat Exams 09/11/24 20:57 Completed Hand XR left 2 views [XR hand LT 2V] Stat Exams 09/11/24 20:57 Completed Humerus XR left [XR humerus LT] Stat Exams 09/11/24 20:57 Completed Shoulder XR left minimum 2 views [XR shoulder LT min 2V Exams 09/11/24 20:57 Completed ] Stat XR chest portable Stat Exams 09/11/24 20:50 Completed XR pelvis 1-2V Stat Exams 09/11/24 20:50 Completed Activated Partial Thrombo Time Stat Lab 09/11/24 21:00 Completed Complete Blood Count Auto Diff Stat Lab 09/11/24 21:00 Completed Comprehensive Metabolic Panel Stat Lab 09/11/24 21:00 Completed Lactic Acid Stat Lab 09/11/24 22:03 Completed Prothrombin Time INR Stat Lab 09/11/24 21:00 Completed Urinalysis and Microscopic Stat Lab 09/11/24 22:14 Completed Urine Culture Stat Micro 09/11/24 22:14 Received Medical Decision Narrative: In summary, patient is a 83-year-old female PMHx COPD, generalized muscle weakness, schizoaffective disorder, bipolar, who presents to the ED from senior care after a fall from sitting position. Patient was in her chair when she fell forward, landing on her left arm and hitting the left part of her forehead. Patient did not lose consciousness. She is on blood thinners. Patient states she currently has back pain. No chest pain or abdominal pain upon exam. She is hypotensive, 95/54, heart rate 78. Patient arrived in c-collar. Differential diagnosis include ICH, skull fracture, C-spine fracture, malalignment, arm fracture, among others. Will proceed with ED trauma order set. CBC unremarkable for any leukocytosis, stable H&H. Normal PT, INR, APTT. CMP unremarkable for any actionable abnormalities. Care transferred to Dr. Calderon pending results and dispo decision <Theresa N Kvng, DO - Last Filed: 09/11/24 23:59> Vital Signs: 09/11/24 21:09 09/11/24 21:30 09/11/24 21:45 Temperature 98.4 F 98.4 F Temperature Source Oral Oral Pulse Rate 72 Pulse Rate [Right] 80 80 Respiratory Rate 18 18 22 Blood Pressure 88/52 L Blood Pressure [Right Arm] 84/58 L 84/58 L Blood Pressure Mean 66 Blood Pressure Mean [Right Arm] 66 66 Blood Pressure Source [Right Arm] Manual Cuff/ Auscultation Blood Pressure Position [Right Arm] Supine 02 Sat by Pulse Oximetry 91 L 91 L 91 L Oxygen Delivery Method Room Air Room Air Room Air 09/11/24 22:00 09/11/24 22:45 Temperature Temperature Source Pulse Rate 71 69 Pulse Rate [Right] Respiratory Rate 12 17 Blood Pressure 96/50 L 119/65 Blood Pressure [Right Arm] Blood Pressure Mean 64 77 Blood Pressure Mean [Right Arm] Blood Pressure Source [Right Arm] Blood Pressure Position [Right Arm] 02 Sat by Pulse Oximetry 92 L 95 Oxygen Delivery Method Room Air Room Air Lab Data Lab Results 09/11/24 21:00: WBC 9.6, RBC 4.63, Hgb 12.9, Hct 38.9, MCV 84.0, MCH 27.9, MCHC 33.2, RDW 15.0, Plt Count 249, MPV 10.8 H, Neut % (Auto) 70.0, Lymph % (Auto) 18.2, [place] % (Auto) 10.7 H, Eos % (Auto) 0.4, Baso % (Auto) 0.3, Neut # (Auto) 6.7, Lymph # (Auto) 1.7, [place] # (Auto) 1.0, Eos # (Auto) 0.0, Baso # (Auto) 0.0, PT 11.1, INR 1.00, APTT 24.1, Sodium 139, Potassium 4.2, Chloride 106, Carbon Dioxide 28, Anion Gap 9.2, BUN 18 H, Creatinine 0.50 L, Estimated GFR 118, Est GFR ( Amer) 143, Glucose 107 H, Calcium 9.9, Total Bilirubin 0.6, AST 46 H, ALT 17, Alkaline Phosphatase 55, Total Protein 6.1 L, Albumin 3.7, Globulin 2.4, Albumin/Globulin Ratio 1.5 09/11/24 22:03: Lactate 0.8 09/11/24 22:14: Urine Color Yellow, Urine Appearance Clear, Urine pH 6.0, Ur Specific [place] 1.015, Urine Protein Negative, Urine Glucose (UA) Negative, Urine Ketones 2+, Urine Blood Negative, Urine Nitrate Negative, Urine Bilirubin Negative, Urine Urobilinogen 0.2, Ur Leukocyte Esterase Negative, Urine RBC 5-10, Urine WBC 50-100, Ur Squamous Epith Cells 10-20, Urine Bacteria Trace, Hyaline Casts 3-5, Urine Mucus 3+ Orders (Tests/Meds): ED MEDICATIONS Generic Name Dose Route Start Last Admin Trade Name Freq PRN Reason Stop Dose Admin Ceftriaxone Sodium 2 gm/ 100 mls @ 200 mls/hr 09/11/24 23:00 09/11/24 23:05 Sodium Chloride IV 09/21/24 22:59 200 mls/hr Q24H BIMAL Administration Sodium Chloride 10 ml 09/11/24 20:50 Sodium Chloride 0.9% 10ml Flush Syringe IV 10/11/24 20:49 NEEDED PRN Maintain IV Site Discontinued Medications Generic Name Dose Route Start Last Admin Trade Name Freq PRN Reason Stop Dose Admin Acetaminophen 1,000 mg 09/11/24 21:01 09/11/24 21:47 Acetaminophen 1,000mg/100ml Vial IV 09/11/24 21:02 1,000 mg ONCE ONE Administration Lactated Ringer's 1,000 mls @ 999 mls/hr 09/11/24 21:59 09/11/24 22:17 Lactated Ringer's 1000 Ml Bag IV 09/11/24 22:59 999 mls/hr .Q1H1M ONE Administration ORDERS Category Date Time Status CT bony pelvis Stat Cat Scan 09/11/24 20:[address] cervical spine wo con Stat Cat Scan 09/11/24 20:[address] head/brain wo con Stat Cat Scan 09/11/24 20:[address] lumbar spine wo con Stat Cat Scan 09/11/24 20:[address] thoracic spine wo con Stat Cat Scan 09/11/24 20:56 Completed Femur XR left 2 views [XR femur LT 2V] Stat Exams 09/11/24 22:16 Completed Forearm XR left 2 views [XR forearm LT 2V] Stat Exams 09/11/24 20:57 Completed Hand XR left 2 views [XR hand LT 2V] Stat Exams 09/11/24 20:57 Completed Humerus XR left [XR humerus LT] Stat Exams 09/11/24 20:57 Completed Shoulder XR left minimum 2 views [XR shoulder LT min 2V Exams 09/11/24 20:57 Completed ] Stat XR chest portable Stat Exams 09/11/24 20:50 Completed XR pelvis 1-2V Stat Exams 09/11/24 20:50 Completed Activated Partial Thrombo Time Stat Lab 09/11/24 21:00 Completed Complete Blood Count Auto Diff Stat Lab 09/11/24 21:00 Completed Comprehensive Metabolic Panel Stat Lab 09/11/24 21:00 Completed Lactic Acid Stat Lab 09/11/24 22:03 Completed Prothrombin Time INR Stat Lab 09/11/24 21:00 Completed Urinalysis and Microscopic Stat Lab 09/11/24 22:14 Completed Urine Culture Stat Micro 09/11/24 22:14 Received ECG Data Tracing #1: I reviewed this ECG and interpreted as documented below: Normal sinus rhythm with a ventricular of 77 bpm. Right bundle branch block. No acute ST changes concerning for ischemia ECG initial impression date: 09/11/24 ECG initial impression time: 21:00 Medical Decision Narrative: In summary, patient is a 83-year-old female PMHx COPD, generalized muscle weakness, schizoaffective disorder, bipolar, who presents to the ED from senior care after a fall from sitting position. Patient was in her chair when she fell forward, landing on her left arm and hitting the left part of her forehead. Patient did not lose consciousness. She is on blood thinners. Patient states she currently has back pain. No chest pain or abdominal pain upon exam. She is hypotensive, 95/54, heart rate 78. Patient arrived in c-collar. Differential diagnosis include ICH, skull fracture, C-spine fracture, malalignment, arm fracture, among others. Will proceed with ED trauma order set. CBC unremarkable for any leukocytosis, stable H&H. Normal PT, INR, APTT. CMP unremarkable for any actionable abnormalities. Care transferred to Dr. Calderon pending results and dispo decision DO Kvng: I was consulted by the BUD, and we discussed the complexity of the problems being addressed. I approved the treatment and management plan for this patient's care in the emergency department, thus performing a substantive portion of the medical decision making. I independently interpreted imaging prior to radiology read and noted a chronic appearing left hip fracture. I went back to look at April imaging that was obtained after a fall, and it was present at that time and noted to be chronic at that time as well. Labs today are reassuring with nothing actionable. I do not find anything acute on imaging. Her urine is concerning for possible urinary tract infection, though it is slightly contaminated with squamous cells. Given 50- 100 white blood cells and bacteria, I elected to go ahead and treat as UTI. Urine culture was sent and is pending. She was given IV Rocephin. She was also given a bolus of IV fluids for soft pressures with great improvement in her blood pressure. Ultimately, I feel that she is stable and appropriate for discharge home back to her [place] [facility] facility. I had an interactive discussion with orthopedics prior to discharge home about her chronic appearing hip fracture, and they advised that since she does not ambulate, there is nothing to do acutely. Ultimately, patient was discharged back to nursing facility by EMS with strict return precautions and prescription for cefdinir to treat UTI Theresa Calderon DO Critical Care <Pascale Broderick APRN - Last Filed: 09/11/24 21:34> Critical Care Time Critical Care Time: No
--- NOTE | 2024-09-11 20:59 | CT_ITS ---
PROCEDURE INFORMATION: Exam: CT Pelvis Without Contrast, Skeleton Exam date and time: 09/11/2024 9:24 PM Age: 83 years old Clinical indication: Injury or trauma; Additional info: Fall, pain TECHNIQUE: Imaging protocol: Computed tomography of the pelvis without contrast. Exam focused on the skeleton. Radiation optimization: All CT scans at this facility use at least one of these dose optimization techniques: automated exposure control; mA and/or kV adjustment per patient size (includes targeted exams where dose is matched to clinical indication); or iterative reconstruction. COMPARISON: CT ABDOMEN PELVIS W CON 07/31/2023 11:27 PM FINDINGS: Gallbladder and biliary ducts: Cholelithiasis. Intestine: Large volume of stool at the rectosigmoid. Vasculature: Vascular calcification. There is ectasia of the infrarenal abdominal aorta. Reproductive: There are calcified uterine fibroids. Bones/joints: Degenerative change involving the spine. Osteopenia. There is chronic appearing fracture of the proximal left femur with nonunion. There is heterotopic bone formation about the left hip. No acute fracture. No dislocation. Soft tissues: Unremarkable. IMPRESSION: 1. No acute fracture. 2. 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
--- OUTSIDE RECORDS SUMMARY | 2024-09-11 21:06 | XMS_ITS | Clinical Summary ---
Author Organization Healthcare Address [address] [id number] Care Team Providers Care Research Advisor Name Role Phone Jose Schmidt MD Primary Care Provider [phone] Allergies No known active allergies Medications fluticasone (Flonase) 50 MCG/ACT nasal spray 2 Active lactulose (Chronulac) 10 GM/15ML solution 2 Active loperamide (Imodium) 2 MG capsule 1 Active ondansetron (Zofran) 4 MG tablet 2 Active acetaminophen (Tylenol) 500 MG tablet Take 500 mg by mouth every 6 (six) hours if needed. Active Alum Hydroxide-Mag Carbonate (ACID GONE ANTACID PO) Take by mouth. Activ e chlorpheniramin e (Chlor-Trimeton ) 2 MG/5ML syrup Take 2 mg by mouth every 4 (four) hours if needed for allergies. Active polyvinyl alcohol (Liquifilm Tears) 1.4 % ophthalmic solution 1 drop if needed for dry eyes. Active Propylene Glycol (Systane Complete) 0.6 % solution Administer into affected eye(s). Active Encounters Date Type Department Care Team Description 08/05/2024 Telephone [facility] [address] [address] Dental, SurgeonMD 06/28/2024 2:30 PM EDT Evaluation [facility] [address] [phone] Mata Johnson DDS Dental caries (Primary Dx) 06/28/2024 Abstract [facility] [address] [address] Dental, SurgeonMD 06/28/2024 Travel from Last 3 Months Social History Tobacco Use Types Packs/Day Years Used Date Smoking Tobacco: Never Smokeless Tobacco: Never Tobacco Cessation:Counseling Given: Not Answered PHQ-2 Answer Date Recorded Patient Health Questionnaire-2 Score 0 11/12/2021 Comments Unknown Sex and Gender Information Value Date Recorded Sex Assigned at Not on file Legal Sex Female 7:43 PM EDT Gender Identity Not on file Sexual Orientation Not on file Last Filed Vital Signs Vital Sign Reading Time Taken Comments Blood Pressure 105/62 06/28/2024 2:55 PM EDT Pulse 72 06/28/2024 2:53 PM EDT Temperature 37.1 C (98.7 F) 06/28/2024 2:53 PM EDT Respiratory Rate - - Oxygen Saturation 93% 06/28/2024 2:53 PM EDT Inhaled Oxygen Concentration - - Weight 64.9 kg (143 lb) 06/28/2024 2:53 PM EDT Height 167.6 cm (5' 6 ) 06/28/2024 2:53 PM EDT Body Mass Index 23.08 06/28/2024 2:53 PM EDT Plan of Treatment Health Maintenance Due Date Last Done Comments Dental Oral Exam 1942 Dental Prophylaxis 1942 Dental X-Ray: Bitewings 1942 Dental X-Ray: Full Mouth 1942 [facility]-Bone Density Scan 1942 [facility]-Medicare Annual Wellness (AWV) 1942 [facility]-Infant/Child/Adol SDOH Screenings 1942 [facility]- SDOH Screenings 1960 [facility]-Adult SDOH Screenings 1960 [facility]-Pneumococcal Vaccine: 50+ Years (1 of 1 - PCV) 1992 [facility]-Zoster Vaccines (1 of 2) 1992 [facility]-DTaP,Tdap,and Td Vaccines (1 - Tdap) 06/21/2009 06/20/2009 [facility]-RSV Vaccine: 60+ Years or (1 - 1-dose 75+ series) 2017 [facility]-Depression Screening 11/12/2022 11/12/2021 [facility]-PXBOM-16 Vaccine (3 - 2024-25 season) 2023 05/01/2020, 04/10/2020 [facility]-Influenza Vaccine (Season Ended) 2024 HPV Vaccines Aged Out No longer eligi ble based on patient's age to complete this topic [facility]-HIB Vaccines Aged Out No longer e ligible based on patient's age to complete this topic [facility]-Hepatitis A Vaccines Aged Out No longer eligible based on patient's age to complete this topic [facility]-IPV Vaccines Aged Out No longer e ligible based on patient's age to complete this topic [facility]-Rotavirus Vaccines Aged Out No lo nger eligible based on patient's age to complete this topic Insurance [place] Advance Directives Documents on File Type Date Recorded 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
--- OUTSIDE RECORDS SUMMARY | 2024-09-11 21:06 | XMS_ITS | Encounter Summary ---
Author Organization [facility] Address [address] [place] [address] Care Team Providers Care Dredge Boat Engineer Name Role Phone Jose Schmidt MD Primary Care Provider [phone] Encounter Details Date Type Department Care Team (Late st Contact Info) Description 08/05/2024 Telephone [facility] [address] [phone] Dental, Surgeon, [address] [place] [address] Social History Tobacco Use Types Packs/Day Years Used Date Smoking Tobacco: Never Smokeless Tobacco: Never PHQ-2 Answer Date Recorded Patient Health Questionnaire-2 Score 0 11/12/2021 Comments Unknown Sex and Gender Information Value Date Recorded Sex Assigned at Not on file Legal Sex Female 7:43 PM EDT Gender Identity Not on file Sexual Orientation Not on file documented as of this encounter Miscellaneous Notes * Telephone Encounter - Paulina May - 08/05/2024 11:46 AM EDT Spoke with josh Matos Corrected email address and emailed OR forms documented in this encounter Plan of Treatment Not on file documented as of this encounter Visit Diagnoses Not on filedocumented in this encounter Additional Health Concerns Assessment Noted Time A fall risk assessment has been complete d for the patient 11/12/2021 8:23 AM EDT documented as of this encounter Care Teams Dredge Boat Engineer Relationship Specialty Start Date End Date Jose Schmidt MD [address] [place] [address] PCP - General 11/12/21 documented as of this encounter
--- OUTSIDE RECORDS SUMMARY | 2024-09-11 21:06 | XMS_ITS | Clinical Summary ---
Author Organization [facility] Address [address] [place] [address] Phone Care Team Providers Care Steamer Gum Candy Name Role Phone Unavailable Primary Care Provider Unavailabl e Allergies No known active allergies Medications * This document contains information received from the source organization and may not represent a complete record from that organization. clonazePAM (KLONOPIN) 0.5 mg Oral Tablet Take 1 0.5 mg tab daily in a.m, 1 tab at 2 pm and 2 tabs at HS 120 Tablet 3 08/12/2023 Active Active Problems No known active problems Medical History Medical History Date Comments Iron deficiency anemia Unspecified dementia with behavioral disturbance Social History Tobacco Use Types Packs/Day Years Used Date Smoking Tobacco: Every Day Cigarettes Smokeless Tobacco: Never Tobacco Cessation:Ready to Q uit: No; Counseling Given: No Alcohol Use Standard Drinks/Week Comments No 0 (1 standard drink = 0.6 oz pur e alcohol) Comments Unknown Sex and Gender Information Value Date Recorded Sex Assigned at Not on file Legal Sex Female 4:29 PM EDT Gender Identity Not on file Sexual Orientation Not on file Obstetrics History Last Filed Vital Signs Vital Sign Reading Time Taken Comments Blood Pressure - - Pulse - - Temperature - - Respiratory Rate - - Oxygen Saturation - - Inhaled Oxygen Concentration - - Weight 76.1 kg (167 lb 12.8 oz) 07/18/2018 6:12 PM EDT Height - - Body Mass Index - - Plan of Treatment Health Maintenance Due Date Last Done Comments Wellness Exam Medicare 1945 DTaP/TDaP/Td (1 - Tdap) 1961 Pneumococcal Vaccine 50+ (1 of 2 - PCV) 1961 Zoster (1 of 2) 1992 Bone Density Screening 12/15/2007 RSV or 60+ (1 - 1-d ose 75+ series) 2017 COVID-19 Vaccine (1 - 2023-2 5 season) 2023 Influenza Vaccine (Season Ended) 2024 Hepatitis B Vaccine Aged Out No longe r eligible based on patient's age to complete this topic Meningococcal B Vaccine Aged Out No l onger eligible based on patient's age to complete this topic Insurance [place] [address] MEDICAID [place]
--- OUTSIDE RECORDS SUMMARY | 2024-09-11 21:06 | XMS_ITS | Data Portability ---
Author Organization [facility] [place] [facility] Address [address] [place] [address] Assessment Encounter Date Assessment Date Assessment LastModified by Organization Details LastModified Time 02/20/2022 02/20/2022 Medical management of increased frequency of urination with trospium. She request evaluation by physical therapy and Occupational Therapy. [email or web address] Not available 02/20/2022 18:51:00 06/12/2022 06/12/2022 Medical management of increased frequency of urination with trospium. Follow up in 6 months. [email or web address] Not available 06/13/2022 08:04:46 Plan of Treatment [...] By Organization Details Last Modified Time 02/20/2022 [id number] learning about healthy weight [email or web address] Not available 02/20/2022 18:50:49 06/12/2022 [id number] learning about healthy weight [email or web address] Not available 06/16/2022 09:10:31 Reason for Referral None Reported. Medical Equipment None Reported. Allergies Allergen ID Allergen Name Allergen Category Reaction Reaction Severity Criticality Documentation Date Start Date Code Code System Note Provider Name and Address Organization Details Recorded Time 405433 aspirin medicatio n Not available Not available Not available 02/20/2022 1191 RxNorm Emiliana prabhakar [facility] 14:50:35 566663 codeine medicatio n Not available Not available Not available 02/20/2022 2670 [facility] 15:20:11 536299 ibuprofen medicatio n Not available Not available Not available 02/20/2022 5640 [facility] 15:21:01 312839 naproxen medicatio n Not available Not available Not available 02/20/2022 7258 RxNorm Murelene Bebeto null, [facility] 2 15:21:09 585090 Product containin g glucocort icoid (product) medicatio n Not available Not available Not available 02/20/2022 36822 6006 SNOMED Murelene Bebeto [facility] 2 15:21:20 691689 Voltaren medicatio n Not available Not available Not available 02/20/202210434 6 RxNorm Murelene Bebeto [facility] 2 15:21:34 Medications Name Sig Start [...] Updated DateTime 06/12/2022 171.45 cm 19.8 kg/m2 67846.82 brodie Emiliana Tate [facility] 06/12/2022 14:25:25 Date Recorded Body height Body mass index (BMI) Body weight Provider Name and Address Organization Details Last Updated DateTime 02/20/2022 171.45 cm 19.9 kg/m2 02239.7 brodie Jungslick Bebeto [facility] 02/20/2022 14:50:01 Social History Question Answer Notes LastModified by Organizat ion Details LastModified Time Tobacco Smoking Status Current Every Day Smoker Emiliana Tate [facility] 02/20/2022 15:35:51 What Was The Date Of Your Most Recent Tobacco Screening? 06/12/2022 Information not available 06/12/2022 Sex: Unknown Functional Status Question Answer Note LastModified by Organization D etails LastModified Time What is your level of alcohol consumption? None Information not available 02/20/2022 Mental Status None recorded. Family History Relationship Description Onset Age of this Age Resolved Age Notes LastModified by Organization Details LastModified Time Father No current problems or disability Not available 02/20 15:35:33 Mother No current problems or disability Not available 02/20 15:35:33 Medical History Condition Response Heart Arrhythmia Y Depression Y Anxiety Disorder Y Arthritis Y Tuberculosis Y Asthma Y Anesthesia Complications Y High Cholesterol Y Allergies/Hayfever Y Chronic Obstructive Pulmonary Disease Y Heart Attack ([place]) Y Sleep Apnea Y Heart Disease Y Gynecological HistoryNo gynecological history recorded. Obstetrics History GPAL:G 0 P 0 0 0 0 Past Encounters Encounter ID Performer Location Encounter Start Date Encounter Closed Date Diagnosis/Indication Diagnosis SNOMED-CT Code Diagnosis ICD10 Code Diagnosis Note [id number] AYANNA MACHADO MD [facility] [address] [place] [address] ,[address] [place] [address] 02/20/2022 14:13:16 02/21/2022 13:45:25 Nocturia 284344652 R35.1 Increased frequency of urination 510863233 R35.0 Urge incon tinence of urine 24434083 N39.41 [id number] AYANNA MACHADO MD [facility] [address] [place] [address] ,[address] [place] [address] 06/12/2022 13:56:35 06/14/2022 04:26:55 Increased frequency of urination 955360515 R35.0 Nocturia 418367103 R35.1 Urge incon tinence of urine 01880315 N39.41 Health Concerns Section Related Observation LastModified by Organization Detai ls LastModified Time None Recorded Concern Status LastModified by Organization Details LastModified Time None Recorded Advance Directives Directive None Recorded Payers Insurance Date Sequence Insurance Name Policy Number Policy Jennings Covered Member ID Jennings Member ID Guarantor Name 05/21/2022 1 [place] Paulina Escobar [id number] Paulina Escobar 05/21/2022 2 MEDICAID-[facility] - FFS/TRADITIO NAL Paulina Escobar [id number] Paulina Escobar Notes Date Note Type Note Provider Name and Address Organization Details Recorded Time 02/20/2022 text/html 81-year-old female in the office for my initial evaluation and for discussion of urinary incontinence. She takes myrbetriq and oxybutynin. She is a resident [facility] assisted living. She is wheel-chair bound. She has arthritis, restless legs syndrome. Daytime frequency hourly. Nocturia 5 times. She has urinary urgency with urge incontinence. No gross hematuria. No dysuria. Bothersome diarrhea. AYANNA MACHADO MD [address] [place] [address], [phone], [facility] 02/20/2022 18:51:13 06/12/2022 text/html 81-year-old female in the office for evaluation and for discussion of urinary incontinence. Trospium has improved her urinary symptoms. She wears adult diapers. She is a resident [facility] assisted living. She is wheel-chair bound. She has arthritis, restless legs syndrome. Daytime frequency every three hours, improved. Nocturia 4 times. She has improved urinary urgency with urge incontinence. No gross hematuria. No dysuria. AYANNA MACHADO MD [address] [place] [address], [phone], [facility] 06/13/2022 08:05:03 OBGyn Episode No OBEpisode recorded.
[2024-09-11 21:09] VITALS: BP 84/58; PULSE 80; RESP 18; TEMP 36.9; O2SAT 91
[2024-09-11 21:12] LABS: Basophils % 0.3 % (0.1-2.0); Eosinophils % 0.4 % (0.1-12.0); Hematocrit 38.9 % (37.0-47.0); Hemoglobin 12.9 g/dL (12.2-16.2); Immature Granulocytes # 0.04 10^3uL; Immature Granulocytes % 0.4 %; Lymphocytes # 1.7 K/mm3 (0.7-4.5); Lymphocytes % 18.2 % (10-50); Mean Corpuscular HGB Conc 33.2 g/dL (31.8-35.4); Mean Corpuscular Hemoglobin 27.9 pg (27.0-31.2); Mean Platelet Volume 10.8 fl (7.4-10.4); Monocytes % 10.7 % (1.7-9.3); Neutrophils # 6.7 K/mm3 (1.8-7.8); Nucleated Red Blood Cells # 0 10^3/uL; Nucleated Red Blood Cells % 0 %; Platelet Count 249 K/mm3 (142-424); Red Blood Count 4.63 M/mm3 (4.20-5.40); Red Cell Distribution Width-SD 45.4 fL; White Blood Count 9.6 K/mm3 (4.8-10.8)
[2024-09-11 21:18] LABS: Alanine Aminotransferase 17 U/L (12-78); Albumin Level 3.7 g/dl (3.5-5.0); Albumin/Globulin Ratio 1.5 (1.1-1.8); Alkaline Phosphatase 55 U/L (38-126); Anion Gap 9.2 mEq/L (5-15); Aspartate Amino Transferase 46 U/L (14-36); Bilirubin,Total 0.6 mg/dl (0.2-1.3); Blood Urea Nitrogen 18 mg/dl (7-17); Calcium 9.9 mg/dl (8.4-10.2); Carbon Dioxide 28 mmol/L (22.0-30.0); Chloride 106 mmol/L (98-107); Estimated Glomerular Filt Rate 118 ml/min (>60); GFR (African American) 143 ML/MIN (>60); Globulin 2.4 g/dL (1.3-3.2); Glucose 107 mg/dl (74-100); Potassium 4.2 mmoL/L (3.5-5.1); Sodium 139 mmol/L (136-145); Total Protein,Serum 6.1 g/dl (6.3-8.2)
[2024-09-11 21:20] LABS: Activated Partial Thrombo Time 24.1 seconds (22.8-30.6); Prothrombin Time 11.1 seconds (10.1-12.5)
[2024-09-11 21:30] VITALS: BP 84/58; PULSE 80; RESP 18; TEMP 36.9; O2SAT 91; BMI 26.4
--- NOTE | 2024-09-11 21:43 | PC.NURSE ---
pt returned to room from CT by brandon
[2024-09-11 21:45] VITALS: BP 88/52; PULSE 72; RESP 22; O2SAT 91
[2024-09-11] MEDS: ACETAMINOPHEN 1,000MG/100ML VIAL 1000 MG IV (21:47)
[2024-09-11 22:00] VITALS: BP 96/50; PULSE 71; RESP 12; O2SAT 92
--- NOTE | 2024-09-11 22:16 | XR_ITS ---
PROCEDURE INFORMATION: Exam: XR Left Femur Exam date and time: 09/11/2024 10:22 PM Age: 83 years old Clinical indication: Pain; Hip; Left; Additional info: Old FX, pain TECHNIQUE: Imaging protocol: Radiologic exam of the left femur. Views: 2 views. 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 Diffuse osteopenia. There are degenerative changes. No acute fracture. No dislocation. Soft tissues: Unremarkable. IMPRESSION: 1. No acute fracture. 2. 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
[2024-09-11] MEDS: LACTATED RINGERS 1000ML 1,000 ML 999 ML IV (22:17)
[2024-09-11 22:20] LABS: Microscopic, Urine URINE MICROSCOPIC (MICROSCOPIC)
[2024-09-11 22:22] LABS: Lactic Acid 0.8 mmol/L (0.7-2.1)
[2024-09-11 22:22] LABS: Appearance,Urine CLEAR (Clear); Bilirubin,Urine Negative (Negative); Blood, Urine Negative (Negative); Color,Urine YELLOW (Yellow); Glucose,Urine (UA) Negative (Negative); Ketones,Urine 2+ (Negative); Leukocyte Esterase,Urine Negative (Negative); Nitrate,Urine Negative (Negative); Protein,Urine Negative (Negative); Specific Gravity, Urine 1.015 (1.005-1.030); Urobilinogen,Urine 0.2 EU/dl (0.2)
--- NOTE | 2024-09-11 22:22 | PC.NURSE ---
radiologist in room for x rays at this time
[2024-09-11 22:41] LABS: Bacteria,Urine Trace /lpf; Mucus,Urine 3+ /lpf; WBC,Urine 50-100 #/hpf (0-3)
[2024-09-11 22:45] VITALS: BP 119/65; PULSE 69; RESP 17; O2SAT 95
[2024-09-11] MEDS: CEFTRIAXONE SODIUM 2 GM in 0.9 % SODIUM CHLORIDE 100 ML IV (23:05)
[2024-09-12 01:21] VITALS: BP 90/49; PULSE 66; RESP 20; TEMP 36.9; O2SAT 90
== END 2024-09-12 01:36 ==
PROVIDERS: Nurse Practitioner; Emergency Provider Emergency Medicine
DX: S00.83XA Contusion of other part of head, initial encounter (principal); N39.0 Urinary tract infection, site not specified; I95.9 Hypotension, unspecified; W07.XXXA Fall from chair, initial encounter
CPT/HCPCS: 70450; 71045; 72125; 72128; 72131; 72170; 72192; 73030; 73060; 73090; 73120; 73552; 80053; 81001; 83605; 85025; 85610; 85730; 87086; 93005; 96361; 96365; 96366; 96375; 99285; 99291; G0390; J0131; J0696; J7120

== ENCOUNTER 2024-09-25 14:33 | Inpatient (IN) | payer MEDICARE, MEDICAID, SELFPAY ==
[2024-09-25] VITALS (47 sets, daily range): BP systolic 87–119; BP diastolic 39–76; PULSE 60–83; RESP 11–32; TEMP 36.1–38.2; O2SAT 95–100; BMI 22.1; BMI 21.0
--- NOTE | 2024-09-25 14:24 | ECG_ITS ---
APPROVED REPORT Exam: Resting ECG HR:84 bpm ECG Measurements Heart Rate 84 AXES DE 151 P 97 QRSd 126 QRS 19 QT 370 T 46 QTc 411 Conclusion SINUS RHYTHM RIGHT BUNDLE BRANCH BLOCK [120+ ms QRS DURATION, UPRIGHT V1, 40+ ms S IN I/aVL/V4/V5/V6] No STEMI Electronically signed by : ROXANA GEORGE, 09/25/2024 15:41:46
--- NOTE | 2024-09-25 14:24 | PC.NURSE ---
Patients FSBS is 167.
--- NOTE | 2024-09-25 14:26 | CT_ITS ---
PROCEDURE INFORMATION: Exam: CT Cervical Spine Without Contrast Exam date and time: 09/25/2024 3:31 PM Age: 83 years old Clinical indication: Other: Recent fall, fever, AMS, sepsis unkown origin TECHNIQUE: Imaging protocol: Computed tomography of the cervical spine without contrast. Radiation optimization: All CT scans at this facility use at least one of these dose optimization techniques: automated exposure control; mA and/or kV adjustment per patient size (includes targeted exams where dose is matched to clinical indication); or iterative reconstruction. COMPARISON: CT CERVICAL SPINE WO CON 09/11/2024 9:15 PM FINDINGS: Bones: The alignment is near anatomic. The vertebral body heights are maintained. Diffuse disc space height loss with multilevel degenerative changes again present. No significant prevertebral soft tissue swelling. Intact craniocervical junction. No acute appearing displaced fracture seen. Lungs: Emphysema in the lungs. Thyroid: 6 mm right thyroid nodule unchanged. Soft tissues: Soft tissues are unremarkable as visualized. IMPRESSION: No acute cervical spinal fracture.
--- NOTE | 2024-09-25 14:26 | CT_ITS ---
PROCEDURE INFORMATION: Exam: CT Abdomen And Pelvis With Contrast Exam date and time: 09/25/2024 3:38 PM Age: 83 years old Clinical indication: Injury or trauma; Fall; Blunt; Generalized; Additional info: Recent fall, fever, AMS, sepsis unkown origin TECHNIQUE: Imaging protocol: Computed tomography of the abdomen and pelvis with contrast. 3D rendering (Not supervised by radiologist): MIP and/or 3D reconstructed images were created by the technologist. Radiation optimization: All CT scans at this facility use at least one of these dose optimization techniques: automated exposure control; mA and/or kV adjustment per patient size (includes targeted exams where dose is matched to clinical indication); or iterative reconstruction. Contrast material: ISOVUE; Contrast volume: 70 ml; Contrast route: IV; COMPARISON: CT BONY PELVIS 09/11/2024 9:24 PM and CTA abdomen and pelvis dated 04/25/2024 FINDINGS: Lungs: Calcified granulomas within the right middle and right lower lobes. Coronary arteries: Three-vessel coronary artery atherosclerotic disease. Liver: Simple right hepatic lobe cyst. Gallbladder and biliary ducts: Cholelithiasis. No CT evidence of acute cholecystitis. Mild intra and extrahepatic biliary dilation. No visible choledocholithiasis. Pancreas: Normal. Spleen: Normal. Adrenal glands: Bilateral adrenal hyperplasia, left greater than right. Kidneys and ureters: Normal. Stomach and bowel: Moderate amount of stool within the distal sigmoid colon and rectal vault, compatible with constipation. No obstruction. Appendix: Appendix normal. Intraperitoneal space: Unremarkable. No free air. No significant fluid collection. Vasculature: Unremarkable. No abdominal aortic aneurysm. Lymph nodes: Unremarkable. No enlarged lymph nodes. Urinary bladder: Urinary bladder partially decompressed by Alfred catheter. Reproductive: Lobulated uterus, with dystrophic calcifications, compatible with degenerating fibroids. Bones/joints: Moderate degenerative changes of the right hip and sacroiliac joints. 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 Chronic compression fracture deformity of the L3 vertebral body, unchanged. Soft tissues: Normal. IMPRESSION: 1. Mild intra and extrahepatic biliary dilation. No visible choledocholithiasis. 2. Moderate amount of stool within the distal sigmoid colon and rectal vault, compatible with constipation. No obstruction. 3. Cholelithiasis, without evidence of acute cholecystitis.
--- NOTE | 2024-09-25 14:26 | CT_ITS ---
PROCEDURE INFORMATION: Exam: CTA Neck With Contrast Exam date and time: 09/25/2024 3:33 PM Age: 83 years old Clinical indication: Other: Recent fall, fever, AMS, sepsis unkown origin TECHNIQUE: Imaging protocol: Computed tomographic angiography of the neck with contrast. Exam focused on the cervical segments of the vasculature. 3D rendering (Not supervised by radiologist): MIP and/or 3D reconstructed images were created by the technologist. Radiation optimization: All CT scans at this facility use at least one of these dose optimization techniques: automated exposure control; mA and/or kV adjustment per patient size (includes targeted exams where dose is matched to clinical indication); or iterative reconstruction. Contrast material: ISO 370; Contrast volume: 80 ml; Contrast route: INTRAVENOUS (IV); COMPARISON: CT ANGIO NECK 04/25/2024 9:48 PM FINDINGS: Right common carotid artery: The right common carotid artery is widely patent. No stenosis. Right internal carotid artery: Atherosclerotic changes proximal right internal carotid artery are seen without significant stenosis. Right external carotid artery: Right external carotid artery has no visible occlusion. Left common carotid artery: The left common carotid artery is widely patent. No stenosis. Left internal carotid artery: Atherosclerotic changes proximal left internal carotid artery are seen without significant stenosis. Left external carotid artery: Left external carotid artery has no visible occlusion. Right vertebral artery: Right vertebral artery is patent. No significant stenosis. No evidence of dissection. Left vertebral artery: Left vertebral artery is patent. No significant stenosis. No evidence of dissection. Thyroid: Right-sided thyroid nodule measuring 6 mm unchanged. Soft tissues: Soft tissues are unremarkable as visualized. Bones/joints: Degenerative bony changes. Trachea: Minimal debris in the trachea. Lungs: Emphysema in the lungs. Other findings: Visualized mediastinal vasculature patent. IMPRESSION: No occlusion or significant stenosis. REFERENCES: NASCET CRITERIA. The degree of stenosis in the cervical segment of the internal carotid artery is based on NASCET criteria. Normal is no stenosis. Mild is less than 50% stenosis. Moderate is 50-69% stenosis. Severe is 70% to 99% stenosis. Total occlusion is no detectable patent lumen.
--- NOTE | 2024-09-25 14:26 | CT_ITS ---
PROCEDURE INFORMATION: Exam: CT Head Without Contrast Exam date and time: 09/25/2024 3:29 PM Age: 83 years old Clinical indication: Injury or trauma; Fall; Blunt trauma (contusions or hematomas); Additional info: Recent fall, fever, AMS, sepsis unkown origin TECHNIQUE: Imaging protocol: Computed tomography of the head without contrast. Radiation optimization: All CT scans at this facility use at least one of these dose optimization techniques: automated exposure control; mA and/or kV adjustment per patient size (includes targeted exams where dose is matched to clinical indication); or iterative reconstruction. COMPARISON: CT HEAD/BRAIN WO CON 09/11/2024 9:13 PM FINDINGS: Brain: No acute infarct. No hemorrhage. Stable involutional changes of the brain. No midline shift. Cerebral ventricles: Stable ventricular size. No ventriculomegaly. Paranasal sinuses: Mild chronic appearing mucosal thickening inferior right maxillary sinus with calcification unchanged. No sinus air-fluid level. Mastoid air cells: Mastoid air cells are well-aerated. Orbital cavities: Visualized portions of the orbits are unremarkable. Bones: No acute osseous abnormality. Soft tissues: Soft tissues are unremarkable as visualized. IMPRESSION: No acute intracranial abnormality.
--- NOTE | 2024-09-25 14:26 | CT_ITS ---
PROCEDURE INFORMATION: Exam: CTA Chest With Contrast Exam date and time: 09/25/2024 3:38 PM Age: 83 years old Clinical indication: Injury or trauma; Fall; Blunt trauma (contusions or hematomas); Additional info: Recent fall, fever, AMS, sepsis unkown origin TECHNIQUE: Imaging protocol: Computed tomographic angiography of the chest with contrast. Exam focused on the arteries. 3D rendering (Not supervised by radiologist): MIP and/or 3D reconstructed images were created by the technologist. Radiation optimization: All CT scans at this facility use at least one of these dose optimization techniques: automated exposure control; mA and/or kV adjustment per patient size (includes targeted exams where dose is matched to clinical indication); or iterative reconstruction. Contrast material: ISOUVE 370; Contrast volume: 80 ml; Contrast route: INTRAVENOUS (IV); COMPARISON: CT ANGIO CHEST 04/25/2024 9:51 PM FINDINGS: Pulmonary arteries: Acute-appearing pulmonary embolism within the proximal segmental branch of the posterior right lower lobe (series 5, image 79). Main pulmonary artery mildly enlarged, measuring 32 mm in diameter at the level of the pulmonary artery bifurcation, compatible with pulmonary arterial hypertension. Aorta: Atherosclerotic disease of the thoracic aorta, without aneurysm or dissection. Lungs: Moderate upper lobe predominant centrilobular emphysema. Calcified granulomas within the right middle and lower lobes. Mild bilateral upper and lower lobe bronchial wall thickening, compatible with reactive airway disease or bronchitis. Pleural spaces: Unremarkable. No pneumothorax. No pleural effusion. Heart: No evidence of acute right heart strain (RV/LV ratio 0.9). Coronary arteries: Mild three-vessel coronary artery atherosclerotic disease. Lymph nodes: Unremarkable. No enlarged lymph nodes. Bones/joints: Unremarkable. No acute fracture. Soft tissues: Unremarkable. IMPRESSION: 1. Acute-appearing pulmonary embolism within the proximal segmental branch of the posterior right lower lobe (series 5, image 79). No evidence of acute right heart strain (RV/LV ratio 0.9). 2. Mild bilateral upper and lower lobe bronchial wall thickening, compatible with reactive airway disease or bronchitis.
--- NOTE | 2024-09-25 14:26 | CT_ITS ---
PROCEDURE INFORMATION: Exam: CTA Head With Contrast, Arteriography Exam date and time: 09/25/2024 3:33 PM Age: 83 years old Clinical indication: Injury or trauma; Fall; Blunt trauma; Head; Additional info: Recent fall, fever, AMS, sepsis unkown origin TECHNIQUE: Imaging protocol: Computed tomographic angiography of the head with contrast. Exam focused on the arteries. 3D rendering (Not supervised by radiologist): MIP and/or 3D reconstructed images were created by the technologist. Radiation optimization: All CT scans at this facility use at least one of these dose optimization techniques: automated exposure control; mA and/or kV adjustment per patient size (includes targeted exams where dose is matched to clinical indication); or iterative reconstruction. Contrast material: ISOVUE 370; Contrast volume: 80 ml; Contrast route: INTRAVENOUS (IV); COMPARISON: CT ANGIO HEAD 04/25/2024 9:48 PM FINDINGS: ANTERIOR CIRCULATION: Right internal carotid artery: Right internal carotid artery is patent. No significant stenosis. No aneurysm. Right middle cerebral artery: Right middle cerebral artery is patent. No significant stenosis. No aneurysm. Right anterior cerebral artery: Right anterior cerebral artery is patent. No significant stenosis. No aneurysm. Anterior communicating artery: No anterior communicating artery aneurysm seen. Left internal carotid artery: Left internal carotid artery is patent. No significant stenosis. No aneurysm. Left middle cerebral artery: Left middle cerebral artery is patent. No significant stenosis. No aneurysm. Left anterior cerebral artery: Left anterior cerebral artery is patent. No significant stenosis. No aneurysm. POSTERIOR CIRCULATION: Right vertebral artery: Right vertebral artery is patent. No significant stenosis. No aneurysm. Left vertebral artery: Left vertebral artery is patent. No significant stenosis. No aneurysm. Basilar artery: The basilar artery is patent. No significant stenosis. No aneurysm. Right posterior cerebral artery: The right [employer] has anatomic variant origin. Left posterior cerebral artery: Left posterior cerebral artery is patent. No significant stenosis. No aneurysm. Veins: Visualized dural venous sinuses grossly patent on this study optimized for arterial assessment. Brain: There is no definite mass, mass effect, or midline shift present. No definite vascular malformation identified. Cerebral ventricles: Stable ventricular size. No significant enlargement. Teeth: Dental disease. Bones/joints: No acute osseous abnormality. No acute osseous abnormality. Soft tissues: Soft tissues are unremarkable as visualized. IMPRESSION: No acute large vessel occlusion identified.
--- NOTE | 2024-09-25 14:31 | HMH.EDGENADL ---
Discharge Plan Disposition Patient Disposition: Admitted Clinical Impressions Clinical Impression: Sepsis, Acute hypernatremia, Pulmonary embolism Discharge ED Provider: Felix Juan General Adult HPI <Theresa Calderon DO - Last Filed: 09/25/24 14:55> General Chief complaint: Altered Mental Status Stated complaint: AMS Time Seen by Provider: 09/25/24 14:35 History of Present Illness HPI narrative: This patient is an 83-year-old female with a history of osteoporosis, bipolar disorder, schizoaffective disorder, iron deficiency anemia, chronic contractures with a nonambulatory state, chronic femur fracture, COPD, pulmonary hypertension, and mitral regurgitation presenting to the emergency department for evaluation with concern for altered mental status. Patient is essentially nonverbal at this time and does not contribute to history, which apparently is not her baseline. According to EMS and nursing facility, she generally does speak some, though is confused at baseline. She is a [place] and does not have family to help corroborate history. EMS and nursing facility report that the patient has essentially been nonverbal, not eating or drinking, and has not been acting herself since Thursday. They do not provide any other reported history, except EMS advises that she was febrile with low blood pressure en route. On review of medical records, I evaluated the patient here 09/11/2024 after mechanical fall from a seated position, at which point we noted her chronic femoral fracture as well as a UTI for which she was initiated on treatment for. Related Data Home Medications ?Medication ?Instructions ?Recorded ?Confirmed omega-3 fatty acids-fish oil 360 1 cap PO DAILY Supplement 10/14/17 09/26/24 mg-1,200 mg capsule (Fish Oil) raloxifene 60 mg tablet (Evista) 60 mg PO DAILY hormone supplement 10/14/17 09/26/24 trazodone 50 mg tablet 25 mg PO HS sleep 10/14/17 09/26/24 clopidogrel 75 mg tablet (Plavix) 75 mg PO DAILY Platelet Inhibitor 01/08/22 09/26/24 nitroglycerin 0.4 mg/hr 1 patch transdermal DAILY 12/10/22 09/26/24 transdermal 24 hour patch (Nitro-Dur) acetaminophen 500 mg tablet 500 mg PO Q4HP PRN Mild Pain 03/13/23 09/26/24 (Acetaminophen Extra Strength) (Scale Score 1-4) calcium citrate 200 mg PO BID 03/13/23 09/26/24 ferrous sulfate 325 mg (65 mg 325 mg PO BID Supplement 03/13/23 09/26/24 iron) tablet polyvinyl alcohol 1.4 % eye drops 1 drp Eye-Both TIDP PRN Dry Eyes 03/13/23 09/26/24 baclofen 10 mg tablet 10 mg PO TIDP PRN Muscle Spasm 05/01/23 09/26/24 cholecalciferol (vitamin D3) 25 25 mcg PO DAILY 05/01/23 09/26/24 mcg (1,000 unit) tablet fluticasone propionate 50 1 spray intranasal DAILY Allergy 05/01/23 09/26/24 mcg/actuation nasal Symptoms spray,suspension multivitamin 1 tab PO DAILY 05/01/23 09/04/24 ondansetron 4 mg disintegrating 4 mg PO Q4HP PRN Nausea And 05/01/23 09/26/24 tablet Vomiting paliperidone palmitate 234 mg/1.5 1.5 mg IM MONTHLY 05/01/23 09/26/24 mL intramuscular syringe ([facility]) peg 400-propylene glycol (PF) 0.4 1 drp Eye-Both BIDP PRN Dry Eyes 05/01/23 09/26/24 %-0.3 % eye drops in a dropperette (Systane (PF)) pantoprazole 20 mg tablet,delayed 20 mg PO DAILY Acid Reflux 11/03/23 09/26/24 release mirtazapine 30 mg tablet (Remeron) 30 mg PO HS 11/18/23 09/26/24 acetaminophen 500 mg tablet 500 mg PO BID 03/01/24 09/26/24 (Tylenol Extra Strength) cyanocobalamin (vitamin B-12) 1,000 mcg PO DAILY 03/01/24 09/26/24 1,000 mcg tablet potassium chloride 10 mEq 20 meq PO BID 03/01/24 09/26/24 tablet,extended release dextromethorphan-guaifenesin 10 10 ml PO Q4H PRN 07/20/24 09/04/24 mg-200 mg/5 mL oral liquid aluminum hydrox-magnesium carb 95 30 ml PO Q4HP PRN Acid Reflux 09/26/24 09/26/24 mg-358 mg/15 mL oral suspension Previous Rx's ?Medication ?Instructions ?Recorded aluminum hydrox-magnesium carb 95 30 ml PO Q4HP #355 mL 10/13/23 mg-358 mg/15 mL oral suspension (Acid Gone Antacid) lactulose 10 gram/15 mL oral 20 g (30 mL) PO BID PRN 10/13/23 solution constipation #473 mL mirabegron 50 mg tablet,extended 50 mg PO DAILY #90 tabs 10/13/23 release 24 hr (Myrbetriq) polyethylene glycol 400 1 % eye 1 drp Eye-Both TID PRN dry eye(s) 10/13/23 drops (Visine Dry Eye Relief) #30 mL furosemide 20 mg tablet (Lasix) 20 mg PO DAILY #30 tabs 06/06/24 spironolactone 25 mg tablet 25 mg PO DAILY #30 tabs 06/06/24 (Aldactone) clonazepam 1 mg tablet 1 mg PO TID #90 tabs 08/18/24 Allergies Allergy/AdvReac Type Severity Reaction Status Date / Time aspirin Allergy Unknown Verified 07/20/24 10:52 codeine Allergy Unknown Verified 07/20/24 10:52 Corticosteroids Allergy Unknown Verified 07/20/24 10:52 (Glucocorticoids) ibuprofen (From NeoProfen Allergy Unknown Verified 07/20/24 10:52 (ibuprofen lysn)(PF)) naproxen (From Flanax Allergy Unknown Verified 07/20/24 10:52 (naproxen)) diclofenac (From Voltaren) Allergy Verified 07/20/24 10:52 PFSH <Theresa Calderon, DO - Last Filed: 09/25/24 14:55> PFS Disclaimer: The information contained in this section may have been updated after the patient was seen, as this information can be updated by other users. Medical History Dermatitis Pyoderma Major depressive disorder Dysphagia Contracture, left hand COPD (chronic obstructive pulmonary disease) Chronic hypoxic respiratory failure Pulmonary hypertension Moderate mitral regurgitation Edema Low serum vitamin B12 Diastolic dysfunction Mitral regurgitation Acute hypokalemia Injury of left rotator cuff Fall Umbilical hernia without obstruction or gangrene Major depressive disorder, recurrent, unspecified Fracture of proximal phalanx of left ring finger Fracture of proximal phalanx of left middle finger Fall Angina at rest Closed rib fracture Hearing loss Tinnitus Dizziness Fracture of 3rd metatarsal Fracture of 4th metatarsal Pain in right foot Abnormal cardiovascular stress test Gastroesophageal reflux disease Restless leg syndrome, controlled Anxiety Overactive bladder Osteoporosis Iron deficiency anemia Bipolar 1 disorder Schizoaffective disorder Paranoid delusion Family History Other Cancer Coronary artery disease Social History Smoking Status: Unknown if ever smoked alcohol intake: never substance use type: denies use current occupational status: disabled Travel in the last 8 weeks?: None housing: half-way marital status: caffeine: No Have you lived/traveled outside [place] in past 30 days?: No Contact w/someone who lives/traveled outside US past 30 days?: No Exposure to someone with infectious disease in past 14 days?: No Do you have a fever (greater than 100.4 F or 38 C)?: No Have you tested positive for COVID-19?: No Exposed to someone with COVID-19 in past 14 days?: No Do you have a sore throat?: No Do you have a cough?: No Do you have any weakness?: No Do you have any diarrhea?: No Are you experiencing any unusual bleeding?: No Do you have any muscle aches/pain?: No Do you have any abdominal pain?: No Are you experiencing loss of taste or smell?: No Other Medical History Have you received the Flu Vaccine for this season: No Have you received the Pneumonia Vaccine: Yes (01/2017, 01/19/19, 06/27/24) <Theresa Calderon DO - Last Filed: 09/25/24 14:55> ROS Obtained: Yes All systems reviewed & no additional complaints except as documented Physical Exam <Theresa Calderon DO - Last Filed: 09/25/24 14:55> General General appearance: alert Comment: Chronically ill-appearing Head Head exam: atraumatic and normocephalic Eye Eye exam: Present normal appearance, PERRL and EOMI ENT ENT exam: Present mucous membranes dry and normal external ear exam Neck Neck exam: Present normal inspection, full ROM and trachea midline; Absent tenderness Chest Chest inspection: Present normal inspection and symmetric chest wall rise; Absent tenderness Respiratory Respiratory exam: Present normal lung sounds bilaterally; Absent respiratory distress, wheezes, stridor or accessory muscle use Cardiovascular Cardiovascular exam: Present regular rate and normal rhythm Abdominal Exam Abdominal exam: Present soft; Absent distention, tenderness or guarding Extremities Exam Extremities exam: Present normal capillary refill and other (Chronic contractures); Absent edema Back Exam Back exam: Present normal inspection and full ROM; Absent tenderness Neurological Exam Neurological exam: Present alert and other (Very slow to respond, able to answer her name and where she is but does not answer orientation questions otherwise); Absent oriented X3 Psychiatric Psychiatric exam: Present flat affect Skin Skin exam: Present warm and dry Medical Decision Making <Theresa Calderon, DO - Last Filed: 09/25/24 14:55> Medical Records Medical records reviewed: Yes I reviewed the patient's medical records. Screening: Per USPSTF and CDC recommendations, given the prevalence of disease in our region, it is our hospital?s policy to screen for HIV and viral Hepatitis for all patients aged 18 and over and those with ongoing risk factors. Shahid Inquiry Pt receiving controlled substance: No Vital Signs: 09/25/24 14:37 09/25/24 15:00 09/25/24 15:18 Temperature 100.8 F H Temperature Source Rectal Pulse Rate 76 78 Pulse Rate [Right] 83 Respiratory Rate 22 32 H 32 H Blood Pressure 110/67 119/59 L Blood Pressure [Right Arm] 112/57 L Blood Pressure Mean Blood Pressure Mean [Right Arm] 75 02 Sat by Pulse Oximetry 96 98 98 Oxygen Delivery Method Nasal Cannula Oxygen Flow Rate (LPM) 2 09/25/24 16:00 09/25/24 16:15 09/25/24 17:16 Temperature 99.1 F 99.0 F 99.0 F Temperature Source Pulse Rate Pulse Rate [Right] Respiratory Rate Blood Pressure 112/50 L 107/44 L 87/44 L Blood Pressure [Right Arm] Blood Pressure Mean Blood Pressure Mean [Right Arm] 02 Sat by Pulse Oximetry Oxygen Delivery Method Oxygen Flow Rate (LPM) 09/25/24 17:21 09/25/24 17:30 09/25/24 17:34 Temperature 99.0 F 99.0 F 99.0 F Temperature Source Pulse Rate 70 68 Pulse Rate [Right] Respiratory Rate 16 14 Blood Pressure 104/41 L 87/39 L 90/76 L Blood Pressure [Right Arm] Blood Pressure Mean Blood Pressure Mean [Right Arm] 02 Sat by Pulse Oximetry 98 98 Oxygen Delivery Method Oxygen Flow Rate (LPM) 09/25/24 17:45 09/25/24 18:00 09/25/24 18:15 Temperature 99.0 F 98.8 F 98.6 F Temperature Source Core Pulse Rate 66 67 65 Pulse Rate [Right] Respiratory Rate 16 18 14 Blood Pressure 100/46 L 105/45 L 106/51 L Blood Pressure [Right Arm] Blood Pressure Mean 72 Blood Pressure Mean [Right Arm] 02 Sat by Pulse Oximetry 99 100 99 Oxygen Delivery Method Nasal Cannula Oxygen Flow Rate (LPM) 2 09/25/24 18:15 09/25/24 18:16 09/25/24 18:17 Temperature 98.6 F 98.6 F 98.6 F Temperature Source Pulse Rate 65 67 68 Pulse Rate [Right] Respiratory Rate 18 14 11 L Blood Pressure Blood Pressure [Right Arm] Blood Pressure Mean Blood Pressure Mean [Right Arm] 02 Sat by Pulse Oximetry 97 99 99 Oxygen Delivery Method Oxygen Flow Rate (LPM) 09/25/24 18:18 09/25/24 18:19 09/25/24 18:20 Temperature 98.6 F 98.6 F 98.6 F Temperature Source Pulse Rate 65 66 63 Pulse Rate [Right] Respiratory Rate 17 17 16 Blood Pressure Blood Pressure [Right Arm] Blood Pressure Mean Blood Pressure Mean [Right Arm] 02 Sat by Pulse Oximetry 98 99 99 Oxygen Delivery Method Oxygen Flow Rate (LPM) 09/25/24 18:21 09/25/24 18:22 09/25/24 18:23 Temperature 98.6 F 98.6 F 98.6 F Temperature Source Pulse Rate 65 65 65 Pulse Rate [Right] Respiratory Rate 17 16 16 Blood Pressure Blood Pressure [Right Arm] Blood Pressure Mean Blood Pressure Mean [Right Arm] 02 Sat by Pulse Oximetry 99 97 98 Oxygen Delivery Method Oxygen Flow Rate (LPM) 09/25/24 18:24 09/25/24 18:25 09/25/24 18:26 Temperature 98.6 F 98.6 F 98.6 F Temperature Source Pulse Rate 64 63 63 Pulse Rate [Right] Respiratory Rate 18 17 18 Blood Pressure Blood Pressure [Right Arm] Blood Pressure Mean Blood Pressure Mean [Right Arm] 02 Sat by Pulse Oximetry 98 99 98 Oxygen Delivery Method Oxygen Flow Rate (LPM) 09/25/24 18:27 09/25/24 18:28 09/25/24 18:29 Temperature 98.4 F 98.4 F 98.4 F Temperature Source Pulse Rate 65 65 64 Pulse Rate [Right] Respiratory Rate 16 18 15 Blood Pressure Blood Pressure [Right Arm] Blood Pressure Mean Blood Pressure Mean [Right Arm] 02 Sat by Pulse Oximetry 98 99 98 Oxygen Delivery Method Oxygen Flow Rate (LPM) 09/25/24 18:30 09/25/24 18:30 09/25/24 18:31 Temperature 98.4 F 98.4 F Temperature Source Pulse Rate 65 65 Pulse Rate [Right] Respiratory Rate 15 16 Blood Pressure 94/45 L Blood Pressure [Right Arm] Blood Pressure Mean 69 Blood Pressure Mean [Right Arm] 02 Sat by Pulse Oximetry 99 99 Oxygen Delivery Method Oxygen Flow Rate (LPM) 09/25/24 18:32 09/25/24 18:33 09/25/24 18:34 Temperature 98.4 F 98.4 F 98.4 F Temperature Source Pulse Rate 63 66 64 Pulse Rate [Right] Respiratory Rate 18 17 17 Blood Pressure Blood Pressure [Right Arm] Blood Pressure Mean Blood Pressure Mean [Right Arm] 02 Sat by Pulse Oximetry 98 98 99 Oxygen Delivery Method Oxygen Flow Rate (LPM) 09/25/24 18:35 09/25/24 18:41 Temperature 98.9 F Temperature Source Pulse Rate 69 Pulse Rate [Right] Respiratory Rate 16 16 Blood Pressure 94/45 L Blood Pressure [Right Arm] Blood Pressure Mean Blood Pressure Mean [Right Arm] 02 Sat by Pulse Oximetry Oxygen Delivery Method Nasal Cannula Oxygen Flow Rate (LPM) 2 Lab Data Lab results reviewed: Yes I reviewed the patient's lab results. Lab Results 09/25/24 14:25: WBC 12.6 H, RBC 5.58 H, Hgb 15.4, Hct 48.8 H, MCV 87.5, MCH 27.6, MCHC 31.6 L, RDW 15.4, Plt Count 289, MPV 13.0 H, Neut % (Auto) 80.5 H, Lymph % (Auto) 10.4, [place] % (Auto) 8.2, Eos % (Auto) 0.2, Baso % (Auto) 0.3, Neut # (Auto) 10.2 H, Lymph # (Auto) 1.3, [place] # (Auto) 1.0, Eos # (Auto) 0.0, Baso # (Auto) 0.0, PT 11.1, INR 1.00, APTT 24.8, VBG pH 7.38, VBG pCO2 45.0, VBG pO2 53.5 H, VBG HCO3 26.0, VBG Total CO2 27.4 H, VBG O2 Saturation 86.4 H, VBG Base Excess 0.9, VBG Lactic Acid 2.0, Sodium 152 H*, Potassium 3.9, Chloride 112 H, Carbon Dioxide 29, Anion Gap 14.9, BUN 49 H, Creatinine 0.80, Estimated GFR 69, Est GFR ( Amer) 83, Glucose 191 H, Calcium 9.4, Magnesium 2.6 H, Total Bilirubin 0.5, AST 34, ALT 23, Alkaline Phosphatase 67, Total Creatine Kinase 176 H, Troponin I 0.07 H, Total Protein 6.9, Albumin 4.0, Globulin 2.9, Albumin/Globulin Ratio 1.4, Lipase 112, TSH 1.16, Free T4 1.43 09/25/24 14:45: SARS-CoV-2 (PCR) Not detected, Influenza A Untype (PCR) Not detected, Influenza Type B (PCR) Not detected 09/25/24 14:59: Ammonia < 9 L 09/25/24 15:46: Urine Color Yellow, Urine Appearance Clear, Urine pH 6.0, Ur Specific [place] 1.025, Urine Protein Trace, Urine Glucose (UA) Negative, Urine Ketones 2+, Urine Blood Negative, Urine Nitrate Negative, Urine Bilirubin 2+ A, Urine Urobilinogen 0.2, Ur Leukocyte Esterase Negative, Urine WBC 5-10, Ur Squamous Epith Cells 3-5, Urine Bacteria Trace, Urine Mucus 2+ 09/25/24 17:55: Troponin I 0.06 H 09/25/24 14:25 09/25/24 14:25 Orders (Tests/Meds): ED MEDICATIONS Generic Name Dose Route Start Last Admin Trade Name Freq PRN Reason Stop Dose Admin Acetaminophen 650 mg 09/25/24 17:51 Acetaminophen 325mg Tab PO 10/25/24 17:50 Q4HP PRN Fever or Mild Pain (1-3) Baclofen 10 mg 09/25/24 22:40 Baclofen 10mg Tablet PO 10/25/24 22:39 TIDP PRN Muscle Spasm Clopidogrel Bisulfate 75 mg 09/26/24 09:00 Clopidogrel 75mg Tab PO 10/26/24 08:59 DAILY BIMAL Enoxaparin Sodium 60 mg 09/25/24 18:00 09/25/24 18:09 Enoxaparin 100mg/Ml Syringe 1 mg/kg (60 mg) 10/25/24 17:59 60 mg SUBCUT Administration Q12H BIMAL Vancomycin HCl 750 mg/ Sodium 250 mls @ 125 mls/hr 09/26/24 04:45 Chloride IV 09/26/24 06:44 ONCE ONE Lactated Ringer's 1,000 mls @ 100 mls/hr 09/25/24 18:00 09/25/24 18:11 Lactated Ringer's 1000 Ml Bag IV 10/25/24 17:59 100 mls/hr .Q10H BIMAL Administration Piperacillin Sod/Tazobactam 50 mls @ 100 mls/hr 09/25/24 23:00 09/25/24 22:54 Sod 3.375 gm/ Sodium Chloride IV 10/05/24 22:59 100 mls/hr Q6H BIMAL Administration Miscellaneous 1 each 09/25/24 19:00 09/25/24 20:16 Vancomycin Consult Request NOTAPPLIC 10/25/24 18:59 Not Given CONSULT PHARMACY [facility] Non-Formulary Medication 20 mg 09/26/24 09:00 Pantoprazole PO 10/26/24 08:59 DAILY BIMAL Nystatin 500,000 unit 09/25/24 21:00 09/25/24 21:13 Nystatin Susp 500,000 Units/5ml Udc PO 10/25/24 20:59 500,000 unit QID BIMAL Administration Pantoprazole Sodium 40 mg 09/25/24 21:00 09/25/24 20:25 Pantoprazole 40mg Tablet PO 10/25/24 20:59 40 mg HS BIMAL Administration Discontinued Medications Generic Name Dose Route Start Last Admin Trade Name Freq PRN Reason Stop Dose Admin Acetaminophen 1,000 mg 09/25/24 14:51 09/25/24 15:44 Acetaminophen 1,000mg/100ml Vial IV 09/25/24 14:52 1,000 mg ONCE ONE Administration Lactated Ringer's 1,000 mls @ 999 mls/hr 09/25/24 14:29 09/25/24 14:51 Lactated Ringer's 1000 Ml Bag IV 09/25/24 15:29 999 mls/hr .Q1H1M ONE Administration Lactated Ringer's 1,780 mls @ 890 mls/hr 09/25/24 14:51 09/25/24 17:45 Lactated Ringer's 1000 Ml Bag 30 ml/kg infuse over 2 hr (1780 ml) 09/25/24 16:50 890 mls/hr IV Administration .Q2H ONE Vancomycin HCl 1,200 mg/ 250 mls @ 125 mls/hr 09/25/24 16:28 09/25/24 17:48 Sodium Chloride IV 09/25/24 16:29 Not Given ONCE ONE Piperacillin Sod/Tazobactam 100 mls @ 200 mls/hr 09/25/24 16:28 09/25/24 16:45 Sod 4.5 gm/ Sodium Chloride IV 09/25/24 16:57 200 mls/hr ONCE ONE Administration Vancomycin/PEG/NADA/Lysine/Water 1.25 gm in 250 mls @ 125 mls/hr 09/25/24 17:00 09/25/24 17:31 Vancomycin 1.25gm/250ml (Peg) Premix IV 09/25/24 18:59 125 mls/hr ONCE ONE Administration Iopamidol 150 ml 09/25/24 15:31 09/25/24 15:32 Iopamidol-370 (76%);100ml Bottle IV 09/25/24 15:32 150 ml ONCE ONE Administration Sodium Chloride 50 ml 09/25/24 15:31 09/25/24 15:32 0.9 % Sodium Chloride 50 Ml Vial IV 09/25/24 15:32 50 ml ONCE ONE Administration Sodium Chloride 10 ml 09/25/24 15:31 09/25/24 15:32 Sodium Chloride 0.9% 10ml Syr (Rad Only) IV 09/25/24 15:32 10 ml ONCE ONE Administration ORDERS Category Date Time Status CT abdomen pelvis w con Stat Cat Scan 09/25/24 14:[address] angio chest PE protocol Stat Cat Scan 09/25/24 14:[address] angio head Stat Cat Scan 09/25/24 14:[address] angio neck Stat Cat Scan 09/25/24 14:[address] cervical spine wo con Stat Cat Scan 09/25/24 14:[address] head/brain wo con Stat Cat Scan 09/25/24 14:26 Completed Activated Partial Thrombo Time Stat Lab 09/25/24 14:25 Completed Ammonia Stat Lab 09/25/24 14:59 Completed Complete Blood Count Auto Diff AMLAB Lab 09/26/24 06:00 Ordered Complete Blood Count Auto Diff Stat Lab 09/25/24 14:25 Completed Comprehensive Metabolic Panel AMLAB Lab 09/26/24 06:00 Ordered Comprehensive Metabolic Panel Stat Lab 09/25/24 14:25 Completed Creatine Kinase Stat Lab 09/25/24 14:25 Completed Free T4 (Free Thyroxine) Stat Lab 09/25/24 14:25 Completed Lipase Stat Lab 09/25/24 14:25 Completed Magnesium AMLAB Lab 09/26/24 06:00 Ordered Magnesium Stat Lab 09/25/24 14:25 Completed Phosphorous AMLAB Lab 09/26/24 06:00 Ordered Prothrombin Time INR Stat Lab 09/25/24 14:25 Completed Rapid PCR Covid and Flu A/B Stat Lab 09/25/24 14:45 Completed Thyroid Stimulating Hormone Stat Lab 09/25/24 14:25 Completed Troponin I Q3H Lab 09/25/24 17:55 Completed Troponin I Q3H Lab 09/25/24 18:52 Completed Troponin I Stat Lab 09/25/24 14:25 Completed Urinalysis and Microscopic Stat Lab 09/25/24 15:46 Completed Blood Culture Stat Micro 09/25/24 14:38 Received Venous Blood Gas Stat RT 09/25/24 14:25 Completed ECG Data Tracing #1: I reviewed this ECG and interpreted as documented below: Normal sinus rhythm with a ventricular rate of [address] changes concerning for STEMI. Right bundle branch block. Normal intervals otherwise ECG initial impression date: 09/25/24 ECG initial impression time: 14:26 Medical Decision Narrative: In summary, this patient is a 83-year-old female presenting to the Emergency Department for evaluation of fever, low blood pressure, poor oral intake, altered mental status for several days. Differential diagnoses considered include but are not limited to sepsis, CVA, intracranial hemorrhage, pneumonia, UTI, toxic metabolic encephalopathy, electrolyte derangements. Ruling out the most morbid conditions drove assessment. It should be noted patient's history includes general debility, immobile status with multiple chronic contractures, schizoaffective disorder, bipolar disorder, pulmonary hypertension, mitral regurgitation which may or may not be at goal therapy. This complicates all aspects of care by increasing patient's risk for morbidity. I reviewed patient's past medical records and noted evaluation here by myself 09/11/2024 for forehead hematoma and chronic femur fracture after a ground-level fall as detailed in HPI. On exam, the patient is lying in bed, very chronically ill-appearing. She has dry mucous membranes and is very slow to respond. She is able to tell me her name and that she is in the hospital but otherwise does not contribute at all to history or answer any questions. Cardiopulmonary exam is reassuring. She has fever noted on vital signs, but otherwise vitals are reassuring. Workup included broad lab evaluation to evaluate for infectious, metabolic, tox derangements as well as CT scan of the head, CT angiogram head and neck, CT C-spine, CTA chest, and CT abdomen pelvis with IV contrast to look for any evidence of source of sepsis/infection or altered mental status. She was given IV acetaminophen and a sepsis bolus of IV fluids given her fever. EKG obtained is reassuring with right bundle branch block but no acute ischemia. Ultimately, patient care was signed out to the incoming provider, Dr. Juan, pending workup. <Felix Juan MD - Last Filed: 09/26/24 02:12> Vital Signs: 09/25/24 14:37 09/25/24 15:00 09/25/24 15:18 Temperature 100.8 F H Temperature Source Rectal Pulse Rate 76 78 Pulse Rate [Right] 83 Respiratory Rate 22 32 H 32 H Blood Pressure 110/67 119/59 L Blood Pressure [Right Arm] 112/57 L Blood Pressure Mean Blood Pressure Mean [Right Arm] 75 02 Sat by Pulse Oximetry 96 98 98 Oxygen Delivery Method Nasal Cannula Oxygen Flow Rate (LPM) 2 09/25/24 16:00 09/25/24 16:15 09/25/24 17:16 Temperature 99.1 F 99.0 F 99.0 F Temperature Source Pulse Rate Pulse Rate [Right] Respiratory Rate Blood Pressure 112/50 L 107/44 L 87/44 L Blood Pressure [Right Arm] Blood Pressure Mean Blood Pressure Mean [Right Arm] 02 Sat by Pulse Oximetry Oxygen Delivery Method Oxygen Flow Rate (LPM) 09/25/24 17:21 09/25/24 17:30 09/25/24 17:34 Temperature 99.0 F 99.0 F 99.0 F Temperature Source Pulse Rate 70 68 Pulse Rate [Right] Respiratory Rate 16 14 Blood Pressure 104/41 L 87/39 L 90/76 L Blood Pressure [Right Arm] Blood Pressure Mean Blood Pressure Mean [Right Arm] 02 Sat by Pulse Oximetry 98 98 Oxygen Delivery Method Oxygen Flow Rate (LPM) 09/25/24 17:45 09/25/24 18:00 09/25/24 18:15 Temperature 99.0 F 98.8 F 98.6 F Temperature Source Core Pulse Rate 66 67 65 Pulse Rate [Right] Respiratory Rate 16 18 14 Blood Pressure 100/46 L 105/45 L 106/51 L Blood Pressure [Right Arm] Blood Pressure Mean 72 Blood Pressure Mean [Right Arm] 02 Sat by Pulse Oximetry 99 100 99 Oxygen Delivery Method Nasal Cannula Oxygen Flow Rate (LPM) 2 09/25/24 18:15 09/25/24 18:16 09/25/24 18:17 Temperature 98.6 F 98.6 F 98.6 F Temperature Source Pulse Rate 65 67 68 Pulse Rate [Right] Respiratory Rate 18 14 11 L Blood Pressure Blood Pressure [Right Arm] Blood Pressure Mean Blood Pressure Mean [Right Arm] 02 Sat by Pulse Oximetry 97 99 99 Oxygen Delivery Method Oxygen Flow Rate (LPM) 09/25/24 18:18 09/25/24 18:19 09/25/24 18:20 Temperature 98.6 F 98.6 F 98.6 F Temperature Source Pulse Rate 65 66 63 Pulse Rate [Right] Respiratory Rate 17 17 16 Blood Pressure Blood Pressure [Right Arm] Blood Pressure Mean Blood Pressure Mean [Right Arm] 02 Sat by Pulse Oximetry 98 99 99 Oxygen Delivery Method Oxygen Flow Rate (LPM) 09/25/24 18:21 09/25/24 18:22 09/25/24 18:23 Temperature 98.6 F 98.6 F 98.6 F Temperature Source Pulse Rate 65 65 65 Pulse Rate [Right] Respiratory Rate 17 16 16 Blood Pressure Blood Pressure [Right Arm] Blood Pressure Mean Blood Pressure Mean [Right Arm] 02 Sat by Pulse Oximetry 99 97 98 Oxygen Delivery Method Oxygen Flow Rate (LPM) 09/25/24 18:24 09/25/24 18:25 09/25/24 18:26 Temperature 98.6 F 98.6 F 98.6 F Temperature Source Pulse Rate 64 63 63 Pulse Rate [Right] Respiratory Rate 18 17 18 Blood Pressure Blood Pressure [Right Arm] Blood Pressure Mean Blood Pressure Mean [Right Arm] 02 Sat by Pulse Oximetry 98 99 98 Oxygen Delivery Method Oxygen Flow Rate (LPM) 09/25/24 18:27 09/25/24 18:28 09/25/24 18:29 Temperature 98.4 F 98.4 F 98.4 F Temperature Source Pulse Rate 65 65 64 Pulse Rate [Right] Respiratory Rate 16 18 15 Blood Pressure Blood Pressure [Right Arm] Blood Pressure Mean Blood Pressure Mean [Right Arm] 02 Sat by Pulse Oximetry 98 99 98 Oxygen Delivery Method Oxygen Flow Rate (LPM) 09/25/24 18:30 09/25/24 18:30 09/25/24 18:31 Temperature 98.4 F 98.4 F Temperature Source Pulse Rate 65 65 Pulse Rate [Right] Respiratory Rate 15 16 Blood Pressure 94/45 L Blood Pressure [Right Arm] Blood Pressure Mean 69 Blood Pressure Mean [Right Arm] 02 Sat by Pulse Oximetry 99 99 Oxygen Delivery Method Oxygen Flow Rate (LPM) 09/25/24 18:32 09/25/24 18:33 09/25/24 18:34 Temperature 98.4 F 98.4 F 98.4 F Temperature Source Pulse Rate 63 66 64 Pulse Rate [Right] Respiratory Rate 18 17 17 Blood Pressure Blood Pressure [Right Arm] Blood Pressure Mean Blood Pressure Mean [Right Arm] 02 Sat by Pulse Oximetry 98 98 99 Oxygen Delivery Method Oxygen Flow Rate (LPM) 09/25/24 18:35 09/25/24 18:41 Temperature 98.9 F Temperature Source Pulse Rate 69 Pulse Rate [Right] Respiratory Rate 16 16 Blood Pressure 94/45 L Blood Pressure [Right Arm] Blood Pressure Mean Blood Pressure Mean [Right Arm] 02 Sat by Pulse Oximetry Oxygen Delivery Method Nasal Cannula Oxygen Flow Rate (LPM) 2 Lab Data Lab Results 09/25/24 14:25: WBC 12.6 H, RBC 5.58 H, Hgb 15.4, Hct 48.8 H, MCV 87.5, MCH 27.6, MCHC 31.6 L, RDW 15.4, Plt Count 289, MPV 13.0 H, Neut % (Auto) 80.5 H, Lymph % (Auto) 10.4, [place] % (Auto) 8.2, Eos % (Auto) 0.2, Baso % (Auto) 0.3, Neut # (Auto) 10.2 H, Lymph # (Auto) 1.3, [place] # (Auto) 1.0, Eos # (Auto) 0.0, Baso # (Auto) 0.0, PT 11.1, INR 1.00, APTT 24.8, VBG pH 7.38, VBG pCO2 45.0, VBG pO2 53.5 H, VBG HCO3 26.0, VBG Total CO2 27.4 H, VBG O2 Saturation 86.4 H, VBG Base Excess 0.9, VBG Lactic Acid 2.0, Sodium 152 H*, Potassium 3.9, Chloride 112 H, Carbon Dioxide 29, Anion Gap 14.9, BUN 49 H, Creatinine 0.80, Estimated GFR 69, Est GFR ( Amer) 83, Glucose 191 H, Calcium 9.4, Magnesium 2.6 H, Total Bilirubin 0.5, AST 34, ALT 23, Alkaline Phosphatase 67, Total Creatine Kinase 176 H, Troponin I 0.07 H, Total Protein 6.9, Albumin 4.0, Globulin 2.9, Albumin/Globulin Ratio 1.4, Lipase 112, TSH 1.16, Free T4 1.43 09/25/24 14:45: SARS-CoV-2 (PCR) Not detected, Influenza A Untype (PCR) Not detected, Influenza Type B (PCR) Not detected 09/25/24 14:59: Ammonia < 9 L 09/25/24 15:46: Urine Color Yellow, Urine Appearance Clear, Urine pH 6.0, Ur Specific [place] 1.025, Urine Protein Trace, Urine Glucose (UA) Negative, Urine Ketones 2+, Urine Blood Negative, Urine Nitrate Negative, Urine Bilirubin 2+ A, Urine Urobilinogen 0.2, Ur Leukocyte Esterase Negative, Urine WBC 5-10, Ur Squamous Epith Cells 3-5, Urine Bacteria Trace, Urine Mucus 2+ 09/25/24 17:55: Troponin I 0.06 H Orders (Tests/Meds): ED MEDICATIONS Generic Name Dose Route Start Last Admin Trade Name Freq PRN Reason Stop Dose Admin Acetaminophen 650 mg 09/25/24 17:51 Acetaminophen 325mg Tab PO 10/25/24 17:50 Q4HP PRN Fever or Mild Pain (1-3) Baclofen 10 mg 09/25/24 22:40 Baclofen 10mg Tablet PO 10/25/24 22:39 TIDP PRN Muscle Spasm Clopidogrel Bisulfate 75 mg 09/26/24 09:00 Clopidogrel 75mg Tab PO 10/26/24 08:59 DAILY [facility] Enoxaparin Sodium 60 mg 09/25/24 18:00 09/25/24 18:09 Enoxaparin 100mg/Ml Syringe 1 mg/kg (60 mg) 10/25/24 17:59 60 mg SUBCUT Administration Q12H BIMAL Vancomycin HCl 750 mg/ Sodium 250 mls @ 125 mls/hr 09/26/24 04:45 Chloride IV 09/26/24 06:44 ONCE ONE Lactated Ringer's 1,000 mls @ 100 mls/hr 09/25/24 18:00 09/25/24 18:11 Lactated Ringer's 1000 Ml Bag IV 10/25/24 17:59 100 mls/hr .Q10H BIMAL Administration Piperacillin Sod/Tazobactam 50 mls @ 100 mls/hr 09/25/24 23:00 09/25/24 22:54 Sod 3.375 gm/ Sodium Chloride IV 10/05/24 22:59 100 mls/hr Q6H BIMAL Administration Miscellaneous 1 each 09/25/24 19:00 09/25/24 20:16 Vancomycin Consult Request NOTAPPLIC 10/25/24 18:59 Not Given CONSULT PHARMACY [facility] Non-Formulary Medication 20 mg 09/26/24 09:00 Pantoprazole PO 10/26/24 08:59 DAILY BIMAL Nystatin 500,000 unit 09/25/24 21:00 09/25/24 21:13 Nystatin Susp 500,000 Units/5ml Udc PO 10/25/24 20:59 500,000 unit QID BIMAL Administration Pantoprazole Sodium 40 mg 09/25/24 21:00 09/25/24 20:25 Pantoprazole 40mg Tablet PO 10/25/24 20:59 40 mg HS BIMAL Administration Discontinued Medications Generic Name Dose Route Start Last Admin Trade Name Freq PRN Reason Stop Dose Admin Acetaminophen 1,000 mg 09/25/24 14:51 09/25/24 15:44 Acetaminophen 1,000mg/100ml Vial IV 09/25/24 14:52 1,000 mg ONCE ONE Administration Lactated Ringer's 1,000 mls @ 999 mls/hr 09/25/24 14:29 09/25/24 14:51 Lactated Ringer's 1000 Ml Bag IV 09/25/24 15:29 999 mls/hr .Q1H1M ONE Administration Lactated Ringer's 1,780 mls @ 890 mls/hr 09/25/24 14:51 09/25/24 17:45 Lactated Ringer's 1000 Ml Bag 30 ml/kg infuse over 2 hr (1780 ml) 09/25/24 16:50 890 mls/hr IV Administration .Q2H ONE Vancomycin HCl 1,200 mg/ 250 mls @ 125 mls/hr 09/25/24 16:28 09/25/24 17:48 Sodium Chloride IV 09/25/24 16:29 Not Given ONCE ONE Piperacillin Sod/Tazobactam 100 mls @ 200 mls/hr 09/25/24 16:28 09/25/24 16:45 Sod 4.5 gm/ Sodium Chloride IV 09/25/24 16:57 200 mls/hr ONCE ONE Administration Vancomycin/PEG/NADA/Lysine/Water 1.25 gm in 250 mls @ 125 mls/hr 09/25/24 17:00 09/25/24 17:31 Vancomycin 1.25gm/250ml (Peg) Premix IV 09/25/24 18:59 125 mls/hr ONCE ONE Administration Iopamidol 150 ml 09/25/24 15:31 09/25/24 15:32 Iopamidol-370 (76%);100ml Bottle IV 09/25/24 15:32 150 ml ONCE ONE Administration Sodium Chloride 50 ml 09/25/24 15:31 09/25/24 15:32 0.9 % Sodium Chloride 50 Ml Vial IV 09/25/24 15:32 50 ml ONCE ONE Administration Sodium Chloride 10 ml 09/25/24 15:31 09/25/24 15:32 Sodium Chloride 0.9% 10ml Syr (Rad Only) IV 09/25/24 15:32 10 ml ONCE ONE Administration ORDERS Category Date Time Status CT abdomen pelvis w con Stat Cat Scan 09/25/24 14:[address] angio chest PE protocol Stat Cat Scan 09/25/24 14:[address] angio head Stat Cat Scan 09/25/24 14:[address] angio neck Stat Cat Scan 09/25/24 14:[address] cervical spine wo con Stat Cat Scan 09/25/24 14:[address] head/brain wo con Stat Cat Scan 09/25/24 14:26 Completed Activated Partial Thrombo Time Stat Lab 09/25/24 14:25 Completed Ammonia Stat Lab 09/25/24 14:59 Completed Complete Blood Count Auto Diff AMLAB Lab 09/26/24 06:00 Ordered Complete Blood Count Auto Diff Stat Lab 09/25/24 14:25 Completed Comprehensive Metabolic Panel AMLAB Lab 09/26/24 06:00 Ordered Comprehensive Metabolic Panel Stat Lab 09/25/24 14:25 Completed Creatine Kinase Stat Lab 09/25/24 14:25 Completed Free T4 (Free Thyroxine) Stat Lab 09/25/24 14:25 Completed Lipase Stat Lab 09/25/24 14:25 Completed Magnesium AMLAB Lab 09/26/24 06:00 Ordered Magnesium Stat Lab 09/25/24 14:25 Completed Phosphorous AMLAB Lab 09/26/24 06:00 Ordered Prothrombin Time INR Stat Lab 09/25/24 14:25 Completed Rapid PCR Covid and Flu A/B Stat Lab 09/25/24 14:45 Completed Thyroid Stimulating Hormone Stat Lab 09/25/24 14:25 Completed Troponin I Q3H Lab 09/25/24 17:55 Completed Troponin I Q3H Lab 09/25/24 18:52 Completed Troponin I Stat Lab 09/25/24 14:25 Completed Urinalysis and Microscopic Stat Lab 09/25/24 15:46 Completed Blood Culture Stat Micro 09/25/24 14:38 Received Venous Blood Gas Stat RT 09/25/24 14:25 Completed Medical Decision Narrative: In summary, this patient is a 83-year-old female presenting to the Emergency Department for evaluation of fever, low blood pressure, poor oral intake, altered mental status for several days. Differential diagnoses considered include but are not limited to sepsis, CVA, intracranial hemorrhage, pneumonia, UTI, toxic metabolic encephalopathy, electrolyte derangements. Ruling out the most morbid conditions drove assessment. It should be noted patient's history includes general debility, immobile status with multiple chronic contractures, schizoaffective disorder, bipolar disorder, pulmonary hypertension, mitral regurgitation which may or may not be at goal therapy. This complicates all aspects of care by increasing patient's risk for morbidity. I reviewed patient's past medical records and noted evaluation here by myself 09/11/2024 for forehead hematoma and chronic femur fracture after a ground-level fall as detailed in HPI. On exam, the patient is lying in bed, very chronically ill-appearing. She has dry mucous membranes and is very slow to respond. She is able to tell me her name and that she is in the hospital but otherwise does not contribute at all to history or answer any questions. Cardiopulmonary exam is reassuring. She has fever noted on vital signs, but otherwise vitals are reassuring. Workup included broad lab evaluation to evaluate for infectious, metabolic, tox derangements as well as CT scan of the head, CT angiogram head and neck, CT C-spine, CTA chest, and CT abdomen pelvis with IV contrast to look for any evidence of source of sepsis/infection or altered mental status. She was given IV acetaminophen and a sepsis bolus of IV fluids given her fever. EKG obtained is reassuring with right bundle branch block but no acute ischemia. Ultimately, patient care was signed out to the incoming provider, Dr. Juan, pending workup. I, Felix Juan, assumed care of this patient and reviewed her workup. Notable findings include hyponatremia with sodium of 152 (was previously been within normal ranges), lactate normal at 2, leukocytosis with white blood cell count of 12.6, urine with negative nitrates, negative leukocyte esterase, 5-10 white blood cells and trace bacteria. 2+ urine bilirubin. No evidence of UTI on her UA. Negative viral respiratory panel. CT imaging was interpreted by me personally. Findings significant for a right lower lobe pulmonary embolism without signs of right heart strain. There is some bilateral bronchial wall thickening as well.There is evidence of cholelithiasis but no cholecystitis on CT imaging. She does have mildly dilated biliary ducts. No acute vascular pathology within the head or neck. No intracranial hemorrhage. Given concern for sepsis with her fever, hypotension, leukocytosis, broad-spectrum antibiotics were initiated that included Zosyn and vancomycin. Per chart review, patient is reportedly taking Plavix. I then discussed patient's case with the hospitalist, Dr. Galvez, who agreed to admit the patient. Critical Care <Theresa Calderon, - Last Filed: 09/25/24 14:55> Critical Care Time Critical Care Time: No
[2024-09-25 14:37] LABS: Hematocrit 48.8 % (37.0-47.0); Hemoglobin 15.4 g/dL (12.2-16.2); Immature Granulocytes % 0.4 %; Mean Corpuscular HGB Conc 31.6 g/dL (31.8-35.4); Mean Corpuscular Hemoglobin 27.6 pg (27.0-31.2); Mean Corpuscular Volume 87.5 fl (81-99); Nucleated Red Blood Cells % 0 %; Platelet Count 289 K/mm3 (142-424); Red Blood Count 5.58 M/mm3 (4.20-5.40); Red Cell Distribution Width-SD 49.5 fL; White Blood Count 12.6 K/mm3 (4.8-10.8)
[2024-09-25 14:38] LABS: Lactate Venous 2.0 mmol/L (0.4-2.0); VBG HCO3 26.0 mmol/L (23-30); VBG PCO2 45.0 mmol/L (35-51); VBG PH 7.38 mmol/L (7.31-7.41); VBG PO2 53.5 mmol/L (28-40)
[2024-09-25 14:44] LABS: INR 1.00 (0.9-1.1); Prothrombin Time 11.1 seconds (10.1-12.5)
[2024-09-25 14:48] LABS: Alanine Aminotransferase 23 U/L (12-78); Albumin Level 4.0 g/dl (3.5-5.0); Albumin/Globulin Ratio 1.4 (1.1-1.8); Alkaline Phosphatase 67 U/L (38-126); Anion Gap 14.9 mEq/L (5-15); Aspartate Amino Transferase 34 U/L (14-36); Bilirubin,Total 0.5 mg/dl (0.2-1.3); Blood Urea Nitrogen 49 mg/dl (7-17); Calcium 9.4 mg/dl (8.4-10.2); Carbon Dioxide 29 mmol/L (22.0-30.0); Chloride 112 mmol/L (98-107); Creatine Kinase 176 U/L (30-135); Creatinine,Serum 0.80 mg/dl (0.52-1.04); Estimated Glomerular Filt Rate 69 ml/min (>60); GFR (African American) 83 ML/MIN (>60); Globulin 2.9 g/dL (1.3-3.2); Glucose 191 mg/dl (74-100); Lipase 112 U/L (23-300); Magnesium 2.6 mg/dl (1.6-2.3); Potassium 3.9 mmoL/L (3.5-5.1); Total Protein,Serum 6.9 g/dl (6.3-8.2)
--- OUTSIDE RECORDS SUMMARY | 2024-09-25 14:48 | XMS_ITS | Clinical Summary ---
Author Organization [facility] Address [address] [place] [address] Phone Care Team Providers Care Financial Quantitative Analyst Name Role Phone Unavailable Primary Care Provider [...] - 2023-2 5 season) 2023 Influenza Vaccine (#1) 2024 Hepatitis B Vaccine Aged Out No longe r eligible based on patient's age to complete this topic Meningococcal B Vaccine Aged Out No l onger eligible based on patient's age to complete this topic Insurance [place] [address] [place]ICAID [place]
--- OUTSIDE RECORDS SUMMARY | 2024-09-25 14:48 | XMS_ITS | Encounter Summary ---
Author Organization [facility] Address [address] [place] [address] Care Team Providers Care Block Layer Name Role Phone Jose Schmidt MD Primary Care Provider [phone] Encounter Details Date Type Department Care Team (Late st Contact Info) Description 08/05/2024 Telephone [facility] [address] [phone] Dental, Surgeon, [address] [place] [id number] Social History Tobacco Use Types Packs/Day [...] documented as of this encounter Care Teams Block Layer Relationship Specialty Start Date End Date Jose Schmidt MD [address] [place] [address] PCP - General 11/12/21 documented as of this encounter
--- OUTSIDE RECORDS SUMMARY | 2024-09-25 14:48 | XMS_ITS | Clinical Summary ---
Author Organization Healthcare Address [address] [id number] Care Team Providers Care Precast Concrete Ironworker Name Role Phone Jose Schmidt MD Primary Care Provider [phone] Allergies No known active allergies Medications fluticasone [...] Department Care Team Description 08/05/2024 Telephone [facility] [address] [phone] Dental, SurgeonMD 06/28/2024 2:30 PM EDT Evaluation [facility] [address] [phone] Mata Johnson DDS Dental caries (Primary Dx) 06/28/2024 Abstract [facility] [address] [phone] Dental, SurgeonMD 06/28/2024 Travel from [...] Full Mouth 1942 [facility]Bone Density Scan 1942 [facility]-Medicare Annual Wellness (AWV) 1942 [facility]-Infant/Child/Adol SDOH Screenings 1942 [facility]- SDOH Screenings 1960 [facility]-Adult SDOH Screenings 1960 [facility]-Pneumococcal Vaccine: 50+ Years (1 of 1 - PCV) 1992 [facility]-Zoster Vaccines (1 of 2) 1992 [facility]-DTaP,Tdap,and Td Vaccines (1 - Tdap) 06/21/2009 06/20/2009 [facility]-RSV Vaccine: 60+ Years or (1 - 1-dose 75+ series) 2017 [facility]-Depression Screening 11/12/2022 11/12/2021 [id number]-03 Vaccine (3 - 2024-25 season) 2023 05/01/2020, 04/10/2020 [facility]-Influenza Vaccine (#1) 2024 HPV Vaccines Aged Out No longer [...] Documents on File Type Date Recorded Patient Group Leader Semiconductor Processing Expl anation Power of Hadoop Consultant 11/09/2023 Care Teams Precast Concrete Ironworker Relationship Specialty Start Date End Date Jose Schmidt MD [address] [place] [address] PCP - General 11/12/21
--- OUTSIDE RECORDS SUMMARY | 2024-09-25 14:48 | XMS_ITS | Data Portability ---
Author Organization [facility] [place] [facility] Address [address] [facility] [address] [place] [address] Assessment Encounter Date Assessment Date Assessment LastModified by Organization Details LastModified Time 02/20/2022 02/20/2022 Medical management of increased frequency of urination with trospium. She request evaluation by physical therapy and Occupational Therapy. [email or web address] Not available 02/20/2022 18:51:00 06/12/2022 06/12/2022 Medical management of increased frequency of urination with trospium. Follow up in 6 months. Not available 06/13/2022 08:04:46 Plan of Treatment [...] By Organization Details Last Modified Time 02/20/2022 [id number] learning about healthy weight [email or web address] Not available 02/20/2022 18:50:49 06/12/2022 [id number] learning about healthy weight [email or web address] Not available 06/16/2022 09:10:31 Reason for Referral None Reported. Medical Equipment None Reported. Allergies Allergen ID Allergen Name Allergen Category Reaction Reaction Severity Criticality Documentation Date Start Date Code Code System Note Provider Name and Address Organization Details Recorded Time 094786 aspirin medicatio n Not available Not available Not available 02/20/2022 1191 RxNorm Emiliana prabhakar [facility] 14:50:35 665549 codeine medicatio n Not available Not available Not available 02/20/2022 2670 [facility] 15:20:11 039805 ibuprofen medicatio n Not available Not available Not available 02/20/2022 5640 RxNorm Murelene Bebeto [facility] 2 15:21:01 366919 naproxen medicatio n Not available Not available Not available 02/20/2022 7258 [facility] 15:21:09 043976 Product containin g glucocort icoid (product) medicatio n Not available Not available Not available 02/20/2022 00254 6006 SNOMED Murelene Bebeto [facility] 2 15:21:20 836043 Voltaren medicatio n Not available Not available Not available 02/20/202238554 6 RxNorm Murelene Bebeto [facility] 2 15:21:34 Medications Name Sig Start [...] Updated DateTime 06/12/2022 171.45 cm 19.8 kg/m2 11638.82 brodie Hopson Bebeto [facility] 06/12/2022 14:25:25 Date Recorded Body height Body mass index (BMI) Body weight Provider Name and Address Organization Details Last Updated DateTime 02/20/2022 171.45 cm 19.9 kg/m2 48081.7 brodie Hopson Bebeto [facility] 02/20/2022 14:50:01 Social History Question Answer Notes LastModified by Organizat ion Details LastModified Time Tobacco Smoking Status Current Every Day Smoker Taysam Oconnellt [facility] 02/20/2022 15:35:51 What Was The Date [...] Condition Response Heart Arrhythmia Y Depression Y Anesthesia Complications Y Anxiety Disorder Y Arthritis Y High Cholesterol Y Allergies/Hayfever Y Chronic Obstructive Pulmonary Disease Y Heart Attack ([place]) Y Tuberculosis Y Asthma Y Sleep Apnea Y Heart Disease Y Gynecological HistoryNo gynecological history recorded. Obstetrics History GPAL:G 0 P 0 0 0 0 Past Encounters Encounter ID Performer Location Encounter Start Date Encounter Closed Date Diagnosis/Indication Diagnosis SNOMED-CT Code Diagnosis ICD10 Code Diagnosis Note [id number] AYANNA MACHADO MD [facility] [address] [place] [address] ,[place] [address] 02/20/2022 14:13:16 02/21/2022 13:45:25 Nocturia 709365765 R35.1 Increased frequency of urination 751476463 R35.0 Urge incon tinence of urine 49844666 N39.41 [id number] AYANNA MACHADO MD [facility] [address] [place] [address] ,[facility] [place] [address] 06/12/2022 13:56:35 06/14/2022 04:26:55 Increased frequency of urination 002089405 R35.0 Nocturia 966300892 R35.1 Urge incon tinence of urine 13812258 N39.41 Health Concerns Section Related Observation LastModified by Organization Detai ls LastModified Time None Recorded Concern Status LastModified by Organization Details LastModified Time None Recorded Advance Directives Directive None Recorded Payers Insurance Date Sequence Insurance Name Policy Number Policy Jennings Covered Member ID Jennings Member ID Guarantor Name 05/21/2022 1 MEDICARE-ID (MEDICARE) Paulina Escobar [id number] Paulina Escobar 05/21/2022 2 [place] [employer] [place] FFS/TRADITIO NAL Paulina Escobar [id number] Paulina Escobar Notes Date Note Type Note Provider Name and Address Organization Details Recorded Time 02/20/2022 text/html 81-year-old female in the office for my initial evaluation and for discussion of urinary incontinence. She takes myrbetriq and oxybutynin. She is a resident [facility] assisted living. She is wheel-chair bound. She has arthritis, restless legs syndrome. Daytime frequency hourly. Nocturia 5 times. She has urinary urgency with urge incontinence. No gross hematuria. No dysuria. Bothersome diarrhea. AYANNA MACHADO MD [address] [place] [address], [phone], [facility] 02/20/2022 18:51:13 06/12/2022 text/html 81-year-old female in the office for evaluation and for discussion of urinary incontinence. Trospium has improved her urinary symptoms. She wears adult diapers. She is a resident [facility] assisted living. She is wheel-chair bound. She has arthritis, restless legs syndrome. Daytime frequency every three hours, improved. Nocturia 4 times. She has improved urinary urgency with urge incontinence. No gross hematuria. No dysuria. AYANNA MACHADO MD [address] [place] [address], [phone], [facility] 06/13/2022 08:05:03 OBGyn Episode No OBEpisode recorded.
[2024-09-25] MEDS: LACTATED RINGERS 1000ML 1,000 ML 999 ML IV (14:51)
[2024-09-25 14:52] LABS: Sodium 152 mmol/L (136-145)
[2024-09-25 14:52] LABS: Coronavirus 19, PCR Not Detected (NotDetected); Influenza A, PCR Not Detected (NotDetected); Influenza B, PCR Not Detected (NotDetected)
[2024-09-25 14:58] LABS: Activated Partial Thrombo Time 24.8 seconds (22.8-30.6)
[2024-09-25 15:00] LABS: Troponin I 0.07 ng/ml (0.00-0.034)
[2024-09-25 15:16] LABS: Ammonia < 9 umol/L (9-30)
[2024-09-25 15:19] LABS: Thyroid Stimulating Hormone 1.16 uIU/mL (0.465-4.68)
[2024-09-25] MEDS: IOPAMIDOL-370 (76%);100ML BOTTLE 150 ML IV (15:32)
[2024-09-25] MEDS: 0.9 % SODIUM CHLORIDE 50 ML VIAL IV (15:32)
[2024-09-25] MEDS: SODIUM CHLORIDE 0.9% 10ML SYR (RAD ONLY) 10 ML IV (15:32)
[2024-09-25] MEDS: ACETAMINOPHEN 1,000MG/100ML VIAL 1000 MG IV (15:44)
[2024-09-25 15:52] LABS: Microscopic, Urine URINE MICROSCOPIC (MICROSCOPIC)
[2024-09-25 15:54] LABS: Color,Urine YELLOW (Yellow); Glucose,Urine (UA) Negative (Negative); Ketones,Urine 2+ (Negative); Leukocyte Esterase,Urine Negative (Negative); PH,Urine 6.0 (5.0-8.5); Protein,Urine TRACE (Negative); Specific Gravity, Urine 1.025 (1.005-1.030); Urobilinogen,Urine 0.2 EU/dl (0.2)
[2024-09-25 16:08] LABS: Bacteria,Urine Trace /lpf; Bilirubin,Urine 2+ (Negative)
[2024-09-25 16:09] LABS: Mucus,Urine 2+ /lpf
[2024-09-25] MEDS: PIPERACILLIN/TAZO 4.5 GM in 0.9 % SODIUM CHLORIDE 100 ML IV (16:45)
[2024-09-25 17:03] LABS: Free T4 (Free Thyroxine) 1.43 ng/dl (0.78-2.19)
[2024-09-25] MEDS: VANCOMYCIN/WATER FOR INJ (PEG) 1.25 GM/250 ML PIGGYBACK IV (17:31)
[2024-09-25] MEDS: LACTATED RINGERS 1000ML 1,780 ML 890 ML IV (17:45)
--- NOTE | 2024-09-25 17:54 | EXP.HP ---
History of Present Illness *Admission Date: 09/25/24 *Reason for visit:: Decreased p.o. intake *History of present illness: Ms. Escobar is an 83-year-old female who resides [facility]. Long history of osteoporosis, bipolar disorder, schizoaffective disorder, iron deficiency anemia, chronic contractures, functional quadriplegia, chronic femur fracture, COPD and pulmonary hypertension. She presented to the ER because of concern for worsening encephalopathy/altered mental status. Nursing facility reported that she has been less verbal, had poor p.o. intake. Normally she is conversant. According to EMS, she speaks some though is confused at baseline. History obtained from ER documentation and minimal from patient. Workup in the ER patient was found to be tachycardic, tachypnea, elevated white count. At this time being SIRS criteria. Workup with CTA of the chest showed PE in right upper lobe. Cultures obtained. Empiric antibiotics initiated. Medicine consulted for admission and further management of suspected sepsis. On arrival to the special care unit, patient is alert and interactive. Afebrile, O2 sats low 90s on 2 L. Reports she is eating less. States her mouth is sore due to thrush. States her last bowel movement was earlier today [facility] Disclaimer: The information contained in this section may have been updated after the patient was seen, as this information can be updated by other users. Medical History Dermatitis Pyoderma Major depressive disorder Dysphagia Contracture, left hand COPD (chronic obstructive pulmonary disease) Chronic hypoxic respiratory failure Pulmonary hypertension Moderate mitral regurgitation Edema Low serum vitamin B12 Diastolic dysfunction Mitral regurgitation Acute hypokalemia Injury of left rotator cuff Fall Umbilical hernia without obstruction or gangrene Major depressive disorder, recurrent, unspecified Fracture of proximal phalanx of left ring finger Fracture of proximal phalanx of left middle finger Fall Angina at rest Closed rib fracture Hearing loss Tinnitus Dizziness Fracture of 3rd metatarsal Fracture of 4th metatarsal Pain in right foot Abnormal cardiovascular stress test Gastroesophageal reflux disease Restless leg syndrome, controlled Anxiety Overactive bladder Osteoporosis Iron deficiency anemia Bipolar 1 disorder Schizoaffective disorder Paranoid delusion Family History Other Cancer Coronary artery disease Social History Smoking Status: Unknown if ever smoked alcohol intake: never substance use type: denies use current occupational status: disabled Travel in the last 8 weeks?: None housing: halfway marital status: caffeine: No Have you lived/traveled outside US in past 30 days?: No Contact w/someone who lives/traveled outside US past 30 days?: No Exposure to someone with infectious disease in past 14 days?: No Do you have a fever (greater than 100.4 F or 38 C)?: No Have you tested positive for COVID-19?: No Exposed to someone with COVID-19 in past 14 days?: No Do you have a sore throat?: No Do you have a cough?: No Do you have any weakness?: No Do you have any diarrhea?: No Are you experiencing any unusual bleeding?: No Do you have any muscle aches/pain?: No Do you have any abdominal pain?: No Are you experiencing loss of taste or smell?: No Other Medical History Have you received the Flu Vaccine for this season: No Have you received the Pneumonia Vaccine: Yes (01/2017, 01/19/19, 06/27/24) Review of Systems Review of Systems Review of systems (narrative): 14 point review of systems performed, pertinent positives and negatives as per HPI Meds Home Medications and Allergies Home Medications ?Medication ?Instructions ?Recorded ?Confirmed ?Type omega-3 fatty acids-fish oil 360 1 cap PO DAILY Supplement 10/14/17 09/04/24 History mg-1,200 mg capsule (Fish Oil) raloxifene 60 mg tablet (Evista) 60 mg PO DAILY hormone supplement 10/14/17 09/04/24 History trazodone 50 mg tablet 25 mg PO HS sleep 10/14/17 09/04/24 History clopidogrel 75 mg tablet (Plavix) 75 mg PO DAILY Platelet Inhibitor 01/08/22 09/04/24 History nitroglycerin 0.4 mg/hr 1 patch transdermal DAILY 12/10/22 09/04/24 History transdermal 24 hour patch (Nitro-Dur) acetaminophen 500 mg tablet 500 mg PO Q4HP PRN Mild Pain 03/13/23 09/04/24 History (Acetaminophen Extra Strength) (Scale Score 1-4) calcium citrate 200 mg PO BID 03/13/23 09/04/24 History ferrous sulfate 325 mg (65 mg 325 mg PO BID Supplement 03/13/23 09/04/24 History iron) tablet polyvinyl alcohol 1.4 % eye drops 1 drp Eye-Both TIDP PRN Dry Eyes 03/13/23 09/04/24 History baclofen 10 mg tablet 10 mg PO TIDP PRN Muscle Spasm 05/01/23 09/04/24 History cholecalciferol (vitamin D3) 25 25 mcg PO DAILY 05/01/23 09/04/24 History mcg (1,000 unit) tablet fluticasone propionate 50 1 spray intranasal DAILY Allergy 05/01/23 09/04/24 History mcg/actuation nasal Symptoms spray,suspension multivitamin 1 tab PO DAILY 05/01/23 09/04/24 History ondansetron 4 mg disintegrating 4 mg PO Q4HP PRN Nausea And 05/01/23 09/04/24 History tablet Vomiting paliperidone palmitate 234 mg/1.5 1.5 mg IM MONTHLY 05/01/23 09/04/24 History mL intramuscular syringe (Invega [facility]) peg 400-propylene glycol (PF) 0.4 1 drp Eye-Both BIDP PRN Dry Eyes 05/01/23 09/04/24 History %-0.3 % eye drops in a dropperette (Systane (PF)) aluminum hydrox-magnesium carb 95 30 ml PO Q4HP #355 mL 10/13/23 09/04/24 Rx mg-358 mg/15 mL oral suspension (Acid Gone Antacid) lactulose 10 gram/15 mL oral 20 g (30 mL) PO BID PRN 10/13/23 09/04/24 Rx solution constipation #473 mL mirabegron 50 mg tablet,extended 50 mg PO DAILY #90 tabs 10/13/23 09/04/24 Rx release 24 hr (Myrbetriq) polyethylene glycol 400 1 % eye 1 drp Eye-Both TID PRN dry eye(s) 10/13/23 09/04/24 Rx drops (Visine Dry Eye Relief) #30 mL pantoprazole 20 mg tablet,delayed 20 mg PO DAILY Acid Reflux 11/03/23 09/04/24 History release mirtazapine 30 mg tablet (Remeron) 30 mg PO HS 11/18/23 09/04/24 History acetaminophen 500 mg tablet 500 mg PO BID 03/01/24 09/04/24 History (Tylenol Extra Strength) cyanocobalamin (vitamin B-12) 1,000 mcg PO DAILY 03/01/24 09/04/24 History 1,000 mcg tablet potassium chloride 10 mEq 20 meq PO BID 03/01/24 09/04/24 History tablet,extended release furosemide 20 mg tablet (Lasix) 20 mg PO DAILY #30 tabs 06/06/24 09/04/24 Rx spironolactone 25 mg tablet 25 mg PO DAILY #30 tabs 06/06/24 09/04/24 Rx (Aldactone) dextromethorphan-guaifenesin 10 10 ml PO Q4H PRN 07/20/24 09/04/24 History mg-200 mg/5 mL oral liquid clonazepam 1 mg tablet 1 mg PO TID #90 tabs 08/18/24 09/04/24 Rx cefdinir 300 mg capsule 300 mg PO BID 10 days #20 caps 09/11/24 Rx New Prescriptions to Start Prescriptions: Allergies Allergy/AdvReac Type Severity Reaction Status Date / Time aspirin Allergy Unknown Verified 07/20/24 10:52 codeine Allergy Unknown Verified 07/20/24 10:52 Corticosteroids Allergy Unknown Verified 07/20/24 10:52 (Glucocorticoids) ibuprofen (From NeoProfen Allergy Unknown Verified 07/20/24 10:52 (ibuprofen lysn)(PF)) naproxen (From Flanax Allergy Unknown Verified 07/20/24 10:52 (naproxen)) diclofenac (From Voltaren) Allergy Verified 07/20/24 10:52 Exam Data for Last 24 hours Vital signs and Labs for Last 24 Hours: Temp Pulse Resp BP Pulse Ox O2 Del Method O2 Flow Rate 99.0 F 78 32 H 107/44 L 98 Nasal Cannula 2 09/25/24 16:15 09/25/24 15:18 09/25/24 15:18 09/25/24 16:15 09/25/24 15:18 09/25/24 14:37 09/25/24 14:37 Laboratory Results - last 24 hr 09/25/24 14:25: WBC 12.6 H, RBC 5.58 H, Hgb 15.4, Hct 48.8 H, MCV 87.5, MCH 27.6, MCHC 31.6 L, RDW 15.4, Plt Count 289, MPV 13.0 H, Neut % (Auto) 80.5 H, Lymph % (Auto) 10.4, [place] % (Auto) 8.2, Eos % (Auto) 0.2, Baso % (Auto) 0.3, Neut # (Auto) 10.2 H, Lymph # (Auto) 1.3, [place] # (Auto) 1.0, Eos # (Auto) 0.0, Baso # (Auto) 0.0, PT 11.1, INR 1.00, APTT 24.8, VBG pH 7.38, VBG pCO2 45.0, VBG pO2 53.5 H, VBG HCO3 26.0, VBG Total CO2 27.4 H, VBG O2 Saturation 86.4 H, VBG Base Excess 0.9, VBG Lactic Acid 2.0, Sodium 152 H*, Potassium 3.9, Chloride 112 H, Carbon Dioxide 29, Anion Gap 14.9, BUN 49 H, Creatinine 0.80, Estimated GFR 69, Est GFR ( Amer) 83, Glucose 191 H, Calcium 9.4, Magnesium 2.6 H, Total Bilirubin 0.5, AST 34, ALT 23, Alkaline Phosphatase 67, Total Creatine Kinase 176 H, Troponin I 0.07 H, Total Protein 6.9, Albumin 4.0, Globulin 2.9, Albumin/Globulin Ratio 1.4, Lipase 112, TSH 1.16, Free T4 1.43 09/25/24 14:45: SARS-CoV-2 (PCR) Not detected, Influenza A Untype (PCR) Not detected, Influenza Type B (PCR) Not detected 09/25/24 14:59: Ammonia < 9 L 09/25/24 15:46: Urine Color Yellow, Urine Appearance Clear, Urine pH 6.0, Ur Specific [place] 1.025, Urine Protein Trace, Urine Glucose (UA) Negative, Urine Ketones 2+, Urine Blood Negative, Urine Nitrate Negative, Urine Bilirubin 2+ A, Urine Urobilinogen 0.2, Ur Leukocyte Esterase Negative, Urine WBC 5-10, Ur Squamous Epith Cells 3-5, Urine Bacteria Trace, Urine Mucus 2+ I & O for Last 24 hours: Intake & Output 09/22/24 09/23/24 09/24/24 09/25/24 23:59 23:59 23:59 23:59 Weight 62.324 kg Constitutional Constitutional: mild distress, thin, chronically ill appearing and cooperative *Routine HEENT Exam Head: Present normocephalic and atraumatic Eye: Present EOMI, PERRL and normal accommodation ENT: Present mucous membranes moist Comments: Significant oral thrush, poor dentition; 3 mm scab on tip of nose *Routine Neck Exam Neck: Present supple, full ROM and trachea midline *Routine Respiratory Exam Respiratory: Present CTA bilaterally, normal respiratory effort, able to speak in complete sentences and symmetric chest movement; Absent respiratory distress, rhonchi, wheezes or crackles *Routine Cardiovascular Exam Cardiovascular: Present RRR, Normal S1 and Normal S2 *Routine Abdominal Exam Abdominal: Present soft, normoactive bowel sounds, tenderness, distended and hernia; Absent organomegaly Comments: Hernia of abdominal wall, reducible. *Routine Rectal Exam Rectal:: no hemorrhoids Comments:: Stage II dime size decubitus wound proximal end of gluteal cleft over sacrum *Routine Genitalia Exam Genitalia:: normal female *Routine Extremities Exam Extremities: Present pulses intact; Absent cyanosis, clubbing, edema or full ROM Comments: Contracted upper and lower extremities, sarcopenia, arthrogryposis *Routine Skin Exam Skin: Present dry and warm; Absent erythema *Routine Neurological Exam Neurological: Present alert, normal tone and normal speech Comments: Oriented to self and place. Provides a history. Slow to answer questions but they are appropriate. Functional quadriplegic Routine Psychiatric Exam Comments: Flat affect Assessment and Plan *Assessment and plan (1) Sepsis: Status: Acute Category: Medical Code(s): A41.9 - Sepsis, unspecified organism (2) Abdominal pain: Status: Inactive Qualifiers: Abdominal location: left lower quadrant Qualified Code(s): R10.32 - Left lower quadrant pain Category: Medical Code(s): R10.9 - Unspecified abdominal pain (3) Acute hypernatremia: Status: Acute Category: Medical Code(s): E87.0 - Hyperosmolality and hypernatremia (4) Pulmonary embolism: Status: Acute Category: Medical Code(s): I26.99 - Other pulmonary embolism without acute cor pulmonale (5) Umbilical hernia without obstruction or gangrene: Status: Acute Category: Medical Code(s): K42.9 - Umbilical hernia without obstruction or gangrene (6) Bipolar 1 disorder: Status: Chronic Category: Medical Code(s): F31.9 - Bipolar disorder, unspecified (7) Schizoaffective disorder: Status: Chronic Qualifiers: Schizoaffective disorder type: bipolar Qualified Code(s): F25.0 - Schizoaffective disorder, bipolar type Category: Medical Code(s): F25.9 - Schizoaffective disorder, unspecified (8) Sacral decubitus ulcer, stage II: Status: Acute Category: Medical Code(s): L89.152 - Pressure ulcer of sacral region, stage 2 (9) COPD (chronic obstructive pulmonary disease): Status: Acute Qualifiers: COPD type: unspecified COPD Qualified Code(s): J44.9 - Chronic obstructive pulmonary disease, unspecified Category: Medical Code(s): J44.9 - Chronic obstructive pulmonary disease, unspecified (10) Chronic hypoxic respiratory failure: Status: Chronic Category: Medical Code(s): J96.11 - Chronic respiratory failure with hypoxia (11) Arthrogryposis: Status: Chronic Category: Medical Code(s): Q68.8 - Other specified congenital musculoskeletal deformities (12) Functional quadriplegia: Status: Chronic Category: Medical Code(s): R53.2 - Functional quadriplegia Plan 83-year-old female with a PMHx of bipolar disorder, schizoaffective disorder, functional quadriplegia, COPD, chronic oxygen requirement, CAD, brought to the ER due to decreased p.o. intake and decreased responsiveness. Workup in the ER found to meet sepsis criteria based on her vitals and white count and concern for possible urinary tract infection. Also has hypernatremia and new finding of PE. Discussed case with ER physician, request additional treatment of PE and sepsis. I decided to admit for further care. Admitted to SCU for further care. Problems addressed as follows: Sepsis Acute hypernatremia - Being criteria with tachycardia, tachypnea, leukocytosis and suspected infection. - Urine suspicious with 5-10 white cells and trace bacteria. Obtained via catheter placement - Sodium 152, potassium 3.9, chloride 112. Consistent with dehydration and poor p.o. intake. - White count 12.6, repeat CBC, CMP, magnesium ordered morning - Cultures obtained and pending. Continue Vanco and Zosyn. Zosyn 3.75 g every 6 hours scheduled IV, monitor kidney function closely for risk of toxicity PE Chronic hypoxic respiratory failure COPD -Chronic oxygen requirement 2 to 3 L. Stable. -PE on review of CT of chest and left upper lobe. Initiate Lovenox 1 mg/kg twice daily. Will transition to DOAC at discharge - Nicotine patch as needed. Unsure current smoking status but has smoked as recent as 6 months ago. Abdominal pain large umbilical hernia Cholelithiasis -CT imaging per my review of gallstones. Does have mild dilation of CBD but liver enzymes are normal. Review of chart shows serial images over the past year with gallstones present. No pericholecystic fluid. - Patient would be a very difficult surgical patient. At this time we will medically manage any abdominal issues. - Does have significant gaseous distention on imaging of her abdomen. Continue bowel regimen History of bipolar disorder with a schizoaffective: Continue baclofen 10 mg p.o. as needed 3 times a day for spasm Continue Klonopin 1 mg 3 times a day Hold mirtazapine 30 mg night due to weakness and confusion Holding diuretics Therapeutic Lovenox Mechanical soft diet Pantoprazole 40 mg nightly
--- NOTE | 2024-09-25 18:00 | PC.NURSE ---
House supervisior notified of admission
[2024-09-25] MEDS: LACTATED RINGERS 1000ML 1,000 ML 100 ML IV (18:11)
--- NOTE | 2024-09-25 18:30 | PC.NURSE ---
Report called to BARBARA Puente in ICU
[2024-09-25 18:33] LABS: Troponin I 0.06 ng/ml (0.00-0.034)
--- NOTE | 2024-09-25 18:40 | PC.NURSE ---
Attempted to contact [facility] r/t updated plan of care.
--- NOTE | 2024-09-25 19:01 | PC.NURSE ---
patient arrived to the ICU from the ER via stretcher @18:42
--- NOTE | 2024-09-25 19:11 | PC.WOUNDNOTE ---
Coccyx stage 2 wound. aware. Dressing applied. Dressing dry, clean, and intact. Healing bruise on L side of face. Bruises on R hand. at bedside to assess wounds. No new orders received. Continuation of care plan.
[2024-09-25] MEDS: PANTOPRAZOLE 40MG TABLET 40 MG PO (20:25)
[2024-09-25 20:30] LABS: Troponin I 0.06 ng/ml (0.00-0.034)
[2024-09-25] MEDS: NYSTATIN SUSP 500,000 UNITS/5ML UDC 500000 UNIT PO (21:13)
[2024-09-25] MEDS: PIPERCILLIN/TAZO 3.375 GM in 0.9 % SODIUM CHLORIDE 50 ML IV (22:54)
[2024-09-26] VITALS (12 sets, daily range): BP systolic 81–109; BP diastolic 42–58; PULSE 60–78; RESP 16–25; TEMP 36.9–37.5; O2SAT 93–97; BMI 20.9
[2024-09-26] MEDS: VANCOMYCIN HCL 750 MG in 0.9 % SODIUM CHLORIDE 250 ML 125 MG IV (04:56)
[2024-09-26] MEDS: PIPERCILLIN/TAZO 3.375 GM in 0.9 % SODIUM CHLORIDE 50 ML IV ×4 (05:32→23:00)
[2024-09-26] MEDS: LACTATED RINGERS 1000ML 1,000 ML 100 ML IV (07:26)
[2024-09-26] MEDS: CLOPIDOGREL 75MG TAB 75 MG PO (07:38)
[2024-09-26 07:40] LABS: Alanine Aminotransferase 16 U/L (12-78); Albumin Level 2.9 g/dl (3.5-5.0); Albumin/Globulin Ratio 1.3 (1.1-1.8); Alkaline Phosphatase 61 U/L (38-126); Anion Gap 9.0 mEq/L (5-15); Aspartate Amino Transferase 26 U/L (14-36); Bilirubin,Total 0.4 mg/dl (0.2-1.3); Blood Urea Nitrogen 30 mg/dl (7-17); Calcium 8.4 mg/dl (8.4-10.2); Carbon Dioxide 31 mmol/L (22.0-30.0); Chloride 113 mmol/L (98-107); Creatinine Clearance Estimated 41 mL/min (50-200); Creatinine,Serum 0.60 mg/dl (0.52-1.04); Estimated Glomerular Filt Rate 96 ml/min (>60); GFR (African American) 116 ML/MIN (>60); Globulin 2.3 g/dL (1.3-3.2); Glucose 98 mg/dl (74-100); Magnesium 2.2 mg/dl (1.6-2.3); Phosphorous 2.4 mg/dl (2.5-4.5); Total Protein,Serum 5.2 g/dl (6.3-8.2)
--- NOTE | 2024-09-26 07:45 | EXP.PHA.CONS ---
Pharmacy Consult Date: 09/26/24 Time: 07:45 Referring provider: DR. BAKER Reason for Consult:: VANCOMYCIN DOSING Allergies Allergy/AdvReac Type Severity Reaction Status Date / Time aspirin Allergy Unknown Verified 07/20/24 10:52 codeine Allergy Unknown Verified 07/20/24 10:52 Corticosteroids Allergy Unknown Verified 07/20/24 10:52 (Glucocorticoids) ibuprofen (From NeoProfen Allergy Unknown Verified 07/20/24 10:52 (ibuprofen lysn)(PF)) naproxen (From Flanax Allergy Unknown Verified 07/20/24 10:52 (naproxen)) diclofenac (From Voltaren) Allergy Verified 07/20/24 10:52 Home Medications ?Medication ?Instructions ?Recorded ?Confirmed ?Type omega-3 fatty acids-fish oil 360 1 cap PO DAILY Supplement 10/14/17 09/26/24 History mg-1,200 mg capsule (Fish Oil) raloxifene 60 mg tablet (Evista) 60 mg PO DAILY hormone supplement 10/14/17 09/26/24 History trazodone 50 mg tablet 25 mg PO HS sleep 10/14/17 09/26/24 History clopidogrel 75 mg tablet (Plavix) 75 mg PO DAILY Platelet Inhibitor 01/08/22 09/26/24 History nitroglycerin 0.4 mg/hr 1 patch transdermal DAILY 12/10/22 09/26/24 History transdermal 24 hour patch (Nitro-Dur) acetaminophen 500 mg tablet 500 mg PO Q4HP PRN Mild Pain 03/13/23 09/26/24 History (Acetaminophen Extra Strength) (Scale Score 1-4) calcium citrate 200 mg PO BID 03/13/23 09/26/24 History ferrous sulfate 325 mg (65 mg 325 mg PO BID Supplement 03/13/23 09/26/24 History iron) tablet polyvinyl alcohol 1.4 % eye drops 1 drp Eye-Both TIDP PRN Dry Eyes 03/13/23 09/26/24 History baclofen 10 mg tablet 10 mg PO TIDP PRN Muscle Spasm 05/01/23 09/26/24 History cholecalciferol (vitamin D3) 25 25 mcg PO DAILY 05/01/23 09/26/24 History mcg (1,000 unit) tablet fluticasone propionate 50 1 spray intranasal DAILY Allergy 05/01/23 09/26/24 History mcg/actuation nasal Symptoms spray,suspension multivitamin 1 tab PO DAILY 05/01/23 09/26/24 History ondansetron 4 mg disintegrating 4 mg PO Q4HP PRN Nausea And 05/01/23 09/26/24 History tablet Vomiting paliperidone palmitate 234 mg/1.5 1.5 mg IM MONTHLY 05/01/23 09/26/24 History mL intramuscular syringe (Invega [facility]) peg 400-propylene glycol (PF) 0.4 1 drp Eye-Both BIDP PRN Dry Eyes 05/01/23 09/26/24 History %-0.3 % eye drops in a dropperette (Systane (PF)) aluminum hydrox-magnesium carb 95 30 ml PO Q4HP #355 mL 10/13/23 09/04/24 Rx mg-358 mg/15 mL oral suspension (Acid Gone Antacid) lactulose 10 gram/15 mL oral 20 g (30 mL) PO BID PRN 10/13/23 09/26/24 Rx solution constipation #473 mL mirabegron 50 mg tablet,extended 50 mg PO DAILY #90 tabs 10/13/23 09/26/24 Rx release 24 hr (Myrbetriq) polyethylene glycol 400 1 % eye 1 drp Eye-Both TID PRN dry eye(s) 10/13/23 09/04/24 Rx drops (Visine Dry Eye Relief) #30 mL pantoprazole 20 mg tablet,delayed 20 mg PO DAILY Acid Reflux 11/03/23 09/26/24 History release mirtazapine 30 mg tablet (Remeron) 30 mg PO HS 11/18/23 09/26/24 History acetaminophen 500 mg tablet 500 mg PO BID 03/01/24 09/26/24 History (Tylenol Extra Strength) cyanocobalamin (vitamin B-12) 1,000 mcg PO DAILY 03/01/24 09/26/24 History 1,000 mcg tablet potassium chloride 10 mEq 20 meq PO BID 03/01/24 09/26/24 History tablet,extended release furosemide 20 mg tablet (Lasix) 20 mg PO DAILY #30 tabs 06/06/24 09/26/24 Rx spironolactone 25 mg tablet 25 mg PO DAILY #30 tabs 06/06/24 09/26/24 Rx (Aldactone) dextromethorphan-guaifenesin 10 10 ml PO Q4H PRN 07/20/24 09/04/24 History mg-200 mg/5 mL oral liquid clonazepam 1 mg tablet 1 mg PO TID #90 tabs 08/18/24 09/26/24 Rx aluminum hydrox-magnesium carb 95 30 ml PO Q4HP PRN Acid Reflux 09/26/24 09/26/24 History mg-358 mg/15 mL oral suspension New Prescriptions to Start Prescriptions: Height: 1.68 m Weight: 59.196 kg Laboratory Results:: Laboratory Results - last 24 hr 09/25/24 14:25: WBC 12.6 H, RBC 5.58 H, Hgb 15.4, Hct 48.8 H, MCV 87.5, MCH 27.6, MCHC 31.6 L, RDW 15.4, Plt Count 289, MPV 13.0 H, Neut % (Auto) 80.5 H, Lymph % (Auto) 10.4, [place] % (Auto) 8.2, Eos % (Auto) 0.2, Baso % (Auto) 0.3, Neut # (Auto) 10.2 H, Lymph # (Auto) 1.3, [place] # (Auto) 1.0, Eos # (Auto) 0.0, Baso # (Auto) 0.0, PT 11.1, INR 1.00, APTT 24.8, VBG pH 7.38, VBG pCO2 45.0, VBG pO2 53.5 H, VBG HCO3 26.0, VBG Total CO2 27.4 H, VBG O2 Saturation 86.4 H, VBG Base Excess 0.9, VBG Lactic Acid 2.0, Sodium 152 H*, Potassium 3.9, Chloride 112 H, Carbon Dioxide 29, Anion Gap 14.9, BUN 49 H, Creatinine 0.80, Estimated GFR 69, Est GFR ( Amer) 83, Glucose 191 H, Calcium 9.4, Magnesium 2.6 H, Total Bilirubin 0.5, AST 34, ALT 23, Alkaline Phosphatase 67, Total Creatine Kinase 176 H, Troponin I 0.07 H, Total Protein 6.9, Albumin 4.0, Globulin 2.9, Albumin/Globulin Ratio 1.4, Lipase 112, TSH 1.16, Free T4 1.43 09/25/24 14:45: SARS-CoV-2 (PCR) Not detected, Influenza A Untype (PCR) Not detected, Influenza Type B (PCR) Not detected 09/25/24 14:59: Ammonia < 9 L 09/25/24 15:46: Urine Color Yellow, Urine Appearance Clear, Urine pH 6.0, Ur Specific [place] 1.025, Urine Protein Trace, Urine Glucose (UA) Negative, Urine Ketones 2+, Urine Blood Negative, Urine Nitrate Negative, Urine Bilirubin 2+ A, Urine Urobilinogen 0.2, Ur Leukocyte Esterase Negative, Urine WBC 5-10, Ur Squamous Epith Cells 3-5, Urine Bacteria Trace, Urine Mucus 2+ 09/25/24 17:55: Troponin I 0.06 H 09/25/24 18:52: Troponin I 0.06 H Medical History: Medical History (Updated 09/25/24 @ 20:46 by Carlita Spain RN) Dermatitis Pyoderma Major depressive disorder Dysphagia Contracture, left hand COPD (chronic obstructive pulmonary disease) Chronic hypoxic respiratory failure Pulmonary hypertension Moderate mitral regurgitation Edema Low serum vitamin B12 Diastolic dysfunction Mitral regurgitation Acute hypokalemia Injury of left rotator cuff Fall Umbilical hernia without obstruction or gangrene Major depressive disorder, recurrent, unspecified Fracture of proximal phalanx of left ring finger Fracture of proximal phalanx of left middle finger Fall Angina at rest Closed rib fracture Hearing loss Tinnitus Dizziness Fracture of 3rd metatarsal Fracture of 4th metatarsal Pain in right foot Abnormal cardiovascular stress test Gastroesophageal reflux disease Restless leg syndrome, controlled Anxiety Overactive bladder Osteoporosis Iron deficiency anemia Bipolar 1 disorder Schizoaffective disorder Paranoid delusion Assessment and Plan Assessment and plan all Dx Assessment and Plan for all problems:: Pharmacokinetic dosing service Objective: Patient: Floor: Age: 83 yo Serum creatinine: 0.80 mg/dL Height: 66.1 Inches Weight (kg): 59.2 Assessment: IBW (kg): 59.53 Dosing wt(kg): 59.2 Estimated Creatinine clearance (ml/min): 51.5 CRCL method: Cockcroft and Gault using ibw(default). Drug selected: Vancomycin Loading dose (mg): Vd (liters): 47.4 (factor used: 0.8 L/kg) Shahid (hr-1): 0.047 Half life (hrs): 14.75 CLvanco=?? 2.228 L/hr Recommended dose: 1250 mg Interval: 24 hrs Infusion time (hrs): 2.0 Predicted peak (mcg/mL): 37.2 Predicted trough (mcg/mL): 13.23 Total body weight is being used for vancomycin dosing. Recommendations: Give Vancomycin 1250 mg q 24 hrs with an expected Cpeak of 37.2 mcg/ml and an expected Ctrough of 13.23 mcg/ml AUC 0-24 /RICHARD Data: RICHARD 0.5 mcg/mL:?? AUC/RICHARD:? 1122.1 RICHARD 1.0 mcg/mL:?? AUC/RICHARD:? 561.0 --------- RICHARD 1.5 mcg/mL:?? AUC/RICHARD:? 374.0 RICHARD 2.0 mcg/mL:?? AUC/RICHARD:? 280.5 Thank you for the consult, will continue to follow. -MERLE JUNIOR, TURNERD
[2024-09-26 08:05] LABS: Sodium 150 mmol/L (136-145)
[2024-09-26] MEDS: NYSTATIN SUSP 500,000 UNITS/5ML UDC 500000 UNIT PO ×4 (08:05→21:20)
[2024-09-26 08:06] LABS: Potassium 3.0 mmoL/L (3.5-5.1)
[2024-09-26 09:06] LABS: Hematocrit 39.4 % (37.0-47.0); Immature Granulocytes % 0.4 %; Mean Corpuscular HGB Conc 31.7 g/dL (31.8-35.4); Mean Corpuscular Hemoglobin 28.5 pg (27.0-31.2); Mean Corpuscular Volume 90.0 fl (81-99); Nucleated Red Blood Cells % 0 %; Platelet Count 219 K/mm3 (142-424); Red Blood Count 4.38 M/mm3 (4.20-5.40); Red Cell Distribution Width-SD 50.2 fL; White Blood Count 12.1 K/mm3 (4.8-10.8)
[2024-09-26 09:10] LABS: Hemoglobin 12.5 g/dL (12.2-16.2)
--- NOTE | 2024-09-26 10:31 | DIET.NUTRFU ---
Verified diet with nurse at [facility] with ground meat, no mixed consistency, gravies and sauces with meats. Nurse did not idicate any significant wt loss. She is noted to have hx of skin breakdown will review
--- NOTE | 2024-09-26 10:49 | HMH.PTEV ---
Physical Therapy Evaluation Rehab PT IP Evaluation Start: 09/26/24 09:00 Freq: ONCE Status: Active Protocol: Document 09/26/24 10:47 YG (Rec: 09/26/24 10:49 PHOMERE [id number]) Subjective/History History History 83-year-old female who resides [facility]. Long history of osteoporosis, bipolar disorder, schizoaffective disorder, iron deficiency anemia, chronic contractures, functional quadriplegia, chronic femur fracture, COPD and pulmonary hypertension. She presented to the ER because of concern for worsening encephalopathy/altered mental status. Nursing facility reported that she has been less verbal, had poor p.o. intake. Normally she is conversant. According to EMS, she speaks some though is confused at baseline. History obtained from ER documentation and minimal from patient. Workup in the ER patient was found to be tachycardic, tachypnea, elevated white count. At this time being SIRS criteria. Workup with CTA of the chest showed PE in right upper lobe. Cultures obtained. Empiric antibiotics initiated. Medicine consulted for admission and further management of suspected sepsis. Pt is dependent with all mobility at SNF at baseline. Subjective Subjective Pt presents supine in bed and agrees to treatment. [facility] How much help from another person do you currently need... Turning from your Total back to your side while in a flat bed without using bedrails? Moving from lying on Total back to sitting on the side of a flat bed without using bedrails? Moving to and from a Total bed to a chair ( including a wheelchair)? Standing up from a Total chair using your arms? (e.g., wheelchair, bedside chair) Walking in hospital Total room? Climbing 3-5 steps Total with a railing? Mobility Score 6 Mobility Level [facility] Mobility 2 Bed activities/dependent transfer Mobility Calculator Rehab PT IP Eval Objective Appearance Patient Behavior Appropriate Patient Orientation Person Speech Pattern Clear Ambulation Patient Able to No Ambulate Balance Ability to Arise Unable Sitting Balance Leans or slides in chair Dynamic Sitting Poor Balance Ability Transfers Bed Transfer Ability Total/Dependent (100%) Chair Transfer Total/Dependent (100%) Ability Rehab PT IP prob,goals,plan Problems Date of Evaluation: 09/26/24 Discharge Plan PT Discharge Plan Pt is currently at baseline for all mobility at this time and is most appropriate to return to SNF once medically stable for d/c. Eval Complexity Eval Charge Codes 64289 - High Complexity PHYSICIAN CERTIFICATION: I certify the specified therapy services for Paulina Escobar are required, authorized, and reviewed every 30 days.
--- NOTE | 2024-09-26 10:52 | HMH.PTWOUND ---
Rehab Inpt Wound Evaluation Rehab IP Wound Evaluation Start: 09/26/24 09:00 Freq: ONCE Status: Active Protocol: Document 09/26/24 10:50 YG (Rec: 09/26/24 10:52 PHOMERE [id number]) Rehab PT Wound Assessment Subjective Subjective 83-year-old female who resides [facility]. Long history of osteoporosis, bipolar disorder, schizoaffective disorder, iron deficiency anemia, chronic contractures, functional quadriplegia, chronic femur fracture, COPD and pulmonary hypertension. She presented to the ER because of concern for worsening encephalopathy/altered mental status. Nursing facility reported that she has been less verbal, had poor p.o. intake. Normally she is conversant. According to EMS, she speaks some though is confused at baseline. History obtained from ER documentation and minimal from patient. Workup in the ER patient was found to be tachycardic, tachypnea, elevated white count. At this time being SIRS criteria. Workup with CTA of the chest showed PE in right upper lobe. Cultures obtained. Empiric antibiotics initiated. Medicine consulted for admission and further management of suspected sepsis. Pt is dependent with all mobility at SNF at baseline. Pt presents with sacral wound noted on admission. Wound Sacrum Wound Type Pressure Ulcer Is This a Chronic Yes Wound Wound Staging Stage II Query Text:Stage I - Unbroken, red skin, no blanching. Stage II - Skin broken, superficial skin loss involving epidermis alone or also dermis. Partial loss of skin layers. Stage III - Pressure area involves epidermis, dermis and subcutaneous tissue, full thickness skin loss. Stage IV - Pressure area involves epidermis, subcutaneous tissue, bone and other supportive tissue. Full thickness skin loss with extensive destruction of underlying tissue and structures. Wound Length (cm) 0.4 Wound Width (cm) 0.2 Wound Depth (cm) 0.1 Wound Margins Well Defined Description Surrounding Tissue [place] Appearance Primary Dressing Composite Dressing Change Tolerated Well Patient Tolerance Plan/Recommendation Comment No current needs for advanced wound care or debridement . Nsg staff caring for wound appropriately and performing all necessary pressure relief per protocols. PHYSICIAN CERTIFICATION: I certify the specified therapy services for Paulina Escobar are required, authorized, and reviewed every 30 days.
--- NOTE | 2024-09-26 11:35 | EXP.ACUTE.PN ---
Subjective *Date: 09/26/24 *Time: 14:02 Interval history: Patient stable on 2 L oxygen this morning. Afebrile overnight. Somewhat more interactive this morning. Answers questions simply with yes and no answers. Denies nausea or vomiting. Getting assistance with eating. Medical Exam Vital signs and Labs for Last 24 Hours: Vital Signs Temp Pulse Pulse Resp BP BP Pulse Ox 09/26/24 11:00 09/26/24 10:00 99.1 F 73 19 94/47 L 97 09/26/24 08:42 09/26/24 08:00 60 09/26/24 08:00 78 18 97/49 L 97 09/26/24 08:00 98.8 F 76 25 H 97/49 L 95 09/26/24 07:53 95 09/26/24 07:00 09/26/24 06:03 109/58 L 09/26/24 06:03 98.8 F 65 20 96 09/26/24 06:02 89/44 L 09/26/24 06:02 98.8 F 64 21 95 09/26/24 06:00 89/44 L 09/26/24 06:00 98.8 F 64 19 93 L 09/26/24 05:00 09/26/24 04:00 72 09/26/24 04:00 75 21 108/58 L 95 09/26/24 04:00 75 21 108/58 L 95 09/26/24 03:00 09/26/24 02:00 98.8 F 61 17 91/44 L 94 L 09/26/24 02:00 96 09/26/24 01:00 09/26/24 00:00 98.4 F 63 16 92/50 L 96 09/26/24 00:00 66 09/25/24 23:00 09/25/24 22:00 98.4 F 66 14 97/50 L 97 09/25/24 21:00 09/25/24 20:00 60 09/25/24 20:00 97 09/25/24 20:00 98.6 F 64 18 96/53 L 98 09/25/24 19:27 09/25/24 19:17 98.6 F 65 19 97 09/25/24 19:16 98.6 F 65 19 96 09/25/24 19:16 68 09/25/24 19:15 98.6 F 64 18 96 07 19:14 98.6 F 64 19 97 07 19:13 98.6 F 65 18 97 07 19:12 98.6 F 66 18 97 07 19:11 98.6 F 66 19 96 09/25/24 19:10 98.6 F 66 19 97 07 19:09 98.6 F 64 20 95 09/25/24 19:08 98.6 F 66 20 97 09/25/24 19:07 97.0 F L 66 18 98 07 19:06 97.0 F L 66 17 97 09/25/24 19:04 07 18:41 98.9 F 69 16 94/45 L 09/25/24 18:35 16 07 18:34 98.4 F 64 17 99 07 18:33 98.4 F 66 17 98 07 18:32 98.4 F 63 18 98 09/25/24 18:31 98.4 F 65 16 99 07 18:30 94/45 L 09/25/24 18:30 98.4 F 65 15 99 07 18:29 98.4 F 64 15 98 07 18:28 98.4 F 65 18 99 07 18:27 98.4 F 65 16 98 09/25/24 18:26 98.6 F 63 18 98 07 18:25 98.6 F 63 17 99 07 18:24 98.6 F 64 18 98 07 18:23 98.6 F 65 16 98 07 18:22 98.6 F 65 16 97 07 18:21 98.6 F 65 17 99 07 18:20 98.6 F 63 16 99 07 18:19 98.6 F 66 17 99 07 18:18 98.6 F 65 17 98 09/25/24 18:17 98.6 F 68 11 L 99 09/25/24 18:16 98.6 F 67 14 99 07 18:15 98.6 F 65 18 97 09/25/24 18:15 98.6 F 65 14 106/51 L 99 09/25/24 18:00 98.8 F 67 18 105/45 L 100 09/25/24 17:45 99.0 F 66 16 100/46 L 99 09/25/24 17:34 99.0 F 14 90/76 L 09/25/24 17:30 99.0 F 68 16 87/39 L 98 09/25/24 17:21 99.0 F 70 104/41 L 98 09/25/24 17:16 99.0 F 87/44 L 09/25/24 16:15 99.0 F 107/44 L 09/25/24 16:00 99.1 F 112/50 L 09/25/24 15:18 78 32 H 119/59 L 98 09/25/24 15:00 76 32 H 110/67 98 09/25/24 14:37 100.8 F H 83 22 112/57 L 96 O2 Del Method O2 Flow Rate 09/26/24 11:00 Nasal Cannula 2 09/26/24 10:00 Nasal Cannula 2 09/26/24 08:42 Nasal Cannula 2 09/26/24 08:00 09/26/24 08:00 Nasal Cannula 2 09/26/24 08:00 Nasal Cannula 2 09/26/24 07:53 Nasal Cannula 2 09/26/24 07:00 Nasal Cannula 2 09/26/24 06:03 09/26/24 06:03 Nasal Cannula 2 09/26/24 06:02 09/26/24 06:02 Nasal Cannula 2 09/26/24 06:00 09/26/24 06:00 Nasal Cannula 2 09/26/24 05:00 Nasal Cannula 2 09/26/24 04:00 09/26/24 04:00 Nasal Cannula 2 09/26/24 04:00 Nasal Cannula 2 09/26/24 03:00 Nasal Cannula 2 09/26/24 02:00 Nasal Cannula 2 09/26/24 02:00 Nasal Cannula 2 09/26/24 01:00 Nasal Cannula 2 09/26/24 00:00 Nasal Cannula 2 09/26/24 00:00 09/25/24 23:00 Nasal Cannula 2 09/25/24 22:00 Nasal Cannula 2 09/25/24 21:00 Nasal Cannula 2 09/25/24 20:00 09/25/24 20:00 Nasal Cannula 2 09/25/24 20:00 Nasal Cannula 2 09/25/24 19:27 Nasal Cannula 2 09/25/24 19:17 09/25/24 19:16 09/25/24 19:16 09/25/24 19:15 09/25/24 19:14 09/25/24 19:13 09/25/24 19:12 09/25/24 19:11 09/25/24 19:10 09/25/24 19:09 09/25/24 19:08 09/25/24 19:07 09/25/24 19:06 09/25/24 19:04 Nasal Cannula 2 09/25/24 18:41 Nasal Cannula 2 09/25/24 18:35 09/25/24 18:34 09/25/24 18:33 09/25/24 18:32 09/25/24 18:31 09/25/24 18:30 09/25/24 18:30 09/25/24 18:29 09/25/24 18:28 09/25/24 18:27 09/25/24 18:26 09/25/24 18:25 09/25/24 18:24 09/25/24 18:23 09/25/24 18:22 09/25/24 18:21 09/25/24 18:20 09/25/24 18:19 09/25/24 18:18 09/25/24 18:17 09/25/24 18:16 09/25/24 18:15 09/25/24 18:15 Nasal Cannula 2 09/25/24 18:00 09/25/24 17:45 09/25/24 17:34 09/25/24 17:30 09/25/24 17:21 09/25/24 17:16 09/25/24 16:15 09/25/24 16:00 09/25/24 15:18 09/25/24 15:00 09/25/24 14:37 Nasal Cannula 2 Intake and Output 09/25/24 09/26/24 09/26/24 23:59 07:59 15:59 Intake Total 650 / 770 120 / 770 Output Total 500 / 500 150 / 160 10 / 160 Balance -500 / -350 500 / 610 110 / 610 Intake: Intake, Oral Amount 100 / 220 120 / 220 Intake, Total IV Amount 550 / 550 Lactated Ringers 1000ML 1,000 500 / 500 ml @ 100 mls/hr IV .Q10H [facility] Rx #:[id number] Pipercillin/Tazo 3.375 gm In 0. 50 / 50 9 % Sodium Chloride 50 ml @ 100 mls/hr IV Q6H [facility] Rx#:[id number] Output: Output, Urine Amount 500 / 500 150 / 150 Output, Urine Amount (Catheter) Alfred Other: Number of Unmeasured Voids 0 0 0 Weight 59.194 kg 59.196 kg Patient Weight 09/26/24 23:59 Weight 59.196 kg Laboratory Results - last 24 hr 09/25/24 14:25: WBC 12.6 H, RBC 5.58 H, Hgb 15.4, Hct 48.8 H, MCV 87.5, MCH 27.6, MCHC 31.6 L, RDW 15.4, Plt Count 289, MPV 13.0 H, Neut % (Auto) 80.5 H, Lymph % (Auto) 10.4, [place]gs % (Auto) 8.2, Eos % (Auto) 0.2, Baso % (Auto) 0.3, Neut # (Auto) 10.2 H, Lymph # (Auto) 1.3, [place]gs # (Auto) 1.0, Eos # (Auto) 0.0, Baso # (Auto) 0.0, PT 11.1, INR 1.00, APTT 24.8, VBG pH 7.38, VBG pCO2 45.0, VBG pO2 53.5 H, VBG HCO3 26.0, VBG Total CO2 27.4 H, VBG O2 Saturation 86.4 H, VBG Base Excess 0.9, VBG Lactic Acid 2.0, Sodium 152 H*, Potassium 3.9, Chloride 112 H, Carbon Dioxide 29, Anion Gap 14.9, BUN 49 H, Creatinine 0.80, Estimated GFR 69, Est GFR ( Amer) 83, Glucose 191 H, Calcium 9.4, Magnesium 2.6 H, Total Bilirubin 0.5, AST 34, ALT 23, Alkaline Phosphatase 67, Total Creatine Kinase 176 H, Troponin I 0.07 H, Total Protein 6.9, Albumin 4.0, Globulin 2.9, Albumin/Globulin Ratio 1.4, Lipase 112, TSH 1.16, Free T4 1.43 09/25/24 14:45: SARS-CoV-2 (PCR) Not detected, Influenza A Untype (PCR) Not detected, Influenza Type B (PCR) Not detected 09/25/24 14:59: Ammonia < 9 L 09/25/24 15:46: Urine Color Yellow, Urine Appearance Clear, Urine pH 6.0, Ur Specific Redby 1.025, Urine Protein Trace, Urine Glucose (UA) Negative, Urine Ketones 2+, Urine Blood Negative, Urine Nitrate Negative, Urine Bilirubin 2+ A, Urine Urobilinogen 0.2, Ur Leukocyte Esterase Negative, Urine WBC 5-10, Ur Squamous Epith Cells 3-5, Urine Bacteria Trace, Urine Mucus 2+ 09/25/24 17:55: Troponin I 0.06 H 09/25/24 18:52: Troponin I 0.06 H 09/26/24 06:56: WBC 12.1 H, RBC 4.38, Hgb 12.5 D, Hct 39.4, MCV 90.0, MCH 28.5, MCHC 31.7 L, RDW 15.3, Plt Count 219, MPV 13.6 H, Neut % (Auto) 76.1, Lymph % (Auto) 13.1, Griggs % (Auto) 8.9, Eos % (Auto) 1.2, Baso % (Auto) 0.3, Neut # (Auto) 9.2 H, Lymph # (Auto) 1.6, [place]gs # (Auto) 1.1 H, Eos # (Auto) 0.1, Baso # (Auto) 0.0, Sodium 150 H, Potassium 3.0 L D, Chloride 113 H, Carbon Dioxide 31 H, Anion Gap 9.0, BUN 30 H D, Creatinine 0.60 D, Estimated Creat Clear 41, Estimated GFR 96, Est GFR ( Amer) 116 D, Glucose 98 D, Calcium 8.4, Phosphorus 2.4 L, Magnesium 2.2 D, Total Bilirubin 0.4, AST 26, ALT 16 D, Alkaline Phosphatase 61, Total Protein 5.2 L, Albumin 2.9 L D, Globulin 2.3, Albumin/Globulin Ratio 1.3 I & O for Labs for Last 24 Hours: Intake & Output 09/23/24 09/24/24 09/25/2407/25 23:59 23:59 23:59 23:59 Intake Total 770 / 770 Output Total 500 / 500 160 / 160 Balance -500 / -350 610 / 610 Weight 59.194 kg 59.196 kg Constitutional: Present mild distress, thin, chronically ill appearing, disheveled and cooperative Head: Present atraumatic ENT: Present normal exam Comment:: 3 mm scab tip of nose. Bruise left mandaeism, present on admission Respiratory: Present normal respiratory effort; Absent respiratory distress, stridor, wheezes or crackles Cardiac: Present Reg Rate and Rhythm GI: Present soft, distention, tenderness and hypoactive bowel sounds; Absent guarding or rebound Comments:: Abdominal wall hernia present. Stable. Reducible Comment:: Thin extremities. No edema. Skin: Present intact; Absent erythema Comment:: Stage II sacral decub proximal gluteal cleft approximately dime size Neuro: Present alert and awake Comment:: Oriented to self, answer simple questions; functional quadriplegia, bedbound with contractures in legs and arms, leans to the left chronically Assessment and Plan *Assessment and plan (1) Sepsis: Status: Acute Category: Medical Code(s): A41.9 - Sepsis, unspecified organism (2) Abdominal pain: Status: Inactive Qualifiers: Abdominal location: left lower quadrant Qualified Code(s): R10.32 - Left lower quadrant pain Category: Medical Code(s): R10.9 - Unspecified abdominal pain (3) Acute hypernatremia: Status: Acute Category: Medical Code(s): E87.0 - Hyperosmolality and hypernatremia (4) Pulmonary embolism: Status: Acute Category: Medical Code(s): I26.99 - Other pulmonary embolism without acute cor pulmonale (5) Umbilical hernia without obstruction or gangrene: Status: Acute Category: Medical Code(s): K42.9 - Umbilical hernia without obstruction or gangrene (6) Bipolar 1 disorder: Status: Chronic Category: Medical Code(s): F31.9 - Bipolar disorder, unspecified (7) Schizoaffective disorder: Status: Chronic Qualifiers: Schizoaffective disorder type: bipolar Qualified Code(s): F25.0 - Schizoaffective disorder, bipolar type Category: Medical Code(s): F25.9 - Schizoaffective disorder, unspecified (8) Sacral decubitus ulcer, stage II: Status: Acute Category: Medical Code(s): L89.152 - Pressure ulcer of sacral region, stage 2 (9) COPD (chronic obstructive pulmonary disease): Status: Acute Qualifiers: COPD type: unspecified COPD Qualified Code(s): J44.9 - Chronic obstructive pulmonary disease, unspecified Category: Medical Code(s): J44.9 - Chronic obstructive pulmonary disease, unspecified (10) Chronic hypoxic respiratory failure: Status: Chronic Category: Medical Code(s): J96.11 - Chronic respiratory failure with hypoxia (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 intake and decreased responsiveness. Workup in the ER found to meet sepsis criteria based on her vitals and white count and concern for possible urinary tract infection. Also has hypernatremia and new finding of PE. Discussed case with ER physician, request additional treatment of PE and sepsis. I decided to admit for further care. Showing some improvement clinically. Continues to require inpatient management. Continuing broad-spectrum antibiotics while awaiting cultures. Problems addressed as follows: Sepsis Acute hypernatremia - Presented with sepsis criteria of tachycardia, tachypnea, leukocytosis and suspected infection. - Urine suspicious with 5-10 white cells and trace bacteria. Obtained via catheter placement - Sodium improved 150, chloride 113, potassium 3.0, kidney function improving with BUN 30, creatinine 0.6. - Awaiting blood and urine cultures. - White count somewhat better at 12. Hemoglobin 12.5. repeat CBC, CMP, magnesium ordered morning - Continue Vanco and Zosyn. Zosyn 3.75 g every 6 hours scheduled IV, monitor kidney function closely for risk of toxicity PE Chronic hypoxic respiratory failure COPD -Chronic oxygen requirement 2 to 3 L. Stable. -PE on review of CT of chest and left upper lobe. Initiate Lovenox 1 mg/kg twice daily. Will transition to DOAC at discharge - Nicotine patch as needed. Unsure current smoking status but has smoked as recent as 6 months ago. Abdominal pain large umbilical hernia Cholelithiasis -CT imaging per my review of gallstones. Does have mild dilation of CBD but liver enzymes are normal. Review of chart shows serial images over the past year with gallstones present. No pericholecystic fluid. Chronic abdominal pain related to hernia. Patient would be a very complex surgical patient for intra-abdominal surgery. Has been evaluated on previous visits by her surgical team. Do not recommend surgical intervention at this time. Continue to medically manage her abdominal issues. - Initiate bowel regimen with docusate/senna twice daily and MiraLAX once today - Does have significant gaseous distention on imaging of her abdomen. Continue bowel regimen Thrush, present on admission, on Nystatin solution, PO QID History of bipolar disorder with a schizoaffective: Continue baclofen 10 mg p.o. as needed 3 times a day for spasm Continue Klonopin 1 mg 3 times a day Hold mirtazapine 30 mg night due to weakness and confusion I am recommending DNR CODE STATUS form is Paulina Escobar date of 1940 due to her comorbidities with functional quadriplegia, sepsis, chronic femur fracture, chronic cholelithiasis that is not amenable to operation, bipolar disorder. She is starting to develop pressure wound due to her immobility. Her chronic contractures would make it very difficult if not impossible to perform CPR or chest compressions. Therapeutic Lovenox Mechanical soft diet Pantoprazole 40 mg nightly
--- NOTE | 2024-09-26 12:29 | PC.NURSE ---
Assisted pt w/ food tray. Pt refused to eat meal and only took a few bites of her ice cream. Provided pt w/ other options including supplement shake, but pt still states no when asked if she would like anything other than what was brought to her to eat. Pt did drink 360 ml of water.
--- NOTE | 2024-09-26 12:58 | SW/DCPLANNER ---
Addendum entered by Hailey Wang RN 09/30/24 16:46: Patient discharged back to [facility] today. [facility]. Addendum entered by Hailey Wang RN 09/29/24 17:18: CM is working with Dr. Oh and Dr. Galvez for EOL care. Clinical and form faxed to [facility] this afternoon. I spoke with Pattie @ [facility] and patient is ok to return there when medically stable and we can continue to work on EOL care. Addendum entered by Janay Snow RN 09/26/24 16:01: Attempted to contact the guardian at number listed on file after verifying it was also the correct number with [facility]. Had to leave a voicemail. Addendum entered by Janay Snow RN 09/26/24 15:13: Recieved DNR status from [facility] and will placein patient's chart after notifying MD and nurse. Original Note: Patient is LTC at [facility] and a dixon of the [facility]. Working with them to change patient to DNR status.
[2024-09-26] MEDS: POLYETHYLENE GLYCOL 3350 17 GM PACKET PO (14:12)
--- OUTSIDE RECORDS SUMMARY | 2024-09-26 16:03 | XMS_ITS | Data Portability ---
Author Organization [facility] MAGGY Herron [place] [facility] Address [address] [place] [address] Assessment Encounter Date Assessment Date Assessment LastModified by Organization Details LastModified Time 02/20/2022 02/20/2022 Medical management of increased frequency of urination with trospium. She request evaluation by physical therapy and Occupational Therapy. [email or web address] Not available 02/20/2022 18:51:00 06/12/2022 06/12/2022 Medical management of increased frequency of urination with trospium. Follow up in 6 months. [email or web address] Not available 06/13/2022 08:04:46 Plan of Treatment [...] By Organization Details Last Modified Time 02/20/2022 [id number] learning about healthy weight [email or web address] Not available 02/20/2022 18:50:49 06/12/2022 [id number] learning about healthy weight [email or web address] Not available 06/16/2022 09:10:31 Reason for Referral None Reported. Medical Equipment None Reported. Allergies Allergen ID Allergen Name Allergen Category Reaction Reaction Severity Criticality Documentation Date Start Date Code Code System Note Provider Name and Address Organization Details Recorded Time 206111 aspirin medicatio n Not available Not available Not available 02/20/2022 1191 RxNorm Emiliana prabhakar [facility] 14:50:35 101557 codeine medicatio n Not available Not available Not available 02/20/2022 2670 [facility] 15:20:11 214422 ibuprofen medicatio n Not available Not available Not available 02/20/2022 5640 RxNorm Murelene Bebeto [facility] 2 15:21:01 971340 naproxen medicatio n Not available Not available Not available 02/20/2022 7258 Rx[facility] 15:21:09 955200 Product containin g glucocort icoid (product) medicatio n Not available Not available Not available 02/20/2022 34853 6006 SNOMED Murelene Bebeto [facility] 2 15:21:20 165621 Voltaren medicatio n Not available Not available Not available 02/20/202290229 6 RxNorm Murelene Bebeto [facility] 2 15:21:34 Medications Name Sig Start [...] Updated DateTime 06/12/2022 171.45 cm 19.8 kg/m2 48745.82 brodie Hopson Bebeto [facility] 06/12/2022 14:25:25 Date Recorded Body height Body mass index (BMI) Body weight Provider Name and Address Organization Details Last Updated DateTime 02/20/2022 171.45 cm 19.9 kg/m2 06535.7 brodie Hopson Bebeto [facility] 02/20/2022 14:50:01 Social History Question Answer Notes LastModified by Organizat ion Details LastModified Time Tobacco Smoking Status Current Every Day Smoker Taysam Oconnellt [facility] 02/20/2022 15:35:51 What Was The Date [...] Cholesterol Y Anesthesia Complications Y Heart Attack (MT) Y Heart Disease Y Gynecological HistoryNo gynecological history recorded. Obstetrics History GPAL:G 0 P 0 0 0 0 Past Encounters Encounter ID Performer Location Encounter Start Date Encounter Closed Date Diagnosis/Indication Diagnosis SNOMED-CT Code Diagnosis ICD10 Code Diagnosis Note [id number] AYANNA MACHADO MD [facility] [address] [place] [address] ,[place] [address] 02/20/2022 14:13:16 02/21/2022 13:45:25 Nocturia 759663010 R35.1 Increased frequency of urination 276749444 R35.0 Urge incon tinence of urine 05581654 N39.41 [id number] AYANNA MACHADO MD [facility] [address] [place] [address] ,[place] [address] 06/12/2022 13:56:35 06/14/2022 04:26:55 Increased frequency of urination 648254712 R35.0 Nocturia 458693531 R35.1 Urge incon tinence of urine 40504412 N39.41 Health Concerns Section Related Observation LastModified by Organization Detai ls LastModified Time None Recorded Concern Status LastModified by Organization Details LastModified Time None Recorded Advance Directives Directive None Recorded Payers Insurance Date Sequence Insurance Name Policy Number Policy Jennings Covered Member ID Jennings Member ID Guarantor Name 05/21/2022 1 [place] Paulina Escobar [id number] Paulina Escobar 05/21/2022 2 [place] [employer] [place] FFS/TRADITIO NAL Paulina Escobar [id number] Paulina Escobar Notes Date Note Type Note Provider Name and Address Organization Details Recorded Time 02/20/2022 text/html 81-year-old female in the office for my initial evaluation and for discussion of urinary incontinence. She takes myrbetriq and oxybutynin. She is a resident [facility] assisted living. She is wheel-chair bound. She has arthritis, restless legs syndrome. Daytime frequency hourly. Nocturia 5 times. She has urinary urgency with urge incontinence. No gross hematuria. No dysuria. Bothersome diarrhea. AYANNA MACHADO MD [address] [place] [address], [phone], [facility] 02/20/2022 18:51:13 06/12/2022 text/html 81-year-old female in the office for evaluation and for discussion of urinary incontinence. Trospium has improved her urinary symptoms. She wears adult diapers. She is a resident [facility] assisted living. She is wheel-chair bound. She has arthritis, restless legs syndrome. Daytime frequency every three hours, improved. Nocturia 4 times. She has improved urinary urgency with urge incontinence. No gross hematuria. No dysuria. AYANNA MACHADO MD [address] [place] [address], [phone], [facility] 06/13/2022 08:05:03 OBGyn Episode No OBEpisode recorded.
--- OUTSIDE RECORDS SUMMARY | 2024-09-26 16:03 | XMS_ITS | Clinical Summary ---
Author Organization [facility] Address [address] [place] [address] Phone Care Team Providers Care Commercial Driver'S License Driver Name Role Phone Unavailable Primary Care Provider [...]
--- OUTSIDE RECORDS SUMMARY | 2024-09-26 16:03 | XMS_ITS | Clinical Summary ---
Author Organization Healthcare Address [address] [id number] Care Team Providers Care Thrasher Feeder Name Role Phone Jose Schmidt MD Primary Care Provider [phone] Allergies No known active allergies Medications fluticasone [...] Department Care Team Description 08/05/2024 Telephone [facility] [address] [address] Dental, SurgeonMD 06/28/2024 2:30 PM EDT Evaluation [facility] [address] [address] Mata Johnson DDS Dental caries (Primary Dx) 06/28/2024 Abstract [facility] [address] [address] Dental, SurgeonMD 06/28/2024 Travel from [...] Full Mouth 1940 [facility]-Bone Density Scan 1940 [facility]-Medicare Annual Wellness (AWV) 1940 [facility]-Infant/Child/Adol SDOH Screenings 1940 [facility]- SDOH Screenings 1960 [facility]-Adult SDOH Screenings 1960 [facility]-Pneumococcal Vaccine: 50+ Years (1 of 1 - PCV) 1992 [facility]-Zoster Vaccines (1 of 2) 1992 [facility]-DTaP,Tdap,and Td Vaccines (1 - Tdap) 06/21/2009 06/20/2009 [facility]-RSV Vaccine: 60+ Years or (1 - 1-dose 75+ series) 2017 [facility]-Depression Screening 11/12/2022 11/12/2021 [id number] Vaccine (3 - 2024-25 season) 2023 05/01/2020, [...] Documents on File Type Date Recorded Patient [employer] D[employer] 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
--- OUTSIDE RECORDS SUMMARY | 2024-09-26 16:04 | XMS_ITS | Encounter Summary ---
Author Organization [facility] Address [address] [place] [address] Care Team Providers Care Medical Coder Name Role Phone Jose Schmidt MD Primary Care Provider [phone] Encounter Details Date Type Department Care Team (Late st Contact Info) Description 08/05/2024 Telephone [facility] [address] [phone] Dental, Surgeon, [address] [place] [address] Social History Tobacco Use Types Packs/Day [...] documented as of this encounter Care Teams Medical Coder Relationship Specialty Start Date End Date Jose Schmidt MD [address] [place] [address] PCP - General 11/12/21 documented as of this encounter
[2024-09-26 16:29] LABS: Anion Gap 9.1 mEq/L (5-15); Blood Urea Nitrogen 26 mg/dl (7-17); Calcium 7.5 mg/dl (8.4-10.2); Carbon Dioxide 31 mmol/L (22.0-30.0); Chloride 111 mmol/L (98-107); Creatinine Clearance Estimated 41 mL/min (50-200); Creatinine,Serum 0.60 mg/dl (0.52-1.04); Estimated Glomerular Filt Rate 96 ml/min (>60); GFR (African American) 116 ML/MIN (>60); Glucose 87 mg/dl (74-100); Potassium 3.1 mmoL/L (3.5-5.1); Sodium 148 mmol/L (136-145)
[2024-09-26] MEDS: D5W/0.45% NaCl w/40mEq KCl 1,000 ML 75 ML IV (16:49)
[2024-09-26] MEDS: LACTATED RINGERS 1000ML 1,000 ML 500 ML IV (17:19)
[2024-09-26 17:44] LABS: Hematocrit 37.0 % (37.0-47.0); Immature Granulocytes % 0.5 %; Mean Corpuscular HGB Conc 30.3 g/dL (31.8-35.4); Mean Corpuscular Hemoglobin 27.3 pg (27.0-31.2); Mean Corpuscular Volume 90.2 fl (81-99); Nucleated Red Blood Cells % 0 %; Platelet Count 195 K/mm3 (142-424); Red Blood Count 4.10 M/mm3 (4.20-5.40); Red Cell Distribution Width-SD 50.4 fL; White Blood Count 10.7 K/mm3 (4.8-10.8)
[2024-09-26 18:02] LABS: Alanine Aminotransferase 14 U/L (12-78); Albumin Level 2.7 g/dl (3.5-5.0); Albumin/Globulin Ratio 1.2 (1.1-1.8); Alkaline Phosphatase 55 U/L (38-126); Anion Gap 10.1 mEq/L (5-15); Aspartate Amino Transferase 24 U/L (14-36); Bilirubin,Total 0.4 mg/dl (0.2-1.3); Blood Urea Nitrogen 25 mg/dl (7-17); Calcium 7.5 mg/dl (8.4-10.2); Carbon Dioxide 31 mmol/L (22.0-30.0); Chloride 110 mmol/L (98-107); Creatinine Clearance Estimated 41 mL/min (50-200); Creatinine,Serum 0.60 mg/dl (0.52-1.04); Estimated Glomerular Filt Rate 96 ml/min (>60); GFR (African American) 116 ML/MIN (>60); Globulin 2.2 g/dL (1.3-3.2); Glucose 84 mg/dl (74-100); Potassium 3.1 mmoL/L (3.5-5.1); Sodium 148 mmol/L (136-145); Total Protein,Serum 4.9 g/dl (6.3-8.2)
[2024-09-26 18:08] LABS: Hemoglobin 11.2 g/dL (12.2-16.2)
[2024-09-26] MEDS: VANCOMYCIN/WATER FOR INJ (PEG) 1.25 GM/250 ML PIGGYBACK IV (18:44)
[2024-09-26] MEDS: PANTOPRAZOLE 40MG TABLET 40 MG PO (21:20)
[2024-09-26] MEDS: SENNOSIDES 8.6MG/DOCUSATE 50MG TABLET 1 TAB PO (21:20)
[2024-09-26] MEDS: MIRTAZAPINE 15 MG TABLET 30 MG PO (21:20)
[2024-09-27] VITALS: BP 80/50; PULSE 58; RESP 14; TEMP 37; O2SAT 96
[2024-09-27 04:00] VITALS: BP 99/53; PULSE 56; RESP 16; TEMP 36.8; O2SAT 95; BMI 20.9
--- NOTE | 2024-09-27 04:47 | PC.NURSE ---
Tech informed this RN that patient has had no output tonight in [place]. Abdomen slightly distended. Bladder scanned, 200ml. Readjusted patient and [place] cath, 300ml out in [place] immediately. Abdomen soft after urine.
[2024-09-27] MEDS: PIPERCILLIN/TAZO 3.375 GM in 0.9 % SODIUM CHLORIDE 50 ML IV ×4 (05:54→23:00)
[2024-09-27 06:05] LABS: Hematocrit 37.2 % (37.0-47.0); Hemoglobin 11.2 g/dL (12.2-16.2); Immature Granulocytes % 0.5 %; Mean Corpuscular HGB Conc 30.1 g/dL (31.8-35.4); Mean Corpuscular Hemoglobin 27.1 pg (27.0-31.2); Mean Corpuscular Volume 90.1 fl (81-99); Nucleated Red Blood Cells % 0 %; Platelet Count 196 K/mm3 (142-424); Red Blood Count 4.13 M/mm3 (4.20-5.40); Red Cell Distribution Width-SD 50.5 fL; White Blood Count 10.5 K/mm3 (4.8-10.8)
[2024-09-27 06:17] LABS: Alanine Aminotransferase 13 U/L (12-78); Albumin Level 2.7 g/dl (3.5-5.0); Albumin/Globulin Ratio 1.3 (1.1-1.8); Alkaline Phosphatase 54 U/L (38-126); Anion Gap 9.2 mEq/L (5-15); Aspartate Amino Transferase 23 U/L (14-36); Bilirubin,Total 0.4 mg/dl (0.2-1.3); Blood Urea Nitrogen 19 mg/dl (7-17); Calcium 8.0 mg/dl (8.4-10.2); Carbon Dioxide 29 mmol/L (22.0-30.0); Chloride 111 mmol/L (98-107); Creatinine Clearance Estimated 41 mL/min (50-200); Creatinine,Serum 0.50 mg/dl (0.52-1.04); Estimated Glomerular Filt Rate 118 ml/min (>60); GFR (African American) 143 ML/MIN (>60); Globulin 2.1 g/dL (1.3-3.2); Glucose 103 mg/dl (74-100); Magnesium 2.0 mg/dl (1.6-2.3); Potassium 3.2 mmoL/L (3.5-5.1); Sodium 146 mmol/L (136-145); Total Protein,Serum 4.8 g/dl (6.3-8.2)
--- NOTE | 2024-09-27 06:35 | PC.NURSE ---
Bp ran soft as reported at shift change. Pt was on 2LNC satting in 90's. Pt tolerated IV ABX. Pt alert to self only, Q2 turns. No acute events to report. plan of care ongoing.
[2024-09-27 07:00] LABS: Phosphorous 1.9 mg/dl (2.5-4.5)
[2024-09-27 08:00] VITALS: BP 108/72; PULSE 70; RESP 14; TEMP 37.1; O2SAT 95
--- NOTE | 2024-09-27 09:58 | HMH.OTEV ---
OT Inpatient Evaluation Rehab OT IP Evaluation Start: 09/26/24 15:38 Freq: ONCE Status: Active Protocol: Document 09/27/24 09:44 BRODY (Rec: 09/27/24 09:58 BRODY [id number]) Rehab OT IP Assessment Subjective History Ms. Escobar is an 83-year-old female who resides [facility]. Long history of osteoporosis, bipolar disorder, schizoaffective disorder, iron deficiency anemia, chronic contractures, functional quadriplegia, chronic femur fracture, COPD and pulmonary hypertension. She presented to the ER because of concern for worsening encephalopathy/altered mental status. Nursing facility reported that she has been less verbal, had poor p.o. intake. Normally she is conversant. According to EMS, she speaks some though is confused at baseline. History obtained from ER documentation and minimal from patient. Workup in the ER patient was found to be tachycardic, tachypnea, elevated white count. At this time being SIRS criteria . Workup with CTA of the chest showed PE in right upper lobe. Cultures obtained. Empiric antibiotics initiated. Medicine consulted for admission and further management of suspected sepsis. On arrival to the special care unit, patient is alert and interactive. Afebrile, O2 sats low 90s on 2 L. Reports she is eating less. States her mouth is sore due to thrush. States her last bowel movement was earlier today. Resident at [facility]. Dependent with all ADLs and fx'l mobility. Shama lift for transfers. L UE arm/hand contracture. Patient verbalize pain during L UE movement. Subjective Yeah. Patient is dependent with all ADLs and fx'l mobility. Patient appears to be at baseline with ADLs and fx'l mobility tasks. Patient to return to Sn[facility] after medical d/c. Objective Patient Orientation Name Right Upper WFL Extremity Gross ROM Left Upper Extremity WFL Gross ROM Shoulder ROM Contracture Limitations Elbow ROM Contracture Limitations Wrist Limitations of Contracture,Muscle Tone,Pain Range of Motion Bed Mobility bed mobility - rolling Assist Level Total/Dependent (100%) Assist Level Total/Dependent (100%) Rehab OT IP prob,goals,plan Problems Date of Evaluation: 09/27/24 Rehab Potential Rehab Potential Innapropriate for Skilled Therapy Discharge Plan OT Discharge Plan Patient is dependent with all ADLs and fx'l mobility. Patient appears to be at baseline with ADLs and fx'l mobility tasks. Patient to return to Snf after medical d/c. Eval Complexity Eval Charge Codes 22131 - Low Complexity PHYSICIAN CERTIFICATION: I certify the specified therapy services for Paulina Escobar are required, authorized, and reviewed every 30 days.
[2024-09-27] MEDS: NYSTATIN SUSP 500,000 UNITS/5ML UDC 500000 UNIT PO ×4 (09:59→20:36)
[2024-09-27] MEDS: SENNOSIDES 8.6MG/DOCUSATE 50MG TABLET 1 TAB PO ×2 (09:59→20:36)
[2024-09-27] MEDS: CLOPIDOGREL 75MG TAB 75 MG PO (09:59)
[2024-09-27 12:00] VITALS: BP 94/62; PULSE 70; PULSE 89; RESP 14; TEMP 37.5; O2SAT 97
[2024-09-27] MEDS: POTASSIUM CHLORIDE 20MEQ TAB 40 MEQ PO ×2 (14:29→18:20)
[2024-09-27] MEDS: ACETAMINOPHEN 325MG TAB 650 MG PO (14:52)
[2024-09-27 16:00] VITALS: BP 119/91; PULSE 80; PULSE 91; RESP 14; TEMP 37; O2SAT 98
[2024-09-27 20:00] VITALS: BP 95/63; PULSE 65; PULSE 67; RESP 18; TEMP 36.4; O2SAT 96
--- NOTE | 2024-09-27 20:13 | PC.NURSE ---
AGUILAR REMOVED AT 1230 PER MD ORDER.
--- NOTE | 2024-09-27 20:14 | PC.NURSE ---
PATIENT TURNED Q2, PILLOWS USED TO PROTECT SCOTT PROMINENCES, MEPILEX TO SACRUM, RIGHT HIP, AND HEELS INTACT.
[2024-09-27] MEDS: MIRTAZAPINE 15 MG TABLET 30 MG PO (20:36)
[2024-09-27] MEDS: PANTOPRAZOLE 40MG TABLET 40 MG PO (20:36)
--- NOTE | 2024-09-27 21:28 | P.PN_ITS ---
Subjective *Date: 09/27/24 *Time: 21:28 Interval history: Patient continues to have poor appetite. Minimally eating and drinking. Sodium improving, but depending on IV fluids. Exam Data for Last 24 hours Vital signs and Labs for Last 24 Hours: Temp Pulse Resp BP Pulse Ox O2 Del Method O2 Flow Rate 97.6 F 67 18 95/63 L 96 Nasal Cannula 2 09/27/24 20:00 09/27/24 20:00 09/27/24 20:00 09/27/24 20:00 09/27/24 20:00 09/27/24 20:49 09/27/24 20:49 Laboratory Results - last 24 hr 09/27/24 05:54: WBC 10.5, RBC 4.13 L, Hgb 11.2 L, Hct 37.2, MCV 90.1, MCH 27.1, MCHC 30.1 L, RDW 15.3, Plt Count 196, MPV 12.7 H, Neut % (Auto) 65.4, Lymph % (Auto) 22.5, Grayson % (Auto) 9.5 H, Eos % (Auto) 1.8, Baso % (Auto) 0.3, Neut # (Auto) 6.9, Lymph # (Auto) 2.4, Grayson # (Auto) 1.0, Eos # (Auto) 0.2, Baso # ( Auto) 0.0, Sodium 146 H, Potassium 3.2 L, Chloride 111 H, Carbon Dioxide 29, Anion Gap 9.2, BUN 19 H, Creatinine 0.50 L, Estimated Creat Clear 41, Estimated GFR 118, Est GFR ( Amer) 143 D, Glucose 103 H D, Calcium 8.0 L, Phosphorus 1.9 L, Magnesium 2.0, Total Bilirubin 0.4, AST 23, ALT 13, Alkaline Phosphatase 54, Total Protein 4.8 L, Albumin 2.7 L, Globulin 2.1, Albumin/Globulin Ratio 1.3 I & O for Last 24 hours: Intake & Output 09/24/24 09/25/24 09/26/24 09/27/24 23:59 23:59 23:59 23:59 Intake Total 1370 / 1370 700 / 700 Output Total 500 / 500 535 / 535 750 / 750 Balance -500 / -350 835 / 835 -50 / -50 Weight 59.194 kg 59.196 kg 59.196 kg Microbiology Reports for the Last 24 Hours: Microbiology 09/25/24 14:38 Blood Blood Culture - Preliminary NO GROWTH AFTER 48 HOURS 09/25/24 14:25 Blood Blood Culture - Preliminary NO GROWTH AFTER 48 HOURS Constitutional Constitutional: no acute distress, average body habitus, chronically ill appearing and cooperative *Routine HEENT Exam Head: Present normocephalic and atraumatic ENT: Present mucous membranes moist *Routine Neck Exam Neck: Present supple, full ROM and normal carotid upstroke; Absent JVD, carotid bruit or lymphadenopathy *Routine Respiratory Exam Respiratory: Present CTA bilaterally, normal respiratory effort, able to speak in complete sentences and symmetric chest movement *Routine Cardiovascular Exam Cardiovascular: Present RRR, Normal S1 and Normal S2; Absent murmur or gallop *Routine Abdominal Exam Abdominal: Present soft, normoactive bowel sounds and tenderness (non-focal, mild); Absent distended or organomegaly Comments: Umbilical hernia, no incarceration, soft and reducible. *Routine Rectal Exam Patient deferred: visual exam *Routine Exam Patient deferred: external exam *Routine Extremities Exam Extremities: Present full ROM, pulses intact and normal capillary refill; Absent cyanosis, clubbing or edema Comments: Sarcopenia, consistently lays on her left hip *Routine Skin Exam Skin: Present intact and warm; Absent erythema *Routine Neurological Exam Neurological: Present alert and moving all extremities; Absent altered mental status Routine Psychiatric Exam Psychiatric: Present normal affect and cooperative; Absent normal thought process or good insight Assessment and Plan *Assessment and plan (1) Sepsis: Status: Acute Category: Medical Code(s): A41.9 - Sepsis, unspecified organism (2) Abdominal pain: Status: Inactive Qualifiers: Abdominal location: left lower quadrant Qualified Code(s): R10.32 - Left lower quadrant pain Category: Medical Code(s): R10.9 - Unspecified abdominal pain (3) Acute hypernatremia: Status: Acute Category: Medical Code(s): E87.0 - Hyperosmolality and hypernatremia (4) Pulmonary embolism: Status: Acute Category: Medical Code(s): I26.99 - Other pulmonary embolism without acute cor pulmonale (5) Umbilical hernia without obstruction or gangrene: Status: Acute Category: Medical Code(s): K42.9 - Umbilical hernia without obstruction or gangrene (6) Bipolar 1 disorder: Status: Chronic Category: Medical Code(s): F31.9 - Bipolar disorder, unspecified (7) Schizoaffective disorder: Status: Chronic Qualifiers: Schizoaffective disorder type: bipolar Qualified Code(s): F25.0 - Schizoaffective disorder, bipolar type Category: Medical Code(s): F25.9 - Schizoaffective disorder, unspecified (8) Sacral decubitus ulcer, stage II: Status: Acute Category: Medical Code(s): L89.152 - Pressure ulcer of sacral region, stage 2 (9) COPD (chronic obstructive pulmonary disease): Status: Acute Qualifiers: COPD type: unspecified COPD Qualified Code(s): J44.9 - Chronic obstructive pulmonary disease, unspecified Category: Medical Code(s): J44.9 - Chronic obstructive pulmonary disease, unspecified (10) Chronic hypoxic respiratory failure: Status: Chronic Category: Medical Code(s): J96.11 - Chronic respiratory failure with hypoxia (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 intake and decreased responsiveness. Workup in the ER found to meet sepsis criteria based on her vitals and white count and concern for possible urinary tract infection. Also has hypernatremia and new finding of PE. Discussed case with ER physician, request additional treatment of PE and sepsis. I decided to admit for further care. Showing some improvement clinically. Continues to require inpatient management. Continuing broad- spectrum antibiotics while awaiting cultures. Problems addressed as follows: Sepsis Acute hypernatremia #Failure to thrive - Presented with sepsis criteria of tachycardia, tachypnea, leukocytosis and suspected infection. - Urine suspicious with 5-10 white cells and trace bacteria. Obtained via catheter placement - Initial sodium 152, improved to 146 today. ? However, patient continues to have very poor appetite, minimally eating and drinking. In addition, new PE along with failure to thrive suspicious for malignancy. However, rangel scan does not show evidence of this at this time. ? If patient does not show improvement in the coming days with appetite, we will need to consider hospice care discussions. - Follow-up urine culture. Blood cultures NGTD. ? Continue Zosyn, discontinued vancomycin. ? Continue 1/2 NS at 100 mm/h. Follow-up CMP, CBC in the morning. PE Chronic hypoxic respiratory failure COPD -Chronic oxygen requirement 2 to 3 L. Stable. -PE on review of CT of chest and left upper lobe. Continue Lovenox 1 mg/kg twice daily. Will transition to DOAC at discharge - Nicotine patch as needed. Unsure current smoking status but has smoked as recent as 6 months ago. large umbilical hernia Cholelithiasis -CT imaging per my review of gallstones. Does have mild dilation of CBD but liver enzymes are normal. Review of chart shows serial images over the past year with gallstones present. No pericholecystic fluid. Chronic abdominal pain related to hernia however does not complain of this currently. Patient would be a very complex surgical patient for intra-abdominal surgery. Has been evaluated on previous visits by her surgical team. Do not recommend surgical intervention at this time. Continue to medically manage her abdominal issues. - Initiate bowel regimen with docusate/senna twice daily and MiraLAX once today - Does have significant gaseous distention on imaging of her abdomen. Continue bowel regimen Thrush, present on admission, on Nystatin solution, PO QID History of bipolar disorder with a schizoaffective: Continue baclofen 10 mg p.o. as needed 3 times a day for spasm Continue Klonopin 1 mg 3 times a day Hold mirtazapine 30 mg night due to weakness and confusion I am recommending DNR CODE STATUS form is Paulina Escobar date of 1940 due to her comorbidities with functional quadriplegia, sepsis, chronic femur fracture, chronic cholelithiasis that is not amenable to operation, bipolar disorder. She is starting to develop pressure wound due to her immobility. Her chronic contractures would make it very difficult if not impossible to perform CPR or chest compressions. Therapeutic Lovenox Mechanical soft diet Pantoprazole 40 mg nightly
[2024-09-27] MEDS: SODIUM CHLORIDE 0.45 % 1,000 ML 100 ML IV (22:00)
[2024-09-27 22:33] LABS: Adenovirus,PCR Not Detected (NotDetected); Chlamydophila Pneumoniae, PCR Not Detected (NotDetected); Coronavirus 19, PCR Not Detected (NotDetected); Coronovirus HKU1,PCR Not Detected (NotDetected); Influenza A, PCR Not Detected (NotDetected); Influenza AH1, 2009 Not Detected (NotDetected); Influenza AH1, PCR Not Detected (NotDetected); Influenza AH3,PCR Not Detected (NotDetected); Influenza B, PCR Not Detected (NotDetected); Mycoplasma Pneumoniae, PCR Not Detected (NotDetected); Parainfluenza 1, PCR Not Detected (NotDetected); Parainfluenza 2, PCR Not Detected (NotDetected); Parainfluenza 3, PCR Not Detected (NotDetected); Parainfluenza 4, PCR Not Detected (NotDetected)
[2024-09-28] VITALS: BP 98/64; PULSE 64; PULSE 70; RESP 16; TEMP 36.6; O2SAT 95
[2024-09-28 04:00] VITALS: BP 92/72; PULSE 55; PULSE 64; RESP 16; TEMP 36.4; O2SAT 99; BMI 20.9
[2024-09-28] MEDS: PIPERCILLIN/TAZO 3.375 GM in 0.9 % SODIUM CHLORIDE 50 ML IV ×4 (05:00→23:34)
--- NOTE | 2024-09-28 06:26 | PC.NURSE ---
bp ran soft, other v/s stable, 2LNC satting in 90's, alert to self only-baseline. Q2 turns. No acute events to report. Plan of care ongoing.
[2024-09-28] MEDS: SODIUM CHLORIDE 0.45 % 1,000 ML 100 ML IV ×4 (06:33→23:34)
[2024-09-28 07:22] LABS: Alanine Aminotransferase 12 U/L (12-78); Albumin Level 2.4 g/dl (3.5-5.0); Albumin/Globulin Ratio 1.0 (1.1-1.8); Alkaline Phosphatase 55 U/L (38-126); Anion Gap 8.5 mEq/L (5-15); Aspartate Amino Transferase 23 U/L (14-36); Bilirubin,Total 0.4 mg/dl (0.2-1.3); Blood Urea Nitrogen 12 mg/dl (7-17); Calcium 8.1 mg/dl (8.4-10.2); Carbon Dioxide 29 mmol/L (22.0-30.0); Chloride 108 mmol/L (98-107); Creatinine Clearance Estimated 41 mL/min (50-200); Creatinine,Serum 0.40 mg/dl (0.52-1.04); Estimated Glomerular Filt Rate 153 ml/min (>60); GFR (African American) 185 ML/MIN (>60); Globulin 2.3 g/dL (1.3-3.2); Glucose 89 mg/dl (74-100); Magnesium 1.9 mg/dl (1.6-2.3); Potassium 3.5 mmoL/L (3.5-5.1); Sodium 142 mmol/L (136-145); Total Protein,Serum 4.7 g/dl (6.3-8.2)
[2024-09-28 08:00] VITALS: BP 89/63; PULSE 67; RESP 16; TEMP 36.9; O2SAT 96
[2024-09-28 08:11] LABS: Hematocrit 34.1 % (37.0-47.0); Hemoglobin 10.8 g/dL (12.2-16.2); Immature Granulocytes % 0.4 %; Mean Corpuscular HGB Conc 31.7 g/dL (31.8-35.4); Mean Corpuscular Hemoglobin 28.1 pg (27.0-31.2); Mean Corpuscular Volume 88.6 fl (81-99); Nucleated Red Blood Cells % 0 %; Platelet Count 176 K/mm3 (142-424); Red Blood Count 3.85 M/mm3 (4.20-5.40); Red Cell Distribution Width-SD 48.1 fL; White Blood Count 7.9 K/mm3 (4.8-10.8)
[2024-09-28 08:23] LABS: CA 19-9 <2 U/mL (0-35); CEA 4.0 ng/mL (0.0-4.7)
[2024-09-28] MEDS: CLOPIDOGREL 75MG TAB 75 MG PO (09:57)
[2024-09-28] MEDS: NYSTATIN SUSP 500,000 UNITS/5ML UDC 500000 UNIT PO ×4 (09:57→21:02)
[2024-09-28] MEDS: SENNOSIDES 8.6MG/DOCUSATE 50MG TABLET 1 TAB PO ×2 (09:57→21:01)
[2024-09-28 12:00] VITALS: BP 88/58; PULSE 60; PULSE 64; PULSE 80; RESP 17; TEMP 37.2; O2SAT 995
--- NOTE | 2024-09-28 12:45 | DIET.NUTRFU ---
Wound care note indicated stage 2 to coccyx. Completed nutritional assessment, intake is very poor. Supplements were added with meals. continue to encourage po intake. possible POC discussion, patient is awarded to state
--- NOTE | 2024-09-28 12:45 | EXP.PHA.PN ---
Subjective *Date: 09/28/24 *Time: 12:45 Medical Exam Vital signs and Labs for Last 24 Hours: Vital Signs Temp Pulse Pulse Resp BP Pulse Ox O2 Del Method 09/28/24 11:00 Nasal Cannula 09/28/24 08:39 Nasal Cannula 09/28/24 08:00 98.4 F 67 16 89/63 L 96 Nasal Cannula 09/28/24 08:00 96 Nasal Cannula 09/28/24 06:25 Nasal Cannula 09/28/24 05:00 Nasal Cannula 09/28/24 04:00 97.6 F 64 16 92/72 L 99 Nasal Cannula 09/28/24 04:00 55 L 09/28/24 03:00 Nasal Cannula 09/28/24 01:00 Nasal Cannula 09/28/24 00:00 97.9 F 64 16 98/64 L 95 Nasal Cannula 09/28/24 00:00 70 09/27/24 23:00 Nasal Cannula 09/27/24 20:49 Nasal Cannula 09/27/24 20:00 Nasal Cannula 09/27/24 20:00 65 09/27/24 20:00 97.6 F 67 18 95/63 L 96 Nasal Cannula 09/27/24 19:00 Nasal Cannula 09/27/24 16:00 98.6 F 91 H 14 119/91 H 98 Nasal Cannula 09/27/24 16:00 80 09/27/24 15:00 Nasal Cannula 09/27/24 13:00 Nasal Cannula O2 Flow Rate 09/28/24 11:00 2 09/28/24 08:39 2 09/28/24 08:00 2 09/28/24 08:00 2 09/28/24 06:25 2 09/28/24 05:00 2 09/28/24 04:00 3 09/28/24 04:00 09/28/24 03:00 2 09/28/24 01:00 2 09/28/24 00:00 3 09/28/24 00:00 09/27/24 23:00 2 09/27/24 20:49 2 09/27/24 20:00 2 09/27/24 20:00 09/27/24 20:00 3 09/27/24 19:00 2 09/27/24 16:00 2 09/27/24 16:00 09/27/24 15:00 09/27/24 13:00 2 Intake and Output 09/27/24 09/28/24 09/28/24 23:59 07:59 15:59 Intake Total 320 / 800 100 / 130 30 / 130 Output Total 0 / 0 Balance 320 / 50 100 / 130 30 / 130 Intake: Intake, Oral Amount 320 / 800 100 / 130 30 / 130 Output: Output, Urine Amount 0 / 0 Other: Number of Voids 1 Number of Unmeasured Voids 1 1 Number of Bowel Movements 1 Weight 59.19 kg Patient Weight 09/28/24 23:59 Weight 59.19 kg Laboratory Results - last 24 hr 09/27/24 05:54: Carcinoembryonic Ag 4.0, CA 19-9 Antigen <2 09/27/24 22:26: Chlamy pneumoniae PCR Not detected, Adenovirus (PCR) Not detected, B. pertussis DNA (PCR) Not detected, Coronavirus OC43 (PCR) Not detected, Coronavirus HKU1 (PCR) Not detected, Coronavirus 229E (PCR) Not detected, SARS-CoV-2 (PCR) Not detected, Coronavirus NL63 (PCR) Not detected, Human Metapneumovir PCR Not detected, Influenza A (H1) PCR Not detected, Influ A (H1N1/09) PCR Not detected, Influenza A (H3) PCR Not detected, Influenza Type A (PCR) Not detected, Influenza Type B (PCR) Not detected, M. pneumoniae (PCR) Not detected, Parainfluenza 1 (PCR) Not detected, Parainfluenza 2 (PCR) Not detected, Parainfluenza 3 (PCR) Not detected, Parainfluenza 4 (PCR) Not detected, RSV (PCR) Not detected, Entero/Rhino (PCR) Not detected 09/28/24 06:29: WBC 7.9, RBC 3.85 L, Hgb 10.8 L, Hct 34.1 L, MCV 88.6, MCH 28.1, MCHC 31.7 L, RDW 14.9, Plt Count 176, MPV 13.3 H, Neut % (Auto) 62.5, Lymph % (Auto) 24.6, [place] % (Auto) 10.1 H, Eos % (Auto) 2.0, Baso % (Auto) 0.4, Neut # (Auto) 5.0, Lymph # (Auto) 2.0, [place] # (Auto) 0.8, Eos # (Auto) 0.2, Baso # (Auto) 0.0, Sodium 142, Potassium 3.5, Chloride 108 H, Carbon Dioxide 29, Anion Gap 8.5, BUN 12 D, Creatinine 0.40 L, Estimated Creat Clear 41, Estimated GFR 153, Est GFR ( Amer) 185 D, Glucose 89, Calcium 8.1 L, Magnesium 1.9, Total Bilirubin 0.4, AST 23, ALT 12, Alkaline Phosphatase 55, Total Protein 4.7 L, Albumin 2.4 L D, Globulin 2.3, Albumin/Globulin Ratio 1.0 L I & O for Labs for Last 24 Hours: Intake & Output 09/25/24 09/26/24 09/27/24 09/28/24 23:59 23:59 23:59 23:59 Intake Total 1370 / 1370 700 / 800 130 / 130 Output Total 500 / 500 535 / 535 750 / 750 0 / 0 Balance -500 / -350 835 / 835 -50 / 50 130 / 130 Weight 59.194 kg 59.196 kg 59.196 kg 59.19 kg Microbiology Reports for the Last 24 Hours: Microbiology 09/25/24 15:46 Urine,Catheterized Urine Culture - Final No growth. 09/25/24 14:38 Blood Blood Culture - Preliminary NO GROWTH AFTER 48 HOURS 09/25/24 14:25 Blood Blood Culture - Preliminary NO GROWTH AFTER 48 HOURS The patient's infection will respond to the chosen ABx?: Yes Is the patient receiving the right drug, dose, and route?: Yes Could a more targeted ABx be ordered?: No (WBC WNL, HECTOR WANG MD CONTINUING AI. GRACE CX -)
[2024-09-28 16:00] VITALS: BP 111/46; PULSE 60; PULSE 66; RESP 16; TEMP 36.4; O2SAT 99
--- NOTE | 2024-09-28 19:18 | PC.NURSE ---
patient remained alert to self and situation throughout the shift, cognition improved intermittently. Patient was transferred to the chair and requested to watch her westerns for a few hours. patient does become agitated at times. bony prominences padded with foam dressings and pillows, optifoam dressing on sacrum. purewick in place and bed alarm on.
[2024-09-28 20:00] VITALS: BP 99/45; PULSE 67; PULSE 70; RESP 14; TEMP 36.4; O2SAT 98
[2024-09-28] MEDS: PANTOPRAZOLE 40MG TABLET 40 MG PO (21:01)
[2024-09-28] MEDS: MIRTAZAPINE 15 MG TABLET 30 MG PO (21:02)
--- NOTE | 2024-09-28 21:47 | PC.NURSE ---
patient is very resistive to care with q2h turns - refused first turn, attempted to refused but was educated on the benefits and then agreeable at this time - dsging on rhonda prominences and sacrum wounds.
--- NOTE | 2024-09-28 22:38 | P.PN_ITS ---
Subjective *Date: 10/09/24 *Time: 15:39 Interval history: Patient continues to be weak, minimally eating and drinking. Requiring IV fluids for treatment of hypernatremia. Unfortunately not sustainable for life. Given multiple comorbidities and evidence of failure to thrive, patient would benefit from hospice care. Exam Data for Last 24 hours Vital signs and Labs for Last 24 Hours: Temp Pulse Resp BP Pulse Ox O2 Del Method O2 Flow Rate 97.6 F 67 14 99/45 L 98 Nasal Cannula 2 09/28/24 20:00 09/28/24 20:00 09/28/24 20:00 09/28/24 20:00 09/28/24 20:00 09/28/24 21:00 09/28/24 21:00 Laboratory Results - last 24 hr 09/27/24 05:54: Carcinoembryonic Ag 4.0, CA 19-9 Antigen <2 09/27/24 22:26: Chlamy pneumoniae PCR Not detected, Adenovirus (PCR) Not detected, B. pertussis DNA (PCR) Not detected, Coronavirus OC43 (PCR) Not detected, Coronavirus HKU1 (PCR) Not detected, Coronavirus 229E (PCR) Not detected, SARS-CoV-2 (PCR) Not detected, Coronavirus NL63 (PCR) Not detected, Human Metapneumovir PCR Not detected, Influenza A (H1) PCR Not detected, Influ A (H1N1/09) PCR Not detected, Influenza A (H3) PCR Not detected, Influenza Type A (PCR) Not detected, Influenza Type B (PCR) Not detected, M. pneumoniae (PCR) Not detected, Parainfluenza 1 (PCR) Not detected, Parainfluenza 2 (PCR) Not detected, Parainfluenza 3 (PCR) Not detected, Parainfluenza 4 (PCR) Not detected, RSV (PCR) Not detected, Entero/Rhino (PCR) Not detected 09/28/24 06:29: WBC 7.9, RBC 3.85 L, Hgb 10.8 L, Hct 34.1 L, MCV 88.6, MCH 28.1, MCHC 31.7 L, RDW 14.9, Plt Count 176, MPV 13.3 H, Neut % (Auto) 62.5, Lymph % (Auto) 24.6, [place] % (Auto) 10.1 H, Eos % (Auto) 2.0, Baso % (Auto) 0.4, Neut # (Auto) 5.0, Lymph # (Auto) 2.0, [place] # (Auto) 0.8, Eos # (Auto) 0.2, Baso # (Auto) 0.0, Sodium 142, Potassium 3.5, Chloride 108 H, Carbon Dioxide 29, Anion Gap 8.5, BUN 12 D, Creatinine 0.40 L, Estimated Creat Clear 41, Estimated GFR 153, Est GFR ( Amer) 185 D, Glucose 89, Calcium 8.1 L, Magnesium 1.9, Total Bilirubin 0.4, AST 23, ALT 12, Alkaline Phosphatase 55, Total Protein 4.7 L, Albumin 2.4 L D, Globulin 2.3, Albumin/Globulin Ratio 1.0 L I & O for Last 24 hours: Intake & Output 09/25/24 09/26/24 09/27/24 09/28/24 23:59 23:59 23:59 23:59 Intake Total 1370 / 1370 700 / 800 1867 / 1867 Output Total 500 / 500 535 / 535 750 / 750 350 / 350 Balance -500 / -350 835 / 835 -50 / 50 1517 / 1517 Weight 59.194 kg 59.196 kg 59.196 kg 59.19 kg Microbiology Reports for the Last 24 Hours: Microbiology 09/25/24 15:46 Urine,Catheterized Urine Culture - Final No growth. Assessment and Plan *Assessment and plan (1) Sepsis: Status: Acute Category: Medical Code(s): A41.9 - Sepsis, unspecified organism (2) Acute hypernatremia: Status: Acute Category: Medical Code(s): E87.0 - Hyperosmolality and hypernatremia (3) Pulmonary embolism: Status: Acute Category: Medical Code(s): I26.99 - Other pulmonary embolism without acute cor pulmonale (4) Umbilical hernia without obstruction or gangrene: Status: Acute Category: Medical Code(s): K42.9 - Umbilical hernia without obstruction or gangrene (5) Bipolar 1 disorder: Status: Chronic Category: Medical Code(s): F31.9 - Bipolar disorder, unspecified (6) Schizoaffective disorder: Status: Chronic Qualifiers: Schizoaffective disorder type: bipolar Qualified Code(s): F25.0 - Schizoaffective disorder, bipolar type Category: Medical Code(s): F25.9 - Schizoaffective disorder, unspecified (7) Sacral decubitus ulcer, stage II: Status: Acute Category: Medical Code(s): L89.152 - Pressure ulcer of sacral region, stage 2 (8) COPD (chronic obstructive pulmonary disease): Status: Acute Qualifiers: COPD type: unspecified COPD Qualified Code(s): J44.9 - Chronic obstructive pulmonary disease, unspecified Category: Medical Code(s): J44.9 - Chronic obstructive pulmonary disease, unspecified (9) Chronic hypoxic respiratory failure: Status: Chronic Category: Medical Code(s): J96.11 - Chronic respiratory failure with hypoxia (10) Arthrogryposis: Status: Chronic Category: Medical Code(s): Q68.8 - Other specified congenital musculoskeletal deformities (11) Functional quadriplegia: Status: Chronic Category: Medical Code(s): R53.2 - Functional quadriplegia (12) Thrush, oral: Status: Acute Category: Medical Code(s): B37.0 - Candidal stomatitis Plan 83-year-old female with a PMHx of bipolar disorder, schizoaffective disorder, functional quadriplegia, COPD, chronic oxygen requirement, CAD, brought to the ER due to decreased p.o. intake and decreased responsiveness. Workup in the ER found to meet sepsis criteria based on her vitals and white count and concern for possible urinary tract infection. Also has hypernatremia and new finding of PE. Discussed case with ER physician, request additional treatment of PE and sepsis. I decided to admit for further care. Showing some improvement clinically. Continues to require inpatient management. Continuing broad- spectrum antibiotics while awaiting cultures. Problems addressed as follows: Sepsis Acute hypernatremia #Failure to thrive - Presented with sepsis criteria of tachycardia, tachypnea, leukocytosis and suspected infection. - Urine suspicious with 5-10 white cells and trace bacteria. Obtained via catheter placement - Initial sodium 152, improved to 142 today. ? However, patient continues to have very poor appetite, minimally eating and drinking. In addition, new PE along with failure to thrive suspicious for malignancy. However, rangel scan does not show evidence of this at this time. ? If patient does not show improvement in the coming days with appetite, we will need to consider hospice care discussions.case management assisting with this, and considering patient is a [facility] this may take some time. - Follow-up urine culture. Blood cultures NGTD. ? Continue Zosyn, discontinued vancomycin. ? Continue 1/2 NS at 100 ml/h. Follow-up CMP, CBC in the morning. PE Chronic hypoxic respiratory failure COPD -Chronic oxygen requirement 2 to 3 L. Stable. -PE on review of CT of chest and left upper lobe. Continue Lovenox 1 mg/kg twice daily. Will transition to DOAC at discharge - Nicotine patch as needed. Unsure current smoking status but has smoked as recent as 6 months ago. large umbilical hernia Cholelithiasis -CT imaging per my review of gallstones. Does have mild dilation of CBD but liver enzymes are normal. Review of chart shows serial images over the past year with gallstones present. No pericholecystic fluid. Chronic abdominal pain related to hernia however does not complain of this currently. Patient would be a very complex surgical patient for intra-abdominal surgery. Has been evaluated on previous visits by her surgical team. Do not recommend surgical intervention at this time. Continue to medically manage her abdominal issues. - Initiate bowel regimen with docusate/senna twice daily and MiraLAX once today - Does have significant gaseous distention on imaging of her abdomen. Continue bowel regimen Thrush, present on admission, on Nystatin solution, PO QID History of bipolar disorder with a schizoaffective: Continue baclofen 10 mg p.o. as needed 3 times a day for spasm Continue Klonopin 1 mg 3 times a day Hold mirtazapine 30 mg night due to weakness and confusion I am recommending DNR CODE STATUS form is Paulina Escobar date of 1940 due to her comorbidities with functional quadriplegia, sepsis, chronic femur fracture, chronic cholelithiasis that is not amenable to operation, bipolar disorder. She is starting to develop pressure wound due to her immobility. Her chronic contractures would make it very difficult if not impossible to perform CPR or chest compressions. Therapeutic Lovenox Mechanical soft diet Pantoprazole 40 mg nightly
[2024-09-29] VITALS: BP 101/42; PULSE 60; PULSE 61; RESP 18; TEMP 36.4; O2SAT 97
[2024-09-29 04:00] VITALS: BP 105/50; PULSE 60; PULSE 62; RESP 14; TEMP 36.9; O2SAT 100; BMI 22.5
[2024-09-29] MEDS: PIPERCILLIN/TAZO 3.375 GM in 0.9 % SODIUM CHLORIDE 50 ML IV ×3 (04:51→16:45)
--- NOTE | 2024-09-29 04:55 | PC.NURSE ---
Ice water passed, trash and linens emptied, bedside table cleaned.
[2024-09-29 08:00] VITALS: BP 90/75; PULSE 64; PULSE 70; RESP 18; TEMP 36.4; O2SAT 93
[2024-09-29 08:00] LABS: Hematocrit 32.5 % (37.0-47.0); Hemoglobin 10.3 g/dL (12.2-16.2); Immature Granulocytes % 1.0 %; Mean Corpuscular HGB Conc 31.7 g/dL (31.8-35.4); Mean Corpuscular Hemoglobin 27.8 pg (27.0-31.2); Mean Corpuscular Volume 87.6 fl (81-99); Nucleated Red Blood Cells % 0 %; Platelet Count 182 K/mm3 (142-424); Red Blood Count 3.71 M/mm3 (4.20-5.40); Red Cell Distribution Width-SD 47.5 fL; White Blood Count 7.0 K/mm3 (4.8-10.8)
[2024-09-29 08:03] LABS: Alanine Aminotransferase 12 U/L (12-78); Albumin Level 2.2 g/dl (3.5-5.0); Albumin/Globulin Ratio 1.0 (1.1-1.8); Alkaline Phosphatase 54 U/L (38-126); Anion Gap 8.6 mEq/L (5-15); Aspartate Amino Transferase 21 U/L (14-36); Bilirubin,Total 0.3 mg/dl (0.2-1.3); Blood Urea Nitrogen 4 mg/dl (7-17); Calcium 7.7 mg/dl (8.4-10.2); Carbon Dioxide 29 mmol/L (22.0-30.0); Chloride 107 mmol/L (98-107); Creatinine Clearance Estimated 44 mL/min (50-200); Creatinine,Serum 0.40 mg/dl (0.52-1.04); Estimated Glomerular Filt Rate 153 ml/min (>60); GFR (African American) 185 ML/MIN (>60); Globulin 2.1 g/dL (1.3-3.2); Glucose 88 mg/dl (74-100); Sodium 142 mmol/L (136-145); Total Protein,Serum 4.3 g/dl (6.3-8.2)
[2024-09-29 08:06] LABS: Potassium 2.6 mmoL/L (3.5-5.1)
[2024-09-29 08:32] LABS: Phosphorous 2.4 mg/dl (2.5-4.5)
[2024-09-29 09:21] LABS: Vitamin B12 775 pg/mL (239-931)
[2024-09-29] MEDS: CLOPIDOGREL 75MG TAB 75 MG PO (09:33)
[2024-09-29] MEDS: POTASSIUM CHLORIDE 20MEQ TAB 40 MEQ PO ×3 (09:33→16:45)
[2024-09-29] MEDS: SENNOSIDES 8.6MG/DOCUSATE 50MG TABLET 1 TAB PO ×2 (09:33→20:39)
[2024-09-29] MEDS: NYSTATIN SUSP 500,000 UNITS/5ML UDC 500000 UNIT PO ×4 (09:34→20:39)
[2024-09-29 09:40] LABS: Folate > 20.00 ng/mL
[2024-09-29 12:00] VITALS: BP 144/56; PULSE 69; PULSE 70; RESP 16; O2SAT 99
[2024-09-29] MEDS: SODIUM CHLORIDE 0.45 % 1,000 ML 100 ML IV (14:56)
--- NOTE | 2024-09-29 15:52 | DIET.NUTRFU ---
Provider reviewing POC, patient [place] and she is unable to make discussions. Her meal intake has slightly improved to 25% over last day. Still not meeting nutritional needs, at risk for weight loss. Now also meets criteria for severe protein malnutrition- notified provider. Provider is seeking hospice care, working with geriatric social worker on that. Will continue to encourage po intake, assist as needed and supplements ordered
[2024-09-29 16:00] VITALS: BP 113/78; PULSE 90; PULSE 92; RESP 16; O2SAT 95
--- NOTE | 2024-09-29 17:58 | PC.NURSE ---
PT IS RESTING IN BED. ALERT TO SELF ONLY. TURNED AND REPOSITIONED IN BED. 2 LARGE DARK/LOOSE BOWEL MOVEMENTS THIS SHIFT. LUNG SOUNDS DIMINISHED WITH SCATTERED RHONCHI. ABDOMEN SOFT/NON TENDER WITH ACTIVE BOWEL SOUNDS. PT CAN OCCASIONALLY BE RESISTIVE TO TAKING MEDS AND BEING REPOSITIONED IN BED. STAGE 2 NOTED TO COCCYX (DRESSING C/D/I). STAGE 2 NOTED TO LEFT ANKLE. BRUISING NOTED TO LEFT SIDE OF THE FACE. O2 SATURATION HAS MAINTAINED 93-96%. WILL CONTINUE TO MONITOR.
[2024-09-29 20:00] VITALS: BP 145/69; PULSE 70; PULSE 90; RESP 15; TEMP 36.7; O2SAT 95
[2024-09-29] MEDS: PANTOPRAZOLE 40MG TABLET 40 MG PO (20:39)
[2024-09-29] MEDS: MIRTAZAPINE 15 MG TABLET 30 MG PO (20:39)
--- NOTE | 2024-09-29 22:39 | EXP.PN ---
Subjective *Date: 09/29/24 *Time: 22:39 Exam Data for Last 24 hours Vital signs and Labs for Last 24 Hours: Temp Pulse Resp BP Pulse Ox O2 Del Method O2 Flow Rate 98.0 F 70 15 145/69 H 95 Nasal Cannula 2 09/29/24 20:00 09/29/24 20:00 09/29/24 20:00 09/29/24 20:00 09/29/24 20:00 09/29/24 21:00 09/29/24 21:00 Laboratory Results - last 24 hr 09/29/24 06:37: WBC 7.0, RBC 3.71 L, Hgb 10.3 L, Hct 32.5 L, MCV 87.6, MCH 27.8, MCHC 31.7 L, RDW 14.9, Plt Count 182, MPV 13.8 H, Neut % (Auto) 57.3, Lymph % (Auto) 27.4, [place] % (Auto) 11.0 H, Eos % (Auto) 2.9, Baso % (Auto) 0.4, Neut # (Auto) 4.0, Lymph # (Auto) 1.9, [place] # (Auto) 0.8, Eos # (Auto) 0.2, Baso # (Auto) 0.0, Sodium 142, Potassium 2.6 L* D, Chloride 107, Carbon Dioxide 29, Anion Gap 8.6, BUN 4 L D, Creatinine 0.40 L, Estimated Creat Clear 44, Estimated GFR 153, Est GFR ( Amer) 185, Glucose 88, Calcium 7.7 L, Phosphorus 2.4 L D, Total Bilirubin 0.3, AST 21, ALT 12, Alkaline Phosphatase 54, Total Protein 4.3 L, Albumin 2.2 L, Globulin 2.1, Albumin/Globulin Ratio 1.0 L, Vitamin B12 775, Folate > 20.00 I & O for Last 24 hours: Intake & Output 09/26/24 09/27/24 09/28/24 09/29/24 23:59 23:59 23:59 23:59 Intake Total 1370 / 1370 700 / 800 1866 / 2036 Output Total 535 / 535 750 / 750 350 / 600 600 / 600 Balance 835 / 835 -50 / 50 1517 / 1437 1453 / 1453 Weight 59.196 kg 59.196 kg 59.19 kg 63.588 kg Microbiology Reports for the Last 24 Hours: Microbiology 09/25/24 14:38 Blood Blood Culture - Preliminary NO GROWTH AFTER 4 DAYS 09/25/24 14:25 Blood Blood Culture - Preliminary NO GROWTH AFTER 4 DAYS Constitutional Constitutional: no acute distress, average body habitus, chronically ill appearing and cooperative *Routine HEENT Exam Head: Present normocephalic and atraumatic ENT: Present mucous membranes moist *Routine Neck Exam Neck: Present supple, full ROM and normal carotid upstroke; Absent JVD, carotid bruit or lymphadenopathy *Routine Respiratory Exam Respiratory: Present CTA bilaterally, normal respiratory effort, able to speak in complete sentences and symmetric chest movement *Routine Cardiovascular Exam Cardiovascular: Present RRR, Normal S1 and Normal S2; Absent murmur or gallop *Routine Abdominal Exam Abdominal: Present soft, normoactive bowel sounds and tenderness (non-focal, mild); Absent distended or organomegaly Comments: Umbilical hernia, no incarceration, soft and reducible. *Routine Rectal Exam Patient deferred: visual exam *Routine Exam Patient deferred: external exam *Routine Extremities Exam Extremities: Present full ROM, pulses intact and normal capillary refill; Absent cyanosis, clubbing or edema Comments: Sarcopenia, consistently lays on her left hip *Routine Skin Exam Skin: Present intact and warm; Absent erythema *Routine Neurological Exam Neurological: Present alert and moving all extremities; Absent altered mental status Routine Psychiatric Exam Psychiatric: Present normal affect and cooperative; Absent normal thought process or good insight Assessment and Plan *Assessment and plan (1) Sepsis: Status: Acute Category: Medical Code(s): A41.9 - Sepsis, unspecified organism (2) Abdominal pain: Status: Inactive Qualifiers: Abdominal location: left lower quadrant Qualified Code(s): R10.32 - Left lower quadrant pain Category: Medical Code(s): R10.9 - Unspecified abdominal pain (3) Acute hypernatremia: Status: Acute Category: Medical Code(s): E87.0 - Hyperosmolality and hypernatremia (4) Pulmonary embolism: Status: Acute Category: Medical Code(s): I26.99 - Other pulmonary embolism without acute cor pulmonale (5) Umbilical hernia without obstruction or gangrene: Status: Acute Category: Medical Code(s): K42.9 - Umbilical hernia without obstruction or gangrene (6) Bipolar 1 disorder: Status: Chronic Category: Medical Code(s): F31.9 - Bipolar disorder, unspecified (7) Schizoaffective disorder: Status: Chronic Qualifiers: Schizoaffective disorder type: bipolar Qualified Code(s): F25.0 - Schizoaffective disorder, bipolar type Category: Medical Code(s): F25.9 - Schizoaffective disorder, unspecified (8) Sacral decubitus ulcer, stage II: Status: Acute Category: Medical Code(s): L89.152 - Pressure ulcer of sacral region, stage 2 (9) COPD (chronic obstructive pulmonary disease): Status: Acute Qualifiers: COPD type: unspecified COPD Qualified Code(s): J44.9 - Chronic obstructive pulmonary disease, unspecified Category: Medical Code(s): J44.9 - Chronic obstructive pulmonary disease, unspecified (10) Chronic hypoxic respiratory failure: Status: Chronic Category: Medical Code(s): J96.11 - Chronic respiratory failure with hypoxia (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 intake and decreased responsiveness. Workup in the ER found to meet sepsis criteria based on her vitals and white count and concern for possible urinary tract infection. Also has hypernatremia and new finding of PE. Discussed case with ER physician, request additional treatment of PE and sepsis. I decided to admit for further care. Showing some improvement clinically. Continues to require inpatient management. Continuing broad-spectrum antibiotics while awaiting cultures. Problems addressed as follows: Sepsis Acute hypernatremia #Failure to thrive - Presented with sepsis criteria of tachycardia, tachypnea, leukocytosis and suspected infection. - Urine suspicious with 5-10 white cells and trace bacteria. Obtained via catheter placement - Initial sodium 152, improved to 142 today with 1/2 NS. Discontinued today. ? However, patient continues to have very poor appetite, minimally eating and drinking. In addition, new PE along with failure to thrive suspicious for malignancy. However, rangel scan does not show evidence of this at this time. ? 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 As such, hospice care recommendations have been sent to the [facility]. - Urine, blood cultures NGTD. ? Continue Zosyn, discontinued vancomycin. PE Chronic hypoxic respiratory failure COPD -Chronic oxygen requirement 2 to 3 L. Stable. -PE on review of CT of chest and left upper lobe. Continue Lovenox 1 mg/kg twice daily. Will transition to DOAC at discharge - Nicotine patch as needed. Unsure current smoking status but has smoked as recent as 6 months ago. large umbilical hernia Cholelithiasis -CT imaging per my review of gallstones. Does have mild dilation of CBD but liver enzymes are normal. Review of chart shows serial images over the past year with gallstones present. No pericholecystic fluid. Chronic abdominal pain related to hernia however does not complain of this currently. Patient would be a very complex surgical patient for intra-abdominal surgery. Has been evaluated on previous visits by her surgical team. Do not recommend surgical intervention at this time. Continue to medically manage her abdominal issues. - Initiate bowel regimen with docusate/senna twice daily and MiraLAX once today - Does have significant gaseous distention on imaging of her abdomen. Continue bowel regimen Thrush, present on admission, on Nystatin solution, PO QID History of bipolar disorder with a schizoaffective: Continue baclofen 10 mg p.o. as needed 3 times a day for spasm Continue Klonopin 1 mg 3 times a day Hold mirtazapine 30 mg night due to weakness and confusion I am recommending DNR CODE STATUS form is Paulina Escobar date of 1940 due to her comorbidities with functional quadriplegia, sepsis, chronic femur fracture, chronic cholelithiasis that is not amenable to operation, bipolar disorder. She is starting to develop pressure wound due to her immobility. Her chronic contractures would make it very difficult if not impossible to perform CPR or chest compressions. Therapeutic Lovenox Mechanical soft diet Pantoprazole 40 mg nightly
[2024-09-30] VITALS (7 sets, daily range): BP systolic 100–110; BP diastolic 48–78; PULSE 61–92; RESP 16–18; TEMP 36.6–37.3; O2SAT 94–97; BMI 22.1
[2024-09-30] MEDS: PIPERCILLIN/TAZO 3.375 GM in 0.9 % SODIUM CHLORIDE 50 ML IV ×3 (00:26→10:59)
--- NOTE | 2024-09-30 04:26 | PC.NURSE ---
patient has rested well tonight, remains on 2L NC. replaced sacrum dsg, several frequent liquid BM's that are black and tarry, no iron received today according to MAR - notified hospitalist and sent a occult stool to lab. patient is alert to name tonight and speaking inappropriately. turned q2h t/o shift.
[2024-09-30 04:41] LABS: Occult Blood,Stool Negative (Negative)
[2024-09-30] MEDS: CLOPIDOGREL 75MG TAB 75 MG PO (08:52)
[2024-09-30 09:42] LABS: Alanine Aminotransferase 17 U/L (12-78); Albumin Level 2.5 g/dl (3.5-5.0); Albumin/Globulin Ratio 1.1 (1.1-1.8); Alkaline Phosphatase 57 U/L (38-126); Anion Gap 8.8 mEq/L (5-15); Aspartate Amino Transferase 29 U/L (14-36); Bilirubin,Total 0.3 mg/dl (0.2-1.3); Blood Urea Nitrogen 4 mg/dl (7-17); Calcium 8.2 mg/dl (8.4-10.2); Carbon Dioxide 28 mmol/L (22.0-30.0); Chloride 106 mmol/L (98-107); Creatinine Clearance Estimated 44 mL/min (50-200); Creatinine,Serum 0.40 mg/dl (0.52-1.04); Estimated Glomerular Filt Rate 153 ml/min (>60); GFR (African American) 185 ML/MIN (>60); Globulin 2.2 g/dL (1.3-3.2); Glucose 117 mg/dl (74-100); Sodium 140 mmol/L (136-145); Total Protein,Serum 4.7 g/dl (6.3-8.2)
[2024-09-30 09:58] LABS: Potassium 2.8 mmoL/L (3.5-5.1)
[2024-09-30] MEDS: POTASSIUM CHLORIDE 20MEQ TAB 40 MEQ PO ×3 (10:59→21:28)
--- NOTE | 2024-09-30 14:43 | EXP.DC.SUM ---
General Admission date:: 09/25/24 HPI HPI HPI: Ms. Escobar is an 83-year-old female who resides [facility]. Long history of osteoporosis, bipolar disorder, schizoaffective disorder, iron deficiency anemia, chronic contractures, functional quadriplegia, chronic femur fracture, COPD and pulmonary hypertension. She presented to the ER because of concern for worsening encephalopathy/altered mental status. Nursing facility reported that she has been less verbal, had poor p.o. intake. Normally she is conversant. According to EMS, she speaks some though is confused at baseline. History obtained from ER documentation and minimal from patient. Workup in the ER patient was found to be tachycardic, tachypnea, elevated white count. At this time being SIRS criteria. Workup with CTA of the chest showed PE in right upper lobe. Cultures obtained. Empiric antibiotics initiated. Medicine consulted for admission and further management of suspected sepsis. On arrival to the special care unit, patient is alert and interactive. Afebrile, O2 sats low 90s on 2 L. Reports she is eating less. States her mouth is sore due to thrush. States her last bowel movement was earlier today Hospital Course Hospital Course Hospital Course: Paulina Escobar is a 83-year-old female with a medical history of bipolar disorder, schizoaffective disorder, functional quadriplegia, COPD, chronic oxygen requirement, CAD, brought to the ER due to decreased p.o. intake and decreased responsiveness. #Acute hypernatremia #Failure to thrive - Initial sodium 152, improved to 142 with IV fluids. In setting of poor oral intake that did not significantly improve throughout hospital course. ? Also thought to have UTI initially being sepsis criteria, however urine culture did not have growth. Treated with Zosyn, discontinued after urine culture resulted. ? Patient clinically improved very slightly, but continues to have very poor oral intake patient which will again exacerbated hypernatremia. ? Patient's oral intake is not compatible with fci life, and multiple comorbidities also inhibit adequate oral intake. As such, hospice care recommendations have been sent to the [facility]. ? Continue supportive care, encourage oral rehydration. PE Chronic hypoxic respiratory failure COPD - Chronic oxygen requirement 2 to 3 L. Stable. - PE on review of CT of chest and left upper lobe. Discharged with Eliquis 5 mg twice daily. Large umbilical hernia Cholelithiasis - CT imaging per my review of gallstones. Does have mild dilation of CBD but liver enzymes are normal. Review of chart shows serial images over the past year with gallstones present. No pericholecystic fluid. Chronic abdominal pain related to hernia however does not complain of this currently. Patient would be a very complex surgical patient for intra-abdominal surgery. Has been evaluated on previous visits by her surgical team. Do not recommend surgical intervention at this time. Continue to medically manage her abdominal issues. - Initiate bowel regimen with docusate/senna twice daily and MiraLAX once today #Severe calorie protein malnutrition - Nutrition consulted and provided recommendations, supplements. Thrush, present on admission, on Nystatin solution, PO QID History of bipolar disorder with a schizoaffective: Continue baclofen 10 mg p.o. as needed 3 times a day for spasm Continue Klonopin 0.5 mg 2 times a day Hold mirtazapine 30 mg night due to weakness and confusion Total time spent on discharge: 33 minutes on chart review, counseling, documentation, and direct care with patient. Exam Data for Last 24 hours Vital signs and Labs for Last 24 Hours: Temp Pulse Resp BP Pulse Ox O2 Del Method O2 Flow Rate 98.4 F 69 18 104/56 L 97 Nasal Cannula 2 09/30/24 12:00 09/30/24 12:00 09/30/24 12:00 09/30/24 12:00 09/30/24 12:00 09/30/24 12:00 09/30/24 12:00 Laboratory Results - last 24 hr 09/30/24 04:31: Stool Occult Blood Negative 09/30/24 09:14: Sodium 140, Potassium 2.8 L*, Chloride 106, Carbon Dioxide 28, Anion Gap 8.8, BUN 4 L, Creatinine 0.40 L, Estimated Creat Clear 44, Estimated GFR 153, Est GFR ( Amer) 185, Glucose 117 H, Calcium 8.2 L, Total Bilirubin 0.3, AST 29 D, ALT 17 D, Alkaline Phosphatase 57, Total Protein 4.7 L, Albumin 2.5 L D, Globulin 2.2, Albumin/Globulin Ratio 1.1 I & O for Last 24 hours: Intake & Output 09/27/24 09/28/24 09/29/24 09/30/24 23:59 23:59 23:59 23:59 Intake Total 700 / 800 1867 / 2037 2943 / 2993 550 / 550 Output Total 750 / 750 350 / 600 600 / 600 Balance -50 / 50 1517 / 1437 2343 / 2393 549 / 549 Weight 59.196 kg 59.19 kg 63.588 kg 62.596 kg Microbiology Reports for the Last 24 Hours: Microbiology 09/25/24 14:38 Blood Blood Culture - Final NO GROWTH AFTER 5 DAYS 09/25/24 14:25 Blood Blood Culture - Final NO GROWTH AFTER 5 DAYS Results Data Completed and Pending Labs on day of discharge: Labs from last 24 hours 09/30/24 09/30/24 09:14 04:31 Sodium 140 Potassium 2.8 L* Chloride 106 Carbon Dioxide 28 Anion Gap 8.8 BUN 4 L Creatinine 0.40 L Estimated Creat Clear 44 Estimated GFR 153 Est GFR ( Amer) 185 Glucose 117 H Calcium 8.2 L Total Bilirubin 0.3 AST 29 D ALT 17 D Alkaline Phosphatase 57 Total Protein 4.7 L Albumin 2.5 L D Globulin 2.2 Albumin/Globulin Ratio 1.1 Stool Occult Blood Negative DS: Diagnosis Discharge Diagnosis (1) Sepsis: Status: Acute Code(s): A41.9 - Sepsis, unspecified organism (2) Acute hypernatremia: Status: Acute Code(s): E87.0 - Hyperosmolality and hypernatremia (3) Pulmonary embolism: Status: Acute Code(s): I26.99 - Other pulmonary embolism without acute cor pulmonale (4) Umbilical hernia without obstruction or gangrene: Status: Acute Code(s): K42.9 - Umbilical hernia without obstruction or gangrene (5) Bipolar 1 disorder: Status: Chronic Code(s): F31.9 - Bipolar disorder, unspecified (6) Schizoaffective disorder: Status: Chronic Code(s): F25.9 - Schizoaffective disorder, unspecified Qualifiers: Schizoaffective disorder type: bipolar Qualified Code(s): F25.0 - Schizoaffective disorder, bipolar type (7) Sacral decubitus ulcer, stage II: Status: Acute Code(s): L89.152 - Pressure ulcer of sacral region, stage 2 (8) COPD (chronic obstructive pulmonary disease): Status: Acute Code(s): J44.9 - Chronic obstructive pulmonary disease, unspecified Qualifiers: COPD type: unspecified COPD Qualified Code(s): J44.9 - Chronic obstructive pulmonary disease, unspecified (9) Chronic hypoxic respiratory failure: Status: Chronic Code(s): J96.11 - Chronic respiratory failure with hypoxia (10) Arthrogryposis: Status: Chronic Code(s): Q68.8 - Other specified congenital musculoskeletal deformities (11) Functional quadriplegia: Status: Chronic Code(s): R53.2 - Functional quadriplegia (12) Thrush, oral: Status: Acute Code(s): B37.0 - Candidal stomatitis Meds Home Medications and Allergies Home Medications ?Medication ?Instructions ?Recorded ?Confirmed ?Type omega-3 fatty acids-fish oil 360 1 cap PO DAILY Supplement 10/14/17 09/26/24 History mg-1,200 mg capsule (Fish Oil) raloxifene 60 mg tablet (Evista) 60 mg PO DAILY 10/14/17 09/26/24 History trazodone 50 mg tablet 25 mg PO HS sleep 10/14/17 09/26/24 History clopidogrel 75 mg tablet (Plavix) 75 mg PO DAILY 01/08/22 09/26/24 History nitroglycerin 0.4 mg/hr 1 patch transdermal HS 12/10/22 09/26/24 History transdermal 24 hour patch (Nitro-Dur) acetaminophen 500 mg tablet 500 mg PO Q4HP PRN Mild Pain 03/13/23 09/26/24 History (Acetaminophen Extra Strength) (Scale Score 1-4) calcium citrate 200 mg PO BID 03/13/23 09/26/24 History ferrous sulfate 325 mg (65 mg 325 mg PO BID Supplement 03/13/23 09/26/24 History iron) tablet polyvinyl alcohol 1.4 % eye drops 1 drp Eye-Both TIDP PRN Dry Eyes 03/13/23 09/26/24 History baclofen 10 mg tablet 10 mg PO TIDP PRN Muscle Spasm 05/01/23 09/26/24 History cholecalciferol (vitamin D3) 25 25 mcg PO DAILY 05/01/23 09/26/24 History mcg (1,000 unit) tablet fluticasone propionate 50 1 spray intranasal DAILY PRN 05/01/23 09/26/24 History mcg/actuation nasal Allergy Symptoms spray,suspension multivitamin 1 tab PO DAILY 05/01/23 09/26/24 History ondansetron 4 mg disintegrating 4 mg PO Q4HP PRN Nausea And 05/01/23 09/26/24 History tablet Vomiting paliperidone palmitate 234 mg/1.5 1.5 mg IM MONTHLY 05/01/23 09/26/24 History mL intramuscular syringe (Invega Sustenna) peg 400-propylene glycol (PF) 0.4 1 drp Eye-Both BIDP PRN Dry Eyes 05/01/23 09/26/24 History %-0.3 % eye drops in a dropperette (Systane (PF)) lactulose 10 gram/15 mL oral 20 g (30 mL) PO BID PRN 10/13/23 09/26/24 Rx solution constipation #473 mL mirabegron 50 mg tablet,extended 50 mg PO DAILY #90 tabs 10/13/23 09/26/24 Rx release 24 hr (Myrbetriq) pantoprazole 20 mg tablet,delayed 20 mg PO DAILY 11/03/23 09/26/24 History release mirtazapine 30 mg tablet (Remeron) 30 mg PO HS 11/18/23 09/26/24 History acetaminophen 500 mg tablet 500 mg PO BID 03/01/24 09/26/24 History (Tylenol Extra Strength) cyanocobalamin (vitamin B-12) 1,000 mcg PO DAILY 03/01/24 09/26/24 History 1,000 mcg tablet potassium chloride 10 mEq 20 meq PO BID 03/01/24 09/26/24 History tablet,extended release spironolactone 25 mg tablet 25 mg PO DAILY #30 tabs 06/06/24 09/26/24 Rx (Aldactone) dextromethorphan-guaifenesin 10 10 ml PO Q4H PRN 07/20/24 09/04/24 History mg-200 mg/5 mL oral liquid aluminum hydrox-magnesium carb 95 30 ml PO Q4HP PRN Acid Reflux 09/26/24 09/26/24 History mg-358 mg/15 mL oral suspension clonazepam 1 mg tablet 1 mg PO BID #90 tabs 09/30/24 09/26/24 Rx New Prescriptions to Start Prescriptions: Allergies Allergy/AdvReac Type Severity Reaction Status Date / Time aspirin Allergy Unknown Verified 07/20/24 10:52 codeine Allergy Unknown Verified 07/20/24 10:52 Corticosteroids Allergy Unknown Verified 07/20/24 10:52 (Glucocorticoids) ibuprofen (From NeoProfen Allergy Unknown Verified 07/20/24 10:52 (ibuprofen lysn)(PF)) naproxen (From Flanax Allergy Unknown Verified 07/20/24 10:52 (naproxen)) diclofenac (From Voltaren) Allergy Verified 07/20/24 10:52 Discharge Plan Disposition Patient Disposition: Xfer SNF Condition: Fair Discharge Order Discharge Orders: Discharge Order (Routine); Ordered 09/30/24 Ordered By: Eliceo Oh Follow up Plan Prescriptions/Medication Reconciliation: Continued cyanocobalamin (vitamin B-12) 1,000 mcg tablet 1,000 mcg PO DAILY acetaminophen [Tylenol Extra Strength] 500 mg tablet 500 mg PO BID spironolactone [Aldactone] 25 mg tablet 25 mg PO DAILY Qty: 30 3RF potassium chloride 10 mEq tablet extended release 20 meq PO BID dextromethorphan-guaifenesin 10-200 mg/5 mL liquid 10 ml PO Q4H PRN mirtazapine [Remeron] 30 mg tablet 30 mg PO HS raloxifene [Evista] 60 mg tablet 60 mg PO DAILY trazodone 50 mg tablet 25 mg PO HS omega-3 fatty acids-fish oil [Fish Oil] 360-1,200 mg capsule 1 cap PO DAILY polyvinyl alcohol 1.4 % drops 1 drp Eye-Both TIDP PRN (Reason: Dry Eyes) acetaminophen [Acetaminophen Extra Strength] 500 mg tablet 500 mg PO Q4HP PRN (Reason: Mild Pain (Scale Score 1-4)) calcium citrate 200 mg (950 mg) tablet 200 mg PO BID ferrous sulfate 325 mg (65 mg iron) tablet 325 mg PO BID lactulose 10 gram/15 mL solution 20 g PO BID PRN (Reason: constipation) Qty: 473 11RF mirabegron [Myrbetriq] 50 mg tablet extended release 24 hr 50 mg PO DAILY Qty: 90 3RF pantoprazole 20 mg tablet,delayed release (DR/EC) 20 mg PO DAILY clopidogrel [Plavix] 75 mg tablet 75 mg PO DAILY nitroglycerin [Nitro-Dur] 0.4 mg/hr patch 24 hour 1 patch transdermal HS Rx Instructions: allow nitrate-free interval of approx. 10-12 hrs per 24-hour period cholecalciferol (vitamin D3) 25 mcg (1,000 unit) tablet 25 mcg PO DAILY multivitamin Tablet 1 tab PO DAILY Systane (PF) 0.4-0.3 % Dropperette 1 drp Eye-Both BIDP PRN (Reason: Dry Eyes) Invega Sustenna 234 mg/1.5 mL syringe 1.5 mg IM MONTHLY baclofen 10 mg Tablet 10 mg PO TIDP PRN (Reason: Muscle Spasm) ondansetron 4 mg Tablet,Disintegrating 4 mg PO Q4HP PRN (Reason: Nausea And Vomiting) fluticasone propionate 50 mcg/actuation [place],Suspension 1 spray INTRANASAL DAILY PRN (Reason: Allergy Symptoms) Rx Instructions: administer into each nostril aluminum hydrox-magnesium carb 95-358 mg/15 mL Suspension 30 ml PO Q4HP PRN (Reason: Acid Reflux) Changed clonazepam 1 mg tablet 1 mg PO BID Qty: 90 5RF Discontinued furosemide [Lasix] 20 mg tablet 20 mg PO DAILY Qty: 30 3RF Problem Reconciliation Problems Reviewed?: Yes Patient Discharge Instructions Patient Instructions: DI for Pulmonary Embolism, DI for Pressure Injuries, DI for Urinary Tract Infection (UTI), DI for Hypernatremia, DI for Sepsis -- Adult, Catheter-Associated Urinary Tract Infection, Stop Light COPD, Stop Light Infection Print Language: [place]itanian Providers Primary Care Provider: Provider,Referral Admit Provider: Pietro Galvez Attending Provider: Pietro Galvez
--- NOTE | 2024-09-30 16:03 | PC.NURSE ---
oxygen saturation 95% on room air at rest
[2024-09-30] MEDS: NYSTATIN SUSP 500,000 UNITS/5ML UDC 500000 UNIT PO (21:28)
[2024-09-30] MEDS: SENNOSIDES 8.6MG/DOCUSATE 50MG TABLET 1 TAB PO (21:28)
[2024-09-30] MEDS: MIRTAZAPINE 15 MG TABLET 30 MG PO (21:28)
[2024-09-30] MEDS: PANTOPRAZOLE 40MG TABLET 40 MG PO (21:28)
== END 2024-09-30 23:43 | DRG 640 ==
LOC: ER 17:25 → ICU 09-26 00:09 → 2ND 09-26 16:01
PROVIDERS: Emergency Medicine; Nurse Practitioner Family; Student in an Organized Health Care Education/Training Program; Admitting Provider Internal Medicine Adolescent Medicine; Emergency Provider Student in an Organized Health Care Education/Training Program; Visit Provider Internal Medicine Adolescent Medicine
DX: E87.0 Hyperosmolality and hypernatremia (principal); E43 Unspecified severe protein-calorie malnutrition; G93.41 Metabolic encephalopathy; I26.99 Other pulmonary embolism without acute cor pulmonale; R53.2 Functional quadriplegia; J96.11 Chronic respiratory failure with hypoxia; B37.0 Candidal stomatitis; K42.9 Umbilical hernia without obstruction or gangrene; F25.0 Schizoaffective disorder, bipolar type; L89.152 Pressure ulcer of sacral region, stage 2; J44.9 Chronic obstructive pulmonary disease, unspecified; I25.10 Atherosclerotic heart disease of native coronary artery without angina pectoris; R62.7 Adult failure to thrive; K80.20 Calculus of gallbladder without cholecystitis without obstruction; Q68.8 Other specified congenital musculoskeletal deformities; I45.10 Unspecified right bundle-branch block; I27.20 Pulmonary hypertension, unspecified; M81.0 Age-related osteoporosis without current pathological fracture; E86.0 Dehydration; D50.9 Iron deficiency anemia, unspecified; Z79.899 Other long term (current) drug therapy; Z79.02 Long term (current) use of antithrombotics/antiplatelets; Z88.6 Allergy status to analgesic agent; Z88.5 Allergy status to narcotic agent; Z88.8 Allergy status to other drugs, medicaments and biological substances; Z68.22 Body mass index [BMI] 22.0-22.9, adult
CPT/HCPCS: 36415; 51702; 70450; 70496; 70498; 71275; 72125; 74177; 80048; 80053; 81001; 82140; 82272; 82378; 82550; 82607; 82746; 82803; 83690; 83735; 84100; 84439; 84443; 84484; 85025; 85610; 85730; 86301; 87040; 87086; 87633; 87636; 93005; 97163; 97165; G0328; J0131; J1650; J2543; J3370; J3372; J3480; J7050; J7120; Q9967

== ENCOUNTER 2024-10-05 07:46 | Outpatient (CLI) | payer MEDICARE, MEDICAID, SELFPAY ==
--- OUTSIDE RECORDS SUMMARY | 2024-10-05 07:48 | XMS_ITS | Clinical Summary ---
Author Organization Healthcare Address 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 Clinic [address] [id number] Dental, Surgeon, from Last 3 Months Social History Tobacco [...] Bitewings 1942 Dental X-Ray: Full Mouth 1942 [facility]-Bone Density Scan 1942 [facility]-Medicare Annual Wellness (AWV) 1942 [facility]-Infant/Child/Adol SDOH Screenings 1942 [facility]- SDOH Screenings 1960 [facility]-Adult SDOH Screenings 1960 [facility]-Pneumococcal Vaccine: 50+ Years (1 of 1 - PCV) 1992 [facility]-Zoster Vaccines (1 of 2) 1992 [facility]-DTaP,Tdap,and Td Vaccines (1 - Tdap) 06/21/2009 06/20/2009 [facility]-RSV Vaccine: 60+ Years or (1 - 1-dose 75+ series) 2017 [facility]-Depression Screening 11/12/2022 11/12/2021 [id number] Vaccine (3 - season) 2023 05/01/2020, 04/10/2020 [facility]-Influenza Vaccine (#1) [...] patient's age to complete this topic [place] [address] [place] Advance Directives Documents on File Type Date Recorded 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
--- OUTSIDE RECORDS SUMMARY | 2024-10-05 07:48 | XMS_ITS | Clinical Summary ---
Author Organization [facility] Address [address] [place] [address] Phone Care Team Providers Care Student Services Advisor Name Role Phone Unavailable Primary Care Provider [...]
[2024-10-05 08:38] LABS: Anion Gap 13.2 mEq/L (5-15); Blood Urea Nitrogen 20 mg/dl (7-17); Calcium 8.6 mg/dl (8.4-10.2); Carbon Dioxide 27 mmol/L (22.0-30.0); Chloride 103 mmol/L (98-107); Creatinine,Serum 0.50 mg/dl (0.52-1.04); Estimated Glomerular Filt Rate 118 ml/min (>60); GFR (African American) 143 ML/MIN (>60); Glucose 75 mg/dl (74-100); Phosphorous 3.5 mg/dl (2.5-4.5); Potassium 4.2 mmoL/L (3.5-5.1); Sodium 139 mmol/L (136-145)
== END 2024-10-05 23:59 | disposition home or self-care (01) ==
PROVIDERS: PCP Nurse Practitioner Family; Visit Provider Nurse Practitioner Family
DX: E87.6 Hypokalemia (principal); E83.39 Other disorders of phosphorus metabolism
CPT/HCPCS: 36415; 80048; 84100